=== PATIENT | male | born 1945 | race Caucasian/White ===

== ENCOUNTER → 2017-06-21 09:20 | Outpatient (CLI) | payer OTHER, SELFPAY ==
[2017-06-21 11:18] LABS: ALB/GLOB Ratio 1.1 RATIO (0.9-2.4); AST(SGOT) 16 U/L (15-37); Alanine Aminotransfer ALT/SGPT 29 U/L (16-61); Albumin, Serum 3.9 g/dL (3.2-5.0); Alkaline Phosphatase 86 U/L (45-117); Anion Gap 8 (5-15); BUN 14 mg/dL (7-18); BUN/Creat Ratio 16.3 RATIO (10-20); Calcium,Total 8.7 mg/dL (8.5-10.1); Chloride 108 mmol/L (98-107); Cholesterol 101 mg/dL (200); Creatinine, Serum 0.86 mg/dL (0.70-1.30); EST Glomerular Filtration Rate 93 mL/min (>60); Est Glom Filt Rate - Afr Amer 112 mL/min (>60); Globulin 3.7 g/dL (2.2-4.2); Glucose 101 mg/dL (74-106); High Density Lipoprotein 43 mg/dL; Protein, Total 7.6 g/dL (6.4-8.2); Sodium Level 145 mmol/L (136-145); Triglycerides 63 mg/dL; Very Low Density Lipoprotein 13 mg/dL (5-40)
[2017-06-21 11:22] LABS: Hemoglobin A1c 7.5 % (4.2-6.3)
[2017-06-21 13:41] LABS: Hemoglobin 15.2 g/dl (13.0-16.5)
[2017-06-22 11:28] LABS: Vitamin D,25 Hydroxy 14.7 ng/mL (19.95-100.01)
== END ==
PROVIDERS: Family Provider Family Medicine; PCP Family Medicine; Visit Provider Family Medicine
DX: E11.9 Type 2 diabetes mellitus without complications (principal); I10 Essential (primary) hypertension; E78.4 Other hyperlipidemia; E55.9 Vitamin D deficiency, unspecified; Z79.899 Other long term (current) drug therapy
CPT/HCPCS: 36415; 80053; 80061; 82306; 83036; 85018

== ENCOUNTER → 2018-01-10 14:09 | Outpatient (CLI) | payer OTHER, SELFPAY ==
--- NOTE | 2018-01-10 08:00 | LES_PTH ---
PATIENT: ALEJANDRO LEONARD LOC: [facility] U#:[id number] AGE/SX: 79/M ROOM: RE01/10/[address]: Dr. Jonathan Dillon MD : 1945 BED: DIS: SPEC #: [id number] RECD: 01/10/18 12:03 STATUS: WILLIAM KYLE #: [id number] KAREN: 01/10/18 08:[address]: Jonathan Dillon DEPT: SURGICAL PATHOLOGY RECD BY: Aleksandra Meyers ENTERED: 01/10/18 15:06 SP TYPE: Lesion OTHR DR: Dr. Petar Finnegan MD Tissues: A - Skin of external ear, NOS B - Skin of forehead Procedures: Surgery Specimen Level IV HEADER OPERATION: Shave biopsy right ear; punch biopsy right brow PRE-OP DIAGNOSIS: Multiple skin lesions, uncertain neoplasm face TISSUE SUBMITTED: A ? Right ear, B ? Right brow MICROSCOPIC DIAGNOSIS A. 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 See comment. B. Skin lesion of right brow, biopsy: Solar elastosis. Demodex follicularis. AM:william 01/11/18 COMMENT A. The specimen is superficial. Complete excision of lesion is recommended for definitive classification. MICROSCOPIC DESCRIPTION Slides are reviewed. GROSS DESCRIPTION A - Received in fixative is one container labeled with the patient's name and designated right ear. The specimen consists of an irregular fragment of light hatch-white soft tissue measuring 0.6 x 0.2 x <0.1 cm. The specimen is totally submitted in one cassette. B - Received in fixative is one container labeled with the patient's name and designated right brow. The specimen consists of an irregular fragment of light hatch-white soft tissue measuring 0.2 x 0.1 x 0.1 cm. The specimen is totally submitted in one cassette. / AM:william 01/10/18 TC:0 CPT: 58660 x2
== END ==
PROVIDERS: Family Provider Family Medicine; PCP Family Medicine; Visit Provider Surgery
DX: C44.222 Squamous cell carcinoma of skin of right ear and external auricular canal (principal)
CPT/HCPCS: 88305

== ENCOUNTER 2018-12-26 08:43 | Day surgery (SDC) | payer OTHER, SELFPAY ==
[2018-11-28 09:41] VITALS: BMI 39.1
--- NOTE | 2018-11-28 10:09 | HP_ITS ---
Intake Vital Signs 11/28/18 Body Mass Index (BMI) 39.1 11/28/18 Height 5 ft 7 in 11/28/18 Weight: 238 lb 11/28/18 Body Mass Index (BMI) 37.3 11/28/18 Blood Pressure 130/78 H 11/28/18 Blood Pressure Location Rt brachial 11/28/18 Blood Pressure Position Sitting 11/28/18 Respiratory Rate 20 H 11/28/18 Pulse Rate 81 11/28/18 Pulse Source Monitor 11/28/18 Temperature 97.5 F L 11/28/18 Pulse Ox 89 11/28/18 Oxygen Delivery Method room air Intake Visit Reasons: C-Scope/Lesions on Face Order Packer Required: No Is patient in pain?: No Allergies No Known Allergies Allergy (Verified 11/28/18 09:39) Medications Lisinopril/Hydrochlorothiazide [Zestoretic 02/05.5 Tablet] 1 tab PO DAILY 09/29/13 [History Confirmed 11/28/18] aspirin 81 mg tablet,delayed release 81 mg PO QDAY 12/31/17 [History Confirmed 11/28/18] atorvastatin 20 mg tablet 20 mg PO QDAY 12/31/17 [History Confirmed 11/28/18] metformin 500 mg tablet 500 mg PO DAILY tab 11/28/18 [History Confirmed 11/28/18] FOR[facility]LY [facility] Medical History Skin lesion of face (Acute) History of arthritis (Acute) History of back problems (Acute) Sleep apnea (Acute) COPD (chronic obstructive pulmonary disease) (Chronic) diabetes (Acute) hypercholesterolemia (Acute) HTN (hypertension) (Chronic) Surgical History H/O colonoscopy (Acute) H/O esophagogastroduodenoscopy (Acute) H/O hemorrhoidectomy (Acute) S/P appendectomy (Acute) Family History Mother Breast cancer Father Heart disease Social History (Updated 11/28/18 @ 10:09 by Jonathan Dillon MD) Smoking Status: Former smoker alcohol intake: never substance use type: does not use HPI HPI HPI: ALEJANDRO LEONARD, is a 73 M who presents to the office today for HPI HPI Surgical H&P: Yes HPI: ALEJANDRO HORACIO, is a 73 M who presents to the office today for 2 separate issues. One is for consideration of a surveillance colonoscopy. One is for follow-up of her right ear helix skin lesion. The patient's previous colonoscopy was September 29, 2013. At that time a rectal polyp was removed. Fortunately final pathology is noted to be hyperplastic. He has not had a history of previous polyps prior to that. There is no family history of colon cancer. At the time of the colonoscopy it was recommended follow-up in 5 years. In the interim the patient has had progressive pulmonary dysfunction. He now has been placed on oxygen therapy. He also has episodes of what sounds like sleep apnea. He is being strongly encouraged to undergo sleep study with potential utilization of CPAP. His is desperately trying to get him to pursue that. He notes that he is abdominally overweight. BMI is 39. He has previously had a right ear punch biopsy further treated with electrocautery. The specimen was consistent with squamous cell carcinoma in situ. Upon repeat office visit the lesion seemingly had been completely ablated with no residual territory to know how to further resect. The patient was given instructions to return to the office if and when there was evidence of recurrent lesions so that repeat excision could be considered. He now notes that he has recurrence of the lesion and it is slightly tender. ROS General General: No weight change, appetite, fatigue, colon cancer, breast cancer or weakness HEENT HEENT: No difficulty swallowing, eye injury, eye surgery, swollen glands or hoarseness Endo Endocrine: Yes diabetes mellitus; no thyroid disease, thyroid cancer, Hair loss, heat intolerance or cold intolerance Skin Skin: No rash or changing moles Breast Breast: No left breast lump, right breast lump, nipple discharge, breast pain, abnormal mammogram, abnormal US or breast enlargement Musc Musculoskeletal: Yes back problems and arthritis; no rheumatoid arthritis, gout or joint pain Cardio Cardiovascular: No murmur, pacemaker, heart disease, atrial fibrillation, high blood pressure, heart attack, heart stent, palpitations, shortness of breat with exertion or chest pain Psych Psychiatric: No depression, anxiety or hearing voices Resp Respiratory: Yes shortness of breath, Yes sleep apnea, Yes cough, Yes COPD, No asthma, No emphysema, No wheezing Gastro Gastrointestinal: No abdominal pain, No nausea or vomiting, Yes diarrhea, No constipation, No blood in stool, No acid reflux, No hemorrhoids, No ulcers, No gallbladder problem, No black,tarry stools Steffen Hematologic: Yes blood thinners, No blood disorders, No bleeding, No anemia, No blood clots Neuro Neurologic: No system reviewed and no additional complaints, except as docu, No as per HPI, No abnormal walking, No abnormal hearing, No abnormal movements, No abnormal speech, No behavioral changes, No burning sensations, No confusion, No seizure-like activity, No unsteadiness, No dizziness, No localized weakness, No frequent falls, No headache(s), No lack of coordination, No loss of vision, No memory loss, Yes numbness, No other visual disturbances, No radiating pain, No restless legs, No sensory deficit, No fainting, Yes tingling, No tremor(s), No weakness, No other Exam HENMT Other: Right ear helix: Keratotic irregular 2 x 1 cm nondescript growth Chest Breast Palpation: No nipple discharge Resp Other: Notably increased anterior posterior diameter, coarse with scattered wheeze bilaterally, poor air excursion Cardio Rate: regular rate Rhythm: regular rhythm Heart Sounds: no murmurs GI Palpation: soft, no hepatosplenomegaly Assessment & Plan Problems 1. 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 Personal history of colonic polyps Z86.010 Plan The patient has a personal history of hyperplastic polyp of the rectum. This places him at lower risk. His pulmonary disease is significant. Rather than recommending a colonoscopy I would recommend a Cologuard test. The patient and are aware of these recommendations. We will also contact the patient's primary care physician Dr. Petar Finnegan. The patient has recurrence of his right ear helix skin lesion. This is now readily visible. I recommended the patient that an attempt at complete excision of this area be pursued. I have offered him under local anesthesia a wide resection of this area with split thickness skin grafting donor site right upper arm. I have discussed the technique, benefit, risks, alternatives. I have compared and contrasted our ability to pursue that locally versus referring him for Mohs surgery. He has had an opportunity to ask and have questions answered. He would like to stay locally if possible. Because of his pulmonary disease again I would anticipate performing this under pure local anesthesia. I have vigorously encouraged the patient to utilize his inhalers as they have been prescribed in preparation for his surgery. I appreciate the opportunity of assisting with his surgical care CC: Dr. Petar Dillon M.D., F.A.C.S. 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 There are no clinical changes since date of exam. We plan to proceed with excision and split-thickness skin grafting of his right external ear helix lesion today. His history and examination remained steady. He has no additional concerns or complaints.
[2018-12-26 09:02] VITALS: BP 137/72; PULSE 84; RESP 22; TEMP 36.7; O2SAT 95; BMI 39.1
--- NOTE | 2018-12-26 11:00 | LES_PTH ---
PATIENT: ALEJANDRO LEONARD LOC: [facility] [place] U#:[id number] AGE/SX: 73/M ROOM: RE12/26/[address]: Dr. Jonathan Dillon MD : 1945 BED: DIS: 12/26/2018 SPEC #: [id number] RECD: 12/26/18 13:02 STATUS: WILLIAM KYLE #: [id number] KAREN: 12/26/18 11:[address]: Jonathan Dillon DEPT: SURGICAL PATHOLOGY RECD BY: Alex Gonzales ENTERED: 12/26/18 13:55 SP TYPE: Lesion OTHR DR: Dr. Petar Finnegan MD Tissues: Skin of external ear, NOS Procedures: Surgery Specimen Level IV HEADER OPERATION: Wide excision right ear helix, skin cancer with split thickness PRE-OP DIAGNOSIS: Squamous cell carcinoma in situ TISSUE SUBMITTED: Right external ear helix, short suture - superior, long suture - lateral MICROSCOPIC DIAGNOSIS Right external ear helix lesion, excisional biopsy: Squamous cell carcinoma in situ, completely excised in the planes of sections examined. Solar elastosis. JERI:william 12/27/18 COMMENT Please make reference to previous specimen ([id number]) right ear lesion, biopsy with diagnosis of fragments of squamous cell carcinoma in situ. This case has been reviewed in consultation with Dr. Mcconnell who concurs with the above diagnosis. MICROSCOPIC DESCRIPTION Slides are reviewed. GROSS DESCRIPTION Received in fixative is one container labeled with the patient's name and designated right external ear helix, short suture - superior, long suture - lateral. The specimen consists of an ovoid to slightly irregular piece of hatch-white skin measuring 2 x 1.5 cm and up to 0.2 cm in thickness. The specimen is oriented by short suture - superior, long suture - lateral. The specimen is inked as follows: superior margin - blue, inferior margin - green, medial margin - black and lateral margin - yellow. The specimen is serially sectioned and submitted entirely in two cassettes as follows: 1 - superior and inferior margins, 2 - rest of the specimen. / SJ:william 12/26/18 TC:0 CPT: 98251
--- NOTE | 2018-12-26 11:01 | DCINST_ITS ---
Discharge Diet: Light diet - advance as tolerated - if you have questions about your diet instructions, please talk to you doctor. Discharge Activity: May Not Drive - for 1 week or while taking narcotic pain medicine., May Not Shower Call your doctor if your incision/area has: Continuous Slow Oozing, Sudden Inc reased Bleeding, Increased Pain/ Swelling, Increased Redness, Foul Smelling Discharge Call your doctor if you observe: Fever of 101 or Higher Suture Line Care: Avoid Pulling/Pushing Allergies/Adverse Reactions: Allergies No Known Allergies Allergy (Verified 11/28/18 09:39) Medications to take at Discharge Lisinopril/Hydrochlorothiazide [Zestoretic 20/12.5 Tablet] 1 tab PO DAILY 09/29/13 aspirin 81 mg tablet,delayed release 81 mg PO QDAY 12/31/17 atorvastatin 20 mg tablet 20 mg PO QDAY 12/31/17 metformin 500 mg tablet 500 mg PO DAILY tab 11/28/18 Budesonide/Formoterol 160/4.5 [Symbicort 160/4.5 Mcg Inhaler (SP)] 2 puff IN BID 12/26/18 Ipratropium/Albuterol Respimat [Combivent Respimat Inhal [place]] 2 puff IN PRN 12/26/18 Primary Care Physician: Petar Finnegan MD [Primary Care Provider] - Test Results: Test results from this visit will be discussed in further detail at your follow- up appointment, if applicable. Please Follow Up With: Jonathan Dillon MD - [phone] When: Call to make an appointment to be seen in about 6 days on Sunday
--- NOTE | 2018-12-26 12:04 | PCM.OPRPT ---
Problem List (1) Squamous cell carcinoma in situ Status: Acute Report of Operation Date of Procedure: 12/26/18 Pre-Operative Diagnosis: Squamous cell carcinoma in situ right external ear helix Post-Operative Diagnosis: Same Surgery/Procedure Performed:: Wide excision right external ear helix skin lesion with right upper arm donor site split thickness skin grafting. Nondescript skin lesion 2 x 1 cm with circular excision 2.5 x 1.5 cm Description of Surgical Findings:: Timeout and informed consent was obtained. 83-year-old gentleman was taken out from placement the table. Cottonball was placed in the right external ear canal the right ear and upper arm sterilely prepped draped with Betadine. 1% lidocaine mixed 50-50 with 0.5% Marcaine was used as local anesthetic. 25 cc was used. Local was instilled was brought into the right external ear helix. A approximately 2.5 x 1.5 cm excision was performed to completely excise a very nondescript remaining skin lesion. This was performed down to the ear cartilage. Pressure and electrocautery was used for hemostasis. A long suture was placed laterally and a short suture superiorly and the specimen was submitted. The right upper arm was anesthetized with the same solution. A split thickness skin was harvested with a harvester. Epinephrine soaked gauze was placed. The graft was then transported to the ear. Using multiple interrupted 6-0 nylon it was secured in place. Adaptic cottonball the posterior sutures of 2-0 silk placed. The arm was treated with an OpSite dressing Sponge and instrument and needle counts were reported to surgically correct. Blood loss minimal. He tolerated the procedure well and was taken back to his room in satisfactory condition without apparent complication. Specimen includes the skin lesion. Drains none. Blood loss minimal. Jonathan Dillon M.D., F.A.C.S. Type of Anesthesia:: Local
[2018-12-26 12:30] VITALS: BP 132/73; BP 137/72; PULSE 77; RESP 18; TEMP 36.7; O2SAT 90
== END 2018-12-26 12:44 | disposition home or self-care (01) ==
LOC: SDC 08:44 → AC 08:45
PROVIDERS: Family Provider Family Medicine; PCP Family Medicine; Referring Provider Surgery; Visit Provider Surgery
PROC: (CPT 11644; principal; 2018-12-26 10:50)
DX: D04.21 Carcinoma in situ of skin of right ear and external auricular canal (principal); L57.8 Other skin changes due to chronic exposure to nonionizing radiation; W89.9XXA Exposure to unspecified man-made visible and ultraviolet light, initial encounter; Y93.9 Activity, unspecified; Y92.9 Unspecified place or not applicable; Y99.9 Unspecified external cause status; J44.9 Chronic obstructive pulmonary disease, unspecified; E11.9 Type 2 diabetes mellitus without complications; I10 Essential (primary) hypertension; E78.00 Pure hypercholesterolemia, unspecified; G47.30 Sleep apnea, unspecified; M19.90 Unspecified osteoarthritis, unspecified site; E66.3 Overweight; Z68.39 Body mass index [BMI] 39.0-39.9, adult; Z79.82 Long term (current) use of aspirin; Z79.84 Long term (current) use of oral hypoglycemic drugs; Z79.899 Other long term (current) drug therapy; Z86.010 Personal history of colon polyps; Z87.891 Personal history of nicotine dependence
CPT/HCPCS: 11644; 15120; 88305

== ENCOUNTER 2020-01-14 21:16 | Inpatient (IN) | payer OTHER, MEDICARE, SELFPAY ==
[2020-01-14] VITALS (9 sets, daily range): BP systolic 113–146; BP diastolic 56–72; PULSE 107–122; RESP 12–36; TEMP 35.7–35.9; O2SAT 84–98; BMI 35.4
--- NOTE | 2020-01-14 21:37 | ED.DCSUM_ITS ---
History of Present Illness Chief Complaint: Shortness of Breath Informant: Patient, Family Narrative: 74-year-old male presenting with shortness of breath. Most of the history is given by his family member who states that he is typically supposed to wear oxygen at about 3 L for the last few years but does not wear it at home. He has been having worsening shortness of breath over the last couple of weeks. He has not had a fever or cough but has had increased confusion. Patient is slightly confused on examination but is alert to voice. Patient says he does not have any chest pain, abdominal pain, nausea, vomiting. Past Medical History - Allergies and Home Meds Allergies/Adverse Reactions: Allergies No Known Allergies Allergy (Verified 01/14/20 21:51) Past Medical History: - - COPD, hyperlipidemia, hypertension, diabetes Surgical History: noncontributory Lives: With Family Smoking Status: Former smoker Alcohol: None Drugs: None Review of Systems General: Denies: Chills, Fever Eyes: Denies: Visual changes - bilaterally, Diplopia ENT: Denies: Rhinorrhea, Sore throat Cardiovascular: Denies: Chest pain, Palpitations Respiratory: Reports: Dyspnea, Dyspnea on exertion. Denies: Cough Gastrointestinal: Denies: Abdominal pain, Nausea, Vomiting Genitourinary: Denies: Dysuria, Hematuria Musculoskeletal: Denies: Myalgias, Arthralgias Skin: Denies: Rash, Abscess Neurological: Denies: Headache, Weakness Physical Exam Vital Signs/Narrative: Vital Signs Temp Pulse Resp BP Pulse Ox 01/14/20 21:28 117 H 24 H 89 01/14/20 21:17 96.5 F L 122 H 36 H 146/67 H 84 General: Acute Distress - Hypoxic and tachypneic Head: Normocephalic, Atraumatic Eyes: Perrl, EOMI ENT: Dry mucous membranes Cardiovascular: Regular rhythm, Tachycardia Respiratory: Decreased Air Movement, - - Diminished breath sounds left upper and lower air mccoy Abdomen: Soft, Nontender Back: Nontender, Normal Inspection Extremities: Edema. Negative for: Tenderness Skin: Normal color, No rash Neurological: Alert - Oriented to self and month but not the year. No focal neurologic deficits. Diagnostic/Tx/Re-eval - EKG Initial EKG Interpretation: Sinus Tachycardia, RBBB - Medical Decision Making 74-year-old male with history of COPD presenting with shortness of breath which is been worsening over the last couple of weeks as well as severe worsening over the past couple of days. He supposed to be on home oxygen but does not wear this. Patient was brought in by EMS on 15 L of oxygen and is still hypoxic. He started on BiPAP. He initially is slightly confused but appears to be improving. Lab work shows a leukocytosis, lactic acid of 3. Tachycardic and hypoxic so I did do blood cultures and urine cultures. EKG is sinus rhythm without signs of ischemia. Troponin negative. BNP within normal limits. Chest x-ray shows large left-sided pleural effusion as well as possible infiltrates in the right lung. Patient was given Rocephin and azithromycin for community- acquired coverage. Patient was reevaluated again and states he feels much better and is much more clear headed. At this point I will keep him on BiPAP. I did discuss this with the hospitalist and he recommended admission to the ICU but did not think the patient needed 30 cc/kg of fluids. Impression: 1. Large left pleural effusion 2. Communicare pneumonia 3. Hypoxia 4. Medical noncompliance with home O2 5. Severe sepsis ED Disposition - Plan for ED Patient: Disposition: Acute Care Hospital [facility]
--- NOTE | 2020-01-14 21:38 | EKG12_ITS ---
Test Reason : CHEST PAIN Blood Pressure : / mmHG Vent. Rate : 122 BPM Atrial Rate : 122 BPM P-R Int : 136 ms QRS Dur : 126 ms QT Int : 340 ms P-R-T Axes : 015 102 011 degrees QTc Int : 484 ms Sinus tachycardia with Fusion complexes Right bundle branch block Abnormal ECG Confirmed by BOBBY BOTELLO, KESHAWN ([id number]), assignment desk editor CLIF VANCE ([id number]) on 01/20/2020 7:59:26 AM Referred By: SUSAN Confirmed By:QUYEN ROSALES MD
[2020-01-14] MEDS: MethylPREDNISolone 125 MG/2 ML Vial IV (21:53)
--- NOTE | 2020-01-14 22:10 | RAD_ITS ---
STUDY: X-RAY CHEST REASON FOR EXAM: Male, 74 years old. HX OF COPD WITH INCREASED SOB TODAY TECHNIQUE: Single frontal view of the chest. COMPARISON: None. FINDINGS: Right basilar and left upper lobe alveolar disease. Extensive left pleural fluid. Normal size heart. Normal mediastinum and arash. Normal visualized pulmonary arteries. Normal visualized aortic arch and descending thoracic aorta. Normal visualized thoracic spine. There is degenerative osteoarthritis of the bilateral shoulders. There is no demonstrated abnormality of the visualized soft tissue structures of the upper abdomen. RAD/Chest 1 View (Portable) IMPRESSION: Right basilar and left upper lobe alveolar disease. Extensive left pleural fluid. Electronically Signed: Oswald Mata MD at 22:23 EDT Tel , Service support ,
[2020-01-14 22:11] LABS: Absolute Lymphocyte Count 2.56 X10^3/uL (0.83-4.51); Absolute Neutrophil Count 12.2 X10^3/uL (2.0-7.7); Basophil# 0.04 X10^3/uL; Basophil% 0.3 % (0-1); Eosinophil# 0.11 X10^3/uL; Eosinophils% 0.7 % (0-5); Hematocrit 44.6 % (40-54); Hemoglobin 12.7 g/dL (13.0-16.5); Lymphocyte # 2.56 X10^3/ul (4.0); Lymphocyte % 16.5 % (19-41); Mean Corp Hgb Conc 28.5 g/dL (32-36); Mean Corpuscular Hgb 25.2 pg (27.0-32.0); Mean Corpuscular Volume 88.5 fL (80-94); Mean Platelet Vol. 10.9 fl (6.2-12.0); Monocyte# 0.52 X10^3/uL; Monocyte% 3.4 % (0-10); NRBC Flagged by Analyzer 0 % (0-5); Neutrophil # 12.16 X10^3/uL (2.7-7.7); Neutrophil % 78.5 % (47-70); POSITIVE MORPHOLOGY YES; Platelet Count 350 K/mm3 (150-450); RBC Distribution Width SD 67.5 fl (35.1-43.9); Red Blood Count 5.04 M/mm3 (4.6-6.2); White Blood Count 15.5 K/mm3 (4.4-11.0)
[2020-01-14 22:14] LABS: ALB/GLOB Ratio 0.6 RATIO (0.9-2.4); AST(SGOT) 32 U/L (15-37); Alanine Aminotransfer ALT/SGPT 34 U/L (16-61); Albumin, Serum 2.6 g/dL (3.2-5.0); Alkaline Phosphatase 139 U/L (45-117); Anion Gap 2 (5-15); BUN 20 mg/dL (7-18); Calcium,Total 8.8 mg/dL (8.5-10.1); Chloride 98 mmol/L (98-107); Creatinine, Serum 1.05 mg/dL (0.70-1.30); EST Glomerular Filtration Rate 73 mL/min (>60); Est Glom Filt Rate - Afr Amer 89 mL/min (>60); Estimated Creatinine Clearance 59.71 ml/min; Globulin 4.5 g/dL (2.2-4.2); Glucose 388 mg/dL (74-106); Potassium 4.3 mmol/L (3.5-5.1); Protein, Total 7.1 g/dL (6.4-8.2); Sodium Level 139 mmol/L (136-145)
[2020-01-14 22:15] LABS: International Normalized Ratio 1.1
[2020-01-14 22:16] LABS: Partial Thromboplast Time 24.7 Seconds (24.1-36.2)
--- NOTE | 2020-01-14 22:24 | ED.RN ---
LACTIC OF 3.0 REPORTED TO . VERBALIZES UNDERSTANDING
[2020-01-14 22:25] LABS: Differential Indicated SCAN CRITERIA MET
[2020-01-14 22:37] LABS: Anisocytosis 1+; Differential Comment SCANNED
[2020-01-14] MEDS: Ceftriaxone 1 GM/50 ML BAG IV (22:43)
--- NOTE | 2020-01-14 22:51 | HP.PCM_ITS ---
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 Associated with symptoms is confusion. History was taken for emergency department doctor as patient was on BiPAP and he was confused. However patient did deny fever or chills. He repo rts a productive cough. Reportedly patient is supposed to be wearing a 3 L oxygen per nasal cannula however he is noncompliant with it. Past Medical History Past Medical History (Chronic Problems): Chronic Problems (Last Reviewed 01/15/20 @ 03:[address] Deniz Fajardo MD) COPD exacerbation (Chronic) Squamous cell carcinoma in situ (Chronic) Skin lesion of face (Chronic) Medical History: Medical History (Last Reviewed 01/15/20 @ 03:[address] Deniz Fajardo MD) Personal history of colonic polyps (Acute) Z86.010 Squamous cell carcinoma in situ (Acute) D09.9 Skin lesion of face (Acute) L98.9 History of arthritis Z87.39 History of back problems Sleep apnea G47.30 diabetes hypercholesterolemia COPD (chronic obstructive pulmonary disease) J44.9 HTN (hypertension) I10 Allergies No Known Allergies Allergy (Verified 01/14/20 21:51) Home Medications: Ambulatory Orders Medication Instructions Recorded aspirin 81 mg tablet,delayed 81 mg PO QDAY 12/31/17 release atorvastatin 20 mg tablet 20 mg PO QDAY 12/31/17 metformin 500 mg tablet 1,000 mg PO DAILY tab 11/28/18 Budesonide/Formoterol 160/4.5 2 puff IN BID 12/26/18 [Symbicort 160/4.5 Mcg Inhaler (SP)] Ipratropium/Albuterol Respimat 2 puff IN Q4H PRN PRN 12/26/18 [Combivent Respimat Inhal [place]] Duloxetine HCl 30 mg PO DAILY 01/15/20 Furosemide [Lasix] 20 mg PO DAILY 01/15/20 Gabapentin [Neurontin] 600 mg PO TID 01/15/20 Glimepiride [Amaryl] 8 mg PO DAILY 01/15/20 Insulin Glargine [Lantus SoloStar 100 units SQ DAILY 01/15/20 Pen] Lisinopril [Zestril] 20 mg PO DAILY 01/15/20 Tramadol HCl [Ultram] 50 mg PO TID 01/15/20 Surgical History: Surgical History (Last Reviewed 01/15/20 @ 03:[address] Deniz Fajardo MD) H/O colonoscopy Z98.890 2013 H/O esophagogastroduodenoscopy Z98.890 2013 H/O hemorrhoidectomy Z98.890 S/P appendectomy Z90.49 s/p skin lesion removal right ear 12/30 with donor site rue Lives: With Family Smoking Status: Former smoker Alcohol: None Drugs: None - *Family History Maternal Family History: Family History (Last Reviewed 01/15/20 @ 03:[address] Deniz Fajardo MD) Mother Breast cancer Father Heart disease Review of Systems Unable to obtain accurate/complete ROS d/t: confusion VTE Information - Inpt Only VTE Present on Admission: No VTE Mechan Device Prophylaxis: None VTE Pharm Prophylaxis ordered?: Yes Patient Problems: Active and Suspected Problems (Last Reviewed 01/15/20 @ 03:[address] Deniz Fajardo MD) Severe sepsis (Acute) Pneumonia (Acute) - Physical Exam Vitals/I&O's: Vital Signs Temp Pulse Resp BP Pulse Ox 96.2 F L 117 H 22 H 113/56 L 93 01/14/20 22:05 01/14/20 22:05 01/14/20 22:05 01/14/20 22:05 01/14/20 22:05 Oxygen Flow Rate (L/min) 15 Oxygen Delivery Method Bi-pap Weight: 105.6 kg Body Mass Index (BMI) 35.4 General: Alert, Confused, Lethargic HEENT: Atraumatic, PERRLA, EOMI, Normocephalic Neck: Supple, No JVD, Negative Carotid Bruits Lungs: Rales, Tachypneic, Wheezes Cardiovascular: Normal S1, Normal S2, No murmurs, Tachycardic Abdomen: Bowel Sounds Present, Soft, Non Tender Extremities: No edema, Capillary Refill Less than 3 Seconds Skin: No rashes, No breakdown Musculoskeletal: No Tenderness to Palpation of Joints or Extremities Neurological: - - Confused Psych/Mental Status: Normal Affect, Appropriate Laboratory Results 01/14/20 21:25: WBC 15.5 H, RBC 5.04, Hgb 12.7 L, Hct 44.6, MCV 88.5, MCH 25.2 L , MCHC 28.5 L, RDW Std Deviation 67.5 H, RDW Coeff of [place] 21.0 H, Plt Count 350, MPV 10.9, Immature Gran % (Auto) 0.600, Neut % (Auto) 78.5 H, Lymph % (Auto) 16.5 L, Ashley % (Auto) 3.4, Eos % (Auto) 0.7, Baso % (Auto) 0.3, Absolute Neuts (auto) 12.2 H, Absolute Lymphs (auto) 2.56, Nucleated RBC % 0, Differential Comment SCANNED, Anisocytosis 1+ 01/14/20 21:25: PT 14.0, INR 1.1, APTT 24.7 01/14/20 21:25: Sodium 139, Potassium 4.3, Chloride 98, Carbon Dioxide 39.0 H, Anion Gap 2 L, BUN 20 H, Creatinine 1.05, Estim Creat Clear Calc 59.71, Est GFR (MDRD) Af Amer 89, Est GFR (MDRD) Non-Af 73, BUN/Creatinine Ratio 19.0, Glucose 388 H, Calcium 8.8, Total Bilirubin 0.30, AST 32, ALT 34, Alkaline Phosphatase 139 H, Total Protein 7.1, Albumin 2.6 L, Globulin 4.5 H, Albumin/Globulin Ratio 0.6 L 01/14/20 21:25: Lactic Acid 3.0 H* 01/14/20 21:25: B-Natriuretic Peptide 31.0 Current Medications Ceftriaxone Sodium (Rocephin) 1 gm in 50 mls @ 100 mls/hr IV X1 ONE Stop: 01/14/20 22:58 Last Admin: 01/14/20 22:43 Dose: 100 mls/hr Documented by: Azithromycin 500 mg/ Dextrose 255 mls @ 250 mls/hr IV X1 ONE Stop: 01/14/20 23:30 Assessment/Plan All Active Problems (Last Reviewed 01/15/20 @ 03:[address] Deinz Fajardo MD) Severe sepsis (Acute) Pneumonia (Acute) Personal history of colonic polyps (Acute) The patient is a 74 year old M with a significant history of COPD who presents emergency department with shortness of breath; with white out of his left long and with extremely elevated CO2. Acute on chronic hypercapnic respiratory failure Actual CXR image independently reviewed showed opacity of left lung. Received Solu-Medrol and breathing treatments at emergency department; and continued. Because of a probable mucous plug will add Mucinex.. Received azithromycin and ceftriaxone the emergency department. We will escalate antibiotics to vancomycin and Zosyn Admitted drinking intensive care unit. Placed on BiPAP at emergency department and continued. With worsening ABG; repeat. Monitor BMP and CBC Severe sepsis secondary to pneumonia Possible gram-negative or gram-positive. Patient with tachycardia; tachypnea; leukocytosis of 15,500 lactic acid of 3.0 Blood culture x2 was obtained emergency department; follow Urine culture was obtained; follow Respiratory Gram stain and culture pending Legionella antigen screen and Strep antigen ordered Diabetes mellitus with hyperglycemia Patient n.p.o. secondary to being on BiPAP. Hold home Amaryl and metformin. Basal insulin adjusted Accu-Chek every 4 hours with correction scale insulin ordered. Hypertension Blood pressure is now within goal Hold home p.o. blood pressure medications: Lisinopril PRN labetalol ordered. DVT prophylaxis Subcutaneous Lovenox Inpatient E&M: 48831 Init Hosp L3
[2020-01-14] MEDS: Albuterol 2.5 MG/3 ML VIAL.NEB. INHALATION (22:56)
[2020-01-14] MEDS: Ipratropium/Albuterol Sulfate 3 ML AMPUL.NEB INHALATION (22:56)
[2020-01-15] VITALS (55 sets, daily range): BP systolic 72–201; BP diastolic 49–110; PULSE 70–141; RESP 12–41; TEMP 35.8–37.3; O2SAT 87–99; BMI 35.9
[2020-01-15 00:38] LABS: Allen Test POS; Blood Gas Specimen Type ART; SITE R RADIAL
[2020-01-15 00:39] LABS: EPAP 16; FI02 100; IPAP 24; O2 Delivery Device Bi Pap; RR 12; Time Given 2205
[2020-01-15 00:40] LABS: Base Excess 11 mmol/L (-2 to +2); Bicarbonate 38.4 mmol/L (22-26); PO2 82 mmHG (75-100); SO2 92 % (95-99); Total Carbon Dioxide 41 mmol/L; pH 7.23 (7.35-7.45)
[2020-01-15 00:45] LABS: Allen Test POS; Blood Gas Specimen Type ART; EPAP 14; FI02 100; IPAP 26; O2 Delivery Device Bi Pap; RR 12; SITE R RADIAL
[2020-01-15 00:46] LABS: Base Excess 13 mmol/L (-2 to +2); Bicarbonate 40.4 mmol/L (22-26); PO2 96 mmHG (75-100); SO2 95 % (95-99); Time Given 9; Total Carbon Dioxide 43 mmol/L; pCO2 97.5 mmHg (35-45); pH 7.23 (7.35-7.45)
[2020-01-15 01:32] LABS: Bacteria 0 SEEN /hpf (None Seen); Color, Urine Yellow (Yellow); Glucose, Dipstick 1000 mg/dl (Normal); Ketone-Dipstick 5 mg/dl (Negative); Leukocyte Esterase-Dipstick Negative /ul (Negative); Mucous, Urine 0 SEEN /hpf (<or=2+); Nitrite-Dipstick Negative (Negative); Occult Blood-Urine 10 /ul (Negative); Protein-Dipstick 100 mg/dl (Negative); Specific Gravity, Urine 1.025 (1.002-1.030); Squamous Epithelial Cells - UA 0 SEEN /hpf (0-5); Urine Bilirubin Dipstick Negative (Negative); Urine Clarity Clear (Clear); Urine Urobilinogen Normal (Normal); White Blood Cells 0 SEEN /hpf (0-5)
[2020-01-15 01:38] LABS: Red Blood Cells-Urine 0-5 SEEN /hpf (0-5)
[2020-01-15 01:52] LABS: Reflex Lactate? Y
--- NOTE | 2020-01-15 01:55 | CPS ---
Critical value read to Dr. Figueroa (PaCO2: 92.0mmHg)
[2020-01-15] MEDS: Insulin Lispro 100 UNIT/ML INSULN.PEN SC ×6 (01:56→22:39)
--- NOTE | 2020-01-15 01:56 | CPS ---
Critical value read to Dr. Figueroa (PaCO2: 97.5mmHg)
[2020-01-15 02:01] LABS: Bedside Glucose 363 mg/dL (70-110)
[2020-01-15] MEDS: 0.9% Saline Lock 10 ML Syringe IV ×2 (02:46→04:14)
[2020-01-15 02:59] LABS: Lactic Acid 1.9 mmol/L (0.4-1.9)
--- NOTE | 2020-01-15 03:00 | NURSING ---
Dr. Fajardo at bedside for intubation. 0302 Etomidate 20mg given. [address] Fajardo attempted intubation several times with intermittent bagging. 0315 100mg Succs given. 0319 Anesthesia called by nursing supv. 0323 Dr. Abiola ORTEGA MD came into room to attempt intubation. 0324 10mg Etomidate given. [address] Culver successful on intubation. #7.5 24@lip. Positive color change and bilateral breath sounds.
[2020-01-15] MEDS: Etomidate 20 MG/10 ML Vial IV (03:02)
--- NOTE | 2020-01-15 03:07 | PCM.RX.CS ---
Consult Pharmacy has been consulted to manage selected antiobiotic: Vancomycin Type of Consult: New start Suspected Infection: Sepsis, Pneumonia Prior Doses of Antibiotics Received/Current Regimen: Medications Vancomycin HCl 1,250 mg/ (Sodium Chloride) 275 mls @ 167 mls/hr IV Q12H JUANITO Vancomycin HCl 2,000 mg/ (Sodium Chloride) 540 mls @ 250 mls/hr IV X1 ONE Stop: 01/15/20 04:39 Last Admin: 01/15/20 02:44 Dose: 250 mls/hr Labs: Sodium 139 mmol/L (136-145) 01/14/20 21:25 Potassium 4.3 mmol/L (3.5-5.1) 01/14/20 21:25 Chloride 98 mmol/L (98-107) 01/14/20 21:25 Carbon Dioxide 39.0 mmol/L (21.0-32.0) H 01/14/20 21:25 Anion Gap 2 (5-15) L 01/14/20 21:25 BUN 20 mg/dL (7-18) H 01/14/20 21:25 Creatinine 1.05 mg/dL (0.70-1.30) 01/14/20 21:25 Est GFR (MDRD) Af Amer 89 mL/min (>60) 01/14/20 21:25 Est GFR (MDRD) Non-Af 73 mL/min (>60) 01/14/20 21:25 BUN/Creatinine Ratio 19.0 RATIO (10-20) 01/14/20 21:25 Glucose 388 mg/dL (74-106) H 01/14/20 21:25 Microbiology: Microbiology 01/15/20 01:20 Urine Catheter - Catheter Streptococcus pneumoniae Antigen (M - Final 01/15/20 01:20 Urine Catheter - Catheter Legionella Antigen - Final Weight used for dosin.1 kg Estimated Creatinine Clearance: 59.7 Goal Trough: 15-20 mcg/mL Pharmacy Plan for Drug Dosing: Pharmacy Service will continue to monitor and adjust dosing as required. Follow-Up Labs: Trough Vancomycin Labs to be done on [date and time ordered]: 01/16/20 @1400
[2020-01-15] MEDS: Etomidate 20 MG/10 ML Vial 10 MG IV (03:24)
[2020-01-15] MEDS: Propofol 10MG/Ml 1,000 MG/100 ML Bottle 6.2 MG CONT INF (03:28)
--- NOTE | 2020-01-15 03:30 | RAD_ITS ---
STUDY: X-RAY CHEST REASON FOR EXAM: Male, 74 years old. Endotracheal and orogastric tube placement. TECHNIQUE: AP portable chest. COMPARISON: January 14, 2020. FINDINGS: Endotracheal tube tip at the level of the superior margin of the aortic arch, 3 cm above the racheal. Orogastric tube tip below left hemidiaphragm at least in the gastric fundus. Extensive left mid and lower lung airspace opacity not simply changed. Slightly improved aeration left lung apex. Right basilar airspace opacity unchanged. No pneumothorax. Normal size heart. Normal mediastinum and arash. Normal visualized pulmonary arteries. Normal visualized aortic arch and descending thoracic aorta. Osseous structures unchanged. There is no demonstrated abnormality of the visualized soft tissue structures of the upper abdomen. RAD/Chest 1 View (Portable) IMPRESSION: Support tubes in expected locations. No pneumothorax. Persistent extensive left mid and lower lung opacity representing a combination of pleural effusion, atelectasis and possible pneumonia. Mild improved aeration left upper lobe. Right basilar opacity unchanged. Electronically Signed: Eduardo Obando MD at 5:21 EDT , Service support ,
--- NOTE | 2020-01-15 03:36 | PCM.PN.BLA ---
Progress Note Unsuccessful intubation attempt. Back up was called. ED doc with aide of GlideScope intubated patient. Color change on monitor Stat Chest Xray ordered. Place on vent AC with propofol and fentanyl drip STROKE Vital Signs/Narrative: Vital Signs Temp Pulse Resp BP BP Pulse Ox 01/15/20 02:00 98.7 F 87 25 H 122/68 H 90 01/15/20 01:30 98.3 F 109 H 23 H 135/68 H 92 01/15/20 01:25 94 01/15/20 01:15 97.1 F L 112 H 20 H 162/87 H 95 01/15/20 01:00 109 H 15 134/75 H 98 01/15/20 00:57 107 H 01/15/20 00:50 108 H 17 99 01/15/20 00:37 111 H 41 H 139/64 H 97 01/15/20 00:05 96.4 F L 108 H 18 125/110 H 96 01/14/20 23:38 112 H 20 H 98
--- NOTE | 2020-01-15 03:36 | NURSING ---
0300: Preparing for intubation. Dr. Fajardo, Respiratory, RNs at [facility]. 0302: 20mg Etomidate given 0303: 100mg Succinylcholine given 0315: 100mg Succinycholine given 0319: Anesthesia/ED called to bedside 0323: Dr. Culver (ED) at bedside 0324: 10mg Etomidate given 0326: Anesthesia DrLisa arrival 0327: 7.5ET placed by Dr. Culver. 24@lip. B/L breath sounds present. Positive color change.
[2020-01-15] MEDS: Famotidine 200 MG/20 ML MDV 20 MG in 0.9% Normal Saline (Pres. free 8 ML 300 MG IV ×2 (04:14→10:11)
--- NOTE | 2020-01-15 04:31 | NURSING ---
Notified Maris of intubation. All questions answered.
[2020-01-15 05:21] LABS: Absolute Neutrophil Count 11.5 X10^3/uL (2.0-7.7); Basophil# 0.02 X10^3/uL; Basophil% 0.2 % (0-1); Hematocrit 39.1 % (40-54); Hemoglobin 11.2 g/dL (13.0-16.5); Lymphocyte % 7.1 % (19-41); Mean Corp Hgb Conc 28.6 g/dL (32-36); Mean Corpuscular Hgb 24.9 pg (27.0-32.0); Mean Corpuscular Volume 86.9 fL (80-94); Mean Platelet Vol. 10.1 fl (6.2-12.0); Monocyte# 0.23 X10^3/uL; Monocyte% 1.8 % (0-10); NRBC Flagged by Analyzer 0 % (0-5); Neutrophil # 11.53 X10^3/uL (2.7-7.7); Neutrophil % 90.4 % (47-70); POSITIVE MORPHOLOGY YES; Platelet Count 282 K/mm3 (150-450); RBC Distribution Width CV 20.9 % (11.6-14.6); RBC Distribution Width SD 66.3 fl (35.1-43.9); White Blood Count 12.7 K/mm3 (4.4-11.0)
[2020-01-15 05:42] LABS: Anion Gap -2 (5-15); BUN 23 mg/dL (7-18); BUN/Creat Ratio 22.5 RATIO (10-20); CPK Total, Creatine Kinase 35 U/L (39-308); Calcium,Total 8.2 mg/dL (8.5-10.1); Chloride 99 mmol/L (98-107); Creatinine, Serum 1.02 mg/dL (0.70-1.30); EST Glomerular Filtration Rate 76 mL/min (>60); Est Glom Filt Rate - Afr Amer 92 mL/min (>60); Glucose 310 mg/dL (74-106); Potassium 4.4 mmol/L (3.5-5.1); Sodium Level 141 mmol/L (136-145); Triglycerides 66 mg/dL
[2020-01-15 05:57] LABS: Differential Indicated SCAN CRITERIA MET
[2020-01-15 06:07] LABS: Differential Comment SCANNED
[2020-01-15 06:21] LABS: Bedside Glucose 308 mg/dL (70-110)
[2020-01-15] MEDS: Ipratropium/Albuterol Sulfate 3 ML AMPUL.NEB INHALATION ×4 (07:17→19:15)
[2020-01-15 07:43] LABS: Allen Test POS; Blood Gas Specimen Type ART; SITE R RADIAL
[2020-01-15 07:44] LABS: FI02 75; O2 Delivery Device Bi Pap; PEEP 10; PS 14; RR 12; Time Given 235
[2020-01-15 07:45] LABS: Base Excess 15 mmol/L (-2 to +2); Bicarbonate 41.6 mmol/L (22-26); PO2 60 mmHG (75-100); SO2 85 % (95-99); Total Carbon Dioxide 44 mmol/L; pCO2 87.9 mmHg (35-45); pH 7.28 (7.35-7.45)
[2020-01-15 07:50] LABS: Allen Test POS; Blood Gas Specimen Type ART; FI02 90; Mode A-C; O2 Delivery Device Vent; PEEP 5; RR 14; SITE R RADIAL; Time Given 710; Vt 500; pCO2 59.5 mmHg (35-45)
[2020-01-15 07:51] LABS: Base Excess 12 mmol/L (-2 to +2); Bicarbonate 36.9 mmol/L (22-26); PO2 62 mmHG (75-100); SO2 90 % (95-99); Total Carbon Dioxide 39 mmol/L
--- NOTE | 2020-01-15 08:38 | PCM.CON.CC ---
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 Patient reportedly is supposed to wear supplemental oxygen at home at 3 L, but has been noncompliant per family report. Patient had had worsening shortness of breath over the last couple of weeks, but did not report any fever or cough the family. Patient reportedly had some increased confusion and was brought in for evaluation. Patient reportedly had not complained of chest pain, abdominal pain, nausea or vomiting. No trauma had been reported to ER staff. In the ER, patient was noted to be significantly hypoxic despite 15 L of oxygen. Patient was started on BiPAP at very high settings with slightly improved confusion. Lab work showed a significant leukocytosis and elevated lactate at 3. Patient was also tachycardic. Chest x-ray was suggestive of a left-sided pleural effusion with possible right-sided infiltrate. Patient was started on Rocephin, azithromycin and admitted to the intensive care unit. Patient was not given a fluid bolus secondary to appropriate blood pressures. While in the intensive care unit, patient had an ABG showing continued acute on chronic combined respiratory failure. Decision was made to proceed with intubation. Patient was reportedly a very difficult intubation requiring a protracted course. Following intubation, ABG showed normalization of respiratory status. Patient has had some issues with hypotension associated with sedation. Patient unable to provide any review of systems secondary to intubated and sedated. Past Medical History Past Medical History (Chronic Problems): Chronic Problems (Last Reviewed 01/15/20 @ 03:[address] Deniz Fajardo MD) COPD exacerbation (Chronic) Squamous cell carcinoma in situ (Chronic) Skin lesion of face (Chronic) Medical History: Medical History (Last Reviewed 01/15/20 @ 03:[address] Deniz Fajardo MD) Personal history of colonic polyps (Acute) Z86.010 Squamous cell carcinoma in situ (Chronic) D09.9 Skin lesion of face (Chronic) L98.9 History of arthritis Z87.39 History of back problems Sleep apnea G47.30 diabetes hypercholesterolemia COPD (chronic obstructive pulmonary disease) J44.9 HTN (hypertension) I10 Allergies No Known Allergies Allergy (Verified 01/14/20 21:51) Home Medications: Ambulatory Orders Medication Instructions Recorded aspirin 81 mg tablet,delayed 81 mg PO QDAY 12/31/17 release atorvastatin 20 mg tablet 20 mg PO QDAY 12/31/17 metformin 500 mg tablet 1,000 mg PO DAILY tab 11/28/18 Budesonide/Formoterol 160/4.5 2 puff IN BID 12/26/18 [Symbicort 160/4.5 Mcg Inhaler (SP)] Ipratropium/Albuterol Respimat 2 puff IN Q4H PRN PRN 12/26/18 [Combivent Respimat Inhal Keldron] Duloxetine HCl 30 mg PO DAILY 01/15/20 Furosemide [Lasix] 20 mg PO DAILY 01/15/20 Gabapentin [Neurontin] 600 mg PO TID 01/15/20 Glimepiride [Amaryl] 8 mg PO DAILY 01/15/20 Insulin Glargine [Lantus SoloStar 100 units SQ DAILY 01/15/20 Pen] Lisinopril [Zestril] 20 mg PO DAILY 01/15/20 Tramadol HCl [Ultram] 50 mg PO TID 01/15/20 Surgical History: Surgical History (Last Reviewed 01/15/20 @ 03:[address] Deniz Fajardo MD) H/O colonoscopy Z98.890 2013 H/O esophagogastroduodenoscopy Z98.890 2013 H/O hemorrhoidectomy Z98.890 S/P appendectomy Z90.49 s/p skin lesion removal right ear 12/30 with donor site rue Surgical History: noncontributory Lives: With Family Smoking Status: Former smoker Alcohol: None Drugs: None - *Family History Maternal Family History: Family History (Last Reviewed 01/15/20 @ 03:[address] Deniz Fajardo MD) Mother Breast cancer Father Heart disease Review of Systems Unable to obtain accurate/complete ROS d/t: Intubated and sedated Patient Problems: Active and Suspected Problems (Last Reviewed 01/15/20 @ 03:[address] Deniz Fajardo MD) Severe sepsis (Acute) Pneumonia (Suspected) Objective: Chest x-ray was personally reviewed and shows a large opacity on the left suggestive of an effusion. Patient has never had an echocardiogram or pulmonary function test at this facility. - Physical Exam Vitals/I&O's: Vital Signs Temp Pulse Resp BP Pulse Ox 37.1 C 76 14 90/64 94 01/15/20 08:00 01/15/20 08:00 01/15/20 08:00 01/15/20 08:00 01/15/20 08:00 Oxygen Flow Rate (L/min) 15 Oxygen Delivery Method Mechanical Ventilator Weight: 104.1 kg Body Mass Index (BMI) 35.9 Intake and Output for Last 24 Hours 01/13/20 01/14/20 01/15/20 23:59 23:59 23:59 Intake Total 50 / 50 922.92 / 922.92 Output Total 460 / 460 Balance 50 / 50 462.92 / 462.92 General: - - Intubated and sedated. Obese. Fair vent synchrony. HEENT: Atraumatic, PERRLA, EOMI, Normocephalic, - - Scleral injection without icterus Oral: Moist Mucosa, No Gingival or Mucosal Lesions/ Ulcerations, - - Carotid posterior pharynx Neck: Supple, No JVD, No Nodes, Trachea Midline Lungs: No rhonchi, No rales, Diminished - Left greater than right, Wheezes, - - Dullness to percussion at the left chest Cardiovascular: Regular rate, Regular Rhythm, Normal S1, Normal S2, No murmurs, No rub noted, No Gallop Abdomen: Bowel Sounds Present, Soft, Non Tender, Non-Distended, Obese Extremities: No clubbing, No cyanosis, No edema, Capillary Refill Less than 3 Seconds Skin: No rashes, No breakdown Musculoskeletal: No Tenderness to Palpation of Joints or Extremities Lymphatic: No Cervical, Supraclavicular, or Inguinal Adenopathy Neurological: - - Intubated and sedated. RASS -2. Not following commands at this time. Spontaneous movement of extremities noted. Positive gag and cough reflex noted. Psych/Mental Status: Flat Affect Microbiology Past 72 Hours 01/15/20 01:20 Urine Catheter - Catheter Streptococcus pneumoniae Antigen (M - Final 01/15/20 01:20 Urine Catheter - Catheter Legionella Antigen - Final Laboratory Results 01/14/20 21:25: WBC 15.5 H, RBC 5.04, Hgb 12.7 L, Hct 44.6, MCV 88.5, MCH 25.2 L, MCHC 28.5 L, RDW Std Deviation 67.5 H, RDW Coeff of [place] 21.0 H, Plt Count 350, MPV 10.9, Immature Gran % (Auto) 0.600, Neut % (Auto) 78.5 H, Lymph % (Auto) 16.5 L, Trinity % (Auto) 3.4, Eos % (Auto) 0.7, Baso % (Auto) 0.3, Absolute Neuts (auto) 12.2 H, Absolute Lymphs (auto) 2.56, Nucleated RBC % 0, Differential Comment SCANNED, Anisocytosis 1+ 01/14/20 21:25: PT 14.0, INR 1.1, APTT 24.7 01/14/20 21:25: Sodium 139, Potassium 4.3, Chloride 98, Carbon Dioxide 39.0 H, Anion Gap 2 L, BUN 20 H, Creatinine 1.05, Estim Creat Clear Calc 59.71, Est GFR (MDRD) Af Amer 89, Est GFR (MDRD) Non-Af 73, BUN/Creatinine Ratio 19.0, Glucose 388 H, Calcium 8.8, Total Bilirubin 0.30, AST 32, ALT 34, Alkaline Phosphatase 139 H, Total Protein 7.1, Albumin 2.6 L, Globulin 4.5 H, Albumin/Globulin Ratio 0.6 L 01/14/20 21:25: Lactic Acid 3.0 H* 01/14/20 21:25: B-Natriuretic Peptide 31.0 01/14/20 22:05: Specimen Type ART, Sample Site R RADIAL, pH 7.23 L, Bicarbonate Actual 38.4 H, Total CO2 41, Base Excess 11 H, O2 Saturation 92 L, O2 % 100, ABG pCO2 92.0 H*, ABG pO2 82, Anthony Test POS, Respiration Rate 12, O2 Delivery Device Bi Pap, EPAP 16, IPAP 24, Blood Gas Notified Whom ED , Blood Gas Notified Time 9366 01/15/20 00:06: Specimen Type ART, Sample Site R RADIAL, pH 7.23 L, Bicarbonate Actual 40.4 H, Total CO2 43, Base Excess 13 H, O2 Saturation 95, O2 % 100, ABG pCO2 97.5 H*, ABG pO2 96, Anthony Test POS, Respiration Rate 12, O2 Delivery Device Bi Pap, EPAP 14, IPAP 26, Blood Gas Notified Whom ED , Blood Gas Notified Time 9 01/15/20 01:20: Urine Color Yellow, Urine Clarity Clear, Urine pH 5.0, Ur Specific [place] 1.025, Urine Protein 100 H, Urine Glucose (UA) 1000 H, Urine Ketones 5 H, Urine Occult Blood 10 H, Urine Nitrite Negative, Urine Bilirubin Negative, Urine Urobilinogen Normal, Ur Leukocyte Esterase Negative, Urine RBC 0-5 SEEN, Urine WBC 0 SEEN, Ur Squamous Epith Cells 0 SEEN, Urine Bacteria 0 SEEN, Urine Mucus 0 SEEN 01/15/20 01:53: POC Glucose 363 H 01/15/20 02:20: Lactic Acid 1.9 01/15/20 02:32: Specimen Type ART, Sample Site R RADIAL, pH 7.28 L, Bicarbonate Actual 41.6 H, Total CO2 44, Base Excess 15 H, O2 Saturation 85 L, O2 % 75, ABG pCO2 87.9 H*, ABG pO2 60 L, Anthony Test POS, Respiration Rate 12, O2 Delivery Device Bi Pap, Vent Mode Pending, POC PEEP 10, POC Pressure Suppt 14, Blood Gas Notified Whom HOSP , Blood Gas Notified Time 235 01/15/20 05:15: WBC 12.7 H, RBC 4.50 L, Hgb 11.2 L, Hct 39.1 L, MCV 86.9, MCH 24.9 L, MCHC 28.6 L, RDW Std Deviation 66.3 H, RDW Coeff of [place] 20.9 H, Plt Count 282, MPV 10.1, Immature Gran % (Auto) 0.500, Neut % (Auto) 90.4 H, Lymph % (Auto) 7.1 L, Trinity % (Auto) 1.8, Eos % (Auto) 0.0, Baso % (Auto) 0.2, Absolute Neuts (auto) 11.5 H, Absolute Lymphs (auto) 0.90, Nucleated RBC % 0, Differential Comment SCANNED 01/15/20 05:15: Sodium 141, Potassium 4.4, Chloride 99, Carbon Dioxide 44.0 H, Anion Gap -2 L, BUN 23 H, Creatinine 1.02, Estim Creat Clear Calc 59.40, Est GFR (MDRD) Af Amer 92, Est GFR (MDRD) Non-Af 76, BUN/Creatinine Ratio 22.5 H, Glucose 310 H, Calcium 8.2 L, Total Creatine Kinase 35 L, Triglycerides 66 01/15/20 06:08: POC Glucose 308 H 01/15/20 06:42: COVID-19 ([facility]) Pending 01/15/20 07:10: Specimen Type ART, Sample Site R RADIAL, pH 7.40, Bicarbonate Actual 36.9 H, Total CO2 39, Base Excess 12 H, O2 Saturation 90 L, O2 % 90, ABG pCO2 59.5 H, ABG pO2 62 L, Anthony Test POS, Respiration Rate 14, O2 Delivery Device Vent, Vent Mode A-C, Tidal Volume 500, POC PEEP 5, Blood Gas Notified Whom ICU MD, Blood Gas Notified Time 710 Clinical Impression(s) from Imaging Studies Chest X-Ray 01/14/20 22:10 IMPRESSION: Right basilar and left upper lobe alveolar disease. Extensive left pleural fluid. Electronically Signed: Oswald Mata MD at 22:23 EDT Tel , Service support , Chest X-Ray 01/15/20 03:30 IMPRESSION: Support tubes in expected locations. No pneumothorax. Persistent extensive left mid and lower lung opacity representing a combination of pleural effusion, atelectasis and possible pneumonia. Mild improved aeration left upper lobe. Right basilar opacity unchanged. Electronically Signed: Eduardo Obando MD at 5:21 EDT , Service support , Current Medications Acetaminophen (Tylenol) 650 mg PO Q6H PRN PRN PRN Reason: Pain Score 1-10/Temp > 100.7 F Albuterol Sulfate (Ventolin Aerosols) 2.5 mg INHALATION Q2H PRN PRN PRN Reason: SOB/Wheezing Albuterol/Ipratropium (Duoneb) 3 ml INHALATION Q4HWA.RT JUANITO Last Admin: 01/15/20 07:17 Dose: 3 ml Documented by: Chlorhexidine Gluconate () 15 ml PO BID JUANITO Dextrose (D50w Syringe) 0 gm IV X1 PRN; Protocol PRN Reason: Hypoglycemia Enoxaparin Sodium (Lovenox) 40 mg SC DAILY JUANITO Glucagon () 1 mg IM .X1 PRN PRN Reason: Hypoglycemia Sodium Chloride () 250 mls @ 15 mls/hr IV .[id number] PRN PRN Reason: Saline Flush Sodium Chloride () 250 mls @ 15 mls/hr IV .[id number] PRN PRN Reason: Additional IVPB Infusion Vancomycin IV Pharmacy to Dose (1 ea/ Sodium Chloride) 500 mls @ 250 mls/hr IV PRN PRN; Protocol PRN Reason: Rx to Dose Piperacillin Sod/Tazobactam (Sod 3.375 gm/ Sodium Chloride) 50 mls @ 12.5 mls/hr IV Q8 [facility] Last Infusion: 01/15/20 07:00 Dose: Infused Documented by: Fentanyl Citrate 1,000 mcg/ (Sodium Chloride) 100 mls @ 2.5 mls/hr CONT INF .Q40H [facility]; Protocol Last Titration: 01/15/20 07:00 Dose: 100 mcg/hr, 10 mls/hr Documented by: Propofol (Diprivan) 1,000 mg in 100 mls @ 6.246 mls/hr CONT INF .Q12H [facility]; Protocol Last Titration: 01/15/20 07:00 Dose: 15 mcg/kg/min, 9.4 mls/hr Documented by: Vancomycin HCl 1,250 mg/ (Sodium Chloride) 275 mls @ 167 mls/hr IV Q12H [facility] Famotidine 20 mg/ Sodium (Chloride) 10 mls @ 300 mls/hr IV Q12 [facility] Last Infusion: 01/15/20 04:41 Dose: Infused Documented by: Insulin Glargine (Lantus (Bkc)) 50 units SC BID [facility] Insulin Human Lispro (Humalog Kwikpen (Bkc)) 0 unit SC Q4H [facility]; Protocol Last Admin: 01/15/20 06:12 Dose: 6 units Documented by: Labetalol HCl (Trandate) 10 mg IV Q6H PRN PRN PRN Reason: SBP > 160 Methylprednisolone (Solu-Medrol) 40 mg IV Q8 JUANITO Last Admin: 01/15/20 06:11 Dose: 40 mg Documented by: Ondansetron HCl (Zofran) 4 mg IV Q8H PRN PRN PRN Reason: NAUSEA/VOMITING Sodium Chloride () 10 - 40 ml IV UD PRN PRN Reason: SALINE FLUSH Last Admin: 01/15/20 04:14 Dose: 40 ml Documented by: Assessment/Plan Active and Suspected Problems (Last Reviewed 01/15/20 @ 03:[address] Deniz Fajardo MD) Severe sepsis (Acute) Pneumonia (Suspected) RECOMMENDATIONS: 1. Obtain COVID endotracheal sample 2. Obtain echocardiogram 3. Possible CT of the chest with contrast 4. Await culture data 5. Spontaneous breathing and awakening trials per protocol 6. Increase PEEP to facilitate weaning FiO2 IMPRESSIONS: 1. Acute on chronic combined respiratory failure Patient currently on empiric antibiotics, steroids and bronchodilators. Patient is also been placed on mucolytic. Cultures are currently pending. Patient failed BiPAP therapy and was subsequently intubated. Patient does have a large opacity on the left lung. Unclear etiology. BNP is not suggestive of congestive heart failure. Patient does have a leukocytosis, so parapneumonic effusion would be a consideration. Patient likely also has an element of COPD underlying but this cannot be confirmed. Other possible etiology would include airway collapse secondary to malignancy versus mucous plug. Continue with aggressive pulmonary toileting. Possibly obtain a CT scan of the chest with contrast later today once patient's condition stabilizes for better characterization of lung findings. 2. Severe sepsis secondary to pneumonia Unclear etiology at this time. Copious secretions have been reported by respiratory. Cultures are currently pending. Patient is on broad-spectrum antibiotics at this time. Elevated lactic acid may be secondary to hypoxic presentation. Patient now with hypotension, but this may be related to sedation. We will continue to monitor. 3. Poorly controlled diabetes mellitus Patient with high doses of basal insulin at home. Likely start patient on tube feeds in addition to steroid therapy. Anticipate high requirements. Patient will be covered every 4 hours with sliding scale. Basal insulin has been ordered, but may need to titrate up. 4. Hypertension/metabolic encephalopathy/poor historian/obesity/history of squamous cell skin cancer Complicates care, management, recovery and prognosis. Hold antihypertensive medications given acute condition. Encephalopathy on presentation likely secondary to hypercarbia. TIME: 45 minutes critical care time spent addressing patient's acute on chronic respiratory failure, probable COPD, sepsis, diabetes mellitus, review of all data and collaboration with care team (6 AM to 8:50 AM) [id number]: [id number] Critical care first hour
--- NOTE | 2020-01-15 08:49 | PN_ITS ---
Patient Problems: Active and Suspected Problems (Last Updated 01/15/20 @ 09:[address] Abbie Cardenas MD) Severe sepsis (Acute) Subjective: Chief complaint: Follow-up after admission for acute on chronic combined respiratory failure, severe sepsis secondary to pneumonia and large left pleural effusion versus lung mass. Patient seen and examined. He is on mechanical ventilation, requiring high FiO2, PEEP of 8. He is on IV fentanyl and propofol for sedation. He is sedated, no spontaneous eye opening. He is afebrile, heart rates stable, blood pressure is maintained. - Physical Exam Vitals/I&O's: Vital Signs Temp Pulse Resp BP Pulse Ox 98.8 F 76 14 90/64 94 01/15/20 08:00 01/15/20 08:00 01/15/20 08:00 01/15/20 08:00 01/15/20 08:00 Oxygen Flow Rate (L/min) 15 Oxygen Delivery Method Mechanical Ventilator Weight: 229 lb 8.019 oz Body Mass Index (BMI) 35.9 Intake and Output for Last 24 Hours 01/13/20 01/14/20 01/15/20 23:59 23:59 23:59 Intake Total 50 / 50 942.32 / 942.32 Output Total 460 / 460 Balance 50 / 50 482.32 / 482.32 General: - - Patient is intubated, sedated, no spontaneous eye opening. HEENT: Atraumatic, PERRLA, Normocephalic Oral: Moist Mucosa, No Gingival or Mucosal Lesions/ Ulcerations Neck: Supple, No JVD, Negative Carotid Bruits, Trachea Midline, Thyroid Normal Size and Texture Lungs: No wheeze, No rales, Diminished, Rhonchi, - - Markedly decreased breath sounds on the left side, rhonchi on the right side. Cardiovascular: Regular rate, Regular Rhythm, Normal S1, Normal S2, PMI Normal Abdomen: Bowel Sounds Present, Soft, Non Tender, Non-Distended, No Hepato- splenomegaly, Obese Extremities: No clubbing, No cyanosis, No edema Skin: No rashes, No breakdown Lymphatic: No Cervical, Supraclavicular, or Inguinal Adenopathy Neurological: - - Unable to assess, patient is sedated, intubated. Psych/Mental Status: - - Unable to assess, patient is sedated. Microbiology Past 72 Hours 01/15/20 01:20 Urine Catheter - Catheter Streptococcus pneumoniae Antigen (M - Final 01/15/20 01:20 Urine Catheter - Catheter Legionella Antigen - Final Laboratory Results 01/14/20 21:25: WBC 15.5 H, RBC 5.04, Hgb 12.7 L, Hct 44.6, MCV 88.5, MCH 25.2 L , MCHC 28.5 L, RDW Std Deviation 67.5 H, RDW Coeff of Truman 21.0 H, Plt Count 350, MPV 10.9, Immature Gran % (Auto) 0.600, Neut % (Auto) 78.5 H, Lymph % (Auto) 16.5 L, [place] % (Auto) 3.4, Eos % (Auto) 0.7, Baso % (Auto) 0.3, Absolute Neuts (auto) 12.2 H, Absolute Lymphs (auto) 2.56, Nucleated RBC % 0, Differential Comment SCANNED, Anisocytosis 1+ 01/14/20 21:25: PT 14.0, INR 1.1, APTT 24.7 01/14/20 21:25: Sodium 139, Potassium 4.3, Chloride 98, Carbon Dioxide 39.0 H, Anion Gap 2 L, BUN 20 H, Creatinine 1.05, Estim Creat Clear Calc 59.71, Est GFR (MDRD) Af Amer 89, Est GFR (MDRD) Non-Af 73, BUN/Creatinine Ratio 19.0, Glucose 388 H, Calcium 8.8, Total Bilirubin 0.30, AST 32, ALT 34, Alkaline Phosphatase 139 H, Total Protein 7.1, Albumin 2.6 L, Globulin 4.5 H, Albumin/Globulin Ratio 0.6 L 01/14/20 21:25: Lactic Acid 3.0 H* 01/14/20 21:25: B-Natriuretic Peptide 31.0 01/14/20 22:05: Specimen Type ART, Sample Site R RADIAL, pH 7.23 L, Bicarbonate Actual 38.4 H, Total CO2 41, Base Excess 11 H, O2 Saturation 92 L, O2 % 100, ABG pCO2 92.0 H*, ABG pO2 82, Anthony Test POS, Respiration Rate 12, O2 Delivery Device Bi Pap, EPAP 16, IPAP 24, Blood Gas Notified Whom ED , Blood Gas Notified Time 220401/15/20 00:06: Specimen Type ART, Sample Site R RADIAL, pH 7.23 L, Bicarbonate Actual 40.4 H, Total CO2 43, Base Excess 13 H, O2 Saturation 95, O2 % 100, ABG pCO2 97.5 H*, ABG pO2 96, Anthony Test POS, Respiration Rate 12, O2 Delivery Device Bi Pap, EPAP 14, IPAP 26, Blood Gas Notified Whom ED , Blood Gas Notified Time 9 01/15/20 01:20: Urine Color Yellow, Urine Clarity Clear, Urine pH 5.0, Ur Specific [place] 1.025, Urine Protein 100 H, Urine Glucose (UA) 1000 H, Urine Ketones 5 H, Urine Occult Blood 10 H, Urine Nitrite Negative, Urine Bilirubin Negative, Urine Urobilinogen Normal, Ur Leukocyte Esterase Negative, Urine RBC 0-5 SEEN, Urine WBC 0 SEEN, Ur Squamous Epith Cells 0 SEEN, Urine Bacteria 0 SEEN, Urine Mucus 0 SEEN 01/15/20 01:53: POC Glucose 363 H 01/15/20 02:20: Lactic Acid 1.9 01/15/20 02:32: Specimen Type ART, Sample Site R RADIAL, pH 7.28 L, Bicarbonate Actual 41.6 H, Total CO2 44, Base Excess 15 H, O2 Saturation 85 L, O2 % 75, ABG pCO2 87.9 H*, ABG pO2 60 L, Anthony Test POS, Respiration Rate 12, O2 Delivery Device Bi Pap, Vent Mode Pending, POC PEEP 10, POC Pressure Suppt 14, Blood Gas Notified Whom HOSP , Blood Gas Notified Time 235 01/15/20 05:15: WBC 12.7 H, RBC 4.50 L, Hgb 11.2 L, Hct 39.1 L, MCV 86.9, MCH 24.9 L, MCHC 28.6 L, RDW Std Deviation 66.3 H, RDW Coeff of Truman 20.9 H, Plt Count 282, MPV 10.1, Immature Gran % (Auto) 0.500, Neut % (Auto) 90.4 H, Lymph % (Auto) 7.1 L, [place] % (Auto) 1.8, Eos % (Auto) 0.0, Baso % (Auto) 0.2, Absolute Neuts (auto) 11.5 H, Absolute Lymphs (auto) 0.90, Nucleated RBC % 0, Differential Comment SCANNED 01/15/20 05:15: Sodium 141, Potassium 4.4, Chloride 99, Carbon Dioxide 44.0 H, Anion Gap -2 L, BUN 23 H, Creatinine 1.02, Estim Creat Clear Calc 59.40, Est GFR (MDRD) Af Amer 92, Est GFR (MDRD) Non-Af 76, BUN/Creatinine Ratio 22.5 H, Glucose 310 H, Calcium 8.2 L, Total Creatine Kinase 35 L, Triglycerides 66 01/15/20 06:08: POC Glucose 308 H 01/15/20 06:42: COVID-19 (S[place]ITA) Pending 01/15/20 07:10: Specimen Type ART, Sample Site R RADIAL, pH 7.40, Bicarbonate Actual 36.9 H, Total CO2 39, Base Excess 12 H, O2 Saturation 90 L, O2 % 90, ABG pCO2 59.5 H, ABG pO2 62 L, Anthony Test POS, Respiration Rate 14, O2 Delivery Device Vent, Vent Mode A-C, Tidal Volume 500, POC PEEP 5, Blood Gas Notified Whom ICU MD, Blood Gas Notified Time 710 Clinical Impression(s) from Imaging Studies Chest X-Ray 01/14/20 22:10 IMPRESSION: Right basilar and left upper lobe alveolar disease. Extensive left pleural fluid. Electronically Signed: Oswald Mata MD at 22:23 EDT Tel , Service support , Chest X-Ray 01/15/20 03:30 IMPRESSION: Support tubes in expected locations. No pneumothorax. Persistent extensive left mid and lower lung opacity representing a combination of pleural effusion, atelectasis and possible pneumonia. Mild improved aeration left upper lobe. Right basilar opacity unchanged. Electronically Signed: Eduardo Obando MD at 5:21 EDT , Service support , Current Medications Acetaminophen (Tylenol) 650 mg PO Q6H PRN PRN PRN Reason: Pain Score 1-10/Temp > 100.7 F Albuterol Sulfate (Ventolin Aerosols) 2.5 mg INHALATION Q2H PRN PRN PRN Reason: SOB/Wheezing Albuterol/Ipratropium (Duoneb) 3 ml INHALATION Q4HWA.RT JUANITO Last Admin: 01/15/20 07:17 Dose: 3 ml Documented by: Chlorhexidine Gluconate () 15 ml PO BID JUANITO Dextrose (D50w Syringe) 0 gm IV X1 PRN; Protocol PRN Reason: Hypoglycemia Enoxaparin Sodium (Lovenox) 40 mg SC DAILY JUANITO Glucagon () 1 mg IM .X1 PRN PRN Reason: Hypoglycemia Sodium Chloride () 250 mls @ 15 mls/hr IV .[id number] PRN PRN Reason: Saline Flush Sodium Chloride () 250 mls @ 15 mls/hr IV .[id number] PRN PRN Reason: Additional IVPB Infusion Vancomycin IV Pharmacy to Dose (1 ea/ Sodium Chloride) 500 mls @ 250 mls/hr IV PRN PRN; Protocol PRN Reason: Rx to Dose Piperacillin Sod/Tazobactam (Sod 3.375 gm/ Sodium Chloride) 50 mls @ 12.5 mls/hr IV Q8 JUANITO Last Infusion: 01/15/20 07:00 Dose: Infused Documented by: Fentanyl Citrate 1,000 mcg/ (Sodium Chloride) 100 mls @ 2.5 mls/hr CONT INF .Q40H JUANITO; Protocol Last Titration: 01/15/20 08:00 Dose: 100 mcg/hr, 10 mls/hr Documented by: Propofol (Diprivan) 1,000 mg in 100 mls @ 6.246 mls/hr CONT INF .Q12H JUANITO; Protocol Last Titration: 01/15/20 08:00 Dose: 15 mcg/kg/min, 9.4 mls/hr Documented by: Vancomycin HCl 1,250 mg/ (Sodium Chloride) 275 mls @ 167 mls/hr IV Q12H JUANITO Famotidine 20 mg/ Sodium (Chloride) 10 mls @ 300 mls/hr IV Q12 [facility] Last Infusion: 01/15/20 04:41 Dose: Infused Documented by: Insulin Glargine (Lantus (Bkc)) 50 units SC BID JUANITO Insulin Human Lispro (Humalog Kwikpen (Bkc)) 0 unit SC Q4H JUANITO; Protocol Last Admin: 01/15/20 06:12 Dose: 6 units Documented by: Labetalol HCl (Trandate) 10 mg IV Q6H PRN PRN PRN Reason: SBP > 160 Methylprednisolone (Solu-Medrol) 40 mg IV Q8 JUANITO Last Admin: 01/15/20 06:11 Dose: 40 mg Documented by: Ondansetron HCl (Zofran) 4 mg IV Q8H PRN PRN PRN Reason: NAUSEA/VOMITING Sodium Chloride () 10 - 40 ml IV UD PRN PRN Reason: SALINE FLUSH Last Admin: 01/15/20 04:14 Dose: 40 ml Documented by: Medical Necessity - Tobacco Use Smoking Status: Former smoker Assessment/Plan All Active Problems (Last Updated 01/15/20 @ 09:[address] Abbie Cardenas MD) Severe sepsis (Acute) This is a 74 years old male patient presented to the emergency room because of shortness of breath and confusion, found to have acute on chronic combined hypoxic and hypercapnic respiratory failure attributed to acute COPD exacerbation and left community-acquired pneumonia and also found to have severe sepsis. #1 acute on chronic combined hypoxic and hypercapnic respiratory failure: Multifactorial secondary to pneumonia and COPD exacerbation in the setting of chronic respiratory failure being on home oxygen. Patient is on IV antibiotics, bronchodilators and IV steroids. He is on mechanical ventilation, requiring high FiO2, PEEP of 8. At this time, blood pressure is maintained, no IV pressors needed. ABG from this morning reviewed, revealed pH of 7.40, PCO2 of 59 which is improving, PO2 of 62. Critical care on the case. Plan to continue same treatment. #2 severe sepsis: Secondary to pneumonia. Lactic acid was elevated, came down with IV fluids. Patient is on IV Zosyn and vancomycin. Patient is afebrile, blood pressure noted are stable, on mechanical ventilation. Cultures are pending. #3 left lower community-acquired pneumonia: He is on IV vancomycin and Zosyn. Chest x-ray reviewed. Pneumococcal and Legionella antigen were negative. COVID-19 PCR came back negative. Blood, urine and sputum cultures are pending. Chest x-ray reviewed, revealed large left lower lobe opacity, could be due to consolidation with effusion versus large lung mass. Plan for CT scan chest with contrast, continue IV antibiotics for now. #4 COPD exacerbation: He is on IV steroids, IV antibiotics and bronchodilators, on mechanical ventilation. ABG reviewed as above. Plan as above. #5 uncontrolled type 2 diabetes mellitus: Blood sugar has been in the range of 300s. He is on Lantus 50 units twice daily along with sliding scale. IV steroids is likely contributing. Will check hemoglobin A1c. #6 COPD/chronic respiratory failure: Patient is on home oxygen and at present, he is noncompliant, has not been wearing his oxygen at home. Plan as above. #7 hyperlipidemia: Hold statins. #8 DVT prophylaxis: Subcu Lovenox. This note was generated with [employer] dictation software. It may contain incorrect words, spelling, and punctuation that were not noted in checking the note before signing. Inpatient E&M: 91198 Subs Hosp L3
--- NOTE | 2020-01-15 09:46 | CT_ITS ---
STUDY: CT CHEST WITH CONTRAST REASON FOR EXAM: Male, 74 years old. LARGE LEFT PLEURAL EFFUSION F/U, R/O MASS RADIATION DOSAGE (If Supplied By Facility): CTDIvol = ( 23.24 ) mGy, DLP = ( 688.56 ) mGycm TECHNIQUE: Transaxial imaging was performed following intravenous administration of IV 100mL Isovue-300. Multiplanar coronal and sagittal images were reformatted. Individualized dose optimization techniques were used for this CT. COMPARISON: Comparison is made with prior chest radiograph done earlier in the day. FINDINGS: An endotracheal tube is in situ. An orogastric tube is seen within the esophagus. There is a small left pleural effusion with extensive consolidation in the left upper, lingular segment of the left upper lobe and left lower lobes with volume loss. Minimal right pleural effusion with a mild left basilar infiltration and/or atelectasis. Normal heart and pericardium. There are multiple small lymph nodes within the mediastinum, which are normal in size and morphology most compatible with reactive lymph hyperplasia. Normal hilar regions. Normal enhanced pulmonary arteries. Normal aorta arch and descending thoracic aorta. There are multi-level degenerative changes of the thoracic spine. There is no demonstrated abnormality of the visualized upper abdomen. CT/Chest WITH Contrast IMPRESSION: Small left pleural effusion with dense consolidation in the left upper, lingular segment of the left upper lobe as well as left lower lobes. Electronically Signed: Abdullahi Gauthier, at 11:20 EDT , Service support ,
[2020-01-15] MEDS: Chlorhexidine 15 ML PO ×2 (10:10→21:19)
[2020-01-15] MEDS: Enoxaparin 40 MG/0.4 ML Syringe SC (10:10)
[2020-01-15] MEDS: Propofol 10MG/Ml 1,000 MG/100 ML Bottle 9.4 MG CONT INF ×3 (10:48→22:56)
--- NOTE | 2020-01-15 10:51 | PCM.NTREPORT ---
Nutrition Therapy Report - History Nutrition Services has been consulted to:: Manage enteral nutrition Current diet / nutrition support order:: NPO - Anthropometric Measurements Height:: 5 ft 7 in Weight:: 104.1 kg Body Mass Index (BMI):: 35.9 - Relevant Labs Relevant Labs:: WBC 12.7 K/mm3 (4.4-11.0) H 01/15/20 05:15 RBC 4.50 M/mm3 (4.6-6.2) L 01/15/20 05:15 Hgb 11.2 g/dL (13.0-16.5) L 01/15/20 05:15 Hct 39.1 % (40-54) L 01/15/20 05:15 MCH 24.9 pg (27.0-32.0) L 01/15/20 05:15 MCHC 28.6 g/dL (32-36) L 01/15/20 05:15 RDW Std Deviation 66.3 fl (35.1-43.9) H 01/15/20 05:15 RDW Coeff of Truman 20.9 % (11.6-14.6) H 01/15/20 05:15 Neut % (Auto) 90.4 % (47-70) H 01/15/20 05:15 Lymph % (Auto) 7.1 % (19-41) L 01/15/20 05:15 Absolute Neuts (auto) 11.5 X10^3/uL (2.0-7.7) H 01/15/20 05:15 Carbon Dioxide 44.0 mmol/L (21.0-32.0) H 01/15/20 05:15 Anion Gap -2 (5-15) L 01/15/20 05:15 BUN 23 mg/dL (7-18) H 01/15/20 05:15 BUN/Creatinine Ratio 22.5 RATIO (10-20) H 01/15/20 05:15 Glucose 310 mg/dL (74-106) H 01/15/20 05:15 Lactic Acid 3.0 mmol/L (0.4-1.9) H* 01/14/20 21:25 Calcium 8.2 mg/dL (8.5-10.1) L 01/15/20 05:15 Alkaline Phosphatase 139 U/L (45-117) H 01/14/20 21:25 Total Creatine Kinase 35 U/L (39-308) L 01/15/20 05:15 Albumin 2.6 g/dL (3.2-5.0) L 01/14/20 21:25 Globulin 4.5 g/dL (2.2-4.2) H 01/14/20 21:25 Albumin/Globulin Ratio 0.6 RATIO (0.9-2.4) L 01/14/20 21:25 - Assessment Food / Nutrition-Related History:: Discussed in ICU rounds. Pt currently intubated w/ OG in place. Pt was unable to provide answers to admission nutrition screen questions upon admission d/t resp. failure. No wt hx available in EMR. Noted hx of DM, currently w/ elevated blood glucose. Also on steroids. - Nutrition Diagnosis Problem / Etiology / Signs & Symptoms (PES):: Pt w/ inadequate oral intake related to resp. failure requiring intubation as evidenced by no PO intake since admission. Evidence of Malnutrition Exists:: No - Nutrition Intervention Nutrition Prescription:: Estimated needs: 3530-6273 calories/day; 100-130 g protein/day using ASPEN guidelines for critically ill obese patients to estimate nutritional needs: 1.2g/kg CBW (104.1kg) protein/day and 22-25 calories/kg IBW (67kg). - Food / Nutrient Delivery Interventions Summary of nutrition intervention:: Will order enteral nutrition support while intubated. Nutrition support ordered as / adjusted to:: Vital AF 1.2 via OG at goal rate of 55mL/hour w/ 125mL H2O flush every 4 hours to provide 1584 calories, 99 g protein, and 1820mL total fluid/day. Would start at 25mL/hour and increase by 15mL every 8-12 hours as tolerated until goal rate achieved. Nutrition education provided?: No - MNT Monitoring Further MNT monitoring and evaluation required?: Yes MNT Follow-up in:: 1-2 days
[2020-01-15] MEDS: Vital AF 1.2 Cal Liquid 1,000 ML 55 ML GT (11:23)
[2020-01-15 11:30] LABS: Bedside Glucose 256 mg/dL (70-110)
[2020-01-15 11:48] LABS: Hemoglobin A1c 9.8 % (3.8-5.6)
--- NOTE | 2020-01-15 12:20 | CASEMGMT ---
MARSHAL LAUGHLIN assessment: Phone interview with patient's for initial transition planning/care coordination assessment as pt is currently on the ventilator. RN QIAN introduced self and role at [facility], pt 's voices understanding and consents to assessment at this time. answers all questions appropriately at this time. Care providers, pharmacy, and demographics verified at this time. Presentation: Pt w/ hx COPD, w/ increased SOB that started today Admitting dx: Severe Sepsis PCP: [facility] Specialists: states no current specialists. Preferred Pharmacy: [facility] Insurance: [employer], [employer] Prescription Benefit: [employer] Living Will/HPOA: states that pt does have LW but not HPOA and she is aware that they are not on file at [facility] at this time. LNOK: Maris Paul, ; Maria Guadalupe/Jake Eng, daughter/son-in-law Living Arrangements: states pt lives with her in 2 story home and states no concerns at home at this time. states pt is normally independent with ADL's. Transportation: states pt drives self and states no transportation concerns at this time. DME/HHC: Per , pt is on 6 liters nc at home via [facility]. Pt has portability and concentrator. states no other DME or need for any at this time. MEDICAL OFFICE SCHEDULER updated on pt's home liter flow at this time, voices understanding. states she would like to be able to take pt home at discharge. 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 Pt quit smoking cigarettes 10 years ago and does not drink ETOH. voices no further concerns/needs at this time. CM to follow for PT/OT evals, increased home oxygen need, and any further discharge planning/needs. Advised to ask for CM if any further questions/concerns/needs arise, voices understanding. Family Goal: Home Plan: TBD, pending clinical course. [place] MARSHAL LAUGHLIN
[2020-01-15 14:47] LABS: Bedside Glucose 222 mg/dL (70-110)
[2020-01-15 18:26] LABS: Bedside Glucose 196 mg/dL (70-110)
[2020-01-15] MEDS: Famotidine 20 MG Tablet GT (22:18)
[2020-01-15 22:41] LABS: Bedside Glucose 179 mg/dL (70-110)
[2020-01-16] VITALS (41 sets, daily range): BP systolic 90–127; BP diastolic 52–73; PULSE 61–82; RESP 14–18; TEMP 36.6–37; O2SAT 91–98
[2020-01-16] MEDS: Insulin Lispro 100 UNIT/ML INSULN.PEN SC ×5 (01:56→23:27)
[2020-01-16 02:05] LABS: Bedside Glucose 178 mg/dL (70-110)
[2020-01-16 04:14] LABS: Absolute Lymphocyte Count 1.55 X10^3/uL (0.83-4.51); Absolute Neutrophil Count 12.1 X10^3/uL (2.0-7.7); Basophil# 0.01 X10^3/uL; Basophil% 0.1 % (0-1); Hematocrit 33.7 % (40-54); Hemoglobin 9.9 g/dL (13.0-16.5); Lymphocyte # 1.55 X10^3/ul (4.0); Lymphocyte % 10.9 % (19-41); Mean Corp Hgb Conc 29.4 g/dL (32-36); Mean Corpuscular Hgb 24.6 pg (27.0-32.0); Mean Corpuscular Volume 83.6 fL (80-94); Mean Platelet Vol. 9.5 fl (6.2-12.0); Monocyte# 0.54 X10^3/uL; Monocyte% 3.8 % (0-10); NRBC Flagged by Analyzer 0 % (0-5); Neutrophil # 12.06 X10^3/uL (2.7-7.7); Neutrophil % 84.7 % (47-70); POSITIVE MORPHOLOGY YES; Platelet Count 249 K/mm3 (150-450); RBC Distribution Width CV 21.7 % (11.6-14.6); RBC Distribution Width SD 65.4 fl (35.1-43.9); Red Blood Count 4.03 M/mm3 (4.6-6.2); White Blood Count 14.2 K/mm3 (4.4-11.0)
[2020-01-16 04:23] LABS: Differential Indicated SCAN CRITERIA MET
[2020-01-16 04:28] LABS: Anion Gap 1 (5-15); BUN 39 mg/dL (7-18); BUN/Creat Ratio 21.7 RATIO (10-20); Chloride 101 mmol/L (98-107); EST Glomerular Filtration Rate 39 mL/min (>60); Est Glom Filt Rate - Afr Amer 48 mL/min (>60); Estimated Creatinine Clearance 33.66 ml/min; Glucose 203 mg/dL (74-106); Sodium Level 140 mmol/L (136-145)
[2020-01-16 04:46] LABS: Differential Comment SCANNED; Hypochromasia 2+; Microcytosis 3+
[2020-01-16] MEDS: 0.9% Saline Lock 10 ML Syringe IV (05:27)
[2020-01-16 06:30] LABS: Bedside Glucose 262 mg/dL (70-110)
[2020-01-16] MEDS: Propofol 10MG/Ml 1,000 MG/100 ML Bottle 15.6 MG CONT INF (07:01)
--- NOTE | 2020-01-16 07:07 | PCM.PN.INT ---
Subjective: Patient did okay overnight. Patient's blood pressures have remained marginal, but Levophed did not have to be initiated. Patient has stabilized on 10 of PEEP and 50 to 60% FiO2. Patient continues to have intermittent issues with vent synchrony, but marginal blood pressures have limited ability to sedate. Patient has been tolerating tube feeds. General: - - RASS -1. Obese. Appears older than stated age. HEENT: Atraumatic, PERRLA, EOMI, Normocephalic, - - No scleral icterus or injection noted Oral: Moist Mucosa, No Gingival or Mucosal Lesions/ Ulcerations, - - Crowded posterior pharynx Neck: Supple, No Nodes, Trachea Midline, JVD, Right Lungs: No wheeze, No rales, Diminished, Rhonchi - Left, - - Dullness to percussion on the left Cardiovascular: Regular rate, Regular Rhythm, Normal S1, Normal S2, No murmurs, No rub noted, No Gallop Abdomen: Bowel Sounds Present, Soft, Non Tender, Non-Distended, Obese Extremities: No cyanosis, Clubbing, Edema Skin: - - No change compared to previous Musculoskeletal: No Tenderness to Palpation of Joints or Extremities Lymphatic: No Cervical, Supraclavicular, or Inguinal Adenopathy Neurological: Cranial nerves II-XII grossly intact, Neuro grossly intact, Motor Exam 5/5 strength throughout Psych/Mental Status: Flat Affect Vital Signs Temp Pulse Resp BP Pulse Ox 36.6 C 75 14 103/52 L 97 01/16/20 06:00 01/16/20 06:00 01/16/20 06:00 01/16/20 06:00 01/16/20 06:00 Oxygen Flow Rate (L/min) 15 Oxygen Delivery Method Mechanical Ventilator Weight: 107.1 kg Body Mass Index (BMI) 35.9 Intake and Output for Last 24 Hours 01/14/20 01/15/20 01/16/20 23:59 23:59 23:59 Intake Total 50 2676.69 / 2688.76 939.27 / 939.27 Output Total 830 / 830 110 / 110 Balance 50 / 50 1846.69 / 1858.76 829.27 / 829.27 Labs (Last 48 Hours) 01/14/20 01/14/20 01/14/20 21:25 21:25 21:25 WBC 15.5 H RBC 5.04 Hgb 12.7 L Hct 44.6 MCV 88.5 MCH 25.2 L MCHC 28.5 L RDW Std Deviation 67.5 H RDW Coeff of [place] 21.0 H Plt Count 350 MPV 10.9 Immature Gran % (Auto) 0.600 Neut % (Auto) 78.5 H Lymph % (Auto) 16.5 L [place] % (Auto) 3.4 Eos % (Auto) 0.7 Baso % (Auto) 0.3 Absolute Neuts (auto) 12.2 H Absolute Lymphs (auto) 2.56 Nucleated RBC % 0 Differential Comment SCANNED Hypochromasia Anisocytosis 1+ Microcytosis PT 14.0 INR 1.1 APTT 24.7 Specimen Type Sample Site pH Bicarbonate Actual Total CO2 Base Excess O2 Saturation O2 % ABG pCO2 ABG pO2 Anthony Test Respiration Rate O2 Delivery Device Vent Mode Tidal Volume POC PEEP POC Pressure Suppt EPAP IPAP Blood Gas Notified Whom Blood Gas Notified Time Sodium 139 Potassium 4.3 Chloride 98 Carbon Dioxide 39.0 H Anion Gap 2 L BUN 20 H Creatinine 1.05 Estim Creat Clear Calc 59.71 Est GFR (MDRD) Af Amer 89 Est GFR (MDRD) Non-Af 73 BUN/Creatinine Ratio 19.0 Glucose 388 H Hemoglobin A1c Lactic Acid Calcium 8.8 Total Bilirubin 0.30 AST 32 ALT 34 Alkaline Phosphatase 139 H Total Creatine Kinase B-Natriuretic Peptide Total Protein 7.1 Albumin 2.6 L Globulin 4.5 H Albumin/Globulin Ratio 0.6 L Triglycerides Urine Color Urine Clarity Urine pH Ur Specific [place] Urine Protein Urine Glucose (UA) Urine Ketones Urine Occult Blood Urine Nitrite Urine Bilirubin Urine Urobilinogen Ur Leukocyte Esterase Urine RBC Urine WBC Ur Squamous Epith Cells Urine Bacteria Urine Mucus COVID-19 ([place]ITA) POC Glucose 01/14/20 01/14/20 01/14/20 21:25 21:25 22:05 WBC RBC Hgb Hct MCV MCH MCHC RDW Std Deviation RDW Coeff of [place] Plt Count MPV Immature Gran % (Auto) Neut % (Auto) Lymph % (Auto) [place] % (Auto) Eos % (Auto) Baso % (Auto) Absolute Neuts (auto) Absolute Lymphs (auto) Nucleated RBC % Differential Comment Hypochromasia Anisocytosis Microcytosis PT INR APTT Specimen Type ART Sample Site R RADIAL pH 7.23 L Bicarbonate Actual 38.4 H Total CO2 41 Base Excess 11 H O2 Saturation 92 L O2 % 100 ABG pCO2 92.0 H* ABG pO2 82 Anthony Test POS Respiration Rate 12 O2 Delivery Device Bi Pap Vent Mode Tidal Volume POC PEEP POC Pressure Suppt EPAP 16 IPAP 24 Blood Gas Notified Whom ED Blood Gas Notified Time 2205 Sodium Potassium Chloride Carbon Dioxide Anion Gap BUN Creatinine Estim Creat Clear Calc Est GFR (MDRD) Af Amer Est GFR (MDRD) Non-Af BUN/Creatinine Ratio Glucose Hemoglobin A1c Lactic Acid 3.0 H* Calcium Total Bilirubin AST ALT Alkaline Phosphatase Total Creatine Kinase B-Natriuretic Peptide 31.0 Total Protein Albumin Globulin Albumin/Globulin Ratio Triglycerides Urine Color Urine Clarity Urine pH Ur Specific [place] Urine Protein Urine Glucose (UA) Urine Ketones Urine Occult Blood Urine Nitrite Urine Bilirubin Urine Urobilinogen Ur Leukocyte Esterase Urine RBC Urine WBC Ur Squamous Epith Cells Urine Bacteria Urine Mucus COVID-19 ([place]) POC Glucose 01/15/20 01/15/20 01/15/20 00:06 01:20 01:53 WBC RBC Hgb Hct MCV MCH MCHC RDW Std Deviation RDW Coeff of [place] Plt Count MPV Immature Gran % (Auto) Neut % (Auto) Lymph % (Auto) [place] % (Auto) Eos % (Auto) Baso % (Auto) Absolute Neuts (auto) Absolute Lymphs (auto) Nucleated RBC % Differential Comment Hypochromasia Anisocytosis Microcytosis PT INR APTT Specimen Type ART Sample Site R RADIAL pH 7.23 L Bicarbonate Actual 40.4 H Total CO2 43 Base Excess 13 H O2 Saturation 95 O2 % 100 ABG pCO2 97.5 H* ABG pO2 96 Anthony Test POS Respiration Rate 12 O2 Delivery Device Bi Pap Vent Mode Tidal Volume POC PEEP POC Pressure Suppt EPAP 14 IPAP 26 Blood Gas Notified Whom ED Blood Gas Notified Time 9 Sodium Potassium Chloride Carbon Dioxide Anion Gap BUN Creatinine Estim Creat Clear Calc Est GFR (MDRD) Af Amer Est GFR (MDRD) Non-Af BUN/Creatinine Ratio Glucose Hemoglobin A1c Lactic Acid Calcium Total Bilirubin AST ALT Alkaline Phosphatase Total Creatine Kinase B-Natriuretic Peptide Total Protein Albumin Globulin Albumin/Globulin Ratio Triglycerides Urine Color Yellow Urine Clarity Clear Urine pH 5.0 Ur Specific [place] 1.025 Urine Protein 100 H Urine Glucose (UA) 1000 H Urine Ketones 5 H Urine Occult Blood 10 H Urine Nitrite Negative Urine Bilirubin Negative Urine Urobilinogen Normal Ur Leukocyte Esterase Negative Urine RBC 0-5 SEEN Urine WBC 0 SEEN Ur Squamous Epith Cells 0 SEEN Urine Bacteria 0 SEEN Urine Mucus 0 SEEN COVID-19 ([place]) POC Glucose 363 H 01/15/20 01/15/20 01/15/20 02:20 02:32 05:15 WBC 12.7 H RBC 4.50 L Hgb 11.2 L Hct 39.1 L MCV 86.9 MCH 24.9 L MCHC 28.6 L RDW Std Deviation 66.3 H RDW Coeff of [place] 20.9 H Plt Count 282 MPV 10.1 Immature Gran % (Auto) 0.500 Neut % (Auto) 90.4 H Lymph % (Auto) 7.1 L [place] % (Auto) 1.8 Eos % (Auto) 0.0 Baso % (Auto) 0.2 Absolute Neuts (auto) 11.5 H Absolute Lymphs (auto) 0.90 Nucleated RBC % 0 Differential Comment SCANNED Hypochromasia Anisocytosis Microcytosis PT INR APTT Specimen Type ART Sample Site R RADIAL pH 7.28 L Bicarbonate Actual 41.6 H Total CO2 44 Base Excess 15 H O2 Saturation 85 L O2 % 75 ABG pCO2 87.9 H* ABG pO2 60 L Anthony Test POS Respiration Rate 12 O2 Delivery Device Bi Pap Vent Mode Pending Tidal Volume POC PEEP 10 POC Pressure Suppt 14 EPAP IPAP Blood Gas Notified Whom HOSP Blood Gas Notified Time 235 Sodium Potassium Chloride Carbon Dioxide Anion Gap BUN Creatinine Estim Creat Clear Calc Est GFR (MDRD) Af Amer Est GFR (MDRD) Non-Af BUN/Creatinine Ratio Glucose Hemoglobin A1c Lactic Acid 1.9 Calcium Total Bilirubin AST ALT Alkaline Phosphatase Total Creatine Kinase B-Natriuretic Peptide Total Protein Albumin Globulin Albumin/Globulin Ratio Triglycerides Urine Color Urine Clarity Urine pH Ur Specific [place] Urine Protein Urine Glucose (UA) Urine Ketones Urine Occult Blood Urine Nitrite Urine Bilirubin Urine Urobilinogen Ur Leukocyte Esterase Urine RBC Urine WBC Ur Squamous Epith Cells Urine Bacteria Urine Mucus COVID-19 ([place]) POC Glucose 01/15/20 01/15/20 01/15/20 05:15 05:15 06:08 WBC RBC Hgb Hct MCV MCH MCHC RDW Std Deviation RDW Coeff of [place] Plt Count MPV Immature Gran % (Auto) Neut % (Auto) Lymph % (Auto) [place] % (Auto) Eos % (Auto) Baso % (Auto) Absolute Neuts (auto) Absolute Lymphs (auto) Nucleated RBC % Differential Comment Hypochromasia Anisocytosis Microcytosis PT INR APTT Specimen Type Sample Site pH Bicarbonate Actual Total CO2 Base Excess O2 Saturation O2 % ABG pCO2 ABG pO2 Anthony Test Respiration Rate O2 Delivery Device Vent Mode Tidal Volume POC PEEP POC Pressure Suppt EPAP IPAP Blood Gas Notified Whom Blood Gas Notified Time Sodium 141 Potassium 4.4 Chloride 99 Carbon Dioxide 44.0 H Anion Gap -2 L BUN 23 H Creatinine 1.02 Estim Creat Clear Calc 59.40 Est GFR (MDRD) Af Amer 92 Est GFR (MDRD) Non-Af 76 BUN/Creatinine Ratio 22.5 H Glucose 310 H Hemoglobin A1c 9.8 H Lactic Acid Calcium 8.2 L Total Bilirubin AST ALT Alkaline Phosphatase Total Creatine Kinase 35 L B-Natriuretic Peptide Total Protein Albumin Globulin Albumin/Globulin Ratio Triglycerides 66 Urine Color Urine Clarity Urine pH Ur Specific [place] Urine Protein Urine Glucose (UA) Urine Ketones Urine Occult Blood Urine Nitrite Urine Bilirubin Urine Urobilinogen Ur Leukocyte Esterase Urine RBC Urine WBC Ur Squamous Epith Cells Urine Bacteria Urine Mucus COVID-19 ([place]) POC Glucose 308 H 01/15/20 01/15/20 01/15/20 06:42 07:10 11:20 WBC RBC Hgb Hct MCV MCH MCHC RDW Std Deviation RDW Coeff of [place] Plt Count MPV Immature Gran % (Auto) Neut % (Auto) Lymph % (Auto) [place] % (Auto) Eos % (Auto) Baso % (Auto) Absolute Neuts (auto) Absolute Lymphs (auto) Nucleated RBC % Differential Comment Hypochromasia Anisocytosis Microcytosis PT INR APTT Specimen Type ART Sample Site R RADIAL pH 7.40 Bicarbonate Actual 36.9 H Total CO2 39 Base Excess 12 H O2 Saturation 90 L O2 % 90 ABG pCO2 59.5 H ABG pO2 62 L Anthony Test POS Respiration Rate 14 O2 Delivery Device Vent Vent Mode A-C Tidal Volume 500 POC PEEP 5 POC Pressure Suppt EPAP IPAP Blood Gas Notified Whom ICU MD Blood Gas Notified Time 710 Sodium Potassium Chloride Carbon Dioxide Anion Gap BUN Creatinine Estim Creat Clear Calc Est GFR (MDRD) Af Amer Est GFR (MDRD) Non-Af BUN/Creatinine Ratio Glucose Hemoglobin A1c Lactic Acid Calcium Total Bilirubin AST ALT Alkaline Phosphatase Total Creatine Kinase B-Natriuretic Peptide Total Protein Albumin Globulin Albumin/Globulin Ratio Triglycerides Urine Color Urine Clarity Urine pH Ur Specific [place] Urine Protein Urine Glucose (UA) Urine Ketones Urine Occult Blood Urine Nitrite Urine Bilirubin Urine Urobilinogen Ur Leukocyte Esterase Urine RBC Urine WBC Ur Squamous Epith Cells Urine Bacteria Urine Mucus COVID-19 ([place]) Not Detected POC Glucose 256 H 01/15/20 01/15/20 01/15/20 14:38 18:04 22:22 WBC RBC Hgb Hct MCV MCH MCHC RDW Std Deviation RDW Coeff of [place] Plt Count MPV Immature Gran % (Auto) Neut % (Auto) Lymph % (Auto) [place] % (Auto) Eos % (Auto) Baso % (Auto) Absolute Neuts (auto) Absolute Lymphs (auto) Nucleated RBC % Differential Comment Hypochromasia Anisocytosis Microcytosis PT INR APTT Specimen Type Sample Site pH Bicarbonate Actual Total CO2 Base Excess O2 Saturation O2 % ABG pCO2 ABG pO2 Anthony Test Respiration Rate O2 Delivery Device Vent Mode Tidal Volume POC PEEP POC Pressure Suppt EPAP IPAP Blood Gas Notified Whom Blood Gas Notified Time Sodium Potassium Chloride Carbon Dioxide Anion Gap BUN Creatinine Estim Creat Clear Calc Est GFR (MDRD) Af Amer Est GFR (MDRD) Non-Af BUN/Creatinine Ratio Glucose Hemoglobin A1c Lactic Acid Calcium Total Bilirubin AST ALT Alkaline Phosphatase Total Creatine Kinase B-Natriuretic Peptide Total Protein Albumin Globulin Albumin/Globulin Ratio Triglycerides Urine Color Urine Clarity Urine pH Ur Specific [place] Urine Protein Urine Glucose (UA) Urine Ketones Urine Occult Blood Urine Nitrite Urine Bilirubin Urine Urobilinogen Ur Leukocyte Esterase Urine RBC Urine WBC Ur Squamous Epith Cells Urine Bacteria Urine Mucus COVID-19 ([place]) POC Glucose 222 H 196 H 179 H 01/16/20 01/16/20 01/16/20 01:54 04:10 04:10 WBC 14.2 H RBC 4.03 L Hgb 9.9 L Hct 33.7 L MCV 83.6 MCH 24.6 L MCHC 29.4 L RDW Std Deviation 65.4 H RDW Coeff of [place] 21.7 H Plt Count 249 MPV 9.5 Immature Gran % (Auto) 0.500 Neut % (Auto) 84.7 H Lymph % (Auto) 10.9 L [place] % (Auto) 3.8 Eos % (Auto) 0.0 Baso % (Auto) 0.1 Absolute Neuts (auto) 12.1 H Absolute Lymphs (auto) 1.55 Nucleated RBC % 0 Differential Comment SCANNED Hypochromasia 2+ Anisocytosis Microcytosis 3+ PT INR APTT Specimen Type Sample Site pH Bicarbonate Actual Total CO2 Base Excess O2 Saturation O2 % ABG pCO2 ABG pO2 Anthony Test Respiration Rate O2 Delivery Device Vent Mode Tidal Volume POC PEEP POC Pressure Suppt EPAP IPAP Blood Gas Notified Whom Blood Gas Notified Time Sodium 140 Potassium 4.0 Chloride 101 Carbon Dioxide 38.0 H Anion Gap 1 L BUN 39 H Creatinine 1.80 H Estim Creat Clear Calc 33.66 Est GFR (MDRD) Af Amer 48 L Est GFR (MDRD) Non-Af 39 L BUN/Creatinine Ratio 21.7 H Glucose 203 H Hemoglobin A1c Lactic Acid Calcium 8.0 L Total Bilirubin AST ALT Alkaline Phosphatase Total Creatine Kinase B-Natriuretic Peptide Total Protein Albumin Globulin Albumin/Globulin Ratio Triglycerides Urine Color Urine Clarity Urine pH Ur Specific [place] Urine Protein Urine Glucose (UA) Urine Ketones Urine Occult Blood Urine Nitrite Urine Bilirubin Urine Urobilinogen Ur Leukocyte Esterase Urine RBC Urine WBC Ur Squamous Epith Cells Urine Bacteria Urine Mucus COVID-19 ([place]) POC Glucose 178 H 01/16/20 06:22 WBC RBC Hgb Hct MCV MCH MCHC RDW Std Deviation RDW Coeff of [place] Plt Count MPV Immature Gran % (Auto) Neut % (Auto) Lymph % (Auto) [place] % (Auto) Eos % (Auto) Baso % (Auto) Absolute Neuts (auto) Absolute Lymphs (auto) Nucleated RBC % Differential Comment Hypochromasia Anisocytosis Microcytosis PT INR APTT Specimen Type Sample Site pH Bicarbonate Actual Total CO2 Base Excess O2 Saturation O2 % ABG pCO2 ABG pO2 Anthony Test Respiration Rate O2 Delivery Device Vent Mode Tidal Volume POC PEEP POC Pressure Suppt EPAP IPAP Blood Gas Notified Whom Blood Gas Notified Time Sodium Potassium Chloride Carbon Dioxide Anion Gap BUN Creatinine Estim Creat Clear Calc Est GFR (MDRD) Af Amer Est GFR (MDRD) Non-Af BUN/Creatinine Ratio Glucose Hemoglobin A1c Lactic Acid Calcium Total Bilirubin AST ALT Alkaline Phosphatase Total Creatine Kinase B-Natriuretic Peptide Total Protein Albumin Globulin Albumin/Globulin Ratio Triglycerides Urine Color Urine Clarity Urine pH Ur Specific [place] Urine Protein Urine Glucose (UA) Urine Ketones Urine Occult Blood Urine Nitrite Urine Bilirubin Urine Urobilinogen Ur Leukocyte Esterase Urine RBC Urine WBC Ur Squamous Epith Cells Urine Bacteria Urine Mucus COVID-19 ([place]) POC Glucose 262 H Microbiology 01/15/20 03:41 Sputum, Induced/Lukens Gram Stain - Final 01/15/20 01:20 Urine Catheter - Catheter Streptococcus pneumoniae Antigen (M - Final 01/15/20 01:20 Urine Catheter - Catheter Legionella Antigen - Final Clinical Impression(s) from Imaging Studies Chest CT 01/15/20 09:46 IMPRESSION: Small left pleural effusion with dense consolidation in the left upper, lingular segment of the left upper lobe as well as left lower lobes. Electronically Signed: Abdullahi Gauthier, at 11:20 EDT , Service support , Medical Necessity - Tobacco Use Smoking Status: Former smoker Assessment/Plan All Active Problems (Last Updated 01/15/20 @ 09:[address] Abbie Cardenas MD) Severe sepsis (Acute) RECOMMENDATIONS: 1. Await echocardiogram 2. Continue empiric antibiotics pending culture data 3. Wean oxygen as tolerated 4. Place central line for possible pressors 5. Spontaneous breathing and awakening trials per protocol 6. Increase PEEP to facilitate weaning FiO2 IMPRESSIONS: 1. Acute on chronic combined respiratory failure Patient currently on empiric antibiotics, steroids and bronchodilators. Previous ABG showed adequate oxygenation and ventilation on the current vent settings. Patient is also been placed on mucolytic. Cultures are currently pending. Patient failed BiPAP therapy and was subsequently intubated. CT scan of the chest shows a significant effusion with infiltrate on the left. We will continue with empiric therapy, but may require a thoracentesis to allow for liberation from the ventilator. Patient appears to have relatively advanced COPD, so may have a protracted course. Patient appears to be doing okay with current sedation, but may require pressors to facilitate sedation for vent synchrony. 2. Severe sepsis secondary to pneumonia Unclear etiology at this time. Copious secretions have been reported by respiratory. Cultures are currently pending. Patient is on broad-spectrum antibiotics at this time. Elevated lactic acid may be secondary to hypoxic presentation. Patient now with hypotension, but this may be related to sedation. A central line will be placed to facilitate lab draws and potential pressors. We will continue to monitor. 3. Poorly controlled diabetes mellitus Patient with high doses of basal insulin at home. Likely start patient on tube feeds in addition to steroid therapy. Anticipate high requirements. Likely space out blood sugar checks once tube feeds at goal and sugars controlled. Basal insulin has been ordered, but may need to titrate up. 4. Hypertension/metabolic encephalopathy/poor historian/obesity/history of squamous cell skin cancer Complicates care, management, recovery and prognosis. Hold antihypertensive medications given acute condition. Encephalopathy on presentation likely secondary to hypercarbia. TIME: 40 minutes critical care time spent addressing patient's acute on chronic respiratory failure, probable COPD, sepsis, diabetes mellitus, review of all data and collaboration with care team (5:30 AM to 6:30 AM) [id number]: [id number] Critical care first hour
[2020-01-16] MEDS: Ipratropium/Albuterol Sulfate 3 ML AMPUL.NEB INHALATION ×5 (07:09→22:39)
[2020-01-16] MEDS: TITRATION PARAMETER CHANGE 1 EACH IV (07:20)
--- NOTE | 2020-01-16 09:30 | RAD_ITS ---
STUDY: X-RAY CHEST REASON FOR EXAM: Male, 74 years old. For line placement. TECHNIQUE: Single AP portable view of the chest. COMPARISON: Comparison is made with prior examination dated 01/15/2020 at 3:34 AM. FINDINGS: An endotracheal tube is in situ. The tip is at 4.6 times approximately the racheal. An orogastric tube is seen with the tip in the body of the stomach. A right-sided central line has been placed with the tip at the junction of the superior vena cava and right atrium. EKG electrodes are seen. Stable consolidation in the left lower lobe with elevation of the left hemidiaphragm. Mild increased markings at the right lung base with blunting of both costophrenic angles. Normal size heart. Normal mediastinum and arash. Normal visualized pulmonary arteries. There is atherosclerotic calcification of the aortic arch with tortuosity. There are diffuse degenerative changes of the visualized thoracic spine. Normal visualized ribs, clavicles, and shoulders. There is no demonstrated abnormality of the visualized soft tissue structures of the upper abdomen. RAD/CXR for Line Placement IMPRESSION: Status post placement of a right central catheter with the tip at the junction of the superior vena cava and right atrium. The remainder the examination is unchanged. Electronically Signed: Abdullahi Gauthier, at 9:55 EDT , Service support ,
--- NOTE | 2020-01-16 09:33 | PCM.OPRPT ---
Report of Operation Date of Procedure: 01/16/20 Surgery/Procedure Performed:: Triple-lumen catheter insertion Description of Surgical Findings:: Central line placement procedure note Indication: IV access/hemodynamic instability/vasoactive medications Procedure: A time-out was completed to verify correct patient, indication, medication allergies, procedure, coagulation studies, informed consent signed, and equipment needed. The patient was placed in the supine position for a central line placement to the rt IJ femoral vein. The patients rt neck was prepped using chlorhexidine and a full body sterile drape was applied. 1% lidocaine was used to anesthetize the surrounding skin. A 7fr 16 cm blue guard triple lumen catheter introduced into the internal jugular vein using the modified Seldinger technique with the assistance of ultrasound. The catheter was threaded smoothly over the guidewire, the guidewire was removed easily, nonpulsatile blood returned. All ports were aspirated of air and flushed with sterile saline. The catheter was sutured in place and covered with an occlusive dressing impregnated with chlorhexidine. Post-procedure: The patient tolerated the procedure well. Vital signs remained stable. EBL3 cc. No complications. Chest X Ray ordered to confirm tip placement and the absence of pneumothorax. Procedures: 03115 Insert Non-tunnel CV Cath
--- NOTE | 2020-01-16 10:11 | PN_ITS ---
Patient Problems: Active and Suspected Problems (Last Updated 01/15/20 @ 09:[address] Abbie Cardenas MD) Severe sepsis (Acute) Subjective: Chief complaint: Follow-up after admission for acute on chronic combined respiratory failure, severe sepsis secondary to multilobar left community- acquired pneumonia. Patient seen and examined. No acute events overnight. Nursing staff reported that his blood pressure has been marginal overnight, no vasopressors started. Remained on mechanical ventilation, PEEP of 5 and FiO2 of 60%. He is afebrile, heart rate stable, blood pressure is borderline, on mechanical ventilation. - Physical Exam Vitals/I&O's: Vital Signs Temp Pulse Resp BP Pulse Ox 98.1 F 61 14 107/58 L 94 01/16/20 07:00 01/16/20 10:05 01/16/20 10:05 01/16/20 07:00 01/16/20 10:05 Oxygen Flow Rate (L/min) 15 Oxygen Delivery Method Mechanical Ventilator Weight: 236 lb 1.841 oz Body Mass Index (BMI) 35.9 Intake and Output for Last 24 Hours 01/14/20 01/15/20 01/16/20 23:59 23:59 23:59 Intake Total 50 / 50 2676.69 / 2688.76 969.73 / 969.73 Output Total 830 / 830 110 / 110 Balance 50 / 50 1846.69 / 1858.76 859.73 / 859.73 General: - - Patient is sedated, intubated. HEENT: Atraumatic, PERRLA, Normocephalic Oral: Moist Mucosa, No Gingival or Mucosal Lesions/ Ulcerations Neck: Supple, No JVD, Negative Carotid Bruits, Trachea Midline, Thyroid Normal Size and Texture Lungs: No wheeze, No rales, Diminished, Rhonchi, - - Markedly decreased breath sounds on the left base, dull percussion note, rhonchi. Cardiovascular: Regular rate, Regular Rhythm, Normal S1, Normal S2, PMI Normal Abdomen: Bowel Sounds Present, Soft, Non Tender, Non-Distended, No Hepato- splenomegaly, Obese Extremities: No clubbing, No cyanosis, Clubbing, Edema Skin: No rashes, No breakdown Lymphatic: No Cervical, Supraclavicular, or Inguinal Adenopathy Neurological: Cranial nerves II-XII grossly intact, Neuro grossly intact Psych/Mental Status: - - Unable to assess, patient is sedated. Microbiology Past 72 Hours 01/15/20 03:41 Sputum, Induced/Lukens Gram Stain - Final 01/15/20 01:20 Urine Catheter - Catheter Streptococcus pneumoniae Antigen (M - Final 01/15/20 01:20 Urine Catheter - Catheter Legionella Antigen - Final Laboratory Results 01/15/20 05:15: Hemoglobin A1c 9.8 H 01/15/20 11:20: POC Glucose 256 H 01/15/20 14:38: POC Glucose 222 H 01/15/20 18:04: POC Glucose 196 H 01/15/20 22:22: POC Glucose 179 H 01/16/20 01:54: POC Glucose 178 H 01/16/20 04:10: WBC 14.2 H, RBC 4.03 L, Hgb 9.9 L, Hct 33.7 L, MCV 83.6, MCH 24.6 L, MCHC 29.4 L, RDW Std Deviation 65.4 H, RDW Coeff of Truman 21.7 H, Plt Count 249, MPV 9.5, Immature Gran % (Auto) 0.500, Neut % (Auto) 84.7 H, Lymph % (Auto) 10.9 L, [place] % (Auto) 3.8, Eos % (Auto) 0.0, Baso % (Auto) 0.1, Absolute Neuts (auto) 12.1 H, Absolute Lymphs (auto) 1.55, Nucleated RBC % 0, Differential Comment SCANNED, Hypochromasia 2+, Microcytosis 3+ 01/16/20 04:10: Sodium 140, Potassium 4.0, Chloride 101, Carbon Dioxide 38.0 H, Anion Gap 1 L, BUN 39 H, Creatinine 1.80 H, Estim Creat Clear Calc 33.66, Est GFR (MDRD) Af Amer 48 L, Est GFR (MDRD) Non-Af 39 L, BUN/Creatinine Ratio 21.7 H , Glucose 203 H, Calcium 8.0 L 01/16/20 06:22: POC Glucose 262 H Clinical Impression(s) from Imaging Studies Chest CT 01/15/20 09:46 IMPRESSION: Small left pleural effusion with dense consolidation in the left upper, lingular segment of the left upper lobe as well as left lower lobes. Electronically Signed: Abdullahi Gauthier, at 11:20 EDT , Service support , Chest X-Ray 01/16/20 09:30 IMPRESSION: Status post placement of a right central catheter with the tip at the junction of the superior vena cava and right atrium. The remainder the examination is unchanged. Electronically Signed: Abdullahi Gauthier, at 9:55 EDT , Service support , Current Medications Acetaminophen (Tylenol) 650 mg PO Q6H PRN PRN PRN Reason: Pain Score 1-10/Temp > 100.7 F Albuterol Sulfate (Ventolin Aerosols) 2.5 mg INHALATION Q2H PRN PRN PRN Reason: SOB/Wheezing Albuterol/Ipratropium (Duoneb) 3 ml INHALATION Q4HWA.RT [facility] Last Admin: 01/16/20 07:09 Dose: 3 ml Documented by: Chlorhexidine Gluconate () 15 ml PO BID [facility] Last Admin: 01/15/20 21:19 Dose: 15 ml Documented by: Dextrose (D50w Syringe) 0 gm IV X1 PRN; Protocol PRN Reason: Hypoglycemia Enoxaparin Sodium (Lovenox) 40 mg SC DAILY [facility] Last Admin: 01/15/20 10:10 Dose: 40 mg Documented by: Famotidine (Pepcid) 20 mg GT DAILY [facility] Glucagon () 1 mg IM .X1 PRN PRN Reason: Hypoglycemia Sodium Chloride () 250 mls @ 15 mls/hr IV .[id number] PRN PRN Reason: Saline Flush Sodium Chloride () 250 mls @ 15 mls/hr IV .[id number] PRN PRN Reason: Additional IVPB Infusion Vancomycin IV Pharmacy to Dose (1 ea/ Sodium Chloride) 500 mls @ 250 mls/hr IV PRN PRN; Protocol PRN Reason: Rx to Dose Piperacillin Sod/Tazobactam (Sod 3.375 gm/ Sodium Chloride) 50 mls @ 12.5 mls/hr IV Q8 [facility] Last Admin: 01/16/20 05:26 Dose: 12.5 mls/hr Documented by: Fentanyl Citrate 1,000 mcg/ (Sodium Chloride) 100 mls @ 2.5 mls/hr CONT INF .Q40H [facility]; Protocol Last Titration: 01/16/20 08:00 Dose: 125 mcg/hr, 12.5 mls/hr Documented by: Propofol (Diprivan) 1,000 mg in 100 mls @ 6.426 mls/hr CONT INF .Q12H [facility]; Protocol Last Titration: 01/16/20 07:45 Dose: 25 mcg/kg/min, 16.1 mls/hr Documented by: Enteral Nutritional Formula (Vital Af 1.2 Jay Liquid) 1,000 mls @ 55 mls/hr GT .[id number] [facility] Last Admin: 01/16/20 04:19 Dose: Not Given Documented by: Norepinephrine Bitartrate 8 mg (/ Sodium Chloride) 250 mls @ 9.375 mls/hr CONT INF .[id number] [facility]; Protocol Last Admin: 01/16/20 00:38 Dose: Not Given Documented by: Insulin Glargine (Lantus (Bkc)) 50 units SC BID [facility] Last Admin: 01/15/20 22:38 Dose: 50 u Documented by: Insulin Human Lispro (Humalog Kwikpen (Bk)) 0 unit SC Q4H [facility]; Protocol Last Admin: 01/16/20 06:24 Dose: 6 units Documented by: Labetalol HCl (Trandate) 10 mg IV Q6H PRN PRN PRN Reason: SBP > 160 Methylprednisolone (Solu-Medrol) 40 mg IV Q8 [facility] Last Admin: 01/16/20 05:27 Dose: 40 mg Documented by: Ondansetron HCl (Zofran) 4 mg IV Q8H PRN PRN PRN Reason: NAUSEA/VOMITING Sodium Chloride () 10 - 40 ml IV UD PRN PRN Reason: SALINE FLUSH Last Admin: 01/16/20 05:27 Dose: 30 ml Documented by: Medical Necessity - Tobacco Use Smoking Status: Former smoker Assessment/Plan All Active Problems (Last Updated 01/15/20 @ 09:[address] Abbie Cardenas MD) Severe sepsis (Acute) This is a 74 years old male patient presented to the emergency room because of shortness of breath and confusion, found to have acute on chronic combined hypoxic and hypercapnic respiratory failure attributed to acute COPD exacerbation and left community-acquired pneumonia and also found to have severe sepsis. #1 acute on chronic combined hypoxic and hypercapnic respiratory failure: Patient remains on IV antibiotics, IV steroids and bronchodilators as well as mechanical ventilation. His blood pressure has been borderline, no IV pressors required. He has been afebrile, heart rate maintained. It is secondary to pneumonia and COPD exacerbation in the setting of chronic respiratory failure being on home oxygen. Critical care on the case. Plan to continue same treatment. #2 severe sepsis: Secondary to pneumonia. Lactic acid was elevated, came down with IV fluids. Patient is on IV Zosyn and vancomycin. Patient is afebrile, blood pressure has been borderline, on mechanical ventilation. Cultures are pending. #3 Left multilobar community-acquired pneumonia: Again, he is on IV vancomycin and Zosyn. CT scan chest reviewed, revealed no evidence left consolidation with left small pleural effusion. Pneumococcal and Legionella antigen were negative. COVID-19 PCR came back negative. Blood, urine and sputum cultures are pending. Plan to continue same treatment. #4 COPD exacerbation: Remained on IV steroids, IV antibiotics and bronchodilators, on mechanical ventilation. Plan as above. #5 uncontrolled type 2 diabetes mellitus: Blood sugar started to improve, it is down to 200s. He is on Lantus 50 units twice daily along with sliding scale. IV steroids is likely contributing. Hemoglobin A1c is 9.8%. #6 COPD/chronic respiratory failure: Patient is on home oxygen and at present, he is noncompliant, has not been wearing his oxygen at home. Plan as above. #7 hyperlipidemia: Hold statins. #8 DVT prophylaxis: Subcu Lovenox. This note was generated with [employer] dictation software. It may contain incorrect words, spelling, and punctuation that were not noted in checking the note before signing. Inpatient E&M: [id number] [facility] L3
[2020-01-16] MEDS: Chlorhexidine 15 ML PO ×2 (11:16→21:44)
[2020-01-16] MEDS: Enoxaparin 40 MG/0.4 ML Syringe SC (11:17)
[2020-01-16] MEDS: Famotidine 20 MG Tablet GT (11:17)
[2020-01-16] MEDS: Senna/Docusate Sodium 1 Tablet 2 TABLET PO ×2 (11:20→21:43)
[2020-01-16 11:46] LABS: Bedside Glucose 218 mg/dL (70-110)
[2020-01-16] MEDS: Propofol 10MG/Ml 1,000 MG/100 ML Bottle 16.1 MG CONT INF (12:00)
[2020-01-16 14:27] LABS: Vancomycin, Trough Level 26.7 ug/mL (5.0-15.0)
--- NOTE | 2020-01-16 15:34 | PCM.RX.CS ---
Consult Pharmacy has been consulted to manage selected antiobiotic: Vancomycin Type of Consult: Follow-up Suspected Infection: Pneumonia Labs: Sodium 140 mmol/L (136-145) 01/16/20 04:10 Potassium 4.0 mmol/L (3.5-5.1) 01/16/20 04:10 Chloride 101 mmol/L (98-107) 01/16/20 04:10 Carbon Dioxide 38.0 mmol/L (21.0-32.0) H 01/16/20 04:10 Anion Gap 1 (5-15) L 01/16/20 04:10 BUN 39 mg/dL (7-18) H 01/16/20 04:10 Creatinine 1.80 mg/dL (0.70-1.30) H 01/16/20 04:10 Est GFR (MDRD) Af Amer 48 mL/min (>60) L 01/16/20 04:10 Est GFR (MDRD) Non-Af 39 mL/min (>60) L 01/16/20 04:10 BUN/Creatinine Ratio 21.7 RATIO (10-20) H 01/16/20 04:10 Glucose 203 mg/dL (74-106) H 01/16/20 04:10 Vancomycin Trough 26.7 ug/mL (5.0-15.0) H 01/16/20 13:30 Microbiology: Microbiology 01/15/20 03:41 Sputum, Induced/Lukens Gram Stain - Final 01/15/20 03:41 Sputum, Induced/Lukens Respiratory Culture - Preliminary Appears to be normal respiratory christelle. Further studies to follow. 01/15/20 01:20 Urine Catheter - Catheter Urine Culture - Preliminary Culture exhibits no growth. 01/15/20 01:20 Urine Catheter - Catheter Streptococcus pneumoniae Antigen (M - Final 01/15/20 01:20 Urine Catheter - Catheter Legionella Antigen - Final Goal Trough: 15-20 mcg/mL Pharmacy Plan for Drug Dosing: VANCOMYCIN LEVEL RECEIVED Current Vancomycin Dose: 1250MG Q12H Number of Doses Received: 3 TOTAL (1 2000MG, 2 1250MG) Vancomycin Level: 26.7 MG/DL Hours Since Last Dose: 11.5 Renal Function: SCR 1.8 (CRCL 42 ML/MIN USING ADJUSTED BW) Renal Function Trend: WORSENING, INCREASED FROM 1.02 (01/14) TO 1.8 (01/15) Vancomycin Plan/Comments: HOLD FURTHER DOSES AND GET ANOTHER TROUGH IN 24 HOURS DUE TO INCREASED IN SCR Pharmacy Service will continue to monitor and adjust dosing as required. Labs to be done on [date and time ordered]: 01/17/20 @ 1400
[2020-01-16 17:46] LABS: Bedside Glucose 278 mg/dL (70-110)
[2020-01-16] MEDS: Propofol 10MG/Ml 1,000 MG/100 ML Bottle 9.6 MG CONT INF ×2 (18:09→23:39)
[2020-01-16] MEDS: Nystatin Powder 15gm Bottle 1 APPLIC TOPICAL (21:42)
[2020-01-16 23:36] LABS: Bedside Glucose 208 mg/dL (70-110)
[2020-01-17] VITALS (38 sets, daily range): BP systolic 94–152; BP diastolic 53–87; PULSE 54–83; RESP 14–17; TEMP 36.8–37.1; O2SAT 89–97
[2020-01-17] MEDS: Ipratropium/Albuterol Sulfate 3 ML AMPUL.NEB INHALATION ×5 (03:01→19:10)
[2020-01-17 04:01] LABS: Absolute Lymphocyte Count 1.46 X10^3/uL (0.83-4.51); Absolute Neutrophil Count 10.7 X10^3/uL (2.0-7.7); Hematocrit 35.1 % (40-54); Hemoglobin 10.6 g/dL (13.0-16.5); Lymphocyte # 1.46 X10^3/ul (4.0); Lymphocyte % 11.5 % (19-41); Mean Corp Hgb Conc 30.2 g/dL (32-36); Mean Corpuscular Hgb 25.2 pg (27.0-32.0); Mean Corpuscular Volume 83.4 fL (80-94); Mean Platelet Vol. 9.8 fl (6.2-12.0); Monocyte# 0.51 X10^3/uL; NRBC Flagged by Analyzer 0 % (0-5); Neutrophil # 10.68 X10^3/uL (2.7-7.7); Neutrophil % 84.3 % (47-70); POSITIVE MORPHOLOGY YES; Platelet Count 267 K/mm3 (150-450); RBC Distribution Width CV 22.2 % (11.6-14.6); RBC Distribution Width SD 66.6 fl (35.1-43.9); Red Blood Count 4.21 M/mm3 (4.6-6.2); White Blood Count 12.7 K/mm3 (4.4-11.0)
[2020-01-17 04:14] LABS: Differential Indicated SCAN CRITERIA MET
[2020-01-17 04:16] LABS: Anion Gap 5 (5-15); BUN 51 mg/dL (7-18); BUN/Creat Ratio 29.1 RATIO (10-20); Calcium,Total 8.1 mg/dL (8.5-10.1); Chloride 99 mmol/L (98-107); Creatinine, Serum 1.75 mg/dL (0.70-1.30); EST Glomerular Filtration Rate 41 mL/min (>60); Est Glom Filt Rate - Afr Amer 49 mL/min (>60); Estimated Creatinine Clearance 34.62 ml/min; Glucose 248 mg/dL (74-106); Sodium Level 140 mmol/L (136-145)
[2020-01-17 04:37] LABS: Differential Comment SCANNED
[2020-01-17 04:38] LABS: Anisocytosis 1+
[2020-01-17 04:40] LABS: Microcytosis 2+; Ovalocyte RARE
[2020-01-17 04:41] LABS: Hypochromasia RARE
[2020-01-17] MEDS: Insulin Lispro 100 UNIT/ML INSULN.PEN SC ×4 (05:31→23:24)
[2020-01-17] MEDS: Nystatin Powder 15gm Bottle 1 APPLIC TOPICAL ×3 (05:33→22:13)
[2020-01-17] MEDS: 0.9% Saline Lock 10 ML Syringe IV ×2 (05:33→13:41)
[2020-01-17 05:51] LABS: Bedside Glucose 245 mg/dL (70-110)
[2020-01-17] MEDS: TITRATION PARAMETER CHANGE 1 EACH IV (06:02)
--- NOTE | 2020-01-17 06:57 | PCM.PN.INT ---
Subjective: Patient did okay overnight. Attempts to wean oxygen have been unsuccessful, but no pressors have been required. Patient does follow some commands. No bowel movements have been noted. Patient continues to tolerate tube feeds. General: Alert, Cooperative - Intermittently, - - Good vent synchrony noted. HEENT: Atraumatic, PERRLA, EOMI, Normocephalic, - - Slight scleral injection Oral: Moist Mucosa, No Gingival or Mucosal Lesions/ Ulcerations, - - Poor dentition Neck: Supple, No Nodes, Trachea Midline, JVD, Right Lungs: No wheeze, No rales, Diminished, Rhonchi - Left greater than right, - - Symmetric expansion. Slight dullness to percussion at the left base Cardiovascular: Regular rate, Regular Rhythm, Normal S1, Normal S2, No murmurs, No rub noted, No Gallop Abdomen: Bowel Sounds Present, Soft, Non Tender, Non-Distended, Obese Extremities: No clubbing, No cyanosis, Edema Skin: No rashes, No breakdown Musculoskeletal: No Tenderness to Palpation of Joints or Extremities Lymphatic: No Cervical, Supraclavicular, or Inguinal Adenopathy Neurological: Cranial nerves II-XII grossly intact, Neuro grossly intact, Motor Exam 5/5 strength throughout Psych/Mental Status: Flat Affect Vital Signs Temp Pulse Resp BP Pulse Ox 36.8 C 61 14 103/55 L 93 01/17/20 06:00 01/17/20 06:00 01/17/20 06:00 01/17/20 06:00 01/17/20 06:00 Oxygen Flow Rate (L/min) 15 Oxygen Delivery Method Mechanical Ventilator Weight: 107.9 kg Body Mass Index (BMI) 35.9 Intake and Output for Last 24 Hours 01/15/20 01/16/20 01/17/20 23:59 23:59 23:59 Intake Total 2676.69 / 2688.76 2687.16 / 2703.02 646.13 / 646.13 Output Total 830 / 830 740 / 740 260 / 260 Balance 1846.69 / 1858.76 1947.16 / 1963.02 386.13 / 386.13 Labs (Last 48 Hours) 01/15/20 01/15/20 01/15/20 02:32 05:15 06:42 WBC RBC Hgb Hct MCV MCH MCHC RDW Std Deviation RDW Coeff of Truman Plt Count MPV Immature Gran % (Auto) Neut % (Auto) Lymph % (Auto) [place] % (Auto) Eos % (Auto) Baso % (Auto) Absolute Neuts (auto) Absolute Lymphs (auto) Nucleated RBC % Differential Comment Hypochromasia Anisocytosis Microcytosis Ovalocytes Specimen Type ART Sample Site R RADIAL pH 7.28 L Bicarbonate Actual 41.6 H Total CO2 44 Base Excess 15 H O2 Saturation 85 L O2 % 75 ABG pCO2 87.9 H* ABG pO2 60 L Anthony Test POS Respiration Rate 12 O2 Delivery Device Bi Pap Vent Mode TNP Tidal Volume POC PEEP 10 POC Pressure Suppt 14 Blood Gas Notified Whom HOSP Blood Gas Notified Time 235 Sodium Potassium Chloride Carbon Dioxide Anion Gap BUN Creatinine Estim Creat Clear Calc Est GFR (MDRD) Af Amer Est GFR (MDRD) Non-Af BUN/Creatinine Ratio Glucose Hemoglobin A1c 9.8 H Calcium Vancomycin Trough COVID-19 ([place]) Not Detected POC Glucose 01/15/20 01/15/20 01/15/20 07:10 11:20 14:38 WBC RBC Hgb Hct MCV MCH MCHC RDW Std Deviation RDW Coeff of Truman Plt Count MPV Immature Gran % (Auto) Neut % (Auto) Lymph % (Auto) [place] % (Auto) Eos % (Auto) Baso % (Auto) Absolute Neuts (auto) Absolute Lymphs (auto) Nucleated RBC % Differential Comment Hypochromasia Anisocytosis Microcytosis Ovalocytes Specimen Type ART Sample Site R RADIAL pH 7.40 Bicarbonate Actual 36.9 H Total CO2 39 Base Excess 12 H O2 Saturation 90 L O2 % 90 ABG pCO2 59.5 H ABG pO2 62 L Anthony Test POS Respiration Rate 14 O2 Delivery Device Vent Vent Mode A-C Tidal Volume 500 POC PEEP 5 POC Pressure Suppt Blood Gas Notified Whom ICU Blood Gas Notified Time 710 Sodium Potassium Chloride Carbon Dioxide Anion Gap BUN Creatinine Estim Creat Clear Calc Est GFR (MDRD) Af Amer Est GFR (MDRD) Non-Af BUN/Creatinine Ratio Glucose Hemoglobin A1c Calcium Vancomycin Trough COVID-19 ([place]) POC Glucose 256 H 222 H 01/15/20 01/15/20 01/16/20 18:04 22:22 01:54 WBC RBC Hgb Hct MCV MCH MCHC RDW Std Deviation RDW Coeff of Truman Plt Count MPV Immature Gran % (Auto) Neut % (Auto) Lymph % (Auto) [place] % (Auto) Eos % (Auto) Baso % (Auto) Absolute Neuts (auto) Absolute Lymphs (auto) Nucleated RBC % Differential Comment Hypochromasia Anisocytosis Microcytosis Ovalocytes Specimen Type Sample Site pH Bicarbonate Actual Total CO2 Base Excess O2 Saturation O2 % ABG pCO2 ABG pO2 Anthony Test Respiration Rate O2 Delivery Device Vent Mode Tidal Volume POC PEEP POC Pressure Suppt Blood Gas Notified Whom Blood Gas Notified Time Sodium Potassium Chloride Carbon Dioxide Anion Gap BUN Creatinine Estim Creat Clear Calc Est GFR (MDRD) Af Amer Est GFR (MDRD) Non-Af BUN/Creatinine Ratio Glucose Hemoglobin A1c Calcium Vancomycin Trough COVID-19 ([place]) POC Glucose 196 H 179 H 178 H 01/16/20 01/16/20 01/16/20 04:10 04:10 06:22 WBC 14.2 H RBC 4.03 L Hgb 9.9 L Hct 33.7 L MCV 83.6 MCH 24.6 L MCHC 29.4 L RDW Std Deviation 65.4 H RDW Coeff of Truman 21.7 H Plt Count 249 MPV 9.5 Immature Gran % (Auto) 0.500 Neut % (Auto) 84.7 H Lymph % (Auto) 10.9 L [place] % (Auto) 3.8 Eos % (Auto) 0.0 Baso % (Auto) 0.1 Absolute Neuts (auto) 12.1 H Absolute Lymphs (auto) 1.55 Nucleated RBC % 0 Differential Comment SCANNED Hypochromasia 2+ Anisocytosis Microcytosis 3+ Ovalocytes Specimen Type Sample Site pH Bicarbonate Actual Total CO2 Base Excess O2 Saturation O2 % ABG pCO2 ABG pO2 Anthony Test Respiration Rate O2 Delivery Device Vent Mode Tidal Volume POC PEEP POC Pressure Suppt Blood Gas Notified Whom Blood Gas Notified Time Sodium 140 Potassium 4.0 Chloride 101 Carbon Dioxide 38.0 H Anion Gap 1 L BUN 39 H Creatinine 1.80 H Estim Creat Clear Calc 33.66 Est GFR (MDRD) Af Amer 48 L Est GFR (MDRD) Non-Af 39 L BUN/Creatinine Ratio 21.7 H Glucose 203 H Hemoglobin A1c Calcium 8.0 L Vancomycin Trough COVID-19 ([place]) POC Glucose 262 H 01/16/20 01/16/20 01/16/20 11:22 13:30 17:38 WBC RBC Hgb Hct MCV MCH MCHC RDW Std Deviation RDW Coeff of Truman Plt Count MPV Immature Gran % (Auto) Neut % (Auto) Lymph % (Auto) [place] % (Auto) Eos % (Auto) Baso % (Auto) Absolute Neuts (auto) Absolute Lymphs (auto) Nucleated RBC % Differential Comment Hypochromasia Anisocytosis Microcytosis Ovalocytes Specimen Type Sample Site pH Bicarbonate Actual Total CO2 Base Excess O2 Saturation O2 % ABG pCO2 ABG pO2 Anthony Test Respiration Rate O2 Delivery Device Vent Mode Tidal Volume POC PEEP POC Pressure Suppt Blood Gas Notified Whom Blood Gas Notified Time Sodium Potassium Chloride Carbon Dioxide Anion Gap BUN Creatinine Estim Creat Clear Calc Est GFR (MDRD) Af Amer Est GFR (MDRD) Non-Af BUN/Creatinine Ratio Glucose Hemoglobin A1c Calcium Vancomycin Trough 26.7 H COVID-19 ([place]) POC Glucose 218 H 278 H 01/16/20 01/17/20 01/17/20 23:25 03:55 03:55 WBC 12.7 H RBC 4.21 L Hgb 10.6 L Hct 35.1 L MCV 83.4 MCH 25.2 L MCHC 30.2 L RDW Std Deviation 66.6 H RDW Coeff of Truman 22.2 H Plt Count 267 MPV 9.8 Immature Gran % (Auto) 0.200 Neut % (Auto) 84.3 H Lymph % (Auto) 11.5 L [place] % (Auto) 4.0 Eos % (Auto) 0.0 Baso % (Auto) 0.0 Absolute Neuts (auto) 10.7 H Absolute Lymphs (auto) 1.46 Nucleated RBC % 0 Differential Comment SCANNED Hypochromasia RARE Anisocytosis 1+ Microcytosis 2+ Ovalocytes RARE Specimen Type Sample Site pH Bicarbonate Actual Total CO2 Base Excess O2 Saturation O2 % ABG pCO2 ABG pO2 Anthony Test Respiration Rate O2 Delivery Device Vent Mode Tidal Volume POC PEEP POC Pressure Suppt Blood Gas Notified Whom Blood Gas Notified Time Sodium 140 Potassium 4.0 Chloride 99 Carbon Dioxide 36.0 H Anion Gap 5 BUN 51 H Creatinine 1.75 H Estim Creat Clear Calc 34.62 Est GFR (MDRD) Af Amer 49 L Est GFR (MDRD) Non-Af 41 L BUN/Creatinine Ratio 29.1 H Glucose 248 H Hemoglobin A1c Calcium 8.1 L Vancomycin Trough COVID-19 ([place]) POC Glucose 208 H 01/17/20 05:25 WBC RBC Hgb Hct MCV MCH MCHC RDW Std Deviation RDW Coeff of Truman Plt Count MPV Immature Gran % (Auto) Neut % (Auto) Lymph % (Auto) [place] % (Auto) Eos % (Auto) Baso % (Auto) Absolute Neuts (auto) Absolute Lymphs (auto) Nucleated RBC % Differential Comment Hypochromasia Anisocytosis Microcytosis Ovalocytes Specimen Type Sample Site pH Bicarbonate Actual Total CO2 Base Excess O2 Saturation O2 % ABG pCO2 ABG pO2 Anthony Test Respiration Rate O2 Delivery Device Vent Mode Tidal Volume POC PEEP POC Pressure Suppt Blood Gas Notified Whom Blood Gas Notified Time Sodium Potassium Chloride Carbon Dioxide Anion Gap BUN Creatinine Estim Creat Clear Calc Est GFR (MDRD) Af Amer Est GFR (MDRD) Non-Af BUN/Creatinine Ratio Glucose Hemoglobin A1c Calcium Vancomycin Trough COVID-19 ([facility]) POC Glucose 245 H Microbiology 01/14/20 21:25 Blood Culture (Wb) - Anticubital Right Blood Culture - Preliminary No growth in 48 hours. 01/14/20 21:25 Blood Culture (Wb) - Left Wrist Blood Culture - Preliminary No growth in 48 hours. 01/15/20 03:41 Sputum, Induced/Lukens Gram Stain - Final 01/15/20 03:41 Sputum, Induced/Lukens Respiratory Culture - Preliminary Appears to be normal respiratory christelle. Further studies to follow. 01/15/20 01:20 Urine Catheter - Catheter Urine Culture - Preliminary Culture exhibits no growth. Clinical Impression(s) from Imaging Studies Chest X-Ray 01/16/20 09:30 IMPRESSION: Status post placement of a right central catheter with the tip at the junction of the superior vena cava and right atrium. The remainder the examination is unchanged. Electronically Signed: Abdullahi Gauthier, at 9:55 EDT , Service support , Medical Necessity - Tobacco Use Smoking Status: Former smoker Assessment/Plan All Active Problems (Last Updated 01/15/20 @ 09:[address] Abbie Cardenas MD) Severe sepsis (Acute) RECOMMENDATIONS: 1. Continue empiric antibiotics for now 2. Anticipate slow recovery given baseline respiratory function 3. Aggressive pulmonary toileting 4. Place central line for possible pressors 5. Spontaneous breathing and awakening trials per protocol 6. Increase PEEP to facilitate weaning FiO2 IMPRESSIONS: 1. Acute on chronic combined respiratory failure Patient currently on empiric antibiotics, steroids and bronchodilators. Previous ABG showed adequate oxygenation and ventilation on the current vent settings. Patient is also been placed on mucolytic. Cultures are negative, but infiltrates are extensive. Patient failed BiPAP therapy and was subsequently intubated. CT scan of the chest shows a significant effusion with infiltrate on the left. We will continue with empiric therapy, but may require a thoracentesis to allow for liberation from the ventilator. Patient appears to have relatively advanced COPD, so may have a protracted course. Patient does appear to have responded well to antibiotics, but recruitment will be an issue given dense pneumonia. 2. Severe sepsis secondary to pneumonia Unclear etiology at this time. Copious secretions have been reported by respiratory. Cultures are currently pending. Patient is on broad-spectrum antibiotics at this time. Elevated lactic acid may be secondary to hypoxic presentation. Blood pressures are improving. 3. Poorly controlled diabetes mellitus Patient with high doses of basal insulin at home. Blood sugars are controlled at this time. No indication to titrate up basal insulin. Improvement in insulin requirements likely secondary to lack of dietary indiscretions. 4. Hypertension/metabolic encephalopathy/poor historian/obesity/history of squamous cell skin cancer Complicates care, management, recovery and prognosis. Hold antihypertensive medications given acute condition. Encephalopathy on presentation likely secondary to hypercarbia. TIME: 33 minutes critical care time spent addressing patient's acute on chronic respiratory failure, probable COPD, sepsis, diabetes mellitus, review of all data and collaboration with care team (6 AM to 7 AM) [id number]: [id number] Critical care first hour
[2020-01-17] MEDS: Propofol 10MG/Ml 1,000 MG/100 ML Bottle 9.7 MG CONT INF ×2 (07:37→14:44)
[2020-01-17] MEDS: Chlorhexidine 15 ML PO ×2 (09:00→22:11)
[2020-01-17] MEDS: Senna/Docusate Sodium 1 Tablet 2 TABLET PO ×2 (09:01→22:13)
[2020-01-17] MEDS: Enoxaparin 40 MG/0.4 ML Syringe SC (09:01)
[2020-01-17] MEDS: Polyethylene Glycol 3350 17 GM PACKET PO ×2 (09:01→22:12)
[2020-01-17] MEDS: Famotidine 20 MG Tablet GT (09:01)
--- NOTE | 2020-01-17 09:12 | PCM.PROGNOTE ---
Patient Problems: Active and Suspected Problems (Last Updated 01/15/20 @ 09:[address] Abbie Cardenas MD) Severe sepsis (Acute) Subjective: Chief complaint: Follow-up after admission for acute on chronic combined respiratory failure, severe sepsis secondary to multilobar left community-acquired pneumonia. Patient seen and examined. No acute events overnight. Nursing staff were unable to wean down oxygen requirement. Blood pressure maintained, there was no need for vasopressors. At this time, patient is sedated, not following commands. He is afebrile, heart rate and blood pressure maintained, on mechanical ventilation with FiO2 of 50% and PEEP of 10. - Physical Exam Vitals/I&O's: Vital Signs Temp Pulse Resp BP Pulse Ox 98.2 F 58 L 14 102/57 L 92 01/17/20 08:00 01/17/20 09:00 01/17/20 09:00 01/17/20 09:00 01/17/20 09:00 Oxygen Flow Rate (L/min) 15 Oxygen Delivery Method Mechanical Ventilator Weight: 237 lb 14.06 oz Body Mass Index (BMI) 35.9 Intake and Output for Last 24 Hours 01/15/20 01/16/20 01/17/20 23:59 23:59 23:59 Intake Total 2676.69 / 2688.76 2687.16 / 2703.02 819.90 / 819.90 Output Total 830 / 830 740 / 740 275 / 275 Balance 1846.69 / 1858.76 1947.16 / 1963.02 544.90 / 544.90 General: - - Sedated, intubated, not following commands. HEENT: Atraumatic, PERRLA, Normocephalic Oral: Moist Mucosa, No Gingival or Mucosal Lesions/ Ulcerations Neck: Supple, No JVD, Negative Carotid Bruits, Trachea Midline, Thyroid Normal Size and Texture Lungs: No wheeze, Diminished, Rales, Rhonchi, - - Markedly decreased breath sounds on the left base with dull percussion note, rhonchi. Cardiovascular: Regular rate, Regular Rhythm, Normal S1, Normal S2, PMI Normal Abdomen: Bowel Sounds Present, Soft, Non Tender, Non-Distended, No Hepato-splenomegaly, Obese Extremities: No clubbing, No cyanosis, Edema Skin: No rashes, No breakdown Lymphatic: No Cervical, Supraclavicular, or Inguinal Adenopathy Neurological: Cranial nerves II-XII grossly intact, Neuro grossly intact, - Psych/Mental Status: - - Unable to assess, patient is sedated. Microbiology Past 72 Hours 01/15/20 01:20 Urine Catheter - Catheter Urine Culture - Final Culture exhibits no growth. 01/14/20 21:25 Blood Culture (Wb) - Anticubital Right Blood Culture - Preliminary No growth in 48 hours. 01/14/20 21:25 Blood Culture (Wb) - Left Wrist Blood Culture - Preliminary No growth in 48 hours. 01/15/20 03:41 Sputum, Induced/Lukens Gram Stain - Final 01/15/20 03:41 Sputum, Induced/Lukens Respiratory Culture - Preliminary Appears to be normal respiratory christelle. Further studies to follow. 01/15/20 01:20 Urine Catheter - Catheter Streptococcus pneumoniae Antigen (M - Final 01/15/20 01:20 Urine Catheter - Catheter Legionella Antigen - Final Laboratory Results 01/15/20 02:32: Vent Mode TNP 01/16/20 11:22: POC Glucose 218 H 01/16/20 13:30: Vancomycin Trough 26.7 H 01/16/20 17:38: POC Glucose 278 H 01/16/20 23:25: POC Glucose 208 H 01/17/20 03:55: WBC 12.7 H, RBC 4.21 L, Hgb 10.6 L, Hct 35.1 L, MCV 83.4, MCH 25.2 L, MCHC 30.2 L, RDW Std Deviation 66.6 H, RDW Coeff of Truman 22.2 H, Plt Count 267, MPV 9.8, Immature Gran % (Auto) 0.200, Neut % (Auto) 84.3 H, Lymph % (Auto) 11.5 L, [place] % (Auto) 4.0, Eos % (Auto) 0.0, Baso % (Auto) 0.0, Absolute Neuts (auto) 10.7 H, Absolute Lymphs (auto) 1.46, Nucleated RBC % 0, Differential Comment SCANNED, Hypochromasia RARE, Anisocytosis 1+, Microcytosis 2+, Ovalocytes RARE 01/17/20 03:55: Sodium 140, Potassium 4.0, Chloride 99, Carbon Dioxide 36.0 H, Anion Gap 5, BUN 51 H, Creatinine 1.75 H, Estim Creat Clear Calc 34.62, Est GFR (MDRD) Af Amer 49 L, Est GFR (MDRD) Non-Af 41 L, BUN/Creatinine Ratio 29.1 H, Glucose 248 H, Calcium 8.1 L 01/17/20 05:25: POC Glucose 245 H Current Medications Acetaminophen (Tylenol) 650 mg PO Q6H PRN PRN PRN Reason: Pain Score 1-10/Temp > 100.7 F Albuterol Sulfate (Ventolin Aerosols) 2.5 mg INHALATION Q2H PRN PRN PRN Reason: SOB/Wheezing Albuterol/Ipratropium (Duoneb) 3 ml INHALATION Q4HWA.RT [facility] Last Admin: 01/17/20 07:11 Dose: 3 ml Documented by: Chlorhexidine Gluconate () 15 ml PO BID [facility] Last Admin: 01/17/20 09:00 Dose: 15 ml Documented by: Dextrose (D50w Syringe) 0 gm IV X1 PRN; Protocol PRN Reason: Hypoglycemia Enoxaparin Sodium (Lovenox) 40 mg SC DAILY [facility] Last Admin: 01/17/20 09:01 Dose: 40 mg Documented by: Famotidine (Pepcid) 20 mg GT DAILY [facility] Last Admin: 01/17/20 09:01 Dose: 20 mg Documented by: Glucagon () 1 mg IM .X1 PRN PRN Reason: Hypoglycemia Sodium Chloride () 250 mls @ 15 mls/hr IV .[id number] PRN PRN Reason: Saline Flush Last Infusion: 01/17/20 07:37 Dose: 0 mls/hr Documented by: Sodium Chloride () 250 mls @ 15 mls/hr IV .[id number] PRN PRN Reason: Additional IVPB Infusion Vancomycin IV Pharmacy to Dose (1 ea/ Sodium Chloride) 500 mls @ 250 mls/hr IV PRN PRN; Protocol PRN Reason: Rx to Dose Piperacillin Sod/Tazobactam (Sod 3.375 gm/ Sodium Chloride) 50 mls @ 12.5 mls/hr IV Q8 [facility] Last Admin: 01/17/20 05:30 Dose: 12.5 mls/hr Documented by: Fentanyl Citrate 1,000 mcg/ (Sodium Chloride) 100 mls @ 2.5 mls/hr CONT INF .Q40H [facility]; Protocol Last Titration: 01/17/20 08:00 Dose: 150 mcg/hr, 15 mls/hr Documented by: Propofol (Diprivan) 1,000 mg in 100 mls @ 6.474 mls/hr CONT INF .Q12H [facility]; Protocol Last Titration: 01/17/20 08:00 Dose: 15 mcg/kg/min, 9.7 mls/hr Documented by: Enteral Nutritional Formula (Vital Af 1.2 Jay Liquid) 1,000 mls @ 55 mls/hr GT .[id number] [facility] Last Admin: 01/16/20 23:30 Dose: Not Given Documented by: Norepinephrine Bitartrate 8 mg (/ Sodium Chloride) 250 mls @ 9.375 mls/hr CONT INF .[id number] [facility]; Protocol Last Admin: 01/16/20 23:30 Dose: Not Given Documented by: Insulin Glargine (Lantus (Bk)) 50 units SC BID [facility] Last Admin: 01/16/20 23:27 Dose: 50 u Documented by: Insulin Human Lispro (Humalog Kwikpen (Bk)) 0 unit SC Q6 [facility]; Protocol Last Admin: 01/17/20 05:31 Dose: 4 u Documented by: Labetalol HCl (Trandate) 10 mg IV Q6H PRN PRN PRN Reason: SBP > 160 Methylprednisolone (Solu-Medrol) 40 mg IV Q8 [facility] Last Admin: 01/17/20 05:30 Dose: 40 mg Documented by: Nystatin (Mycostatin Powder) 1 applic TOPICAL TID [facility]; Protocol Last Admin: 01/17/20 05:33 Dose: 1 applicatio Documented by: Ondansetron HCl (Zofran) 4 mg IV Q8H PRN PRN PRN Reason: NAUSEA/VOMITING Polyethylene Glycol (Miralax) 17 gm PO BID [facility] Last Admin: 01/17/20 09:01 Dose: 17 gm Documented by: Senna/Docusate Sodium (Senokot-S, Alexus-Colace) 2 tablet PO BID [facility] Last Admin: 01/17/20 09:01 Dose: 2 tablet Documented by: Sodium Chloride () 10 - 40 ml IV UD PRN PRN Reason: SALINE FLUSH Last Admin: 01/17/20 05:33 Dose: 40 ml Documented by: Medical Necessity - Tobacco Use Smoking Status: Former smoker Assessment/Plan All Active Problems (Last Updated 01/15/20 @ 09:[address] Abbie Cardenas MD) Severe sepsis (Acute) This is a 74 years old male patient presented to the emergency room because of shortness of breath and confusion, found to have acute on chronic combined hypoxic and hypercapnic respiratory failure attributed to acute COPD exacerbation and left community-acquired pneumonia and also found to have severe sepsis. #1 acute on chronic combined hypoxic and hypercapnic respiratory failure: He is on day 3 of on IV antibiotics, IV steroids and bronchodilators as well as mechanical ventilation. Attempts to wean off oxygen requirement was unsuccessful this morning and overnight. His blood pressure is maintained, there was no need for IV vasopressors. He has been afebrile, not tachycardic. It is secondary to pneumonia and COPD exacerbation in the setting of chronic respiratory failure being on home oxygen. Critical care on the case. Plan to continue same treatment. #2 severe sepsis: Secondary to pneumonia. Lactic acid was elevated, came down with IV fluids. Patient is on IV Zosyn and vancomycin. Patient is afebrile, blood pressure is maintained, on mechanical ventilation. Blood culture showed no growth in 48 hours. Sputum culture revealed normal aspiratory christelle. Urine culture showed no growth. Plan to continue same treatment. #3 Left multilobar community-acquired pneumonia: Again, he is on IV vancomycin and Zosyn. CT scan chest reviewed, revealed no evidence left consolidation with left small pleural effusion. Pneumococcal and Legionella antigen were negative. COVID-19 PCR came back negative. Cultures reviewed as above. Plan to continue same treatment. #4 COPD exacerbation: Remained on IV steroids, IV antibiotics and bronchodilators, on mechanical ventilation. Plan as above. #5 uncontrolled type 2 diabetes mellitus: Blood sugar is getting better, it is down to 200s. He is on Lantus 50 units twice daily along with sliding scale. IV steroids is likely contributing. Hemoglobin A1c is 9.8%. #6 COPD/chronic respiratory failure: Patient is on home oxygen and at present, he is noncompliant, has not been wearing his oxygen at home. Plan as above. #7 hyperlipidemia: Hold statins. #8 DVT prophylaxis: Subcu Lovenox. This note was generated with ASSET4ation software. It may contain incorrect words, spelling, and punctuation that were not noted in checking the note before signing. Inpatient E&M: 17968 Subs Hosp L3
[2020-01-17] MEDS: Vital AF 1.2 Cal Liquid 1,000 ML 55 ML GT (10:06)
--- NOTE | 2020-01-17 11:15 | CM.ED ---
Participated in interdisciplinary rounds. Weaning attempts have been unsuccessful. Remains at 50% o2. Patient's family was present via phone during rounds. Anticipating need for SNF placement at discharge. Ani Dugan RN, CCM.
[2020-01-17 11:36] LABS: Bedside Glucose 239 mg/dL (70-110)
[2020-01-17 14:19] LABS: Vancomycin, Random Level 13.8 ug/mL (0.0-15.0)
--- NOTE | 2020-01-17 16:44 | PCM.RX.CS ---
Consult Pharmacy has been consulted to manage selected antiobiotic: Vancomycin Type of Consult: Follow-up Labs: Sodium 140 mmol/L (136-145) 01/17/20 03:55 Potassium 4.0 mmol/L (3.5-5.1) 01/17/20 03:55 Chloride 99 mmol/L (98-107) 01/17/20 03:55 Carbon Dioxide 36.0 mmol/L (21.0-32.0) H 01/17/20 03:55 Anion Gap 5 (5-15) 01/17/20 03:55 BUN 51 mg/dL (7-18) H 01/17/20 03:55 Creatinine 1.75 mg/dL (0.70-1.30) H 01/17/20 03:55 Est GFR (MDRD) Af Amer 49 mL/min (>60) L 01/17/20 03:55 Est GFR (MDRD) Non-Af 41 mL/min (>60) L 01/17/20 03:55 BUN/Creatinine Ratio 29.1 RATIO (10-20) H 01/17/20 03:55 Glucose 248 mg/dL (74-106) H 01/17/20 03:55 Vancomycin Trough 26.7 ug/mL (5.0-15.0) H 01/16/20 13:30 Random Vancomycin 13.8 ug/mL (0.0-15.0) 01/17/20 13:40 Microbiology: Microbiology 01/15/20 03:41 Sputum, Induced/Lukens Gram Stain - Final 01/15/20 03:41 Sputum, Induced/Lukens Respiratory Culture - Final Moraxella(Saba.)Catarrhalis 01/15/20 01:20 Urine Catheter - Catheter Urine Culture - Final Culture exhibits no growth. 01/14/20 21:25 Blood Culture (Wb) - Anticubital Right Blood Culture - Preliminary No growth in 48 hours. 01/14/20 21:25 Blood Culture (Wb) - Left Wrist Blood Culture - Preliminary No growth in 48 hours. 01/15/20 01:20 Urine Catheter - Catheter Streptococcus pneumoniae Antigen (M - Final 01/15/20 01:20 Urine Catheter - Catheter Legionella Antigen - Final Goal Trough: 15-20 mcg/mL Pharmacy Plan for Drug Dosing: VANCOMYCIN LEVEL RECEIVED Current Vancomycin Dose: OH HOLD: Last dose 1250mg IV 01/14 @1324 Number of Doses Received: 3(1 initial, 2 scheduled) Vancomycin Level: 13.8 Hours Since Last Dose: 48 hrs Renal Function: SCr 1.75/ CrCl = 35 mL/min Renal Function Trend: Slight improvement, but still sig worse from baseline (~1.02) Lab/Micro: SCx growing rare Moraxella Cattarhalis Vancomycin Plan/Comments: Vancomycin 1500mg IV x1 ordered. Called Dr. Cardenas to discuss vancomycin dosing. Pt's Cx showing M.Cat growth (Rare). Will plan on giving x1 more dose of vancomycin and assessing if vancomycin can be dc'd tomorrow (01/17). Depsite Cx only growing M.Cat, pt condition is still not improving per discussion. Will still schedule random level should pt to be continued on vanco past tomorrow. Pending Level: RANDOM level 01/19/20 w/AM labs Pharmacy Service will continue to monitor and adjust dosing as required.
[2020-01-17 17:31] LABS: Bedside Glucose 202 mg/dL (70-110)
[2020-01-17] MEDS: Propofol 10MG/Ml 1,000 MG/100 ML Bottle 12.9 MG CONT INF (22:00)
[2020-01-17 23:31] LABS: Bedside Glucose 210 mg/dL (70-110)
[2020-01-18] VITALS (41 sets, daily range): BP systolic 88–168; BP diastolic 49–97; PULSE 55–87; RESP 14–20; TEMP 36.8–37.2; O2SAT 89–95
[2020-01-18] MEDS: Ipratropium/Albuterol Sulfate 3 ML AMPUL.NEB INHALATION ×6 (00:40→22:03)
[2020-01-18] MEDS: Propofol 10MG/Ml 1,000 MG/100 ML Bottle 12.9 MG CONT INF ×2 (04:40→11:13)
[2020-01-18 05:26] LABS: Absolute Lymphocyte Count 1.71 X10^3/uL (0.83-4.51); Absolute Neutrophil Count 9.4 X10^3/uL (2.0-7.7); Basophil# 0.01 X10^3/uL; Basophil% 0.1 % (0-1); Hematocrit 35.7 % (40-54); Hemoglobin 10.6 g/dL (13.0-16.5); Lymphocyte # 1.71 X10^3/ul (4.0); Lymphocyte % 14.6 % (19-41); Mean Corp Hgb Conc 29.7 g/dL (32-36); Mean Corpuscular Hgb 24.9 pg (27.0-32.0); Mean Corpuscular Volume 83.8 fL (80-94); Mean Platelet Vol. 9.9 fl (6.2-12.0); Monocyte# 0.54 X10^3/uL; Monocyte% 4.6 % (0-10); NRBC Flagged by Analyzer 0 % (0-5); Neutrophil # 9.38 X10^3/uL (2.7-7.7); POSITIVE MORPHOLOGY YES; Platelet Count 253 K/mm3 (150-450); RBC Distribution Width CV 22.2 % (11.6-14.6); RBC Distribution Width SD 66.8 fl (35.1-43.9); Red Blood Count 4.26 M/mm3 (4.6-6.2); White Blood Count 11.7 K/mm3 (4.4-11.0)
[2020-01-18 05:42] LABS: Anion Gap 4 (5-15); BUN 54 mg/dL (7-18); Calcium,Total 8.1 mg/dL (8.5-10.1); Chloride 100 mmol/L (98-107); Creatinine, Serum 1.59 mg/dL (0.70-1.30); EST Glomerular Filtration Rate 45 mL/min (>60); Est Glom Filt Rate - Afr Amer 55 mL/min (>60); Estimated Creatinine Clearance 38.11 ml/min; Glucose 229 mg/dL (74-106); Magnesium 2.6 mg/dL (1.6-2.6); Phosphorus 4.8 mg/dL (2.5-4.9); Potassium 4.5 mmol/L (3.5-5.1); Sodium Level 139 mmol/L (136-145)
[2020-01-18 05:52] LABS: Differential Indicated SCAN CRITERIA MET
[2020-01-18 05:56] LABS: Differential Comment SCANNED; Hypochromasia 1+
[2020-01-18] MEDS: Insulin Lispro 100 UNIT/ML INSULN.PEN SC ×4 (06:33→22:56)
[2020-01-18] MEDS: Nystatin Powder 15gm Bottle 1 APPLIC TOPICAL ×3 (06:34→21:22)
[2020-01-18] MEDS: 0.9% Saline Lock 10 ML Syringe IV (06:37)
[2020-01-18 06:45] LABS: Bedside Glucose 235 mg/dL (70-110)
--- NOTE | 2020-01-18 07:32 | PCM.PN.INT ---
Subjective: Patient did okay overnight. Blood pressures continue to improve and no pressors were required. Oxygenation has remained relatively stable. Patient did not qualify for spontaneous breathing trial this morning secondary to elevated PEEP requirements. Airway secretions have improved. General: - - RASS -2. Good vent synchrony noted. HEENT: Atraumatic, PERRLA, EOMI, Normocephalic, - - Scleral injection without icterus Oral: Moist Mucosa, No Gingival or Mucosal Lesions/ Ulcerations Neck: Supple, No JVD, No Nodes, Trachea Midline Lungs: No rhonchi, No rales, Diminished - Left greater than right, Wheezes - Left greater than right, - - Symmetric expansion Cardiovascular: Regular rate, Regular Rhythm, Normal S1, Normal S2, No murmurs, No rub noted, No Gallop Abdomen: Bowel Sounds Present, Soft, Non Tender, Distended - Slightly, Obese, - - Tolerating tube feeds Extremities: No cyanosis, Clubbing, Edema Skin: - Musculoskeletal: No Tenderness to Palpation of Joints or Extremities - No change compared to previous Lymphatic: No Cervical, Supraclavicular, or Inguinal Adenopathy Neurological: Cranial nerves II-XII grossly intact, Neuro grossly intact Psych/Mental Status: Flat Affect Vital Signs Temp Pulse Resp BP Pulse Ox 36.9 C 82 14 158/84 H 95 01/18/20 07:00 01/18/20 07:00 01/18/20 07:00 01/18/20 07:00 01/18/20 07:00 Oxygen Flow Rate (L/min) 15 Oxygen Delivery Method Mechanical Ventilator Weight: 109.7 kg Body Mass Index (BMI) 35.9 Intake and Output for Last 24 Hours 01/16/20 01/17/20 01/18/20 23:59 23:59 23:59 Intake Total 2687.16 / 2703.02 2883.88 / 2911.78 208.1 / 208.1 Output Total 740 / 740 905 / 905 555 / 555 Balance 1947.16 / 1963.02 1977.88 / 2005.78 -346.9 / -346.9 Labs (Last 48 Hours) 01/15/20 01/16/20 01/16/20 02:32 11:22 13:30 WBC RBC Hgb Hct MCV MCH MCHC RDW Std Deviation RDW Coeff of Truman Plt Count MPV Immature Gran % (Auto) Neut % (Auto) Lymph % (Auto) [place] % (Auto) Eos % (Auto) Baso % (Auto) Absolute Neuts (auto) Absolute Lymphs (auto) Nucleated RBC % Differential Comment Hypochromasia Anisocytosis Microcytosis Ovalocytes Vent Mode TNP Sodium Potassium Chloride Carbon Dioxide Anion Gap BUN Creatinine Estim Creat Clear Calc Est GFR (MDRD) Af Amer Est GFR (MDRD) Non-Af BUN/Creatinine Ratio Glucose Calcium Phosphorus Magnesium Vancomycin Trough 26.7 H Random Vancomycin POC Glucose 218 H 01/16/20 01/16/20 01/17/20 17:38 23:25 03:55 WBC 12.7 H RBC 4.21 L Hgb 10.6 L Hct 35.1 L MCV 83.4 MCH 25.2 L MCHC 30.2 L RDW Std Deviation 66.6 H RDW Coeff of [place] 22.2 H Plt Count 267 MPV 9.8 Immature Gran % (Auto) 0.200 Neut % (Auto) 84.3 H Lymph % (Auto) 11.5 L [place] % (Auto) 4.0 Eos % (Auto) 0.0 Baso % (Auto) 0.0 Absolute Neuts (auto) 10.7 H Absolute Lymphs (auto) 1.46 Nucleated RBC % 0 Differential Comment SCANNED Hypochromasia RARE Anisocytosis 1+ Microcytosis 2+ Ovalocytes RARE Vent Mode Sodium Potassium Chloride Carbon Dioxide Anion Gap BUN Creatinine Estim Creat Clear Calc Est GFR (MDRD) Af Amer Est GFR (MDRD) Non-Af BUN/Creatinine Ratio Glucose Calcium Phosphorus Magnesium Vancomycin Trough Random Vancomycin POC Glucose 278 H 208 H 01/17/20 01/17/20 01/17/20 03:55 05:25 11:23 WBC RBC Hgb Hct MCV MCH MCHC RDW Std Deviation RDW Coeff of Truman Plt Count MPV Immature Gran % (Auto) Neut % (Auto) Lymph % (Auto) [place] % (Auto) Eos % (Auto) Baso % (Auto) Absolute Neuts (auto) Absolute Lymphs (auto) Nucleated RBC % Differential Comment Hypochromasia Anisocytosis Microcytosis Ovalocytes Vent Mode Sodium 140 Potassium 4.0 Chloride 99 Carbon Dioxide 36.0 H Anion Gap 5 BUN 51 H Creatinine 1.75 H Estim Creat Clear Calc 34.62 Est GFR (MDRD) Af Amer 49 L Est GFR (MDRD) Non-Af 41 L BUN/Creatinine Ratio 29.1 H Glucose 248 H Calcium 8.1 L Phosphorus Magnesium Vancomycin Trough Random Vancomycin POC Glucose 245 H 239 H 01/17/20 01/17/20 01/17/20 13:40 17:21 23:22 WBC RBC Hgb Hct MCV MCH MCHC RDW Std Deviation RDW Coeff of [place] Plt Count MPV Immature Gran % (Auto) Neut % (Auto) Lymph % (Auto) [place] % (Auto) Eos % (Auto) Baso % (Auto) Absolute Neuts (auto) Absolute Lymphs (auto) Nucleated RBC % Differential Comment Hypochromasia Anisocytosis Microcytosis Ovalocytes Vent Mode Sodium Potassium Chloride Carbon Dioxide Anion Gap BUN Creatinine Estim Creat Clear Calc Est GFR (MDRD) Af Amer Est GFR (MDRD) Non-Af BUN/Creatinine Ratio Glucose Calcium Phosphorus Magnesium Vancomycin Trough Random Vancomycin 13.8 POC Glucose 202 H 210 H 01/18/20 01/18/20 01/18/20 05:00 05:00 06:32 WBC 11.7 H RBC 4.26 L Hgb 10.6 L Hct 35.7 L MCV 83.8 MCH 24.9 L MCHC 29.7 L RDW Std Deviation 66.8 H RDW Coeff of [place] 22.2 H Plt Count 253 MPV 9.9 Immature Gran % (Auto) 0.700 Neut % (Auto) 80.0 H Lymph % (Auto) 14.6 L [place] % (Auto) 4.6 Eos % (Auto) 0.0 Baso % (Auto) 0.1 Absolute Neuts (auto) 9.4 H Absolute Lymphs (auto) 1.71 Nucleated RBC % 0 Differential Comment SCANNED Hypochromasia 1+ Anisocytosis Microcytosis Ovalocytes Vent Mode Sodium 139 Potassium 4.5 Chloride 100 Carbon Dioxide 35.0 H Anion Gap 4 L BUN 54 H Creatinine 1.59 H Estim Creat Clear Calc 38.11 Est GFR (MDRD) Af Amer 55 L Est GFR (MDRD) Non-Af 45 L BUN/Creatinine Ratio 34.0 H Glucose 229 H Calcium 8.1 L Phosphorus 4.8 Magnesium 2.6 Vancomycin Trough Random Vancomycin POC Glucose 235 H Microbiology 01/15/20 03:41 Sputum, Induced/Lukens Gram Stain - Final 01/15/20 03:41 Sputum, Induced/Lukens Respiratory Culture - Final Moraxella(Saba.)Catarrhalis 01/15/20 01:20 Urine Catheter - Catheter Urine Culture - Final Culture exhibits no growth. 01/14/20 21:25 Blood Culture (Wb) - Anticubital Right Blood Culture - Preliminary No growth in 48 hours. 01/14/20 21:25 Blood Culture (Wb) - Left Wrist Blood Culture - Preliminary No growth in 48 hours. Medical Necessity - Tobacco Use Smoking Status: Former smoker Assessment/Plan All Active Problems (Last Updated 01/15/20 @ 09:[address] Abbie Cardenas MD) Severe sepsis (Acute) RECOMMENDATIONS: 1. Discontinue vancomycin. Likely narrow antibiotic spectrum once sensitivities available 2. Anticipate slow recovery given baseline respiratory function 3. Aggressive pulmonary toileting 4. Wean FiO2 and PEEP as tolerated 5. Spontaneous breathing and awakening trials per protocol 6. Continue tube feeds IMPRESSIONS: 1. Acute on chronic combined respiratory failure secondary to Moraxella pneumonia Patient currently on empiric antibiotics, steroids and bronchodilators. Previous ABG showed adequate oxygenation and ventilation on the current vent settings. Patient is also been placed on mucolytic. Sputum culture has grown Moraxella catarrhalis. Patient failed BiPAP therapy and was subsequently intubated. CT scan of the chest shows a significant effusion with infiltrate on the left. We will continue with empiric therapy, but may require a thoracentesis to allow for liberation from the ventilator. Patient appears to have relatively advanced COPD, so may have a protracted course. Patient does appear to have responded well to antibiotics, but recruitment will be an issue given dense pneumonia. Keep steroids at current dosing until PEEP improves. Spontaneous breathing and awakening trials per protocol 2. Severe sepsis secondary to Moraxella pneumonia Copious secretions have been reported by respiratory initially, but these are improving. Cultures are currently pending. Patient is on broad-spectrum antibiotics at this time. Elevated lactic acid may be secondary to hypoxic presentation. Blood pressures are normalized. 3. Poorly controlled diabetes mellitus Patient with high doses of basal insulin at home. Blood sugars are controlled at this time. No indication to titrate up basal insulin. Improvement in insulin requirements likely secondary to lack of dietary indiscretions. 4. Hypertension/metabolic encephalopathy/poor historian/obesity/history of squamous cell skin cancer Complicates care, management, recovery and prognosis. Hold antihypertensive medications given acute condition. Encephalopathy on presentation likely secondary to hypercarbia. TIME: 35 minutes critical care time spent addressing patient's acute on chronic respiratory failure, probable COPD, sepsis, diabetes mellitus, review of all data and collaboration with care team (6:40 AM to 7:40 AM) [id number]: [id number] Critical care first hour
[2020-01-18] MEDS: Vital AF 1.2 Cal Liquid 1,000 ML 55 ML GT (07:49)
--- NOTE | 2020-01-18 08:47 | PN_ITS ---
Subjective: Chief complaint: Follow-up after admission for acute on chronic combined respiratory failure, severe sepsis secondary to multilobar left community-a cquired pneumonia and also found to have acute kidney injury. Patient seen and examined. No acute events overnight. This morning, patient is alert, awake, following commands. Blood pressure remained stable, no pressors needed. He is requiring more oxygen, FiO2 is 55% with PEEP of 10. No spontaneous breathing trial performed this morning because of high PEEP. He is afebrile, blood pressure and heart rate are stable, on mechanical ventilation. - Physical Exam Vitals/I&O's: Vital Signs Temp Pulse Resp BP Pulse Ox 98.7 F 82 15 141/65 H 93 01/18/20 08:00 01/18/20 08:00 01/18/20 08:00 01/18/20 08:00 01/18/20 08:00 Oxygen Flow Rate (L/min) 15 Oxygen Delivery Method Mechanical Ventilator Weight: 241 lb 13.553 oz Body Mass Index (BMI) 35.9 Intake and Output for Last 24 Hours 01/16/20 01/17/20 01/18/20 23:59 23:59 23:59 Intake Total 2687.16 / 2703.02 2883.88 / 2911.78 967.85 / 967.85 Output Total 740 / 740 905 / 905 655 / 655 Balance 1947.16 / 1963.02 1978.88 / 2006.78 312.85 / 312.85 General: Alert, Cooperative, No apparent distress, - - On mechanical ventilation . HEENT: Atraumatic, PERRLA, EOMI, Normocephalic Oral: Moist Mucosa, No Gingival or Mucosal Lesions/ Ulcerations Neck: Supple, No JVD, Negative Carotid Bruits, Trachea Midline, Thyroid Normal Size and Texture Lungs: Diminished, Rales, Rhonchi, - - Markedly decreased breath sounds on the right base with crackles, occasional rhonchi. Cardiovascular: Regular rate, Regular Rhythm, Normal S1, Normal S2, PMI Normal Abdomen: Bowel Sounds Present, Soft, Non Tender, Non-Distended, No Hepato- splenomegaly Extremities: No clubbing, No edema, Edema Skin: No rashes, No breakdown Lymphatic: No Cervical, Supraclavicular, or Inguinal Adenopathy Neurological: Cranial nerves II-XII grossly intact, Neuro grossly intact, - - Moving all limbs. Microbiology Past 72 Hours 01/15/20 03:41 Sputum, Induced/Lukens Gram Stain - Final 01/15/20 03:41 Sputum, Induced/Lukens Respiratory Culture - Final Moraxella(Saba.)Catarrhalis 01/15/20 01:20 Urine Catheter - Catheter Urine Culture - Final Culture exhibits no growth. 01/14/20 21:25 Blood Culture (Wb) - Anticubital Right Blood Culture - Preliminary No growth in 48 hours. 01/14/20 21:25 Blood Culture (Wb) - Left Wrist Blood Culture - Preliminary No growth in 48 hours. Laboratory Results 01/17/20 11:23: POC Glucose 239 H 01/17/20 13:40: Random Vancomycin 13.8 01/17/20 17:21: POC Glucose 202 H 01/17/20 23:22: POC Glucose 210 H 01/18/20 05:00: WBC 11.7 H, RBC 4.26 L, Hgb 10.6 L, Hct 35.7 L, MCV 83.8, MCH 24.9 L, MCHC 29.7 L, RDW Std Deviation 66.8 H, RDW Coeff of Truman 22.2 H, Plt Count 253, MPV 9.9, Immature Gran % (Auto) 0.700, Neut % (Auto) 80.0 H, Lymph % (Auto) 14.6 L, [place] % (Auto) 4.6, Eos % (Auto) 0.0, Baso % (Auto) 0.1, Absolute Neuts (auto) 9.4 H, Absolute Lymphs (auto) 1.71, Nucleated RBC % 0, Differential Comment SCANNED, Hypochromasia 1+ 01/18/20 05:00: Sodium 139, Potassium 4.5, Chloride 100, Carbon Dioxide 35.0 H, Anion Gap 4 L, BUN 54 H, Creatinine 1.59 H, Estim Creat Clear Calc 38.11, Est GFR (MDRD) Af Amer 55 L, Est GFR (MDRD) Non-Af 45 L, BUN/Creatinine Ratio 34.0 H , Glucose 229 H, Calcium 8.1 L, Phosphorus 4.8, Magnesium 2.6 01/18/20 06:32: POC Glucose 235 H Current Medications Acetaminophen (Tylenol) 650 mg PO Q6H PRN PRN PRN Reason: Pain Score 1-10/Temp > 100.7 F Albuterol Sulfate (Ventolin Aerosols) 2.5 mg INHALATION Q2H PRN PRN PRN Reason: SOB/Wheezing Albuterol/Ipratropium (Duoneb) 3 ml INHALATION Q4HWA.RT [facility] Last Admin: 01/18/20 06:38 Dose: 3 ml Documented by: Chlorhexidine Gluconate () 15 ml PO BID [facility] Last Admin: 01/17/20 22:11 Dose: 15 ml Documented by: Dextrose (D50w Syringe) 0 gm IV X1 PRN; Protocol PRN Reason: Hypoglycemia Enoxaparin Sodium (Lovenox) 40 mg SC DAILY [facility] Last Admin: 01/17/20 09:01 Dose: 40 mg Documented by: Famotidine (Pepcid) 20 mg GT DAILY [facility] Last Admin: 01/17/20 09:01 Dose: 20 mg Documented by: Glucagon () 1 mg IM .X1 PRN PRN Reason: Hypoglycemia Sodium Chloride () 250 mls @ 15 mls/hr IV .[id number] PRN PRN Reason: Saline Flush Last Infusion: 01/17/20 07:37 Dose: 0 mls/hr Documented by: Sodium Chloride () 250 mls @ 15 mls/hr IV .[id number] PRN PRN Reason: Additional IVPB Infusion Piperacillin Sod/Tazobactam (Sod 3.375 gm/ Sodium Chloride) 50 mls @ 12.5 mls/hr IV Q8 [facility] Last Admin: 01/18/20 06:35 Dose: 12.5 mls/hr Documented by: Fentanyl Citrate 1,000 mcg/ (Sodium Chloride) 100 mls @ 2.5 mls/hr CONT INF .Q40H [facility]; Protocol Last Titration: 01/18/20 08:00 Dose: 150 mcg/hr, 15 mls/hr Documented by: Propofol (Diprivan) 1,000 mg in 100 mls @ 6.474 mls/hr CONT INF .Q12H [facility]; Protocol Last Titration: 01/18/20 08:00 Dose: 20 mcg/kg/min, 12.9 mls/hr Documented by: Enteral Nutritional Formula (Vital Af 1.2 Jay Liquid) 1,000 mls @ 55 mls/hr GT .[id number] [facility] Last Admin: 01/18/20 07:49 Dose: 55 mls/hr Documented by: Norepinephrine Bitartrate 8 mg (/ Sodium Chloride) 250 mls @ 9.375 mls/hr CONT INF .[id number] [facility]; Protocol Last Admin: 01/18/20 03:03 Dose: Not Given Documented by: Insulin Glargine (Lantus (Bk)) 50 units SC BID [facility] Last Admin: 01/17/20 23:23 Dose: 50 u Documented by: Insulin Human Lispro (Humalog Kwikpen ([facility])) 0 unit SC Q6 [facility]; Protocol Last Admin: 01/18/20 06:33 Dose: 4 u Documented by: Labetalol HCl (Trandate) 10 mg IV Q6H PRN PRN PRN Reason: SBP > 160 Methylprednisolone (Solu-Medrol) 40 mg IV Q8 [facility] Last Admin: 01/18/20 06:34 Dose: 40 mg Documented by: Nystatin (Mycostatin Powder) 1 applic TOPICAL TID [facility]; Protocol Last Admin: 01/18/20 06:34 Dose: 1 applicatio Documented by: Ondansetron HCl (Zofran) 4 mg IV Q8H PRN PRN PRN Reason: NAUSEA/VOMITING Polyethylene Glycol (Miralax) 17 gm PO BID [facility] Last Admin: 01/17/20 22:12 Dose: 17 gm Documented by: Senna/Docusate Sodium (Senokot-S, Alexus-Colace) 2 tablet PO BID [facility] Last Admin: 01/17/20 22:13 Dose: 2 tablet Documented by: Sodium Chloride () 10 - 40 ml IV UD PRN PRN Reason: SALINE FLUSH Last Admin: 01/18/20 06:37 Dose: 10 ml Documented by: Medical Necessity - Tobacco Use Smoking Status: Former smoker Assessment/Plan All Active Problems (Last Updated 01/15/20 @ 09:[address] Abbie Cardenas MD) Severe sepsis (Acute) This is a 74 years old male patient presented to the emergency room because of shortness of breath and confusion, found to have acute on chronic combined h ypoxic and hypercapnic respiratory failure attributed to acute COPD exacerbation and left community-acquired pneumonia and also found to have severe sepsis. #1 acute on chronic combined hypoxic and hypercapnic respiratory failure: He is on day 4 of on IV antibiotics, IV steroids and bronchodilators as well as mechanical ventilation. Still requiring high PEEP and FiO2 of 55%. No spontaneous breathing trial done this morning because of high PEEP. He has been afebrile, not tachycardic. It is secondary to pneumonia and COPD exacerbation in the setting of chronic respiratory failure being on home oxygen. Critical care on the case. Plan to continue same treatment, wean FiO2 and PEEP as tolerated, no plan for extubation today. #2 severe sepsis: Secondary to pneumonia. Lactic acid was elevated, came down with IV fluids. Patient is on IV Zosyn. Vancomycin discontinued today. Patient is afebrile, blood pressure is maintained, on mechanical ventilation. Blood culture showed no growth in 48 hours. Sputum culture revealed Moraxella catarrhalis. Urine culture showed no growth. Plan to continue IV Zosyn, vancomycin discontinued. #3 Left multilobar community-acquired pneumonia: Again, he is on IV Zosyn. He has been afebrile, WBC is trending down. CT scan chest reviewed, revealed no evidence left consolidation with left small pleural effusion. Pneumococcal and Legionella antigen were negative. COVID-19 PCR came back negative. Cultures reviewed as above. Plan to continue same treatment. #4 COPD exacerbation: Remained on IV steroids, IV antibiotics and bronchodilators, on mechanical ventilation. Plan as above. #5 uncontrolled type 2 diabetes mellitus: Blood sugar is getting better, it is down to 200s. He is on Lantus 50 units twice daily along with sliding scale. IV steroids is likely contributing. Hemoglobin A1c is 9.8%. #6 COPD/chronic respiratory failure: Patient is on home oxygen and at present, he is noncompliant, has not been wearing his oxygen at home. Plan as above. #7 hyperlipidemia: Hold statins. #8 DVT prophylaxis: Subcu Lovenox. This note was generated with [employer] dictation software. It may contain incorrect words, spelling, and punctuation that were not noted in checking the note before signing. Inpatient E&M: [id number] [facility] L3
[2020-01-18] MEDS: Senna/Docusate Sodium 1 Tablet 2 TABLET PO (09:15)
[2020-01-18] MEDS: Famotidine 20 MG Tablet GT (09:15)
[2020-01-18] MEDS: Chlorhexidine 15 ML PO ×2 (09:15→21:23)
[2020-01-18] MEDS: Enoxaparin 40 MG/0.4 ML Syringe SC (09:15)
[2020-01-18] MEDS: Polyethylene Glycol 3350 17 GM PACKET PO (09:15)
[2020-01-18] MEDS: Lisinopril 10 MG Tablet PO (10:49)
[2020-01-18] MEDS: Furosemide 20 MG Tablet PO (10:49)
[2020-01-18 11:40] LABS: Bedside Glucose 228 mg/dL (70-110)
[2020-01-18] MEDS: Propofol 10MG/Ml 1,000 MG/100 ML Bottle 9.7 MG CONT INF (17:22)
[2020-01-18 17:45] LABS: Bedside Glucose 183 mg/dL (70-110)
[2020-01-18 23:06] LABS: Bedside Glucose 193 mg/dL (70-110)
[2020-01-19] VITALS (47 sets, daily range): BP systolic 92–135; BP diastolic 51–73; PULSE 56–87; RESP 14–20; TEMP 36.7–37.1; O2SAT 89–98
[2020-01-19] MEDS: Propofol 10MG/Ml 1,000 MG/100 ML Bottle 12.9 MG CONT INF (01:00)
[2020-01-19] MEDS: Ipratropium/Albuterol Sulfate 3 ML AMPUL.NEB INHALATION ×5 (03:32→19:39)
[2020-01-19 05:14] LABS: Absolute Lymphocyte Count 1.59 X10^3/uL (0.83-4.51); Absolute Neutrophil Count 7.8 X10^3/uL (2.0-7.7); Basophil# 0.01 X10^3/uL; Basophil% 0.1 % (0-1); Hematocrit 33.3 % (40-54); Hemoglobin 9.8 g/dL (13.0-16.5); Lymphocyte # 1.59 X10^3/ul (4.0); Lymphocyte % 15.9 % (19-41); Mean Corp Hgb Conc 29.4 g/dL (32-36); Mean Corpuscular Hgb 24.8 pg (27.0-32.0); Mean Corpuscular Volume 84.3 fL (80-94); Mean Platelet Vol. 10.3 fl (6.2-12.0); Monocyte# 0.52 X10^3/uL; Monocyte% 5.2 % (0-10); NRBC Flagged by Analyzer 0 % (0-5); Neutrophil # 7.84 X10^3/uL (2.7-7.7); Neutrophil % 78.4 % (47-70); POSITIVE MORPHOLOGY YES; Platelet Count 236 K/mm3 (150-450); RBC Distribution Width SD 68.2 fl (35.1-43.9); Red Blood Count 3.95 M/mm3 (4.6-6.2)
[2020-01-19] MEDS: Vital AF 1.2 Cal Liquid 1,000 ML 55 ML GT ×2 (05:17→21:51)
[2020-01-19] MEDS: Nystatin Powder 15gm Bottle 1 APPLIC TOPICAL ×3 (05:17→21:39)
[2020-01-19] MEDS: Insulin Lispro 100 UNIT/ML INSULN.PEN SC ×4 (05:23→23:49)
[2020-01-19 05:29] LABS: Anion Gap 4 (5-15); BUN 53 mg/dL (7-18); BUN/Creat Ratio 36.8 RATIO (10-20); Chloride 103 mmol/L (98-107); Creatinine, Serum 1.44 mg/dL (0.70-1.30); EST Glomerular Filtration Rate 51 mL/min (>60); Est Glom Filt Rate - Afr Amer 62 mL/min (>60); Estimated Creatinine Clearance 42.08 ml/min; Glucose 214 mg/dL (74-106); Potassium 4.5 mmol/L (3.5-5.1); Sodium Level 141 mmol/L (136-145)
[2020-01-19 05:31] LABS: Bedside Glucose 222 mg/dL (70-110)
[2020-01-19 05:37] LABS: Differential Indicated SCAN CRITERIA MET
--- NOTE | 2020-01-19 06:19 | PCM.PN.INT ---
Subjective: The patient was seen and examined at the bedside this morning. Events from the last 24 hours have been reviewed. The patient is currently afebrile, hemodynamically stable and maintaining appropriate oxygen saturations on assist control mode of mechanical ventilation with an FiO2 requirement of 60% and PEEP of 12. The patient remains sedated on both propofol and fentanyl. He is currently tolerating tube feeds. The patient is currently documented to be overall net +6.7 L for the hospital admission. Objective: The patient's most recent lab work, culture data and imaging studies have all been personally reviewed. CT chest dated January 14 revealed a small left pleural effusion with dense consolidation throughout the left hemithorax. Sputum culture was positive for Moraxella catarrhalis. General: - - Intubated, sedated and mechanically ventilated. No ventilatory synchrony noted. HEENT: Atraumatic, PERRLA, Normocephalic Oral: No Gingival or Mucosal Lesions/ Ulcerations, - - Stable endotracheal and OG tubes Neck: Supple, No Nodes, Trachea Midline Lungs: Diminished, Wheezes Cardiovascular: Regular rate, Regular Rhythm, No murmurs Abdomen: Bowel Sounds Present, Soft, Non Tender, Obese Extremities: No clubbing, No cyanosis, Edema Skin: No breakdown Musculoskeletal: No Tenderness to Palpation of Joints or Extremities Lymphatic: No Cervical, Supraclavicular, or Inguinal Adenopathy Neurological: - - No focal neurological deficits. Currently sedated on the ventilator. Vital Signs Temp Pulse Resp BP Pulse Ox 98.4 F 56 L 14 99/56 L 93 01/19/20 06:00 01/19/20 06:00 01/19/20 06:00 01/19/20 06:00 01/19/20 06:00 Oxygen Flow Rate (L/min) 15 Oxygen Delivery Method Mechanical Ventilator Weight: 241 lb 13.553 oz Body Mass Index (BMI) 35.9 Intake and Output for Last 24 Hours 01/17/20 01/18/20 01/19/20 23:59 23:59 23:59 Intake Total 2883.88 / 2911.78 2438.04 / 2795.94 893.6 / 893.6 Output Total 905 / 905 1875 / 1925 590 / 590 Balance 1978.88 / 2005.78 563.04 / 870.94 303.6 / 303.6 Labs (Last 48 Hours) 01/15/20 01/17/20 01/17/20 02:32 11:23 13:40 WBC RBC Hgb Hct MCV MCH MCHC RDW Std Deviation RDW Coeff of [place] Plt Count MPV Immature Gran % (Auto) Neut % (Auto) Lymph % (Auto) [place] % (Auto) Eos % (Auto) Baso % (Auto) Absolute Neuts (auto) Absolute Lymphs (auto) Nucleated RBC % Differential Comment Hypochromasia Vent Mode TNP Sodium Potassium Chloride Carbon Dioxide Anion Gap BUN Creatinine Estim Creat Clear Calc Est GFR (MDRD) Af Amer Est GFR (MDRD) Non-Af BUN/Creatinine Ratio Glucose Calcium Phosphorus Magnesium Random Vancomycin 13.8 POC Glucose 239 H 01/17/20 01/17/20 01/18/20 17:21 23:22 05:00 WBC 11.7 H RBC 4.26 L Hgb 10.6 L Hct 35.7 L MCV 83.8 MCH 24.9 L MCHC 29.7 L RDW Std Deviation 66.8 H RDW Coeff of [place] 22.2 H Plt Count 253 MPV 9.9 Immature Gran % (Auto) 0.700 Neut % (Auto) 80.0 H Lymph % (Auto) 14.6 L [place] % (Auto) 4.6 Eos % (Auto) 0.0 Baso % (Auto) 0.1 Absolute Neuts (auto) 9.4 H Absolute Lymphs (auto) 1.71 Nucleated RBC % 0 Differential Comment SCANNED Hypochromasia 1+ Vent Mode Sodium Potassium Chloride Carbon Dioxide Anion Gap BUN Creatinine Estim Creat Clear Calc Est GFR (MDRD) Af Amer Est GFR (MDRD) Non-Af BUN/Creatinine Ratio Glucose Calcium Phosphorus Magnesium Random Vancomycin POC Glucose 202 H 210 H 01/18/20 01/18/20 01/18/20 05:00 06:32 10:55 WBC RBC Hgb Hct MCV MCH MCHC RDW Std Deviation RDW Coeff of [place] Plt Count MPV Immature Gran % (Auto) Neut % (Auto) Lymph % (Auto) [place] % (Auto) Eos % (Auto) Baso % (Auto) Absolute Neuts (auto) Absolute Lymphs (auto) Nucleated RBC % Differential Comment Hypochromasia Vent Mode Sodium 139 Potassium 4.5 Chloride 100 Carbon Dioxide 35.0 H Anion Gap 4 L BUN 54 H Creatinine 1.59 H Estim Creat Clear Calc 38.11 Est GFR (MDRD) Af Amer 55 L Est GFR (MDRD) Non-Af 45 L BUN/Creatinine Ratio 34.0 H Glucose 229 H Calcium 8.1 L Phosphorus 4.8 Magnesium 2.6 Random Vancomycin POC Glucose 235 H 228 H 01/18/20 01/18/20 01/19/20 17:28 22:55 05:00 WBC 10.0 RBC 3.95 L Hgb 9.8 L Hct 33.3 L MCV 84.3 MCH 24.8 L MCHC 29.4 L RDW Std Deviation 68.2 H RDW Coeff of [place] 22.0 H Plt Count 236 MPV 10.3 Immature Gran % (Auto) 0.400 Neut % (Auto) 78.4 H Lymph % (Auto) 15.9 L [place] % (Auto) 5.2 Eos % (Auto) 0.0 Baso % (Auto) 0.1 Absolute Neuts (auto) 7.8 H Absolute Lymphs (auto) 1.59 Nucleated RBC % 0 Differential Comment Hypochromasia Vent Mode Sodium Potassium Chloride Carbon Dioxide Anion Gap BUN Creatinine Estim Creat Clear Calc Est GFR (MDRD) Af Amer Est GFR (MDRD) Non-Af BUN/Creatinine Ratio Glucose Calcium Phosphorus Magnesium Random Vancomycin POC Glucose 183 H 193 H 01/19/20 01/19/20 05:00 05:22 WBC RBC Hgb Hct MCV MCH MCHC RDW Std Deviation RDW Coeff of [place] Plt Count MPV Immature Gran % (Auto) Neut % (Auto) Lymph % (Auto) [place] % (Auto) Eos % (Auto) Baso % (Auto) Absolute Neuts (auto) Absolute Lymphs (auto) Nucleated RBC % Differential Comment Hypochromasia Vent Mode Sodium 141 Potassium 4.5 Chloride 103 Carbon Dioxide 34.0 H Anion Gap 4 L BUN 53 H Creatinine 1.44 H Estim Creat Clear Calc 42.08 Est GFR (MDRD) Af Amer 62 Est GFR (MDRD) Non-Af 51 L BUN/Creatinine Ratio 36.8 H Glucose 214 H Calcium 8.0 L Phosphorus Magnesium Random Vancomycin POC Glucose 222 H Microbiology 01/14/20 21:25 Blood Culture (Wb) - Anticubital Right Blood Culture - Preliminary 01/15/20 03:41 Sputum, Induced/Lukens Gram Stain - Final 01/15/20 03:41 Sputum, Induced/Lukens Respiratory Culture - Final Moraxella(Saba.)Catarrhalis 01/15/20 01:20 Urine Catheter - Catheter Urine Culture - Final Culture exhibits no growth. 01/14/20 21:25 Blood Culture (Wb) - Left Wrist Blood Culture - Preliminary No growth in 48 hours. Clinical Impression(s) from Imaging Studies Chest X-Ray 01/14/20 22:10 IMPRESSION: Right basilar and left upper lobe alveolar disease. Extensive left pleural fluid. Electronically Signed: Oswald Mata MD at 22:23 EDT Tel , Service support , Chest X-Ray 01/15/20 03:30 IMPRESSION: Support tubes in expected locations. No pneumothorax. Persistent extensive left mid and lower lung opacity representing a combination of pleural effusion, atelectasis and possible pneumonia. Mild improved aeration left upper lobe. Right basilar opacity unchanged. Electronically Signed: Eduardo Obando MD at 5:21 EDT , Service support , Chest CT 01/15/20 09:46 IMPRESSION: Small left pleural effusion with dense consolidation in the left upper, lingular segment of the left upper lobe as well as left lower lobes. Electronically Signed: Abdullahi Gauthier, at 11:20 EDT , Service support , Chest X-Ray 01/16/20 09:30 IMPRESSION: Status post placement of a right central catheter with the tip at the junction of the superior vena cava and right atrium. The remainder the examination is unchanged. Electronically Signed: Abdullahi Gauthier, at 9:55 EDT , Service support , Medical Necessity - Tobacco Use Smoking Status: Former smoker Assessment/Plan All Active Problems (Last Updated 01/15/20 @ 09:[address] Abbie Cardenas MD) Severe sepsis (Acute) RECOMMENDATIONS: 1. Transition from p.o. Lasix to IV 40 mg daily. 2. Continue scheduled bronchodilators and IV steroids. 3. Continue to wean FiO2 and PEEP to maintain oxygen saturations at or above 90%. 4. Continue tube feeds as tolerated. 5. Continue antimicrobial therapy. IMPRESSIONS: 1. Acute on chronic combined respiratory failure secondary to Moraxella pneumonia Plan to continue current supportive measures with invasive mechanical ventilatory support, scheduled bronchodilators, IV steroids and empiric antimicrobials. Continue to wean FiO2 and PEEP to maintain oxygen saturations at or above 90%. If there is no improvement in the patient's overall respiratory status in the next 24 hours, will obtain repeat chest x-ray, and if large effusion is still present, can consider thoracentesis. The patient appears to have relatively advanced COPD, so a protracted clinical course is likely expected. 2. Severe sepsis secondary to Moraxella pneumonia The patient remains hemodynamically stable. Continue antimicrobials as noted above. 3. Poorly controlled diabetes mellitus Continue basal and sliding scale insulin coverage as ordered. 4. Hypertension/metabolic encephalopathy/obesity/history of squamous cell skin cancer Complicates care, management, recovery and prognosis. Physical therapy to work with the patient once medically stabilized. TIME: 36 minutes of critical care time, independent of procedures, was spent addressing the patient's acute on chronic combined respiratory failure, possible COPD, severe sepsis, diabetes mellitus, review of all data and collaboration with the care team. ([id number]) [id number] Critical care first hour
[2020-01-19] MEDS: TITRATION PARAMETER CHANGE 1 EACH IV (06:31)
[2020-01-19 06:32] LABS: Differential Comment SCANNED
[2020-01-19 06:33] LABS: Anisocytosis 3+; Hypochromasia 3+
[2020-01-19] MEDS: Propofol 10MG/Ml 1,000 MG/100 ML Bottle 13.1 MG CONT INF (07:59)
[2020-01-19 08:44] LABS: BNP,B-Type NATRIURETIC PEPTIDE 57.9 pg/mL (0-100)
--- NOTE | 2020-01-19 08:58 | PCM.PROGNOTE ---
Subjective: Chief complaint: Follow-up after admission for acute on chronic combined respiratory failure, severe sepsis secondary to multilobar left community-acquired pneumonia and also found to have acute kidney injury. Patient seen and examined. No acute events overnight. This morning, again he is alert, responding to commands, on mechanical ventilation. Still requiring high vent settings, FiO2 of 60% and PEEP of 12. He is afebrile, blood pressure is maintained, on mechanical ventilation. - Physical Exam Vitals/I&O's: Vital Signs Temp Pulse Resp BP Pulse Ox 98.2 F 72 14 135/73 H 91 01/19/20 07:00 01/19/20 08:30 01/19/20 08:30 01/19/20 08:30 01/19/20 07:00 Oxygen Flow Rate (L/min) 15 Oxygen Delivery Method Mechanical Ventilator Weight: 240 lb 15.444 oz Body Mass Index (BMI) 35.9 Intake and Output for Last 24 Hours 01/17/20 01/18/20 01/19/20 23:59 23:59 23:59 Intake Total 2883.88 / 2911.78 2438.04 / 2795.94 1352.12 / 1352.12 Output Total 905 / 905 1875 / 1925 915 / 915 Balance 1978.88 / 2005.78 563.04 / 870.94 437.12 / 437.12 General: Alert, Cooperative, No apparent distress, - - On mechanical ventilation. HEENT: Atraumatic, PERRLA, EOMI, Normocephalic Oral: Moist Mucosa, No Gingival or Mucosal Lesions/ Ulcerations Neck: Supple, No JVD, Negative Carotid Bruits, Trachea Midline, Thyroid Normal Size and Texture Lungs: No wheeze, Diminished, Rhonchi, - - Markedly decreased breath sounds on the left base, scattered rhonchi. Cardiovascular: Regular rate, Regular Rhythm, Normal S1, Normal S2, PMI Normal Abdomen: Bowel Sounds Present, Soft, Non Tender, Non-Distended, No Hepato-splenomegaly Extremities: No clubbing, No cyanosis, Edema Skin: No rashes, No breakdown Lymphatic: No Cervical, Supraclavicular, or Inguinal Adenopathy Neurological: Cranial nerves II-XII grossly intact, Neuro grossly intact Psych/Mental Status: Appropriate, Flat Affect Microbiology Past 72 Hours 01/14/20 21:25 Blood Culture (Wb) - Anticubital Right Blood Culture - Preliminary 01/15/20 03:41 Sputum, Induced/Lukens Gram Stain - Final 01/15/20 03:41 Sputum, Induced/Lukens Respiratory Culture - Final Moraxella(Saba.)Catarrhalis 01/15/20 01:20 Urine Catheter - Catheter Urine Culture - Final Culture exhibits no growth. 01/14/20 21:25 Blood Culture (Wb) - Left Wrist Blood Culture - Preliminary No growth in 48 hours. Laboratory Results 01/18/20 10:55: POC Glucose 228 H 01/18/20 17:28: POC Glucose 183 H 01/18/20 22:55: POC Glucose 193 H 01/19/20 05:00: WBC 10.0, RBC 3.95 L, Hgb 9.8 L, Hct 33.3 L, MCV 84.3, MCH 24.8 L, MCHC 29.4 L, RDW Std Deviation 68.2 H, RDW Coeff of Truman 22.0 H, Plt Count 236, MPV 10.3, Immature Gran % (Auto) 0.400, Neut % (Auto) 78.4 H, Lymph % (Auto) 15.9 L, [place] % (Auto) 5.2, Eos % (Auto) 0.0, Baso % (Auto) 0.1, Absolute Neuts (auto) 7.8 H, Absolute Lymphs (auto) 1.59, Nucleated RBC % 0, Differential Comment SCANNED, Hypochromasia 3+, Anisocytosis 3+ 01/19/20 05:00: Sodium 141, Potassium 4.5, Chloride 103, Carbon Dioxide 34.0 H, Anion Gap 4 L, BUN 53 H, Creatinine 1.44 H, Estim Creat Clear Calc 42.08, Est GFR (MDRD) Af Amer 62, Est GFR (MDRD) Non-Af 51 L, BUN/Creatinine Ratio 36.8 H, Glucose 214 H, Calcium 8.0 L 01/19/20 05:00: B-Natriuretic Peptide 57.9 01/19/20 05:22: POC Glucose 222 H Current Medications Acetaminophen (Tylenol) 650 mg PO Q6H PRN PRN PRN Reason: Pain Score 1-10/Temp > 100.7 F Albuterol Sulfate (Ventolin Aerosols) 2.5 mg INHALATION Q2H PRN PRN PRN Reason: SOB/Wheezing Albuterol/Ipratropium (Duoneb) 3 ml INHALATION Q4HWA.RT [facility] Last Admin: 01/19/20 06:34 Dose: 3 ml Documented by: Chlorhexidine Gluconate () 15 ml PO BID [facility] Last Admin: 01/18/20 21:23 Dose: 15 ml Documented by: Dextrose (D50w Syringe) 0 gm IV X1 PRN; Protocol PRN Reason: Hypoglycemia Enoxaparin Sodium (Lovenox) 40 mg SC DAILY [facility] Last Admin: 01/18/20 09:15 Dose: 40 mg Documented by: Famotidine (Pepcid) 20 mg GT DAILY [facility] Last Admin: 01/18/20 09:15 Dose: 20 mg Documented by: Furosemide (Lasix) 20 mg PO DAILY [facility] Last Admin: 01/18/20 10:49 Dose: 20 mg Documented by: Glucagon () 1 mg IM .X1 PRN PRN Reason: Hypoglycemia Sodium Chloride () 250 mls @ 15 mls/hr IV .[id number] PRN PRN Reason: Saline Flush Last Infusion: 01/17/20 07:37 Dose: 0 mls/hr Documented by: Sodium Chloride () 250 mls @ 15 mls/hr IV .[id number] PRN PRN Reason: Additional IVPB Infusion Piperacillin Sod/Tazobactam (Sod 3.375 gm/ Sodium Chloride) 50 mls @ 12.5 mls/hr IV Q8 [facility] Last Infusion: 01/19/20 07:00 Dose: 12.5 mls/hr Documented by: Fentanyl Citrate 1,000 mcg/ (Sodium Chloride) 100 mls @ 2.5 mls/hr CONT INF .Q40H [facility]; Protocol Last Admin: 01/19/20 08:04 Dose: 150 mcg/hr, 15 mls/hr Documented by: Propofol (Diprivan) 1,000 mg in 100 mls @ 6.558 mls/hr CONT INF .Q12H [facility]; Protocol Last Titration: 01/19/20 08:30 Dose: 25 mcg/kg/min, 16.4 mls/hr Documented by: Enteral Nutritional Formula (Vital Af 1.2 Jay Liquid) 1,000 mls @ 55 mls/hr GT .[id number] [facility] Last Admin: 01/19/20 05:17 Dose: 55 mls/hr Documented by: Norepinephrine Bitartrate 8 mg (/ Sodium Chloride) 250 mls @ 9.375 mls/hr CONT INF .[id number] [facility]; Protocol Last Admin: 01/19/20 05:17 Dose: Not Given Documented by: Insulin Glargine (Lantus (Bk)) 50 units SC BID [facility] Last Admin: 01/18/20 22:56 Dose: 50 u Documented by: Insulin Human Lispro (Humalog Kwikpen ([facility])) 0 unit SC Q6 [facility]; Protocol Last Admin: 01/19/20 05:23 Dose: 4 u Documented by: Labetalol HCl (Trandate) 10 mg IV Q6H PRN PRN PRN Reason: SBP > 160 Lisinopril (Zestril) 10 mg PO DAILY [facility] Last Admin: 01/18/20 10:49 Dose: 10 mg Documented by: Methylprednisolone (Solu-Medrol) 40 mg IV Q8 [facility] Last Admin: 01/19/20 05:17 Dose: 40 mg Documented by: Nystatin (Mycostatin Powder) 1 applic TOPICAL TID [facility]; Protocol Last Admin: 01/19/20 05:17 Dose: 1 applicatio Documented by: Ondansetron HCl (Zofran) 4 mg IV Q8H PRN PRN PRN Reason: NAUSEA/VOMITING Polyethylene Glycol (Miralax) 17 gm PO BID [facility] Last Admin: 01/18/20 20:46 Dose: Not Given Documented by: Senna/Docusate Sodium (Senokot-S, Alexus-Colace) 2 tablet PO BID [facility] Last Admin: 01/18/20 20:46 Dose: Not Given Documented by: Sodium Chloride () 10 - 40 ml IV UD PRN PRN Reason: SALINE FLUSH Last Admin: 01/18/20 06:37 Dose: 10 ml Documented by: Medical Necessity - Tobacco Use Smoking Status: Former smoker Assessment/Plan All Active Problems (Last Updated 01/15/20 @ 09:[address] Abbie Cardenas MD) Severe sepsis (Acute) This is a 74 years old male patient presented to the emergency room because of shortness of breath and confusion, found to have acute on chronic combined hypoxic and hypercapnic respiratory failure attributed to acute COPD exacerbation and left community-acquired pneumonia and also found to have severe sepsis. #1 acute on chronic combined hypoxic and hypercapnic respiratory failure: He is on day 5 of on IV Zosyn, IV steroids and bronchodilators as well as mechanical ventilation. Still requiring high respiratory support with FiO2 of 60% and PEEP of 12. He has been afebrile, not tachycardic, blood pressure is maintained, no pressors needed. He is tolerating tube feeds.. It is secondary to pneumonia and COPD exacerbation in the setting of chronic respiratory failure being on home oxygen. Critical care on the case. Plan to continue same treatment, wean FiO2 and PEEP as tolerated, patient will remain on mechanical ventilation today. #2 severe sepsis: Secondary to pneumonia. Lactic acid was elevated, came down with IV fluids. Remained on IV Zosyn. He is afebrile, blood pressure is maintained, on mechanical ventilation. Blood culture showed no growth in 48 hours. Sputum culture revealed Moraxella catarrhalis. Urine culture showed no growth. Plan to continue IV Zosyn. #3 Left multilobar community-acquired pneumonia: Again, he is on IV Zosyn. He has been afebrile, leukocytosis resolved. CT scan chest reviewed, revealed no evidence left consolidation with left small pleural effusion. Pneumococcal and Legionella antigen were negative. COVID-19 PCR came back negative. Cultures reviewed as above. Plan to continue same treatment. #4 COPD exacerbation: Remained on IV steroids, IV antibiotics and bronchodilators, on mechanical ventilation. Plan as above. #5 uncontrolled type 2 diabetes mellitus: Blood sugar is getting better, it is down to 200s. He is on Lantus 50 units twice daily along with sliding scale. IV steroids is likely contributing. Hemoglobin A1c is 9.8%. #6 COPD/chronic respiratory failure: Patient is on home oxygen and at present, he is noncompliant, has not been wearing his oxygen at home. Plan as above. #7 hyperlipidemia: Keep holding statins. #8 DVT prophylaxis: Subcu Lovenox. This note was generated with [employer] dictation software. It may contain incorrect words, spelling, and punctuation that were not noted in checking the note before signing. Inpatient E&M: [id number] [facility] L3
[2020-01-19] MEDS: Chlorhexidine 15 ML PO ×2 (10:05→22:02)
[2020-01-19] MEDS: Enoxaparin 40 MG/0.4 ML Syringe SC (10:06)
[2020-01-19] MEDS: Lisinopril 10 MG Tablet PO (10:07)
[2020-01-19] MEDS: Famotidine 20 MG Tablet GT (10:07)
[2020-01-19] MEDS: Polyethylene Glycol 3350 17 GM PACKET PO ×2 (10:07→21:45)
[2020-01-19] MEDS: Senna/Docusate Sodium 1 Tablet 2 TABLET PO ×2 (10:07→21:39)
[2020-01-19] MEDS: Furosemide 40 MG/4 ML Vial IV (10:24)
[2020-01-19] MEDS: 0.9% Saline Lock 10 ML Syringe IV ×4 (10:24→23:51)
[2020-01-19 12:15] LABS: Bedside Glucose 208 mg/dL (70-110)
[2020-01-19] MEDS: Propofol 10MG/Ml 1,000 MG/100 ML Bottle 16.4 MG CONT INF ×2 (14:21→20:08)
[2020-01-19 17:46] LABS: Bedside Glucose 245 mg/dL (70-110)
[2020-01-19 23:51] LABS: Bedside Glucose 195 mg/dL (70-110)
[2020-01-20] VITALS (47 sets, daily range): BP systolic 87–146; BP diastolic 53–81; PULSE 53–87; RESP 12–17; TEMP 36.7–37.1; O2SAT 88–100
--- NOTE | 2020-01-20 | FLU_PTH ---
PATIENT: ALEJANDRO LEONARD LOC: [facility] U#:[id number] AGE/SX: 74/M ROOM: [facility] RE01/14/[address]: Dr. Adelfo Velazquez MD : 1945 BED: 1 DIS: 01/25/2020 SPEC #: [id number] RECD: 01/20/20 14:00 STATUS: WILLIAM KYLE #: [id number] KAREN: 01/20/20 00:[address]: Brannon Sanford DEPT: CYTOLOGY RECD BY: Mandy March ENTERED: 01/21/20 13:11 SP TYPE: Fluid OTHR DR: MD Dr. Adelfo Quesada MD Dr. Joseph Agyepong, MD Dr. Mark Elderbrock, MD Tissues: THORACIC FLUID Procedures: Special Stain Group II Surgery Specimen Level IV Cytospin Fluid HEADER OPERATION: Ultrasound-guided thoracentesis PRE-OP DIAGNOSIS: Left pleural effusion TISSUE SUBMITTED: Thoracentesis fluid for cytology DIAGNOSIS CYTOLOGY Thoracentesis fluid for cytology (cytospin and cell block): Positive for malignant cells, non-small cell carcinoma. See Comment. AM:william 01/22/20 COMMENT Immunohistochemistry ([id number]) supports the above diagnosis and favors a lung primary. This case was discussed with Dr. Casiano 01/26/20 at 11:14am by Dr. Mcconnell. Case has been reviewed in consultation with Dr. Pinedo who concurs with the above diagnosis. IDC:[email or web address] CYTOLOGY STUDY Slides are reviewed. CYTOLOGY GROSS Received is 1000 ml of yellow turbid fluid labeled with the patient's name and and designated per the requisition as thoracentesis. Submitted for cytology preparation including cell block. / william 01/21/20 TC:0 CPT: 36979, 72618 ADDENDUM ADDENDUM ADDENDUM ADDENDUM ADDENDUM ADDENDUM 02/05/2020 10:01 ADDENDUM 02/16/2020 11:03 ADDENDUM 02/05/2020 10:01 ADDENDUM 02/05/2020 10:01 ADDENDUM 02/05/2020 10:01 ADDENDUM 02/05/2020 10:01 PD-L1 (KEYJORDANUDA) IMMUNOHISTOCHEMICAL ANALYSIS FROM [facility] RESULTS: Tumor proportion score: <1% / Negative Please see complete report in e-chart or EMR for complete details ONKOSIGHT NEXT GENERATION SEQUENCING GENE FUSION PANEL REPORT FROM [facility] INTERPRETATION: NEGATIVE: No pathogenic gene fusions detected involving AKT1, ALK, KAYLIN, BRAF, CCND1, EGFR, FGFR1, FGFR2, FGFR3, MET, NRG1, NTRK1, NTRK2, NTRK3, PPARG, RAF1, RET, ROS1 or THADA. RESULTS: Tumor cellularity 20-50%. Tumor type: Non-small cell carcinoma Please see complete report in e-chart or EMR
--- NOTE | 2020-01-20 | IMM_PTH ---
PATIENT: ALEJANDRO LEONARD LOC: [facility] U#:[id number] AGE/SX: 74/M ROOM: [facility] RE01/14/[address]: Dr. Adelfo Velazquez MD : 1945 BED: 1 DIS: 01/25/2020 SPEC #: [id number] RECD: 01/22/20 14:27 STATUS: WILLIAM REQ #: [id number] KAREN: 01/20/20 00:[address]: Brannon Sanford DEPT: IMMUNOHISTOCHEMISTRY RECD BY: Aleksandra Meyers ENTERED: 01/22/20 14:33 SP TYPE: IMMUNO OTHR DR: MD Dr. Adelfo Quesada MD Dr. Joseph Agyepong, MD Dr. Mark Elderbrock, MD Tissues: THORACIC FLUID Procedures: NAPSIN A (add) Jay Ret (add) CK20 (add) CK5-6 (add) CK8 (add) TTF1 (add) Vimentin (add) CK7 (initial) PHYSICIAN & INSTITUTION [address] [address] SPECIMEN INFORMATION: Tissue Source: Thoracentesis fluid Clinical Info: Left pleural effusion Specimen Number: [id number] CPT code: 38849, 42689 x7 METHODOLOGY: Deparaffinized sections of prefer/formalin-fixed tissue or PAP/DQ stained slides are incubated with monoclonal/polyclonal antibodies/oligonucleotide probes. Localization is made via biotin free immunoperoxidase method. Appropriate controls are performed and reacted as expected. Results on target cell population are indicated in the following table: RESULTS: ANTIBODY / CLONE RESULT CK7 (OV-TL12/30) positive CK8 ([id number]) positive CK20 (KS20.8) negative Vimentin (V9) negative TTF-1 (8G7G3/1) positive Napsin A (Rabbit Polyclonal) positive CALRET (polyclonal) negative CK5-6 (D5 & 1684) positive These tests were developed and their performance characteristics determined by [facility]. They may not have been cleared or approved by the U.S. Food and Drug Administration. The FDA has determined that such clearance or approval is not necessary. The above immunohistochemical/dualISH markers are ordered and reviewed by the Pathologist. INTERPRETATION: Thoracentesis fluid: Consistent with metastatic non-small cell carcinoma. See comment. AM:william 01/26/20 Comment. A lung primary is favored. Case has been reviewed in consultation with Dr. Pinedo who concurs with the above diagnosis. IDC:[id number]
[2020-01-20] MEDS: Propofol 10MG/Ml 1,000 MG/100 ML Bottle 13.1 MG CONT INF (01:55)
[2020-01-20] MEDS: TITRATION PARAMETER CHANGE 1 EACH IV (04:27)
[2020-01-20] MEDS: 0.9% Saline Lock 10 ML Syringe IV ×3 (05:43→10:13)
[2020-01-20] MEDS: Nystatin Powder 15gm Bottle 1 APPLIC TOPICAL ×3 (05:45→21:53)
[2020-01-20] MEDS: Insulin Lispro 100 UNIT/ML INSULN.PEN SC ×2 (05:47→11:15)
[2020-01-20 06:01] LABS: Bedside Glucose 219 mg/dL (70-110)
--- NOTE | 2020-01-20 06:12 | PN_ITS ---
Subjective: The patient was seen and examined at the bedside this morning. Events from the last 24 hours have been reviewed. The patient is currently afebrile, hemodynamically stable and maintaining appropriate oxygen saturations on assist control mode of mechanical ventilation with an FiO2 requirement of 60%. PEEP requirement remains stable at 10 cm of water. The patient is currently documented to be overall net +7.6 L for the hospital admission. Objective: The patient's most recent lab work, culture data and imaging studies have all been personally reviewed. CT chest dated January 14 revealed a small left pleural effusion with dense consolidation throughout the left hemithorax. Sputum culture was positive for Moraxella catarrhalis. General: - - Remains intubated and mechanically ventilated. No ventilator dyssynchrony noted. HEENT: Atraumatic, PERRLA, Normocephalic Oral: No Gingival or Mucosal Lesions/ Ulcerations, - - Endotracheal and OG tubes in place Neck: Supple, No Nodes, Trachea Midline Lungs: No rhonchi, No wheeze, No rales, Diminished Cardiovascular: Regular rate, Regular Rhythm Abdomen: Bowel Sounds Present, Soft, Non Tender, Obese Extremities: No clubbing, No cyanosis, Edema Skin: - - No significant change from previous Musculoskeletal: No Muscle Wasting Lymphatic: No Cervical, Supraclavicular, or Inguinal Adenopathy Neurological: - - No focal neurological deficits. Remains sedated on the v entilator with a RASS of -1 Vital Signs Temp Pulse Resp BP Pulse Ox 98.7 F 71 14 119/61 96 01/20/20 05:00 01/20/20 05:04 01/20/20 05:04 01/20/20 05:00 01/20/20 05:04 Oxygen Flow Rate (L/min) 15 Oxygen Delivery Method Mechanical Ventilator Weight: 245 lb 9.519 oz Body Mass Index (BMI) 35.9 Intake and Output for Last 24 Hours 01/18/20 01/19/20 01/20/20 23:59 23:59 23:59 Intake Total 2438.04 / 2795.94 3262.65 / 3294.05 652.92 / 652.92 Output Total 1875 / 1925 2375 / 2375 465 / 465 Balance 563.04 / 870.94 887.65 / 919.05 187.92 / 187.92 Labs (Last 48 Hours) 01/18/20 01/18/20 01/18/20 06:32 10:55 17:28 WBC RBC Hgb Hct MCV MCH MCHC RDW Std Deviation RDW Coeff of Truman Plt Count MPV Immature Gran % (Auto) Neut % (Auto) Lymph % (Auto) [place] % (Auto) Eos % (Auto) Baso % (Auto) Absolute Neuts (auto) Absolute Lymphs (auto) Nucleated RBC % Differential Comment Hypochromasia Anisocytosis Sodium Potassium Chloride Carbon Dioxide Anion Gap BUN Creatinine Estim Creat Clear Calc Est GFR (MDRD) Af Amer Est GFR (MDRD) Non-Af BUN/Creatinine Ratio Glucose Calcium B-Natriuretic Peptide POC Glucose 235 H 228 H 183 H 01/18/20 01/19/20 01/19/20 22:55 05:00 05:00 WBC 10.0 RBC 3.95 L Hgb 9.8 L Hct 33.3 L MCV 84.3 MCH 24.8 L MCHC 29.4 L RDW Std Deviation 68.2 H RDW Coeff of Truman 22.0 H Plt Count 236 MPV 10.3 Immature Gran % (Auto) 0.400 Neut % (Auto) 78.4 H Lymph % (Auto) 15.9 L [place] % (Auto) 5.2 Eos % (Auto) 0.0 Baso % (Auto) 0.1 Absolute Neuts (auto) 7.8 H Absolute Lymphs (auto) 1.59 Nucleated RBC % 0 Differential Comment SCANNED Hypochromasia 3+ Anisocytosis 3+ Sodium 141 Potassium 4.5 Chloride 103 Carbon Dioxide 34.0 H Anion Gap 4 L BUN 53 H Creatinine 1.44 H Estim Creat Clear Calc 42.08 Est GFR (MDRD) Af Amer 62 Est GFR (MDRD) Non-Af 51 L BUN/Creatinine Ratio 36.8 H Glucose 214 H Calcium 8.0 L B-Natriuretic Peptide POC Glucose 193 H 01/19/20 01/19/20 01/19/20 05:00 05:22 12:10 WBC RBC Hgb Hct MCV MCH MCHC RDW Std Deviation RDW Coeff of Truman Plt Count MPV Immature Gran % (Auto) Neut % (Auto) Lymph % (Auto) [place] % (Auto) Eos % (Auto) Baso % (Auto) Absolute Neuts (auto) Absolute Lymphs (auto) Nucleated RBC % Differential Comment Hypochromasia Anisocytosis Sodium Potassium Chloride Carbon Dioxide Anion Gap BUN Creatinine Estim Creat Clear Calc Est GFR (MDRD) Af Amer Est GFR (MDRD) Non-Af BUN/Creatinine Ratio Glucose Calcium B-Natriuretic Peptide 57.9 POC Glucose 222 H 208 H 01/19/20 01/19/20 01/20/20 17:35 23:33 05:42 WBC RBC Hgb Hct MCV MCH MCHC RDW Std Deviation RDW Coeff of Truman Plt Count MPV Immature Gran % (Auto) Neut % (Auto) Lymph % (Auto) [place] % (Auto) Eos % (Auto) Baso % (Auto) Absolute Neuts (auto) Absolute Lymphs (auto) Nucleated RBC % Differential Comment Hypochromasia Anisocytosis Sodium Potassium Chloride Carbon Dioxide Anion Gap BUN Creatinine Estim Creat Clear Calc Est GFR (MDRD) Af Amer Est GFR (MDRD) Non-Af BUN/Creatinine Ratio Glucose Calcium B-Natriuretic Peptide POC Glucose 245 H 195 H 219 H Microbiology 01/14/20 21:25 Blood Culture (Wb) - Anticubital Right Blood Culture - Preliminary Clinical Impression(s) from Imaging Studies Chest X-Ray 01/14/20 22:10 IMPRESSION: Right basilar and left upper lobe alveolar disease. Extensive left pleural fluid. Electronically Signed: Oswald Mata MD at 22:23 EDT Tel , Service support , Chest X-Ray 01/15/20 03:30 IMPRESSION: Support tubes in expected locations. No pneumothorax. Persistent extensive left mid and lower lung opacity representing a combination of pleural effusion, atelectasis and possible pneumonia. Mild improved aeration left upper lobe. Right basilar opacity unchanged. Electronically Signed: Eduardo Obando MD at 5:21 EDT , Service support , Chest CT 01/15/20 09:46 IMPRESSION: Small left pleural effusion with dense consolidation in the left upper, lingular segment of the left upper lobe as well as left lower lobes. Electronically Signed: Abdullahi Gauthier, at 11:20 EDT , Service support , Chest X-Ray 01/16/20 09:30 IMPRESSION: Status post placement of a right central catheter with the tip at the junction of the superior vena cava and right atrium. The remainder the examination is unchanged. Electronically Signed: Abdullahi Gauthier, at 9:55 EDT , Service support , Medical Necessity - Tobacco Use Smoking Status: Former smoker Assessment/Plan All Active Problems (Last Updated 01/15/20 @ 09:[address] Abbie Cardenas MD) Severe sepsis (Acute) RECOMMENDATIONS: 1. Continue IV Lasix daily as tolerated by hemodynamics and renal function. 2. Continue scheduled bronchodilators and IV steroids. 3. Continue to wean FiO2 and PEEP to maintain oxygen saturations at or above 90%. 4. Continue tube feeds as tolerated. 5. Continue antimicrobial therapy. 6. Obtain repeat plain film chest x-ray. 7. If large effusion is noted on x-ray, consider ultrasound-guided thoracentesis to facilitate weaning from mechanical ventilatory support. IMPRESSIONS: 1. Acute on chronic combined respiratory failure secondary to Moraxella pneumonia Plan to continue current supportive measures with invasive mechanical ventilatory support, scheduled bronchodilators, IV steroids and empiric antimicrobials. Continue to wean FiO2 and PEEP to maintain oxygen saturations at or above 90%. Will obtain repeat chest x-ray this morning. If a significant effusion is noted, will consider ultrasound-guided thoracentesis. The patient appears to have relatively advanced COPD, so a protracted clinical course is likely expected. 2. Severe sepsis secondary to Moraxella pneumonia The patient remains hemodynamically stable. Continue antimicrobials as noted above. 3. Poorly controlled diabetes mellitus Continue basal and sliding scale insulin coverage as ordered. 4. Hypertension/metabolic encephalopathy/obesity/history of squamous cell skin cancer Complicates care, management, recovery and prognosis. Physical therapy to work with the patient once medically stabilized. TIME: 33 minutes of critical care time, independent of procedures, was spent addressing the patient's acute on chronic combined respiratory failure, possible COPD, severe sepsis, diabetes mellitus, review of all data and collaboration with the care team. [id number]) [phone] [id number] Critical care first hour
[2020-01-20 06:25] LABS: Absolute Lymphocyte Count 1.61 X10^3/uL (0.83-4.51); Absolute Neutrophil Count 9.3 X10^3/uL (2.0-7.7); Hematocrit 34.7 % (40-54); Hemoglobin 10.4 g/dL (13.0-16.5); Lymphocyte # 1.61 X10^3/ul (4.0); Lymphocyte % 13.8 % (19-41); Mean Corpuscular Hgb 25.1 pg (27.0-32.0); Mean Corpuscular Volume 83.6 fL (80-94); Mean Platelet Vol. 10.4 fl (6.2-12.0); Monocyte# 0.65 X10^3/uL; Monocyte% 5.6 % (0-10); NRBC Flagged by Analyzer 0 % (0-5); Neutrophil # 9.34 X10^3/uL (2.7-7.7); POSITIVE MORPHOLOGY YES; Platelet Count 219 K/mm3 (150-450); RBC Distribution Width CV 22.5 % (11.6-14.6); RBC Distribution Width SD 67.9 fl (35.1-43.9); Red Blood Count 4.15 M/mm3 (4.6-6.2); White Blood Count 11.7 K/mm3 (4.4-11.0)
[2020-01-20 06:26] LABS: Differential Indicated SCAN CRITERIA MET
[2020-01-20 06:39] LABS: Anion Gap 3 (5-15); BUN 58 mg/dL (7-18); Calcium,Total 8.2 mg/dL (8.5-10.1); Chloride 101 mmol/L (98-107); Creatinine, Serum 1.38 mg/dL (0.70-1.30); EST Glomerular Filtration Rate 53 mL/min (>60); Est Glom Filt Rate - Afr Amer 65 mL/min (>60); Estimated Creatinine Clearance 43.91 ml/min; Glucose 209 mg/dL (74-106); Potassium 4.6 mmol/L (3.5-5.1); Sodium Level 138 mmol/L (136-145)
[2020-01-20 06:41] LABS: Differential Comment SCANNED; Microcytosis RARE; Ovalocyte 1+
[2020-01-20] MEDS: Ipratropium/Albuterol Sulfate 3 ML AMPUL.NEB INHALATION ×5 (06:50→23:32)
--- NOTE | 2020-01-20 08:29 | RAD_ITS ---
STUDY: X-RAY CHEST REASON FOR EXAM: Male, 74 years old. RESPIRATORY FAILURE. TECHNIQUE: Single AP portable view of the chest. COMPARISON: Comparison is made with prior study dated 01/16/2020 and 01/15/2020. FINDINGS: An endotracheal tube is in situ. The tip is at 3.5 cm proximal to the racheal. And oral gastric tube is seen with the tip in the fundal portion of the stomach. Increasing left pleural-parenchymal changes. Stable mild increased markings at the right lung base. Normal size heart. Normal mediastinum and arash. Normal visualized pulmonary arteries. There is atherosclerotic calcification of the aortic arch with tortuosity. There are diffuse degenerative changes of the visualized thoracic spine. Normal visualized ribs, clavicles, and shoulders. There is no demonstrated abnormality of the visualized soft tissue structures of the upper abdomen. RAD/Chest 1 View (Portable) IMPRESSION: Increasing left pleural-parenchymal changes. Electronically Signed: Abdullahi Gauthier, at 12:25 EDT , Service support ,
[2020-01-20] MEDS: Propofol 10MG/Ml 1,000 MG/100 ML Bottle 13.4 MG CONT INF (08:55)
--- NOTE | 2020-01-20 09:00 | PCM.PROGNOTE ---
Subjective: Chief complaint: Follow-up after admission for acute on chronic combined respiratory failure, severe sepsis secondary to multilobar left community-acquired pneumonia and also found to have acute kidney injury. Patient seen and examined. No acute events overnight. Remains on sedation, on mechanical ventilation with high vent settings, FiO2 of 60% and PEEP of 10. He is afebrile, blood pressure and heart rate are maintained, on mechanical ventilation. - Physical Exam Vitals/I&O's: Vital Signs Temp Pulse Resp BP Pulse Ox 98.7 F 57 L 14 117/61 92 01/20/20 06:00 01/20/20 07:28 01/20/20 07:06 01/20/20 06:00 01/20/20 07:06 Oxygen Flow Rate (L/min) 15 Oxygen Delivery Method Mechanical Ventilator Weight: 245 lb 9.519 oz Body Mass Index (BMI) 35.9 Intake and Output for Last 24 Hours 01/18/20 01/19/20 01/20/20 23:59 23:59 23:59 Intake Total 2438.04 / 2795.94 3262.65 / 3294.05 797.40 / 797.40 Output Total 1875 / 1925 2375 / 2375 480 / 480 Balance 563.04 / 870.94 887.65 / 919.05 317.40 / 317.40 General: - - Intubated, sedated, on mechanical ventilation. HEENT: Atraumatic, PERRLA, EOMI Oral: Moist Mucosa, No Gingival or Mucosal Lesions/ Ulcerations Neck: Supple, No JVD, Negative Carotid Bruits, Trachea Midline, Thyroid Normal Size and Texture Lungs: No wheeze, No rales, Diminished, Rhonchi, - - Decreased breath sounds on the left base, occasional rhonchi. Cardiovascular: Regular rate, Regular Rhythm, Normal S1, Normal S2, PMI Normal Abdomen: Bowel Sounds Present, Soft, Non Tender, Non-Distended, No Hepato-splenomegaly, Obese Extremities: No clubbing, No cyanosis, Edema Skin: No rashes, No breakdown Lymphatic: No Cervical, Supraclavicular, or Inguinal Adenopathy Neurological: Cranial nerves II-XII grossly intact, - - Unable to assess power, on mechanical ventilation. Psych/Mental Status: - - Unable to assess, on mechanical ventilation. Microbiology Past 72 Hours 01/14/20 21:25 Blood Culture (Wb) - Anticubital Right Blood Culture - Preliminary 01/14/20 21:25 Blood Culture (Wb) - Left Wrist Blood Culture - Final No growth in 5 days. 01/15/20 03:41 Sputum, Induced/Lukens Gram Stain - Final 01/15/20 03:41 Sputum, Induced/Lukens Respiratory Culture - Final Moraxella(Saba.)Catarrhalis 01/15/20 01:20 Urine Catheter - Catheter Urine Culture - Final Culture exhibits no growth. Laboratory Results 01/19/20 12:10: POC Glucose 208 H 01/19/20 17:35: POC Glucose 245 H 01/19/20 23:33: POC Glucose 195 H 01/20/20 05:42: POC Glucose 219 H 01/20/20 06:20: WBC 11.7 H, RBC 4.15 L, Hgb 10.4 L, Hct 34.7 L, MCV 83.6, MCH 25.1 L, MCHC 30.0 L, RDW Std Deviation 67.9 H, RDW Coeff of [place] 22.5 H, Plt Count 219, MPV 10.4, Immature Gran % (Auto) 0.600, Neut % (Auto) 80.0 H, Lymph % (Auto) 13.8 L, [place] % (Auto) 5.6, Eos % (Auto) 0.0, Baso % (Auto) 0.0, Absolute Neuts (auto) 9.3 H, Absolute Lymphs (auto) 1.61, Nucleated RBC % 0, Differential Comment SCANNED, Microcytosis RARE, Ovalocytes 1+ 01/20/20 06:20: Sodium 138, Potassium 4.6, Chloride 101, Carbon Dioxide 34.0 H, Anion Gap 3 L, BUN 58 H, Creatinine 1.38 H, Estim Creat Clear Calc 43.91, Est GFR (MDRD) Af Amer 65, Est GFR (MDRD) Non-Af 53 L, BUN/Creatinine Ratio 42.0 H, Glucose 209 H, Calcium 8.2 L Current Medications Acetaminophen (Tylenol) 650 mg PO Q6H PRN PRN PRN Reason: Pain Score 1-10/Temp > 100.7 F Albuterol Sulfate (Ventolin Aerosols) 2.5 mg INHALATION Q2H PRN PRN PRN Reason: SOB/Wheezing Albuterol/Ipratropium (Duoneb) 3 ml INHALATION Q4HWA.RT [facility] Last Admin: 01/20/20 06:50 Dose: 3 ml Documented by: Chlorhexidine Gluconate () 15 ml PO BID [facility] Last Admin: 01/19/20 22:02 Dose: 15 ml Documented by: Dextrose (D50w Syringe) 0 gm IV X1 PRN; Protocol PRN Reason: Hypoglycemia Enoxaparin Sodium (Lovenox) 40 mg SC DAILY [facility] Last Admin: 01/19/20 10:06 Dose: 40 mg Documented by: Famotidine (Pepcid) 20 mg GT BID [facility] Furosemide (Lasix) 40 mg IV DAILY [facility] Last Admin: 01/19/20 10:24 Dose: 40 mg Documented by: Glucagon () 1 mg IM .X1 PRN PRN Reason: Hypoglycemia Sodium Chloride () 250 mls @ 15 mls/hr IV .[id number] PRN PRN Reason: Saline Flush Last Infusion: 01/20/20 05:43 Dose: 0 mls/hr Documented by: Sodium Chloride () 250 mls @ 15 mls/hr IV .[id number] PRN PRN Reason: Additional IVPB Infusion Piperacillin Sod/Tazobactam (Sod 3.375 gm/ Sodium Chloride) 50 mls @ 12.5 mls/hr IV Q8 [facility] Last Admin: 01/20/20 05:43 Dose: 12.5 mls/hr Documented by: Fentanyl Citrate 1,000 mcg/ (Sodium Chloride) 100 mls @ 2.5 mls/hr CONT INF .Q40H [facility]; Protocol Last Titration: 01/20/20 07:00 Dose: 150 mcg/hr, 15 mls/hr Documented by: Propofol (Diprivan) 1,000 mg in 100 mls @ 6.684 mls/hr CONT INF .Q12H [facility]; Protocol Last Admin: 01/20/20 08:55 Dose: 20 mcg/kg/min, 13.4 mls/hr Documented by: Enteral Nutritional Formula (Vital Af 1.2 Jay Liquid) 1,000 mls @ 55 mls/hr GT .[id number] [facility] Last Admin: 01/19/20 21:51 Dose: 55 mls/hr Documented by: Insulin Glargine (Lantus (Bkc)) 50 units SC BID [facility] Last Admin: 01/19/20 23:49 Dose: 50 u Documented by: Insulin Human Lispro (Humalog Kwikpen ([facility])) 0 unit SC Q6 [facility]; Protocol Last Admin: 01/20/20 05:47 Dose: 4 u Documented by: Labetalol HCl (Trandate) 10 mg IV Q6H PRN PRN PRN Reason: SBP > 160 Lisinopril (Zestril) 10 mg PO DAILY [facility] Last Admin: 01/19/20 10:07 Dose: 10 mg Documented by: Methylprednisolone (Solu-Medrol) 40 mg IV Q8 [facility] Last Admin: 01/20/20 05:45 Dose: 40 mg Documented by: Nystatin (Mycostatin Powder) 1 applic TOPICAL TID [facility]; Protocol Last Admin: 01/20/20 05:45 Dose: 1 applicatio Documented by: Ondansetron HCl (Zofran) 4 mg IV Q8H PRN PRN PRN Reason: NAUSEA/VOMITING Polyethylene Glycol (Miralax) 17 gm PO BID [facility] Last Admin: 01/19/20 21:45 Dose: 17 gm Documented by: Senna/Docusate Sodium (Senokot-S, Alexus-Colace) 2 tablet PO BID [facility] Last Admin: 01/19/20 21:39 Dose: 2 tablet Documented by: Sodium Chloride () 10 - 40 ml IV UD PRN PRN Reason: SALINE FLUSH Last Admin: 01/20/20 05:43 Dose: 30 ml Documented by: Medical Necessity - Tobacco Use Smoking Status: Former smoker Assessment/Plan All Active Problems (Last Updated 01/15/20 @ 09:[address] Abbie Cardenas MD) Severe sepsis (Acute) This is a 74 years old male patient presented to the emergency room because of shortness of breath and confusion, found to have acute on chronic combined hypoxic and hypercapnic respiratory failure attributed to acute COPD exacerbation and left community-acquired pneumonia and also found to have severe sepsis. #1 acute on chronic combined hypoxic and hypercapnic respiratory failure: Remains on mechanical ventilation with high vent settings, FiO2 of 60% and PEEP of 10. He is on day 6 of on IV Zosyn, IV steroids and bronchodilators as well as mechanical ventilatin. He is afebrile, blood pressure and heart rate are stable. He is tolerating tube feeds.. It is secondary to pneumonia and COPD exacerbation in the setting of chronic respiratory failure being on home oxygen. Critical care on the case. Plan to continue same treatment, wean FiO2 and PEEP as tolerated, no plan for extubation today. #2 severe sepsis: Secondary to pneumonia. Lactic acid was elevated, came down with IV fluids. Remained on IV Zosyn. He is afebrile, blood pressure is maintained, on mechanical ventilation. Blood culture showed no growth in 48 hours. Sputum culture revealed Moraxella catarrhalis. Urine culture showed no growth. Plan as above. #3 Left multilobar community-acquired pneumonia: Again, he is on IV Zosyn. He has been afebrile, leukocytosis resolved. CT scan chest reviewed, revealed no evidence left consolidation with left small pleural effusion. Pneumococcal and Legionella antigen were negative. COVID-19 PCR came back negative. Cultures reviewed as above. Plan to continue same treatment. #4 COPD exacerbation: Remained on IV steroids, IV antibiotics and bronchodilators, on mechanical ventilation. Plan as above. #5 uncontrolled type 2 diabetes mellitus: Blood sugar stabilized, it is down to 200s. He is on Lantus 50 units twice daily along with sliding scale. IV steroids is likely contributing. Hemoglobin A1c is 9.8%. #6 COPD/chronic respiratory failure: Patient is on home oxygen and at present, he is noncompliant, has not been wearing his oxygen at home. Plan as above. #7 hyperlipidemia: Keep holding statins. #8 DVT prophylaxis: Subcu Lovenox. This note was generated with [employer]ingu[employer] dictation software. It may contain incorrect words, spelling, and punctuation that were not noted in checking the note before signing. Inpatient E&M: [id number] [facility] L[facility]
--- NOTE | 2020-01-20 10:00 | US_ITS ---
PROCEDURE: ULTRASOUND GUIDED THORACENTESIS. DATE: 01/20/2020. INDICATION: Male, 74 years old. Left pleural effusion. PHYSICIAN: Abdullahi Gauthier M.D. PROCEDURE: The risks, benefits, and alternatives to the procedure were explained to the patient. The specific risks of bleeding, infection, and pneumothorax requiring chest tube insertion were discussed and accepted. Written informed consent was obtained. Ultrasonographic evaluation of the left lower pleural space was carried out. An adequate pocket was identified. The patient was placed in the sitting, upright position. The overlying skin was prepped and draped in sterile fashion. 1% lidocaine was administered subcutaneously for local anesthesia. Under ultrasound guidance, a 5 Monegasque thoracentesis needle/catheter system was advanced into the left posterior lower pleural fluid collection. Approximately 1450 mL of katerina-colored fluid was drained. The catheter was removed, and a sterile dressing was applied. A specimen was collected and sent to the laboratory for analysis, as requested by the referring clinician. The patient tolerated the procedure well. A chest x-ray was ordered. US/Thoracentesis W US IMPRESSION: Ultrasound-guided left thoracentesis. Electronically Signed: Abdullahi Gauthier, at 14:28 EDT , Service support ,
--- NOTE | 2020-01-20 10:05 | CASEMGMT ---
This RN CM spoke with daughter, Maria Guadalupe, via phone and she states she is going to call the pt advocate thru the [facility] to try and get pt started to get [facility]. Daughter states that she knows that it won't all be set up prior to discharge but she would like to work on getting the pt set up with some equipment thru the [facility]. This RN CM provided contact info so if advocate needs to speak with this RN CM they can. Daughter voices no further questions/concerns/needs at this time. SStshane RN CM
[2020-01-20] MEDS: Chlorhexidine 15 ML PO ×2 (10:09→21:51)
[2020-01-20] MEDS: Furosemide 40 MG/4 ML Vial IV (10:09)
[2020-01-20] MEDS: Senna/Docusate Sodium 1 Tablet 2 TABLET GT ×2 (10:10→21:52)
[2020-01-20] MEDS: Famotidine 20 MG Tablet GT ×2 (10:10→21:57)
[2020-01-20] MEDS: Polyethylene Glycol 3350 17 GM PACKET GT ×2 (10:19→21:52)
[2020-01-20 10:53] LABS: International Normalized Ratio 1.1; Prothrombin Time (Protime)PT. 14.2 SECONDS (11.7-14.9)
[2020-01-20 11:15] LABS: Bedside Glucose 217 mg/dL (70-110)
[2020-01-20 13:27] LABS: ALB/GLOB Ratio 0.7 RATIO (0.9-2.4); Globulin 3.5 g/dL (2.2-4.2); LDH 185 U/L (87-241); Protein, Total 5.9 g/dL (6.4-8.2)
--- NOTE | 2020-01-20 13:45 | RAD_ITS ---
STUDY: X-RAY CHEST REASON FOR EXAM: Male, 74 years old. POST LEFT SIDE THORACENTESIS TECHNIQUE: AP inspiration and expiration views. COMPARISON: Comparison is made with prior examination of 01/20/2020 at 9:31 AM. FINDINGS: All the support tubes are unchanged. The patient status post left thoracentesis. There is no evidence of pneumothorax. Persistent infiltration in the left lower lobe with stable increased markings at the right lung base. RAD/Chest Insp/Exp 2 View IMPRESSION: Status post left thoracentesis. There is no evidence of pneumothorax. Persistent left lower lobe infiltrate. Electronically Signed: Abdullahi Gauthier, at 14:26 EDT , Service support ,
[2020-01-20 13:58] LABS: Cytology, Body Fluid / CSF SEE PATHOLOGY REPORT
[2020-01-20 14:42] LABS: Glucose, Body Fluid 215 mg/dL (40-70); LDH,Body Fluid 136 Units/l (Not Establ.); Protein, Body Fluid 3.3 g/dL (Not Establ.)
[2020-01-20 14:48] LABS: Auto B Fluid Analyzer BKGD Ct COUNTS W/IN LIMITS (W/IN LIMITS)
[2020-01-20 14:49] LABS: Source- Body Fluid THORACENTESIS
[2020-01-20 14:50] LABS: Appearance/Body Fluid CLEAR; Color/Body Fluid LT YEL
[2020-01-20 14:51] LABS: Body Fluid Mononuclear WBC # 0.019 10^3/uL; Body Fluid Mononuclear WBC % 79.2 %; Body Fluid Polynuclear WBC % 20.8 %; Body Fluid Total Cells Counted 0.024 10^3/ul; White Blood Count/Body Fluid 0.024 10^3/uL
[2020-01-20 14:52] LABS: Body Fluid Polynuclear WBC # 0.005 10^3/uL; Body Fluid QC Type(s) BF1Q
[2020-01-20 14:56] LABS: Red Cell Count/Body Fluid 30 /mm3
[2020-01-20] MEDS: Propofol 10MG/Ml 1,000 MG/100 ML Bottle 16.7 MG CONT INF (15:12)
[2020-01-20 17:10] LABS: Bedside Glucose 146 mg/dL (70-110)
[2020-01-20] MEDS: Vital AF 1.2 Cal Liquid 1,000 ML 55 ML GT (18:20)
[2020-01-20] MEDS: Menthol/Lanolin/Calamine/Znox 113 GM Tube 1 APPLIC TOPICAL ×2 (18:29→21:53)
[2020-01-20] MEDS: Propofol 10MG/Ml 1,000 MG/100 ML Bottle 20.1 MG CONT INF (20:21)
[2020-01-20 22:36] LABS: Bedside Glucose 118 mg/dL (70-110)
[2020-01-21] VITALS (33 sets, daily range): BP systolic 103–161; BP diastolic 54–89; PULSE 61–113; RESP 14–26; TEMP 36.6–37.6; O2SAT 90–95
[2020-01-21] MEDS: Propofol 10MG/Ml 1,000 MG/100 ML Bottle 13.4 MG CONT INF (02:43)
[2020-01-21] MEDS: Ipratropium/Albuterol Sulfate 3 ML AMPUL.NEB INHALATION ×5 (03:14→19:05)
[2020-01-21] MEDS: 0.9% Saline Lock 10 ML Syringe IV ×5 (04:22→21:26)
[2020-01-21] MEDS: Nystatin Powder 15gm Bottle 1 APPLIC TOPICAL ×3 (04:24→21:28)
[2020-01-21] MEDS: TITRATION PARAMETER CHANGE 1 EACH IV (05:20)
[2020-01-21 05:36] LABS: Bedside Glucose 133 mg/dL (70-110)
--- NOTE | 2020-01-21 06:24 | PCM.PN.INT ---
Subjective: The patient was seen and examined at the bedside this morning. Events from the last 24 hours have been reviewed. The patient is currently afebrile, hemodynamically stable and maintaining appropriate oxygen saturations on assist control mode of mechanical ventilation with an FiO2 requirement of 40% and PEEP of 8. The patient did undergo successful ultrasound-guided thoracentesis at the bedside yesterday with 1.4 L of straw-colored fluid removed. The patient is currently documented to be overall net +6.4 L for the hospital admission. The patient did quite well this morning on his spontaneous breathing trial. He is currently alert and following commands appropriately. No secretions were noted by nursing or RT. Objective: The patient's most recent lab work, culture data and imaging studies have all been personally reviewed. CT chest dated January 14 revealed a small left pleural effusion with dense consolidation throughout the left hemithorax. Sputum culture was positive for Moraxella catarrhalis. General: Alert, Cooperative, - - Remains intubated and mechanically ventilated. HEENT: Atraumatic, Normocephalic Oral: No Gingival or Mucosal Lesions/ Ulcerations, - - Stable endotracheal and OG tubes. Neck: Supple, No Nodes, Trachea Midline Lungs: No rhonchi, No wheeze, No rales, Diminished Cardiovascular: Regular rate, Regular Rhythm, Normal S1, Normal S2, No murmurs Abdomen: Bowel Sounds Present, Soft, Non Tender, Obese Extremities: No clubbing, No cyanosis, Edema Skin: - - No significant change from previous. Musculoskeletal: No Muscle Wasting Lymphatic: No Cervical, Supraclavicular, or Inguinal Adenopathy Neurological: - - No focal neurological deficits. Currently alert and able to follow commands appropriately. Vital Signs Temp Pulse Resp BP Pulse Ox 99.6 F H 83 21 H 151/77 H 93 01/21/20 06:00 01/21/20 06:00 01/21/20 06:00 01/21/20 06:00 01/21/20 06:00 Oxygen Flow Rate (L/min) 15 Oxygen Delivery Method [2] Room Air Oxygen Delivery Method [1 ( Mechanical Ventilator Initial Baseline)] Oxygen Delivery Method Mechanical Ventilator Weight: 239 lb 3.225 oz Body Mass Index (BMI) 35.9 Intake and Output for Last 24 Hours 01/19/20 01/20/20 01/21/20 23:59 23:59 23:59 Intake Total 3262.65 / 3294.05 2983.00 / 3238.35 772.80 / 772.80 Output Total 2375 / 2375 3870 / 3995 700 / 700 Balance 887.65 / 919.05 -887.00 / -756.65 72.80 / 72.80 Labs (Last 48 Hours) 01/19/20 01/19/20 01/19/20 05:00 05:00 12:10 WBC RBC Hgb Hct MCV MCH MCHC RDW Std Deviation RDW Coeff of Truman Plt Count MPV Immature Gran % (Auto) Neut % (Auto) Lymph % (Auto) Divide % (Auto) Eos % (Auto) Baso % (Auto) Absolute Neuts (auto) Absolute Lymphs (auto) Nucleated RBC % Differential Comment SCANNED Hypochromasia 3+ Anisocytosis 3+ Microcytosis Ovalocytes PT INR Sodium Potassium Chloride Carbon Dioxide Anion Gap BUN Creatinine Estim Creat Clear Calc Est GFR (MDRD) Af Amer Est GFR (MDRD) Non-Af BUN/Creatinine Ratio Glucose Calcium Lactate Dehydrogenase B-Natriuretic Peptide 57.9 Total Protein Globulin Albumin/Globulin Ratio Fluid Source Fluid Color Fluid Appearance Fluid WBC Fluid RBC Fluid Tot Cell Count Fld Polynuclear WBCs # Fld Polynuclear WBCs % Fluid Mononuclear WBCs Fld Mononuclear WBCs % Fl Pathologist Comment Fluid Glucose Fluid Total Protein Fluid LDH Fluid Comment 2 Miscellaneous Cytology POC Glucose 208 H 01/19/20 01/19/20 01/20/20 17:35 23:33 05:42 WBC RBC Hgb Hct MCV MCH MCHC RDW Std Deviation RDW Coeff of Truman Plt Count MPV Immature Gran % (Auto) Neut % (Auto) Lymph % (Auto) Divide % (Auto) Eos % (Auto) Baso % (Auto) Absolute Neuts (auto) Absolute Lymphs (auto) Nucleated RBC % Differential Comment Hypochromasia Anisocytosis Microcytosis Ovalocytes PT INR Sodium Potassium Chloride Carbon Dioxide Anion Gap BUN Creatinine Estim Creat Clear Calc Est GFR (MDRD) Af Amer Est GFR (MDRD) Non-Af BUN/Creatinine Ratio Glucose Calcium Lactate Dehydrogenase B-Natriuretic Peptide Total Protein Globulin Albumin/Globulin Ratio Fluid Source Fluid Color Fluid Appearance Fluid WBC Fluid RBC Fluid Tot Cell Count Fld Polynuclear WBCs # Fld Polynuclear WBCs % Fluid Mononuclear WBCs Fld Mononuclear WBCs % Fl Pathologist Comment Fluid Glucose Fluid Total Protein Fluid LDH Fluid Comment 2 Miscellaneous Cytology POC Glucose 245 H 195 H 219 H 01/20/20 01/20/20 01/20/20 06:20 06:20 06:20 WBC 11.7 H RBC 4.15 L Hgb 10.4 L Hct 34.7 L MCV 83.6 MCH 25.1 L MCHC 30.0 L RDW Std Deviation 67.9 H RDW Coeff of Truman 22.5 H Plt Count 219 MPV 10.4 Immature Gran % (Auto) 0.600 Neut % (Auto) 80.0 H Lymph % (Auto) 13.8 L Divide % (Auto) 5.6 Eos % (Auto) 0.0 Baso % (Auto) 0.0 Absolute Neuts (auto) 9.3 H Absolute Lymphs (auto) 1.61 Nucleated RBC % 0 Differential Comment SCANNED Hypochromasia Anisocytosis Microcytosis RARE Ovalocytes 1+ PT INR Sodium 138 Potassium 4.6 Chloride 101 Carbon Dioxide 34.0 H Anion Gap 3 L BUN 58 H Creatinine 1.38 H Estim Creat Clear Calc 43.91 Est GFR (MDRD) Af Amer 65 Est GFR (MDRD) Non-Af 53 L BUN/Creatinine Ratio 42.0 H Glucose 209 H Calcium 8.2 L Lactate Dehydrogenase 185 B-Natriuretic Peptide Total Protein 5.9 L Globulin 3.5 Albumin/Globulin Ratio 0.7 L Fluid Source Fluid Color Fluid Appearance Fluid WBC Fluid RBC Fluid Tot Cell Count Fld Polynuclear WBCs # Fld Polynuclear WBCs % Fluid Mononuclear WBCs Fld Mononuclear WBCs % Fl Pathologist Comment Fluid Glucose Fluid Total Protein Fluid LDH Fluid Comment 2 Miscellaneous Cytology POC Glucose 01/20/20 01/20/20 01/20/20 10:05 11:10 17:06 WBC RBC Hgb Hct MCV MCH MCHC RDW Std Deviation RDW Coeff of Truman Plt Count MPV Immature Gran % (Auto) Neut % (Auto) Lymph % (Auto) Divide % (Auto) Eos % (Auto) Baso % (Auto) Absolute Neuts (auto) Absolute Lymphs (auto) Nucleated RBC % Differential Comment Hypochromasia Anisocytosis Microcytosis Ovalocytes PT 14.2 INR 1.1 Sodium Potassium Chloride Carbon Dioxide Anion Gap BUN Creatinine Estim Creat Clear Calc Est GFR (MDRD) Af Amer Est GFR (MDRD) Non-Af BUN/Creatinine Ratio Glucose Calcium Lactate Dehydrogenase B-Natriuretic Peptide Total Protein Globulin Albumin/Globulin Ratio Fluid Source Fluid Color Fluid Appearance Fluid WBC Fluid RBC Fluid Tot Cell Count Fld Polynuclear WBCs # Fld Polynuclear WBCs % Fluid Mononuclear WBCs Fld Mononuclear WBCs % Fl Pathologist Comment Fluid Glucose Fluid Total Protein Fluid LDH Fluid Comment 2 Miscellaneous Cytology POC Glucose 217 H 146 H 01/20/20 01/20/20 01/20/20 22:16 Unknown Unknown WBC RBC Hgb Hct MCV MCH MCHC RDW Std Deviation RDW Coeff of Truman Plt Count MPV Immature Gran % (Auto) Neut % (Auto) Lymph % (Auto) Divide % (Auto) Eos % (Auto) Baso % (Auto) Absolute Neuts (auto) Absolute Lymphs (auto) Nucleated RBC % Differential Comment Hypochromasia Anisocytosis Microcytosis Ovalocytes PT INR Sodium Potassium Chloride Carbon Dioxide Anion Gap BUN Creatinine Estim Creat Clear Calc Est GFR (MDRD) Af Amer Est GFR (MDRD) Non-Af BUN/Creatinine Ratio Glucose Calcium Lactate Dehydrogenase B-Natriuretic Peptide Total Protein Globulin Albumin/Globulin Ratio Fluid Source Fluid Color Fluid Appearance Fluid WBC Fluid RBC Fluid Tot Cell Count Fld Polynuclear WBCs # Fld Polynuclear WBCs % Fluid Mononuclear WBCs Fld Mononuclear WBCs % Fl Pathologist Comment Fluid Glucose 215 H Fluid Total Protein 3.3 Fluid LDH 136 Fluid Comment 2 Miscellaneous Cytology Pending POC Glucose 118 H 01/20/20 01/21/20 Unknown 05:18 WBC RBC Hgb Hct MCV MCH MCHC RDW Std Deviation RDW Coeff of Truman Plt Count MPV Immature Gran % (Auto) Neut % (Auto) Lymph % (Auto) Divide % (Auto) Eos % (Auto) Baso % (Auto) Absolute Neuts (auto) Absolute Lymphs (auto) Nucleated RBC % Differential Comment Hypochromasia Anisocytosis Microcytosis Ovalocytes PT INR Sodium Potassium Chloride Carbon Dioxide Anion Gap BUN Creatinine Estim Creat Clear Calc Est GFR (MDRD) Af Amer Est GFR (MDRD) Non-Af BUN/Creatinine Ratio Glucose Calcium Lactate Dehydrogenase B-Natriuretic Peptide Total Protein Globulin Albumin/Globulin Ratio Fluid Source THORACENTESIS Fluid Color LT YEL Fluid Appearance CLEAR Fluid WBC 0.024 Fluid RBC 30 Fluid Tot Cell Count 0.024 Fld Polynuclear WBCs # 0.005 Fld Polynuclear WBCs % 20.8 Fluid Mononuclear WBCs 0.019 Fld Mononuclear WBCs % 79.2 Fl Pathologist Comment May follow Fluid Glucose Fluid Total Protein Fluid LDH Fluid Comment 2 SEE COMMENT Miscellaneous Cytology POC Glucose 133 H Microbiology 01/20/20 Unknown Fluid - Thoracentesis Fluid Gram Stain - Final 01/14/20 21:25 Blood Culture (Wb) - Anticubital Right Blood Culture - Preliminary 01/14/20 21:25 Blood Culture (Wb) - Left Wrist Blood Culture - Final No growth in 5 days. Clinical Impression(s) from Imaging Studies Chest X-Ray 01/14/20 22:10 IMPRESSION: Right basilar and left upper lobe alveolar disease. Extensive left pleural fluid. Electronically Signed: Oswald Mata MD at 22:23 EDT Tel , Service support , Chest X-Ray 01/15/20 03:30 IMPRESSION: Support tubes in expected locations. No pneumothorax. Persistent extensive left mid and lower lung opacity representing a combination of pleural effusion, atelectasis and possible pneumonia. Mild improved aeration left upper lobe. Right basilar opacity unchanged. Electronically Signed: Eduardo Obando MD at 5:21 EDT , Service support , Chest CT 01/15/20 09:46 IMPRESSION: Small left pleural effusion with dense consolidation in the left upper, lingular segment of the left upper lobe as well as left lower lobes. Electronically Signed: Abdullahi Gauthier, at 11:20 EDT , Service support , Chest X-Ray 01/16/20 09:30 IMPRESSION: Status post placement of a right central catheter with the tip at the junction of the superior vena cava and right atrium. The remainder the examination is unchanged. Electronically Signed: Abdullahi Gauthier, at 9:55 EDT , Service support , Chest X-Ray 01/20/20 08:29 IMPRESSION: Increasing left pleural-parenchymal changes. Electronically Signed: Abdullahi Gauthier, at 12:25 EDT , Service support , Thoracentesis Ultrasound 01/20/20 10:00 IMPRESSION: Ultrasound-guided left thoracentesis. Electronically Signed: Abdullahi Benzflorencia, at 14:28 EDT , Service support , Chest X-Ray 01/20/20 13:45 IMPRESSION: Status post left thoracentesis. There is no evidence of pneumothorax. Persistent left lower lobe infiltrate. Electronically Signed: Abdullahi Cejajazzmine, at 14:26 EDT , Service support , Medical Necessity - Tobacco Use Smoking Status: Former smoker Assessment/Plan All Active Problems (Last Updated 01/15/20 @ 09:[address] Abbie Cardenas MD) Severe sepsis (Acute) RECOMMENDATIONS: 1. Proceed with a trial of extubation this morning. 2. Once extubated, wean supplemental oxygen to maintain saturations at or above 90%. 3. Obtain speech therapy evaluation, prior to advancing diet. 4. Continue scheduled bronchodilators and IV steroids. 5. Continue gentle diuresis as tolerated by hemodynamics and renal function. 6. Continue antimicrobials to complete 7-day treatment course. 7. Encourage incentive spirometer use and mobilize patient as tolerated. IMPRESSIONS: 1. Acute on chronic combined respiratory failure secondary to Moraxella pneumonia Improving. Following thoracentesis, the patient's respiratory status has improved. He is currently a candidate for a trial of extubation. Once extubated, recommend weaning supplemental oxygen to maintain saturations at or above 90%. Antimicrobials will be continued to complete a 7-day treatment course. Scheduled bronchodilators and IV steroids will also be continued. Obtain speech therapy evaluation, prior to advancing diet. Encourage incentive spirometer use and mobilize patient as tolerated. Pleural fluid collected from the patient's thoracentesis is exudative in nature. Cultures and cytology are pending. The patient appears to have relatively advanced COPD, so a protracted clinical course is likely. 2. Severe sepsis secondary to Moraxella pneumonia The patient remains hemodynamically stable. Continue antimicrobials as noted above. 3. Poorly controlled diabetes mellitus Continue basal and sliding scale insulin coverage as ordered. 4. Hypertension/metabolic encephalopathy/obesity/history of squamous cell skin cancer Complicates care, management, recovery and prognosis. Physical therapy to work with the patient. TIME: 37 minutes of critical care time, independent of procedures, was spent addressing the patient's acute on chronic combined respiratory failure, possible COPD, severe sepsis, diabetes mellitus, review of all data and collaboration with the care team. ([id number]) [id number] Critical care first hour
[2020-01-21] MEDS: Menthol/Lanolin/Calamine/Znox 113 GM Tube 1 APPLIC TOPICAL ×2 (10:24→21:29)
[2020-01-21] MEDS: Enoxaparin 40 MG/0.4 ML Syringe SC (10:26)
[2020-01-21] MEDS: Furosemide 40 MG/4 ML Vial IV (10:27)
--- NOTE | 2020-01-21 10:47 | PN_ITS ---
Reason for Visit: Acute hypoxic and hypercapnic respiratory failure Subjective: Patient is a 74-year-old gentleman admitted with confusion and shortness of breath. Imaging studies demonstrated left multilobar pneumonia. An assessment of severe sepsis and acute hypoxic and hypercapnic respiratory failure made intubated and admitted to the intensive care unit Patient undergoing weaning trial Objective: GENERAL: cooperative HEENT: Atraumatic; EYES; Anicteric, Normal Conjunctiva NECK; supple, normal thyroid, RESPIRATORY: Diminished to auscultation CARDIOVASCULAR: Regular S1 S2, GI: soft, normoactive bowel sounds, : No Renal angle tenderness; EXTREMITIES: edema, no clubbing, MUSCULOSKELETAL: no muscle waisting NEURO: Awake; no lateralizing signs. SKIN: No Rash PSYCH; Flat affect Vitals/I&O's: Vital Signs Temp Pulse Resp BP Pulse Ox 99.0 F 77 19 H 129/68 H 94 01/21/20 09:00 01/21/20 09:00 01/21/20 09:00 01/21/20 09:00 01/21/20 09:00 Oxygen Flow Rate (L/min) 6 Oxygen Delivery Method [2] Room Air Oxygen Delivery Method [1 ( Mechanical Ventilator Initial Baseline)] Oxygen Delivery Method Nasal Cannula Weight: 108.5 kg Body Mass Index (BMI) 35.9 Intake and Output for Last 24 Hours 01/19/20 01/20/20 01/21/20 23:59 23:59 23:59 Intake Total 3262.65 / 3294.05 2983.00 / 3238.35 772.80 / 772.80 Output Total 2375 / 2375 3870 / 3995 1225 / 1225 Balance 887.65 / 919.05 -887.00 / -756.65 -452.20 / -452.20 Microbiology Past 72 Hours 01/20/20 Unknown Fluid - Thoracentesis Fluid Gram Stain - Final 01/20/20 Unknown Fluid - Thoracentesis Fluid Body Fluid Culture - Preliminary No growth-Final to follow 01/14/20 21:25 Blood Culture (Wb) - Anticubital Right Blood Culture - Final Prevotella melaninogenica 01/14/20 21:25 Blood Culture (Wb) - Left Wrist Blood Culture - Final No growth in 5 days. Laboratory Results 01/20/20 06:20: Lactate Dehydrogenase 185, Total Protein 5.9 L, Globulin 3.5, Albumin/Globulin Ratio 0.7 L 01/20/20 10:05: PT 14.2, INR 1.1 01/20/20 11:10: POC Glucose 217 H 01/20/20 17:06: POC Glucose 146 H 01/20/20 22:16: POC Glucose 118 H 01/20/20 : Fluid Glucose 215 H, Fluid Total Protein 3.3, Fluid LDH 136 01/20/20 : Miscellaneous Cytology Pending 01/20/20 : Fluid Source THORACENTESIS, Fluid Color LT YEL, Fluid Appearance CLEAR, Fluid WBC 0.024, Fluid RBC 30, Fluid Tot Cell Count 0.024, Fld Polynuclear WBCs # 0.005, Fld Polynuclear WBCs % 20.8, Fluid Mononuclear WBCs 0.019, Fld Mononuclear WBCs % 79.2, Fl Pathologist Comment May follow, Fluid Comment 2 SEE COMMENT 01/21/20 05:18: POC Glucose 133 H Current Medications Acetaminophen (Tylenol Liquid) 650 mg GT Q6H PRN PRN PRN Reason: Pain Score 1-10/Temp > 100.7 F Albuterol Sulfate (Ventolin Aerosols) 2.5 mg INHALATION Q2H PRN PRN PRN Reason: SOB/Wheezing Albuterol/Ipratropium (Duoneb) 3 ml INHALATION Q4HWA.RT [facility] Last Admin: 01/21/20 06:38 Dose: 3 ml Documented by: Calamine/Phenol (Calmoseptine Ointment) 1 applic TOPICAL BID JUANITO; Protocol Last Admin: 01/21/20 10:24 Dose: 1 applicatio Documented by: Dextrose (D50w Syringe) 0 gm IV X1 PRN; Protocol PRN Reason: Hypoglycemia Enoxaparin Sodium (Lovenox) 40 mg SC DAILY [facility] Last Admin: 01/21/20 10:26 Dose: 40 mg Documented by: Famotidine (Pepcid) 20 mg GT BID [facility] Last Admin: 01/20/20 21:57 Dose: 20 mg Documented by: Furosemide (Lasix) 40 mg IV DAILY [facility] Last Admin: 01/21/20 10:27 Dose: 40 mg Documented by: Glucagon () 1 mg IM .X1 PRN PRN Reason: Hypoglycemia Sodium Chloride () 250 mls @ 15 mls/hr IV .[id number] PRN PRN Reason: Saline Flush Last Infusion: 01/21/20 05:21 Dose: 0 mls/hr Documented by: Sodium Chloride () 250 mls @ 15 mls/hr IV .[id number] PRN PRN Reason: Additional IVPB Infusion Piperacillin Sod/Tazobactam (Sod 3.375 gm/ Sodium Chloride) 50 mls @ 12.5 mls/hr IV Q8 [facility] Stop: 01/21/20 22:01 Last Admin: 01/21/20 05:19 Dose: 12.5 mls/hr Documented by: Insulin Glargine (Lantus ([facility])) 50 units SC BID [facility] Last Admin: 01/20/20 22:18 Dose: 50 u Documented by: Insulin Human Lispro (Humalog Kwikpen ([facility])) 0 unit SC Q6 [facility]; Protocol Last Admin: 01/21/20 05:20 Dose: Not Given Documented by: Labetalol HCl (Trandate) 10 mg IV Q6H PRN PRN PRN Reason: SBP > 160 Lisinopril (Zestril) 10 mg GT DAILY [facility] Last Admin: 01/20/20 12:37 Dose: Not Given Documented by: Methylprednisolone (Solu-Medrol) 40 mg IV Q12 [facility] Last Admin: 01/21/20 10:25 Dose: 40 mg Documented by: Nystatin (Mycostatin Powder) 1 applic TOPICAL TID [facility]; Protocol Last Admin: 01/21/20 04:24 Dose: 1 applicatio Documented by: Ondansetron HCl (Zofran) 4 mg IV Q8H PRN PRN PRN Reason: NAUSEA/VOMITING Polyethylene Glycol (Miralax) 17 gm GT BID PRN PRN PRN Reason: Constipation Senna/Docusate Sodium (Senokot-S, Alexus-Colace) 2 tablet GT BID PRN PRN PRN Reason: CONSTIPATION Sodium Chloride () 10 - 40 ml IV UD PRN PRN Reason: SALINE FLUSH Last Admin: 01/21/20 10:24 Dose: 10 ml Documented by: STROKE Vital Signs/Narrative: Vital Signs Temp Pulse Resp BP Pulse Ox 01/21/20 09:00 99.0 F 77 19 H 129/68 H 94 01/21/20 08:00 99.3 F H 83 17 135/66 H 92 01/21/20 07:00 88 19 H 155/77 H 95 Medical Necessity - Tobacco Use Smoking Status: Former smoker Assessment/Plan All Active Problems (Last Updated 01/15/20 @ 09:[address] Abbie Cardenas MD) Severe sepsis (Acute) Patient is a 74-year-old gentleman admitted with confusion and shortness of breath. Imaging studies demonstrated left multilobar pneumonia. An assessment of severe sepsis and acute hypoxic and hypercapnic respiratory failure made intubated and admitted to the intensive care unit 1. Acute hypoxic and hypercapnic respiratory failure ?Secondary to multilobar pneumonia requiring mechanical ventilation broad- spectrum antibiotic therapy. Patient was weaned off the vent on the morning of 01/21/2020 2. Severe sepsis ?Secondary to multilobar pneumonia with mozzarella catarrhalis. Patient has responded to treatment (mechanical ventilation as well as broad-spectrum antibiotic therapy with Zosyn) 3. Left-sided pleural effusion ?Patient underwent thoracocentesis with 1.4 L of straw-colored fluid removed. 4. COPD with acute exacerbation ?Complicating patient management as above. In addition to patient being managed with antibiotics patient was placed on systemic steroids and he was on the vent and weaned off on 01/21/2020 5. Diabetes mellitus type 2 ?With complications including hyperglycemia continue with patient long-acting insulin in addition to sliding scale. Hemoglobin A1c this admission 9.8 6. Chronic hypoxic respiratory failure ?Secondary to COPD, patient is on home oxygen 7. Dyslipidemia -Patient is on statin therapy, continued at home dose 8. DVT prophylaxis - On enoxaparin Clinical Impression(s) from Imaging Studies Chest X-Ray 01/14/20 22:10 IMPRESSION: Right basilar and left upper lobe alveolar disease. Extensive left pleural fluid. Electronically Signed: Oswald Mata MD at 22:23 EDT Tel , Service support , Chest X-Ray 01/15/20 03:30 IMPRESSION: Support tubes in expected locations. No pneumothorax. Persistent extensive left mid and lower lung opacity representing a combination of pleural effusion, atelectasis and possible pneumonia. Mild improved aeration left upper lobe. Right basilar opacity unchanged. Electronically Signed: Eduardo Obando MD at 5:21 EDT , Service support , Chest CT 01/15/20 09:46 IMPRESSION: Small left pleural effusion with dense consolidation in the left upper, lingular segment of the left upper lobe as well as left lower lobes. Electronically Signed: Abdullahi Gauthier, at 11:20 EDT , Service support , Chest X-Ray 01/16/20 09:30 IMPRESSION: Status post placement of a right central catheter with the tip at the junction of the superior vena cava and right atrium. The remainder the examination is unchanged. Electronically Signed: Abdullahi Gauthier, at 9:55 EDT , Service support , Chest X-Ray 01/20/20 08:29 IMPRESSION: Increasing left pleural-parenchymal changes. Electronically Signed: Abdullahi Gauthier, at 12:25 EDT , Service support , Thoracentesis Ultrasound 01/20/20 10:00 IMPRESSION: Ultrasound-guided left thoracentesis. Electronically Signed: Abdullahi Gauthier at 14:28 EDT , Service support , Chest X-Ray 01/20/20 13:45 IMPRESSION: Status post left thoracentesis. There is no evidence of pneumothorax. Persistent left lower lobe infiltrate. Electronically Signed: Abdullahi Gauthier at 14:26 EDT , Service support , Active Medications Acetaminophen (Tylenol Liquid) 650 mg GT Q6H PRN PRN PRN Reason: Pain Score 1-10/Temp > 100.7 F Albuterol Sulfate (Ventolin Aerosols) 2.5 mg INHALATION Q2H PRN PRN PRN Reason: SOB/Wheezing Albuterol/Ipratropium (Duoneb) 3 ml INHALATION Q4HWA.RT [facility] Last Admin: 01/21/20 06:38 Dose: 3 ml Documented by: Calamine/Phenol (Calmoseptine Ointment) 1 applic TOPICAL BID [facility]; Protocol Last Admin: 01/21/20 10:24 Dose: 1 applicatio Documented by: Dextrose (D50w Syringe) 0 gm IV X1 PRN; Protocol PRN Reason: Hypoglycemia Enoxaparin Sodium (Lovenox) 40 mg SC DAILY [facility] Last Admin: 01/21/20 10:26 Dose: 40 mg Documented by: Famotidine (Pepcid) 20 mg GT BID [facility] Last Admin: 01/20/20 21:57 Dose: 20 mg Documented by: Furosemide (Lasix) 40 mg IV DAILY [facility] Last Admin: 01/21/20 10:27 Dose: 40 mg Documented by: Glucagon () 1 mg IM .X1 PRN PRN Reason: Hypoglycemia Sodium Chloride () 250 mls @ 15 mls/hr IV .[id number] PRN PRN Reason: Saline Flush Last Infusion: 01/21/20 05:21 Dose: 0 mls/hr Documented by: Sodium Chloride () 250 mls @ 15 mls/hr IV .[id number] PRN PRN Reason: Additional IVPB Infusion Piperacillin Sod/Tazobactam (Sod 3.375 gm/ Sodium Chloride) 50 mls @ 12.5 mls/hr IV Q8 [facility] Stop: 01/21/20 22:01 Last Admin: 01/21/20 05:19 Dose: 12.5 mls/hr Documented by: Insulin Glargine (Lantus ([facility])) 50 units SC BID [facility] Last Admin: 01/20/20 22:18 Dose: 50 u Documented by: Insulin Human Lispro (Humalog Kwikpen ([facility])) 0 unit SC Q6 [facility]; Protocol Last Admin: 01/21/20 05:20 Dose: Not Given Documented by: Labetalol HCl (Trandate) 10 mg IV Q6H PRN PRN PRN Reason: SBP > 160 Lisinopril (Zestril) 10 mg GT DAILY [facility] Last Admin: 01/20/20 12:37 Dose: Not Given Documented by: Methylprednisolone (Solu-Medrol) 40 mg IV Q12 J[facility] Last Admin: 01/21/20 10:25 Dose: 40 mg Documented by: Nystatin (Mycostatin Powder) 1 applic TOPICAL TID [facility]; Protocol Last Admin: 01/21/20 04:24 Dose: 1 applicatio Documented by: Ondansetron HCl (Zofran) 4 mg IV Q8H PRN PRN PRN Reason: NAUSEA/VOMITING Polyethylene Glycol (Miralax) 17 gm GT BID PRN PRN PRN Reason: Constipation Senna/Docusate Sodium (Senokot-S, Alexus-Colace) 2 tablet GT BID PRN PRN PRN Reason: CONSTIPATION Sodium Chloride () 10 - 40 ml IV UD PRN PRN Reason: SALINE FLUSH Last Admin: 01/21/20 10:24 Dose: 10 ml Documented by: Inpatient E&M: [id number] Subs Hosp L3
[2020-01-21 11:35] LABS: Bedside Glucose 40 mg/dL (70-110)
[2020-01-21] MEDS: Dextrose 50%-Water 25 GM/50 ML DISP.SYRIN IV (12:07)
[2020-01-21 12:11] LABS: Bedside Glucose 44 mg/dL (70-110)
[2020-01-21 12:45] LABS: Bedside Glucose 149 mg/dL (70-110)
[2020-01-21] MEDS: Lisinopril 10 MG Tablet GT (13:52)
[2020-01-21] MEDS: Famotidine 20 MG Tablet GT ×2 (13:52→21:26)
[2020-01-21] MEDS: DULoxetine Hcl 30 MG Capsule PO (16:13)
[2020-01-21 17:41] LABS: Bedside Glucose 124 mg/dL (70-110)
[2020-01-21 21:36] LABS: Bedside Glucose 98 mg/dL (70-110)
[2020-01-22] VITALS (21 sets, daily range): BP systolic 122–151; BP diastolic 59–89; PULSE 65–88; RESP 16–26; TEMP 36.6–36.8; O2SAT 92–97
[2020-01-22] MEDS: Nystatin Powder 15gm Bottle 1 APPLIC TOPICAL ×3 (05:20→22:08)
--- NOTE | 2020-01-22 06:12 | PCM.PN.INT ---
Subjective: The patient was seen and examined at the bedside this morning. Events from the last 24 hours have been reviewed. The patient is currently afebrile, hemodynamically stable and maintaining appropriate oxygen saturations on 6 L/min via nasal cannula. The patient was able to be successfully extubated yesterday. No overnight issues were identified by the nursing staff. Objective: The patient's most recent lab work, culture data and imaging studies have all been personally reviewed. CT chest dated January 14 revealed a small left pleural effusion with dense consolidation throughout the left hemithorax. Sputum culture was positive for Moraxella catarrhalis. Pleural fluid has not demonstrated any growth to date. General: Alert, No apparent distress HEENT: Atraumatic, Normocephalic Oral: No Gingival or Mucosal Lesions/ Ulcerations Neck: Supple, No Nodes, Trachea Midline Lungs: Diminished Cardiovascular: Regular rate, Regular Rhythm Abdomen: Bowel Sounds Present, Soft, Non Tender, Obese Extremities: No clubbing, No cyanosis, Edema Skin: - - No significant change from previous Musculoskeletal: No Tenderness to Palpation of Joints or Extremities, No Muscle Wasting Lymphatic: No Cervical, Supraclavicular, or Inguinal Adenopathy Neurological: Neuro grossly intact Psych/Mental Status: Normal Affect, Appropriate Vital Signs Temp Pulse Resp BP Pulse Ox 98.0 F 65 22 H 129/61 H 95 01/22/20 04:00 01/22/20 05:00 01/22/20 05:00 01/22/20 05:00 01/22/20 05:00 Oxygen Flow Rate (L/min) 6 Oxygen Delivery Method [2] Room Air Oxygen Delivery Method [1 ( Mechanical Ventilator Initial Baseline)] Oxygen Delivery Method Nasal Cannula Weight: 229 lb 11.547 oz Body Mass Index (BMI) 35.9 Intake and Output for Last 24 Hours 01/20/20 01/21/20 01/22/20 23:59 23:59 23:59 Intake Total 2983.00 / 3238.35 1172.80 / 1232.80 110 / 110 Output Total 3870 / 3995 3225 / 3225 Balance -887.00 / -756.65 -2052.20 / -1992.20 110 / 110 Labs (Last 48 Hours) 01/20/20 01/20/20 01/20/20 06:20 06:20 06:20 WBC 11.7 H RBC 4.15 L Hgb 10.4 L Hct 34.7 L MCV 83.6 MCH 25.1 L MCHC 30.0 L RDW Std Deviation 67.9 H RDW Coeff of [place] 22.5 H Plt Count 219 MPV 10.4 Immature Gran % (Auto) 0.600 Neut % (Auto) 80.0 H Lymph % (Auto) 13.8 L [place] % (Auto) 5.6 Eos % (Auto) 0.0 Baso % (Auto) 0.0 Absolute Neuts (auto) 9.3 H Absolute Lymphs (auto) 1.61 Nucleated RBC % 0 Differential Comment SCANNED Microcytosis RARE Ovalocytes 1+ PT INR Sodium 138 Potassium 4.6 Chloride 101 Carbon Dioxide 34.0 H Anion Gap 3 L BUN 58 H Creatinine 1.38 H Estim Creat Clear Calc 43.91 Est GFR (MDRD) Af Amer 65 Est GFR (MDRD) Non-Af 53 L BUN/Creatinine Ratio 42.0 H Glucose 209 H Calcium 8.2 L Lactate Dehydrogenase 185 Total Protein 5.9 L Globulin 3.5 Albumin/Globulin Ratio 0.7 L Fluid Source Fluid Color Fluid Appearance Fluid WBC Fluid RBC Fluid Tot Cell Count Fld Polynuclear WBCs # Fld Polynuclear WBCs % Fluid Mononuclear WBCs Fld Mononuclear WBCs % Fl Pathologist Comment Fluid Glucose Fluid Total Protein Fluid LDH Fluid Comment 2 Miscellaneous Cytology POC Glucose 01/20/20 01/20/20 01/20/20 10:05 11:10 17:06 WBC RBC Hgb Hct MCV MCH MCHC RDW Std Deviation RDW Coeff of [place] Plt Count MPV Immature Gran % (Auto) Neut % (Auto) Lymph % (Auto) [place] % (Auto) Eos % (Auto) Baso % (Auto) Absolute Neuts (auto) Absolute Lymphs (auto) Nucleated RBC % Differential Comment Microcytosis Ovalocytes PT 14.2 INR 1.1 Sodium Potassium Chloride Carbon Dioxide Anion Gap BUN Creatinine Estim Creat Clear Calc Est GFR (MDRD) Af Amer Est GFR (MDRD) Non-Af BUN/Creatinine Ratio Glucose Calcium Lactate Dehydrogenase Total Protein Globulin Albumin/Globulin Ratio Fluid Source Fluid Color Fluid Appearance Fluid WBC Fluid RBC Fluid Tot Cell Count Fld Polynuclear WBCs # Fld Polynuclear WBCs % Fluid Mononuclear WBCs Fld Mononuclear WBCs % Fl Pathologist Comment Fluid Glucose Fluid Total Protein Fluid LDH Fluid Comment 2 Miscellaneous Cytology POC Glucose 217 H 146 H 01/20/20 01/20/20 01/20/20 22:16 Unknown Unknown WBC RBC Hgb Hct MCV MCH MCHC RDW Std Deviation RDW Coeff of [place] Plt Count MPV Immature Gran % (Auto) Neut % (Auto) Lymph % (Auto) [place] % (Auto) Eos % (Auto) Baso % (Auto) Absolute Neuts (auto) Absolute Lymphs (auto) Nucleated RBC % Differential Comment Microcytosis Ovalocytes PT INR Sodium Potassium Chloride Carbon Dioxide Anion Gap BUN Creatinine Estim Creat Clear Calc Est GFR (MDRD) Af Amer Est GFR (MDRD) Non-Af BUN/Creatinine Ratio Glucose Calcium Lactate Dehydrogenase Total Protein Globulin Albumin/Globulin Ratio Fluid Source Fluid Color Fluid Appearance Fluid WBC Fluid RBC Fluid Tot Cell Count Fld Polynuclear WBCs # Fld Polynuclear WBCs % Fluid Mononuclear WBCs Fld Mononuclear WBCs % Fl Pathologist Comment Fluid Glucose 215 H Fluid Total Protein 3.3 Fluid LDH 136 Fluid Comment 2 Miscellaneous Cytology Pending POC Glucose 118 H 01/20/20 01/21/20 01/21/20 Unknown 05:18 11:27 WBC RBC Hgb Hct MCV MCH MCHC RDW Std Deviation RDW Coeff of [place] Plt Count MPV Immature Gran % (Auto) Neut % (Auto) Lymph % (Auto) [place] % (Auto) Eos % (Auto) Baso % (Auto) Absolute Neuts (auto) Absolute Lymphs (auto) Nucleated RBC % Differential Comment Microcytosis Ovalocytes PT INR Sodium Potassium Chloride Carbon Dioxide Anion Gap BUN Creatinine Estim Creat Clear Calc Est GFR (MDRD) Af Amer Est GFR (MDRD) Non-Af BUN/Creatinine Ratio Glucose Calcium Lactate Dehydrogenase Total Protein Globulin Albumin/Globulin Ratio Fluid Source THORACENTESIS Fluid Color LT YEL Fluid Appearance CLEAR Fluid WBC 0.024 Fluid RBC 30 Fluid Tot Cell Count 0.024 Fld Polynuclear WBCs # 0.005 Fld Polynuclear WBCs % 20.8 Fluid Mononuclear WBCs 0.019 Fld Mononuclear WBCs % 79.2 Fl Pathologist Comment May follow Fluid Glucose Fluid Total Protein Fluid LDH Fluid Comment 2 SEE COMMENT Miscellaneous Cytology POC Glucose 133 H 40 L* 01/21/20 01/21/20 01/21/20 12:02 12:41 16:10 WBC RBC Hgb Hct MCV MCH MCHC RDW Std Deviation RDW Coeff of [place] Plt Count MPV Immature Gran % (Auto) Neut % (Auto) Lymph % (Auto) [place] % (Auto) Eos % (Auto) Baso % (Auto) Absolute Neuts (auto) Absolute Lymphs (auto) Nucleated RBC % Differential Comment Microcytosis Ovalocytes PT INR Sodium Potassium Chloride Carbon Dioxide Anion Gap BUN Creatinine Estim Creat Clear Calc Est GFR (MDRD) Af Amer Est GFR (MDRD) Non-Af BUN/Creatinine Ratio Glucose Calcium Lactate Dehydrogenase Total Protein Globulin Albumin/Globulin Ratio Fluid Source Fluid Color Fluid Appearance Fluid WBC Fluid RBC Fluid Tot Cell Count Fld Polynuclear WBCs # Fld Polynuclear WBCs % Fluid Mononuclear WBCs Fld Mononuclear WBCs % Fl Pathologist Comment Fluid Glucose Fluid Total Protein Fluid LDH Fluid Comment 2 Miscellaneous Cytology POC Glucose 44 L* 149 H 124 H 01/21/20 21:18 WBC RBC Hgb Hct MCV MCH MCHC RDW Std Deviation RDW Coeff of [place] Plt Count MPV Immature Gran % (Auto) Neut % (Auto) Lymph % (Auto) [place] % (Auto) Eos % (Auto) Baso % (Auto) Absolute Neuts (auto) Absolute Lymphs (auto) Nucleated RBC % Differential Comment Microcytosis Ovalocytes PT INR Sodium Potassium Chloride Carbon Dioxide Anion Gap BUN Creatinine Estim Creat Clear Calc Est GFR (MDRD) Af Amer Est GFR (MDRD) Non-Af BUN/Creatinine Ratio Glucose Calcium Lactate Dehydrogenase Total Protein Globulin Albumin/Globulin Ratio Fluid Source Fluid Color Fluid Appearance Fluid WBC Fluid RBC Fluid Tot Cell Count Fld Polynuclear WBCs # Fld Polynuclear WBCs % Fluid Mononuclear WBCs Fld Mononuclear WBCs % Fl Pathologist Comment Fluid Glucose Fluid Total Protein Fluid LDH Fluid Comment 2 Miscellaneous Cytology POC Glucose 98 Microbiology 01/20/20 Unknown Fluid - Thoracentesis Fluid Gram Stain - Final 01/20/20 Unknown Fluid - Thoracentesis Fluid Body Fluid Culture - Preliminary No growth-Final to follow 01/14/20 21:25 Blood Culture (Wb) - Anticubital Right Blood Culture - Final Prevotella melaninogenica 01/14/20 21:25 Blood Culture (Wb) - Left Wrist Blood Culture - Final No growth in 5 days. Clinical Impression(s) from Imaging Studies Chest X-Ray 01/14/20 22:10 IMPRESSION: Right basilar and left upper lobe alveolar disease. Extensive left pleural fluid. Electronically Signed: Oswald Mata MD at 22:23 EDT Tel , Service support , Chest X-Ray 01/15/20 03:30 IMPRESSION: Support tubes in expected locations. No pneumothorax. Persistent extensive left mid and lower lung opacity representing a combination of pleural effusion, atelectasis and possible pneumonia. Mild improved aeration left upper lobe. Right basilar opacity unchanged. Electronically Signed: Eduardo Obando MD at 5:21 EDT , Service support , Chest CT 01/15/20 09:46 IMPRESSION: Small left pleural effusion with dense consolidation in the left upper, lingular segment of the left upper lobe as well as left lower lobes. Electronically Signed: Abdullahi Gauthier, at 11:20 EDT , Service support , Chest X-Ray 01/16/20 09:30 IMPRESSION: Status post placement of a right central catheter with the tip at the junction of the superior vena cava and right atrium. The remainder the examination is unchanged. Electronically Signed: Abdullahi Gauthier, at 9:55 EDT , Service support , Chest X-Ray 01/20/20 08:29 IMPRESSION: Increasing left pleural-parenchymal changes. Electronically Signed: Abdullahi Gauthier, at 12:25 EDT , Service support , Thoracentesis Ultrasound 01/20/20 10:00 IMPRESSION: Ultrasound-guided left thoracentesis. Electronically Signed: Abdullahi Gauthier, at 14:28 EDT , Service support , Chest X-Ray 01/20/20 13:45 IMPRESSION: Status post left thoracentesis. There is no evidence of pneumothorax. Persistent left lower lobe infiltrate. Electronically Signed: Abdullahi Gauthier, at 14:26 EDT , Service support , Medical Necessity - Tobacco Use Smoking Status: Former smoker Assessment/Plan All Active Problems (Last Updated 01/15/20 @ 09:[address] Abbie Cardenas MD) Severe sepsis (Acute) RECOMMENDATIONS: 1. Wean supplemental oxygen to maintain saturations at or above 90%. 2. Continue scheduled bronchodilators and steroids. Will transition the patient to prednisone 40 mg daily. 3. At discharge, recommend prednisone taper. 4. Continue gentle diuresis as tolerated by hemodynamics and renal function. 5. Encourage incentive spirometer use and mobilize patient as tolerated. 6. Physical therapy to continue to work with the patient. 7. The patient is medically stable for transfer out of the intensive care unit. IMPRESSIONS: 1. Acute on chronic combined respiratory failure secondary to Moraxella pneumonia Improving. Following thoracentesis, the patient's respiratory status has improved. The patient was able to be successfully extubated on January 20. He has now completed a treatment course of antimicrobials. He will remain on scheduled bronchodilators. His IV steroids will be transitioned to prednisone beginning today, with plans for a taper at discharge. Recommend weaning supplemental oxygen to maintain saturations at or above 90%. Encourage incentive spirometer use and mobilize patient as tolerated. 2. Severe sepsis secondary to Moraxella pneumonia The patient remains hemodynamically stable. The patient has completed his antimicrobial treatment course. 3. Poorly controlled diabetes mellitus Continue basal and sliding scale insulin coverage as ordered. 4. Hypertension/obesity/history of squamous cell skin cancer Complicates care, management, recovery and prognosis. Physical therapy to continue to work with the patient. This note was generated with [employer] software. It may contain incorrect words, spelling, and punctuation that were not noted in checking the note before signing. Inpatient E&M: [id number] [facility] L3
--- NOTE | 2020-01-22 07:14 | PCM.PN.HOSP ---
Reason for Visit: Follow-up acute hypoxic respiratory failure Moraxella catarrhalis pneumonia Subjective: Patient seen describes his condition has been fair. Apparently had several loose bowel movement during the night but had a formed one this a.m. Objective: GENERAL: cooperative HEENT: Atraumatic; EYES; Anicteric, Normal Conjunctiva NECK; supple, normal thyroid, RESPIRATORY: Diminished to auscultation CARDIOVASCULAR: Regular S1 S2, GI: soft, normoactive bowel sounds, : No Renal angle tenderness; EXTREMITIES: edema, no clubbing, MUSCULOSKELETAL: no muscle waisting NEURO: Awake; no lateralizing signs. SKIN: No Rash PSYCH; Flat affect Vitals/I&O's: Vital Signs Temp Pulse Resp BP Pulse Ox 98.0 F 66 25 H 136/66 H 97 01/22/20 04:00 01/22/20 06:00 01/22/20 06:00 01/22/20 06:00 01/22/20 06:00 Oxygen Flow Rate (L/min) 6 Oxygen Delivery Method [2] Room Air Oxygen Delivery Method [1 ( Mechanical Ventilator Initial Baseline)] Oxygen Delivery Method Nasal Cannula Weight: 104.2 kg Body Mass Index (BMI) 35.9 Intake and Output for Last 24 Hours 01/20/20 01/21/20 01/22/20 23:59 23:59 23:59 Intake Total 2983.00 / 3238.35 1172.80 / 1232.80 110 / 110 Output Total 3870 / 3995 3225 / 3225 Balance -887.00 / -756.65 -2052.20 / -1992.20 110 / 110 Microbiology Past 72 Hours 01/20/20 Unknown Fluid - Thoracentesis Fluid Gram Stain - Final 01/20/20 Unknown Fluid - Thoracentesis Fluid Body Fluid Culture - Preliminary No growth-Final to follow 01/14/20 21:25 Blood Culture (Wb) - Anticubital Right Blood Culture - Final Prevotella melaninogenica 01/14/20 21:25 Blood Culture (Wb) - Left Wrist Blood Culture - Final No growth in 5 days. Laboratory Results 01/21/20 11:27: POC Glucose 40 L* 01/21/20 12:02: POC Glucose 44 L* 01/21/20 12:41: POC Glucose 149 H 01/21/20 16:10: POC Glucose 124 H 01/21/20 21:18: POC Glucose 98 Current Medications Acetaminophen (Tylenol Liquid) 650 mg GT Q6H PRN PRN PRN Reason: Pain Score 1-10/Temp > 100.7 F Albuterol Sulfate (Ventolin Aerosols) 2.5 mg INHALATION Q2H PRN PRN PRN Reason: SOB/Wheezing Albuterol/Ipratropium (Duoneb) 3 ml INHALATION Q4HWA.RT [facility] Last Admin: 01/21/20 19:05 Dose: 3 ml Documented by: Calamine/Phenol (Calmoseptine Ointment) 1 applic TOPICAL BID [facility]; Protocol Last Admin: 01/21/20 21:29 Dose: 1 applicatio Documented by: Dextrose (D50w Syringe) 0 gm IV X1 PRN; Protocol PRN Reason: Hypoglycemia Last Admin: 01/21/20 12:07 Dose: 25 gm Documented by: Duloxetine HCl (Cymbalta) 30 mg PO DAILY [facility] Last Admin: 01/21/20 16:13 Dose: 30 mg Documented by: Enoxaparin Sodium (Lovenox) 40 mg SC DAILY [facility] Last Admin: 01/21/20 10:26 Dose: 40 mg Documented by: Furosemide (Lasix) 40 mg IV DAILY [facility] Last Admin: 01/21/20 10:27 Dose: 40 mg Documented by: Glucagon () 1 mg IM .X1 PRN PRN Reason: Hypoglycemia Sodium Chloride () 250 mls @ 15 mls/hr IV .[id number] PRN PRN Reason: Saline Flush Last Admin: 01/21/20 21:24 Dose: 15 mls/hr Documented by: Sodium Chloride () 250 mls @ 15 mls/hr IV .[id number] PRN PRN Reason: Additional IVPB Infusion Insulin Glargine (Lantus (Bkc)) 20 units SC DAILY [facility] Insulin Human Lispro (Humalog Kwikpen ([facility])) 0 unit SC ACHS [facility]; Protocol Last Admin: 01/21/20 21:22 Dose: Not Given Documented by: Labetalol HCl (Trandate) 10 mg IV Q6H PRN PRN PRN Reason: SBP > 160 Lisinopril (Zestril) 10 mg GT DAILY [facility] Last Admin: 01/21/20 13:52 Dose: 10 mg Documented by: Nystatin (Mycostatin Powder) 1 applic TOPICAL TID [facility]; Protocol Last Admin: 01/22/20 05:20 Dose: 1 applicatio Documented by: Ondansetron HCl (Zofran) 4 mg IV Q8H PRN PRN PRN Reason: NAUSEA/VOMITING Polyethylene Glycol (Miralax) 17 gm GT BID PRN PRN PRN Reason: Constipation Prednisone () 40 mg PO DAILY@0800 [facility] Senna/Docusate Sodium (Senokot-S, Alexus-Colace) 2 tablet GT BID PRN PRN PRN Reason: CONSTIPATION Sodium Chloride () 10 - 40 ml IV UD PRN PRN Reason: SALINE FLUSH Last Admin: 01/21/20 21:26 Dose: 40 ml Documented by: STROKE Vital Signs/Narrative: Vital Signs Temp Pulse Resp BP Pulse Ox 01/22/20 06:00 66 25 H 136/66 H 97 01/22/20 05:00 65 22 H 129/61 H 95 01/22/20 04:00 98.0 F 66 25 H 128/61 H 94 Medical Necessity - Tobacco Use Smoking Status: Former smoker Assessment/Plan All Active Problems (Last Updated 01/15/20 @ 09:[address] Abbie Cardenas MD) Severe sepsis (Acute) Patient is a 74-year-old gentleman admitted with confusion and shortness of breath. Imaging studies demonstrated left multilobar pneumonia. An assessment of severe sepsis and acute hypoxic and hypercapnic respiratory failure made intubated and admitted to the intensive care unit 1. Acute hypoxic and hypercapnic respiratory failure ?Secondary to multilobar pneumonia requiring mechanical ventilation broad-spectrum antibiotic therapy. Patient was weaned off the vent on the morning of 01/21/2020 -01/22/2020: Seen maintaining adequate oxygen saturation on nasal cannula. Plan is for patient to be transferred from the ICU to PCU. 2. Severe sepsis ?Secondary to multilobar pneumonia with mozzarella catarrhalis. Patient has responded to treatment (mechanical ventilation as well as broad-spectrum antibiotic therapy with Zosyn) -01/22/2020 patient continues to improve clinically 3. Left-sided pleural effusion ?Patient underwent thoracocentesis with 1.4 L of straw-colored fluid removed. 4. COPD with acute exacerbation ?Complicating patient management as above. In addition to patient being managed with antibiotics patient was placed on systemic steroids and he was on the vent and weaned off on 01/21/2020 5. Diabetes mellitus type 2 ?With complications including hyperglycemia continue with patient long-acting insulin in addition to sliding scale. Hemoglobin A1c this admission 9.8 6. Chronic hypoxic respiratory failure ?Secondary to COPD, patient is on home oxygen 7. Dyslipidemia -Patient is on statin therapy, continued at home dose 8. DVT prophylaxis - On enoxaparin 9. Diarrhea ?Suspected to be secondary to anti-biotic associated diarrhea. If patient diarrhea recurs plan will be to obtain stool for C. difficile Inpatient E&M: 37782 [facility] Hosp L3
[2020-01-22] MEDS: Ipratropium/Albuterol Sulfate 3 ML AMPUL.NEB INHALATION ×4 (07:23→19:11)
[2020-01-22 08:01] LABS: Bedside Glucose 110 mg/dL (70-110)
[2020-01-22 09:07] LABS: Pathologist Comment/Body Fluid Reviewed
--- NOTE | 2020-01-22 09:20 | CASEMGMT ---
Addendum entered by Marisol Javier 01/22/20 15:46: Call from Serafin CARD at [facility] [phone] ext [phone] and she states that they can work on getting DME set up for pt but they recommend that pt have it set up thru their primary insurance at discharge from the hospital as it may take 1-2weeks for [facility] to be able to set up. She states that they can return the equipment and use the [facility] from there. Serafin aware that daughter feels pt will need a hospital bed and WW for sure at this time. All the bedrooms in the home are upstairs and daughter states unable to get them down to 1st floor at this time. WW cannot be returned once provided but the bed can. Serafin also states that any skilled HHC to be set up thru primary at discharge initially but that she can work getting HH aides for pt if family would like but a [employer] form would need completed. Per therapy, pt is a min assist of 2 at this time and did ambulate 10ft with 2 assist to bathroom today. Call to daughter to updated on all at this time. Daughter is still insistent that pt come home at discharge. She states they would like HHC and VA aides as well as bed and WW for sure at this time. Daughter is agreeable to [employer] for equipment at this time and they are in-network with [facility] at this time as pt does not have MCR B at this time, voices understanding. Daughter also aware at this time that pt is allowed one visitor at this time and she states they were not aware of this. Advised her he was tranferred out of ICU, so pt is allowed one visitor only during set hours, voices understanding and states her mother may be in today. HHC list left at bedside for pt's family to look over. Message left with Serafin CARD at [facility] to advise that family would like the HH aides set up and to fax a [employer] form to this RN CM at this time. This RN CM to room to update pt on all at this time, voices understanding and agreement. Pt is looking forward to visit from . Pt/daughter voice no further questions/concerns/needs at this time. Daughter does state that pt has 2-3 steps into home but there is family that can assist. Emotional support provided to daughter during conversation both times. SStaten RN CM Addendum entered by Marisol Javier 01/22/20 10:21: This RN CM received call back from pt's daughter at this time. Daughter states she has been unsuccessful at reaching [facility] in regards to getting equipment set up for discharge. This RN CM reviewed therapy notes from 01/21/2020, in which pt was a max assist of 2 for everything and did not ambulate and recommendation for SNF at discharge. Daughter is not agreeable to this at this time and states they do not have 2 people that can be with pt 04/12 at this time. She states that pt's will be with him 04/12 but advised that she will be able to help lift him and daughter did not respond. Advised daughter that pt may improve with therapy and that CM will follow, voices understanding. Advised daughter again that [facility] may not be able to get equipment set up prior to discharge but she seems insistent at this time. This RN CM offered to call up to [facility] to try and facilitate DME at this time, daughter voices understanding. Call to [facility] and pt sees Ute Falcon, PACT team 5. Message left with Juliet Pact Team 5 nurse, as well as STEPHIE Gamble for PACT 1-5, in regards to pt at this time. Lizette ARAYA CM Original Note: Pt's daughter, Maria Guadalupe Eng, left a message for this RN CM to call her back. Attempted to call Maria Guadalupe back without success at this time, message left for her to call this RN CM back. Lizette ARAYA CM
[2020-01-22] MEDS: Enoxaparin 40 MG/0.4 ML Syringe SC (09:39)
[2020-01-22] MEDS: Furosemide 40 MG/4 ML Vial IV (09:40)
[2020-01-22] MEDS: DULoxetine Hcl 30 MG Capsule PO (09:41)
[2020-01-22] MEDS: predniSONE 20 MG Tablet 40 MG PO (09:45)
[2020-01-22] MEDS: Lisinopril 10 MG Tablet GT (09:45)
[2020-01-22] MEDS: Famotidine 20 MG Tablet GT (09:46)
--- NOTE | 2020-01-22 09:57 | NURSING ---
report called to pcu transferred per bed to pcu 127
[2020-01-22] MEDS: Insulin Lispro 100 UNIT/ML INSULN.PEN SC (11:17)
[2020-01-22] MEDS: Menthol/Lanolin/Calamine/Znox 113 GM Tube 1 APPLIC TOPICAL ×2 (11:18→22:08)
[2020-01-22 11:40] LABS: Bedside Glucose 170 mg/dL (70-110)
[2020-01-22 16:51] LABS: Bedside Glucose 135 mg/dL (70-110)
[2020-01-22 22:51] LABS: Bedside Glucose 104 mg/dL (70-110)
[2020-01-23] VITALS (14 sets, daily range): BP systolic 109–144; BP diastolic 57–81; PULSE 73–85; RESP 18–32; TEMP 36.6–36.9; O2SAT 92–97
[2020-01-23] MEDS: Nystatin Powder 15gm Bottle 1 APPLIC TOPICAL ×3 (05:23→21:01)
[2020-01-23 06:56] LABS: Bedside Glucose 96 mg/dL (70-110)
--- NOTE | 2020-01-23 06:58 | PCM.PN.PUL ---
Subjective: The patient was seen and examined at the bedside this morning. Events from the last 24 hours have been reviewed. The patient is currently afebrile, hemodynamically stable and maintaining appropriate oxygen saturations on 6 L/min via nasal cannula. The patient is still quite sleepy this morning and not currently answering any of my questions. Objective: The patient's most recent lab work, culture data and imaging studies have all been personally reviewed. CT chest dated January 14 revealed a small left pleural effusion with dense consolidation throughout the left hemithorax. Sputum culture was positive for Moraxella catarrhalis. Pleural fluid has not demonstrated any growth to date. - Physical Exam Vitals/I&O's: Vital Signs Temp Pulse Resp BP Pulse Ox 98.3 F 77 20 H 144/78 H 92 01/23/20 05:31 01/23/20 05:31 01/23/20 05:31 01/23/20 05:31 01/23/20 05:31 Oxygen Flow Rate (L/min) 6 Oxygen Delivery Method [2] Room Air Oxygen Delivery Method [1 ( Mechanical Ventilator Initial Baseline)] Oxygen Delivery Method Nasal Cannula Weight: 221 lb 9.033 oz Body Mass Index (BMI) 35.9 Intake and Output for Last 24 Hours 01/21/20 01/22/20 01/23/20 23:59 23:59 23:59 Intake Total 1172.80 / 1232.80 495.75 / 495.75 0 / 0 Output Total 3225 / 3225 Balance - / - 495.75 / 495.75 0 / 0 General: No apparent distress, Lethargic HEENT: Atraumatic, Normocephalic Oral: Moist Mucosa Neck: Supple, No Nodes, Trachea Midline Lungs: Diminished, - - Poor patient dependent inspiratory effort Cardiovascular: Regular rate, Regular Rhythm Abdomen: Bowel Sounds Present, Soft, Obese Extremities: No clubbing, No cyanosis Skin: - - No significant change from previous. Musculoskeletal: No Muscle Wasting Lymphatic: No Cervical, Supraclavicular, or Inguinal Adenopathy Neurological: Neuro grossly intact Psych/Mental Status: Flat Affect Labs (Last 48 Hours) 01/20/20 01/21/20 01/21/20 Unknown 11:27 12:02 Fl Pathologist Comment Reviewed POC Glucose 40 L* 44 L* 01/21/20 01/21/20 01/21/20 12:41 16:10 21:18 Fl Pathologist Comment POC Glucose 149 H 124 H 98 01/22/20 01/22/20 01/22/20 07:57 11:16 16:00 Fl Pathologist Comment POC Glucose 110 170 H 135 H 01/22/20 01/23/20 22:07 06:46 Fl Pathologist Comment POC Glucose 104 96 Microbiology 01/20/20 Unknown Fluid - Thoracentesis Fluid Gram Stain - Final 01/20/20 Unknown Fluid - Thoracentesis Fluid Body Fluid Culture - Preliminary No growth-Final to follow 01/20/20 Unknown Fluid - Thoracentesis Fluid Anaerobic Culture - Preliminary No growth in 48 hours. 01/14/20 21:25 Blood Culture (Wb) - Anticubital Right Blood Culture - Final Prevotella melaninogenica Clinical Impression(s) from Imaging Studies Chest X-Ray 01/14/20 22:10 IMPRESSION: Right basilar and left upper lobe alveolar disease. Extensive left pleural fluid. Electronically Signed: Oswald Mata MD at 22:23 EDT Tel , Service support , Chest X-Ray 01/15/20 03:30 IMPRESSION: Support tubes in expected locations. No pneumothorax. Persistent extensive left mid and lower lung opacity representing a combination of pleural effusion, atelectasis and possible pneumonia. Mild improved aeration left upper lobe. Right basilar opacity unchanged. Electronically Signed: Eduardo Obando MD at 5:21 EDT , Service support , Chest CT 01/15/20 09:46 IMPRESSION: Small left pleural effusion with dense consolidation in the left upper, lingular segment of the left upper lobe as well as left lower lobes. Electronically Signed: Abdullahi Gauthier, at 11:20 EDT , Service support , Chest X-Ray 01/16/20 09:30 IMPRESSION: Status post placement of a right central catheter with the tip at the junction of the superior vena cava and right atrium. The remainder the examination is unchanged. Electronically Signed: Abdullahi Disha, at 9:55 EDT , Service support , Chest X-Ray 01/20/20 08:29 IMPRESSION: Increasing left pleural-parenchymal changes. Electronically Signed: Abdullahi Disha, at 12:25 EDT , Service support , Thoracentesis Ultrasound 01/20/20 10:00 IMPRESSION: Ultrasound-guided left thoracentesis. Electronically Signed: Abdullahi Disha, at 14:28 EDT , Service support , Chest X-Ray 01/20/20 13:45 IMPRESSION: Status post left thoracentesis. There is no evidence of pneumothorax. Persistent left lower lobe infiltrate. Electronically Signed: Abdullahi Disha, at 14:26 EDT , Service support , Current Medications Acetaminophen (Tylenol Liquid) 650 mg GT Q6H PRN PRN PRN Reason: Pain Score 1-10/Temp > 100.7 F Albuterol Sulfate (Ventolin Aerosols) 2.5 mg INHALATION Q2H PRN PRN PRN Reason: SOB/Wheezing Albuterol/Ipratropium (Duoneb) 3 ml INHALATION Q4HWA.RT [facility] Last Admin: 01/22/20 19:11 Dose: 3 ml Documented by: Calamine/Phenol (Calmoseptine Ointment) 1 applic TOPICAL BID [facility]; Protocol Last Admin: 01/22/20 22:08 Dose: 1 applicatio Documented by: Dextrose (D50w Syringe) 0 gm IV X1 PRN; Protocol PRN Reason: Hypoglycemia Last Admin: 01/21/20 12:07 Dose: 25 gm Documented by: Duloxetine HCl (Cymbalta) 30 mg PO DAILY [facility] Last Admin: 01/22/20 09:41 Dose: 30 mg Documented by: Enoxaparin Sodium (Lovenox) 40 mg SC DAILY [facility] Last Admin: 01/22/20 09:39 Dose: 40 mg Documented by: Furosemide (Lasix) 40 mg IV DAILY [facility] Last Admin: 01/22/20 09:40 Dose: 40 mg Documented by: Glucagon () 1 mg IM .X1 PRN PRN Reason: Hypoglycemia Sodium Chloride () 250 mls @ 15 mls/hr IV .[id number] PRN PRN Reason: Saline Flush Last Infusion: 01/22/20 11:07 Dose: 0 mls/hr Documented by: Sodium Chloride () 250 mls @ 15 mls/hr IV .[id number] PRN PRN Reason: Additional IVPB Infusion Insulin Glargine (Lantus ([facility])) 20 units SC DAILY [facility] Last Admin: 01/22/20 09:42 Dose: 20 u Documented by: Insulin Human Lispro (Humalog Kwikpen ([facility])) 0 unit SC ACHS [facility]; Protocol Last Admin: 01/23/20 06:50 Dose: Not Given Documented by: Labetalol HCl (Trandate) 10 mg IV Q6H PRN PRN PRN Reason: SBP > 160 Lisinopril (Zestril) 10 mg GT DAILY [facility] Last Admin: 01/22/20 09:45 Dose: 10 mg Documented by: Nystatin (Mycostatin Powder) 1 applic TOPICAL TID [facility]; Protocol Last Admin: 01/23/20 05:23 Dose: 1 applicatio Documented by: Ondansetron HCl (Zofran) 4 mg IV Q8H PRN PRN PRN Reason: NAUSEA/VOMITING Polyethylene Glycol (Miralax) 17 gm GT BID PRN PRN PRN Reason: Constipation Prednisone () 40 mg PO DAILY@0800 [facility] Last Admin: 01/22/20 09:45 Dose: 40 mg Documented by: Senna/Docusate Sodium (Senokot-S, Alexus-Colace) 2 tablet GT BID PRN PRN PRN Reason: CONSTIPATION Sodium Chloride () 10 - 40 ml IV UD PRN PRN Reason: SALINE FLUSH Last Admin: 01/21/20 21:26 Dose: 40 ml Documented by: Medical Necessity - Tobacco Use Smoking Status: Former smoker Assessment/Plan All Active Problems (Last Updated 01/15/20 @ 09:[address] Abbie Cardenas MD) Severe sepsis (Acute) RECOMMENDATIONS: 1. Wean supplemental oxygen to maintain saturations at or above 90%. 2. Continue scheduled bronchodilators and steroids. Plan for prednisone taper at discharge. 3. Continue lasix as tolerated by hemodynamics and renal function. Will give additional dose of lasix today as well. 4. Encourage incentive spirometer use and mobilize patient as tolerated. IMPRESSIONS: 1. Acute on chronic combined respiratory failure secondary to Moraxella pneumonia Improving. Following thoracentesis, the patient's respiratory status has improved. The patient was able to be successfully extubated on January 20. He has now completed a treatment course of antimicrobials. He will remain on scheduled bronchodilators and prednisone, with plans for a taper at discharge. Recommend weaning supplemental oxygen to maintain saturations at or above 90%. Encourage incentive spirometer use and mobilize patient as tolerated. Continue lasix as tolerated by hemodynamics and renal function. 2. Severe sepsis secondary to Moraxella pneumonia The patient remains hemodynamically stable. The patient has completed his antimicrobial treatment course. 3. Poorly controlled diabetes mellitus Continue basal and sliding scale insulin coverage as ordered. 4. Hypertension/obesity/history of squamous cell skin cancer Complicates care, management, recovery and prognosis. Physical therapy to continue to work with the patient. This note was generated with Garment[employer] software. It may contain incorrect words, spelling, and punctuation that were not noted in checking the note before signing. Inpatient E&M: 68734 Subs Hosp L2
[2020-01-23] MEDS: Ipratropium/Albuterol Sulfate 3 ML AMPUL.NEB INHALATION ×4 (07:19→19:38)
[2020-01-23] MEDS: predniSONE 20 MG Tablet 40 MG PO (07:56)
[2020-01-23 08:00] LABS: Anion Gap 4 (5-15); BUN 36 mg/dL (7-18); BUN/Creat Ratio 33.3 RATIO (10-20); Calcium,Total 9.1 mg/dL (8.5-10.1); Chloride 105 mmol/L (98-107); Creatinine, Serum 1.08 mg/dL (0.70-1.30); EST Glomerular Filtration Rate 71 mL/min (>60); Est Glom Filt Rate - Afr Amer 86 mL/min (>60); Glucose 101 mg/dL (74-106); Sodium Level 147 mmol/L (136-145)
[2020-01-23] MEDS: DULoxetine Hcl 30 MG Capsule PO (09:12)
[2020-01-23] MEDS: Menthol/Lanolin/Calamine/Znox 113 GM Tube 1 APPLIC TOPICAL ×2 (09:12→21:02)
[2020-01-23] MEDS: Enoxaparin 40 MG/0.4 ML Syringe SC (09:13)
[2020-01-23] MEDS: Lisinopril 10 MG Tablet GT (09:13)
[2020-01-23] MEDS: 0.9% Saline Lock 10 ML Syringe IV ×2 (09:13→15:55)
[2020-01-23] MEDS: Furosemide 40 MG/4 ML Vial IV ×2 (09:13→15:55)
--- NOTE | 2020-01-23 09:33 | CASEMGMT ---
RN CM Note: Maria Guadalupe, daughter called back to RN QIAN- was concerned re: patient coming home and requested bed availability check for TCU. RN QIAN let her know we would check and STEPHIE Christine updated and will check bed availability. Home discharge planning on hold for now. Carolina GUNNN RN ACM
--- NOTE | 2020-01-23 09:58 | CASEMGMT ---
MARSHAL LAUGHLIN spoke with patient's daughter as daughter was asking about patient going to [facility] TCU. STEPHIE called Ayesha in TCU and she would have a bed for patient on Sunday. Ayesha will start the pre-cert. STEPHIE called patient's daughter Maria Guadalupe and let her know that TCU will have a bed for patient. STEPHIE let her know that he will be in quarantine for 14 days then after that they are arranging outside visitation. Explained he will get therapy during quarantine, but no visitors. Patient's was also present and she is aware of this information. STEPHIE will also let TCU SW know what MARSHAL LAUGHLIN [facility] and [facility] form. Plan: TCU pending pre-cert. Tori GREGORY MSW
[2020-01-23] MEDS: Insulin Lispro 100 UNIT/ML INSULN.PEN SC ×2 (11:47→21:03)
[2020-01-23 11:55] LABS: Bedside Glucose 161 mg/dL (70-110)
--- NOTE | 2020-01-23 11:57 | CASEMGMT ---
MARSHAL CM Note: [place] form completed and Faxed to Serafin [place], [employer] @[facility]. Carolina JOSÉ RN ACM
--- NOTE | 2020-01-23 11:59 | PN_ITS ---
<Dyan Martinez EMR SPECIALIST - Last Filed: 01/23/20 12:16> Subjective: Patient seen and examined. States he feels very weak and is concerned about going home. Agreeable to SNF/rehab. Denies increase in shortness of breath. Denies fever, chills. - Physical Exam Vitals/I&O's: Vital Signs Temp Pulse Resp BP Pulse Ox 97.9 F 74 32 H 109/81 H 95 01/23/20 09:00 01/23/20 11:03 01/23/20 11:03 01/23/20 09:00 01/23/20 09:00 Oxygen Flow Rate (L/min) 5 Oxygen Delivery Method [2] Room Air Oxygen Delivery Method [1 ( Mechanical Ventilator Initial Baseline)] Oxygen Delivery Method Nasal Cannula Weight: 221 lb 9.033 oz Body Mass Index (BMI) 35.9 Intake and Output for Last 24 Hours 01/21/20 01/22/20 01/23/20 23:59 23:59 23:59 Intake Total 1172.80 / 1232.80 495.75 / 495.75 120 / 120 Output Total 3225 / 3225 Balance - 495.75 / 495.75 120 / 120 General: Alert, Oriented x3, Cooperative HEENT: Atraumatic, PERRLA, EOMI, Normocephalic Oral: Dry Mucosa Neck: Supple, No JVD, Negative Carotid Bruits Lungs: Clear to auscultation, Diminished Cardiovascular: Regular rate, No murmurs Abdomen: Bowel Sounds Present, Soft, Non Tender, Non-Distended, Obese Extremities: No clubbing, No cyanosis, No edema, Capillary Refill Less than 3 Seconds Skin: No rashes, No breakdown Musculoskeletal: No Tenderness to Palpation of Joints or Extremities Neurological: Cranial nerves II-XII grossly intact, Neuro grossly intact Psych/Mental Status: Normal Affect, Appropriate Microbiology Past 72 Hours 01/20/20 Unknown Fluid - Thoracentesis Fluid Gram Stain - Final 01/20/20 Unknown Fluid - Thoracentesis Fluid Body Fluid Culture - Preliminar y No growth-Final to follow 01/20/20 Unknown Fluid - Thoracentesis Fluid Anaerobic Culture - Preliminary No growth in 48 hours. 01/14/20 21:25 Blood Culture (Wb) - Anticubital Right Blood Culture - Final Prevotella melaninogenica 01/14/20 21:25 Blood Culture (Wb) - Left Wrist Blood Culture - Final No growth in 5 days. Laboratory Results 01/22/20 16:00: POC Glucose 135 H 01/22/20 22:07: POC Glucose 104 01/23/20 06:46: POC Glucose 96 01/23/20 07:27: Sodium 147 H, Potassium 4.0, Chloride 105, Carbon Dioxide 38.0 H , Anion Gap 4 L, BUN 36 H, Creatinine 1.08, Estim Creat Clear Calc 56.10, Est GFR (MDRD) Af Amer 86, Est GFR (MDRD) Non-Af 71, BUN/Creatinine Ratio 33.3 H, Glucose 101, Calcium 9.1 01/23/20 11:44: POC Glucose 161 H Current Medications Acetaminophen (Tylenol Liquid) 650 mg GT Q6H PRN PRN PRN Reason: Pain Score 1-10/Temp > 100.7 F Albuterol Sulfate (Ventolin Aerosols) 2.5 mg INHALATION Q2H PRN PRN PRN Reason: SOB/Wheezing Albuterol/Ipratropium (Duoneb) 3 ml INHALATION Q4HWA.RT [facility] Last Admin: 01/23/20 11:03 Dose: 3 ml Documented by: Calamine/Phenol (Calmoseptine Ointment) 1 applic TOPICAL BID [facility]; Protocol Last Admin: 01/23/20 09:12 Dose: 1 applicatio Documented by: Dextrose (D50w Syringe) 0 gm IV X1 PRN; Protocol PRN Reason: Hypoglycemia Last Admin: 01/21/20 12:07 Dose: 25 gm Documented by: Duloxetine HCl (Cymbalta) 30 mg PO DAILY [facility] Last Admin: 01/23/20 09:12 Dose: 30 mg Documented by: Enoxaparin Sodium (Lovenox) 40 mg SC DAILY [facility] Last Admin: 01/23/20 09:13 Dose: 40 mg Documented by: Furosemide (Lasix) 40 mg IV DAILY [facility] Last Admin: 01/23/20 09:13 Dose: 40 mg Documented by: Furosemide (Lasix) 40 mg IV X1 ONE Stop: 01/23/20 15:01 Glucagon () 1 mg IM .X1 PRN PRN Reason: Hypoglycemia Sodium Chloride () 250 mls @ 15 mls/hr IV .[id number] PRN PRN Reason: Saline Flush Last Infusion: 01/22/20 11:07 Dose: 0 mls/hr Documented by: Sodium Chloride () 250 mls @ 15 mls/hr IV .[id number] PRN PRN Reason: Additional IVPB Infusion Insulin Glargine (Lantus (Bk)) 20 units SC DAILY [facility] Last Admin: 01/23/20 10:13 Dose: 20 u Documented by: Insulin Human Lispro (Humalog Kwikpen ([facility])) 0 unit SC ACHS [facility]; Protocol Last Admin: 01/23/20 11:47 Dose: 2 u Documented by: Labetalol HCl (Trandate) 10 mg IV Q6H PRN PRN PRN Reason: SBP > 160 Lisinopril (Zestril) 10 mg GT DAILY [facility] Last Admin: 01/23/20 09:13 Dose: 10 mg Documented by: Nystatin (Mycostatin Powder) 1 applic TOPICAL TID [facility]; Protocol Last Admin: 01/23/20 05:23 Dose: 1 applicatio Documented by: Ondansetron HCl (Zofran) 4 mg IV Q8H PRN PRN PRN Reason: NAUSEA/VOMITING Polyethylene Glycol (Miralax) 17 gm GT BID PRN PRN PRN Reason: Constipation Prednisone () 40 mg PO DAILY@0800 [facility] Last Admin: 01/23/20 07:56 Dose: 40 mg Documented by: Senna/Docusate Sodium (Senokot-S, Alexus-Colace) 2 tablet GT BID PRN PRN PRN Reason: CONSTIPATION Sodium Chloride () 10 - 40 ml IV UD PRN PRN Reason: SALINE FLUSH Last Admin: 01/23/20 09:13 Dose: 10 ml Documented by: Medical Necessity - Tobacco Use Smoking Status: Former smoker Assessment/Plan All Active Problems (Last Updated 01/15/20 @ 09:[address] Abbie Cardenas MD) Severe sepsis (Acute) 1. Severe sepsis secondary to left multilobar Moraxella pneumonia and Prevotella melaninogenica bacteremia-completed treatment with Vanc and Zosyn. Will repeat blood cultures to ensure resolve of bacteremia. 2. 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 Now stable on 5 L nasal cannula. Continue supplement oxygen to maintain O2 at or above 90%. Thoracentesis 01/20/2020 with 1450 mL fluid drained. Thoracentesis fluid shows no growth. Completed course of antibiotics as noted above. Transition from IV steroids to prednisone taper. Pulmonary following. 3. Type 2 diabetes [id number] with sliding scale insulin. Continue Lantus regimen. 4. Hypertension-stable, continue lisinopril, Lasix. 5. Hyperlipidemia-continue statin. 6. Depression-continue duloxetine regimen. DVT prophylaxis- Lovenox sc Discharge planning: SNF pending medically stable/acceptance. This patient was seen by ANUPAM Espinal under the supervision of Dr. Velazquez. <Adelfo Velazquez - Last Filed: 01/23/20 12:25> - Physical Exam Vitals/I&O's: Vital Signs Temp Pulse Resp BP Pulse Ox 97.9 F 74 32 H 109/81 H 95 01/23/20 09:00 01/23/20 11:03 01/23/20 11:03 01/23/20 09:00 01/23/20 09:00 Oxygen Flow Rate (L/min) 5 Oxygen Delivery Method [2] Room Air Oxygen Delivery Method [1 ( Mechanical Ventilator Initial Baseline)] Oxygen Delivery Method Nasal Cannula Weight: 100.5 kg Body Mass Index (BMI) 35.9 Intake and Output for Last 24 Hours 01/21/20 01/22/20 01/23/20 23:59 23:59 23:59 Intake Total 1172.80 / 1232.80 495.75 / 495.75 120 / 120 Output Total 3225 / 3225 Balance - 495.75 / 495.75 120 / 120 Microbiology Past 72 Hours 01/20/20 Unknown Fluid - Thoracentesis Fluid Gram Stain - Final 01/20/20 Unknown Fluid - Thoracentesis Fluid Body Fluid Culture - Preliminary No growth-Final to follow 01/20/20 Unknown Fluid - Thoracentesis Fluid Anaerobic Culture - Preliminary No growth in 48 hours. 01/14/20 21:25 Blood Culture (Wb) - Anticubital Right Blood Culture - Final Prevotella melaninogenica Laboratory Results 01/22/20 16:00: POC Glucose 135 H 01/22/20 22:07: POC Glucose 104 01/23/20 06:46: POC Glucose 96 01/23/20 07:27: Sodium 147 H, Potassium 4.0, Chloride 105, Carbon Dioxide 38.0 H , Anion Gap 4 L, BUN 36 H, Creatinine 1.08, Estim Creat Clear Calc 56.10, Est GFR (MDRD) Af Amer 86, Est GFR (MDRD) Non-Af 71, BUN/Creatinine Ratio 33.3 H, Glucose 101, Calcium 9.1 01/23/20 11:44: POC Glucose 161 H Current Medications Acetaminophen (Tylenol Liquid) 650 mg GT Q6H PRN PRN PRN Reason: Pain Score 1-10/Temp > 100.7 F Albuterol Sulfate (Ventolin Aerosols) 2.5 mg INHALATION Q2H PRN PRN PRN Reason: SOB/Wheezing Albuterol/Ipratropium (Duoneb) 3 ml INHALATION Q4HWA.RT [facility] Last Admin: 01/23/20 11:03 Dose: 3 ml Documented by: Calamine/Phenol (Calmoseptine Ointment) 1 applic TOPICAL BID [facility]; Protocol Last Admin: 01/23/20 09:12 Dose: 1 applicatio Documented by: Dextrose (D50w Syringe) 0 gm IV X1 PRN; Protocol PRN Reason: Hypoglycemia Last Admin: 01/21/20 12:07 Dose: 25 gm Documented by: Duloxetine HCl (Cymbalta) 30 mg PO DAILY [facility] Last Admin: 01/23/20 09:12 Dose: 30 mg Documented by: Enoxaparin Sodium (Lovenox) 40 mg SC DAILY [facility] Last Admin: 01/23/20 09:13 Dose: 40 mg Documented by: Furosemide (Lasix) 40 mg IV DAILY [facility] Last Admin: 01/23/20 09:13 Dose: 40 mg Documented by: Furosemide (Lasix) 40 mg IV X1 ONE Stop: 01/23/20 15:01 Glucagon () 1 mg IM .X1 PRN PRN Reason: Hypoglycemia Sodium Chloride () 250 mls @ 15 mls/hr IV .[id number] PRN PRN Reason: Saline Flush Last Infusion: 01/22/20 11:07 Dose: 0 mls/hr Documented by: Sodium Chloride () 250 mls @ 15 mls/hr IV .[id number] PRN PRN Reason: Additional IVPB Infusion Insulin Glargine (Lantus (Bkc)) 20 units SC DAILY [facility] Last Admin: 01/23/20 10:13 Dose: 20 u Documented by: Insulin Human Lispro (Humalog Kwikpen (Bkc)) 0 unit SC ACHS [facility]; Protocol Last Admin: 01/23/20 11:47 Dose: 2 u Documented by: Labetalol HCl (Trandate) 10 mg IV Q6H PRN PRN PRN Reason: SBP > 160 Lisinopril (Zestril) 10 mg GT DAILY [facility] Last Admin: 01/23/20 09:13 Dose: 10 mg Documented by: Nystatin (Mycostatin Powder) 1 applic TOPICAL TID [facility]; Protocol Last Admin: 01/23/20 05:23 Dose: 1 applicatio Documented by: Ondansetron HCl (Zofran) 4 mg IV Q8H PRN PRN PRN Reason: NAUSEA/VOMITING Polyethylene Glycol (Miralax) 17 gm GT BID PRN PRN PRN Reason: Constipation Prednisone () 40 mg PO DAILY@0800 [facility] Last Admin: 01/23/20 07:56 Dose: 40 mg Documented by: Senna/Docusate Sodium (Senokot-S, Alexus-Colace) 2 tablet GT BID PRN PRN PRN Reason: CONSTIPATION Sodium Chloride () 10 - 40 ml IV UD PRN PRN Reason: SALINE FLUSH Last Admin: 01/23/20 09:13 Dose: 10 ml Documented by: Assessment/Plan This patient was seen in conjunction with ANUPAM Espinal . I have independently interviewed and examined the patient and reviewed pertinent historical, laboratory, and other data. Please refer to ANUPAM Espinal note for details of this patient's presentation, findings, and recommendations. I have reviewed ANUPAM Espinal note and concur with documented findings. In brief, Patient is a 74-year-old gentleman admitted with confusion and shortness of breath. Imaging studies demonstrated left multilobar pneumonia. An assessment of severe sepsis and acute hypoxic and hypercapnic respiratory failure made intubated and admitted to the intensive care unit. Patient was successfully weaned off the vent on 01/22/2020 subsequently transferred to PCU Physical examination; GENERAL: cooperative HEENT: Atraumatic; EYES; Anicteric, Normal Conjunctiva NECK; supple, normal thyroid, RESPIRATORY: Diminished to auscultation CARDIOVASCULAR: Regular S1 S2, GI: soft, normoactive bowel sounds, : No Renal angle tenderness; EXTREMITIES: edema, no clubbing, MUSCULOSKELETAL: no muscle waisting NEURO: Awake; no lateralizing signs. SKIN: No Rash PSYCH; Flat affect Assessment; 1. Acute hypoxic and hypercapnic respiratory failure 2. Severe sepsis 3. Multilobar pneumonia with mozzarella catarrhalis. 4. Left-sided pleural effusion post thoracocentesis 5. COPD with acute exacerbation 6. Diabetes mellitus type 2 7. Chronic hypoxic respiratory failure 8. Dyslipidemia 9. Diarrhea anti-biotic associated diarrhea 10. DVT prophylaxis~ On enoxaparin Recommendations: 1. I have discussed the results of my overview and impressions with the patient 2. Options for management were reviewed Inpatient E&M: 19914 Subs Hosp L2
--- NOTE | 2020-01-23 15:37 | CASEMGMT ---
STEPHIE received a call from Ayesha in TCU and patient was approved. STEPHIE called patient's daughter and let her know. STEPHIE also told her that he would possibly go over the weekend and someone would call her to notify her when he is leaving. She thanked STEPHIE. Green sheet on chart with instructions. Plan: d/c to [facility] TCU under skilled level of care. Tori CABALLERO
[2020-01-23 16:35] LABS: Bedside Glucose 137 mg/dL (70-110)
[2020-01-23 21:16] LABS: Bedside Glucose 163 mg/dL (70-110)
[2020-01-24] VITALS (14 sets, daily range): BP systolic 119–151; BP diastolic 53–76; PULSE 67–98; RESP 18–26; TEMP 36.6–36.7; O2SAT 90–95
[2020-01-24] MEDS: Nystatin Powder 15gm Bottle 1 APPLIC TOPICAL ×3 (06:16→21:54)
[2020-01-24 06:55] LABS: Bedside Glucose 108 mg/dL (70-110)
[2020-01-24] MEDS: Ipratropium/Albuterol Sulfate 3 ML AMPUL.NEB INHALATION ×4 (07:48→19:15)
[2020-01-24] MEDS: predniSONE 20 MG Tablet 40 MG PO (07:48)
--- NOTE | 2020-01-24 07:52 | PCM.PN.PUL ---
Subjective: The patient was seen and examined at the bedside this morning. Events from the last 24 hours have been reviewed. The patient is currently afebrile, hemodynamically stable and maintaining appropriate oxygen saturations on 6 L/min via nasal cannula. Although the patient is a relatively poor historian, he does report to me that he typically wears oxygen at home on 4-5L/min. He denies any resting shortness of breath. He is more alert and conversant this morning than yesterday. Objective: The patient's most recent lab work, culture data and imaging studies have all been personally reviewed. CT chest dated January 14 revealed a small left pleural effusion with dense consolidation throughout the left hemithorax. Sputum culture was positive for Moraxella catarrhalis. Pleural fluid has not demonstrated any growth to date. - Physical Exam Vitals/I&O's: Vital Signs Temp Pulse Resp BP Pulse Ox 97.8 F 67 20 H 138/76 H 92 01/24/20 06:10 01/24/20 06:49 01/24/20 06:10 01/24/20 06:10 01/24/20 06:10 Oxygen Flow Rate (L/min) 6 Oxygen Delivery Method [2] Room Air Oxygen Delivery Method [1 ( Mechanical Ventilator Initial Baseline)] Oxygen Delivery Method Nasal Cannula Weight: 216 lb 0.848 oz Body Mass Index (BMI) 35.9 Intake and Output for Last 24 Hours 01/22/20 01/23/20 01/24/20 23:59 23:59 23:59 Intake Total 495.75 / 495.75 360 / 360 0 / 0 Balance 495.75 / 495.75 360 / 360 0 / 0 General: Alert, No apparent distress HEENT: Atraumatic, Normocephalic Oral: Moist Mucosa Neck: Supple, No Nodes, Trachea Midline Lungs: No rhonchi, No wheeze, No rales, Diminished Cardiovascular: Regular rate, Regular Rhythm Abdomen: Bowel Sounds Present, Soft, Non Tender, Obese Extremities: No clubbing, No cyanosis, - - Lower extremity pretibial edema Skin: No breakdown Musculoskeletal: No Muscle Wasting Lymphatic: No Cervical, Supraclavicular, or Inguinal Adenopathy Neurological: Cranial nerves II-XII grossly intact, Neuro grossly intact Psych/Mental Status: Flat Affect Labs (Last 48 Hours) 01/20/20 01/22/2020 Unknown 07:57 11:16 WBC RBC Hgb Hct MCV MCH MCHC RDW Std Deviation RDW Coeff of [place] Plt Count Sodium Potassium Chloride Carbon Dioxide Anion Gap BUN Creatinine Estim Creat Clear Calc Est GFR (MDRD) Af Amer Est GFR (MDRD) Non-Af BUN/Creatinine Ratio Glucose Calcium Magnesium Fl Pathologist Comment Reviewed POC Glucose 110 170 H 01/22/20 01/22/20 01/23/20 16:00 22:07 06:46 WBC RBC Hgb Hct MCV MCH MCHC RDW Std Deviation RDW Coeff of [place] Plt Count Sodium Potassium Chloride Carbon Dioxide Anion Gap BUN Creatinine Estim Creat Clear Calc Est GFR (MDRD) Af Amer Est GFR (MDRD) Non-Af BUN/Creatinine Ratio Glucose Calcium Magnesium Fl Pathologist Comment POC Glucose 135 H 104 96 01/23/20 01/23/20 01/23/20 07:27 11:44 16:02 WBC RBC Hgb Hct MCV MCH MCHC RDW Std Deviation RDW Coeff of [place] Plt Count Sodium 147 H Potassium 4.0 Chloride 105 Carbon Dioxide 38.0 H Anion Gap 4 L BUN 36 H Creatinine 1.08 Estim Creat Clear Calc 56.10 Est GFR (MDRD) Af Amer 86 Est GFR (MDRD) Non-Af 71 BUN/Creatinine Ratio 33.3 H Glucose 101 Calcium 9.1 Magnesium Fl Pathologist Comment POC Glucose 161 H 137 H 01/23/20 01/24/20 01/24/20 20:54 06:40 07:37 WBC Pending RBC Pending Hgb Pending Hct Pending MCV Pending MCH Pending MCHC Pending RDW Std Deviation Pending RDW Coeff of [place] Pending Plt Count Pending Sodium Potassium Chloride Carbon Dioxide Anion Gap BUN Creatinine Estim Creat Clear Calc Est GFR (MDRD) Af Amer Est GFR (MDRD) Non-Af BUN/Creatinine Ratio Glucose Calcium Magnesium Fl Pathologist Comment POC Glucose 163 H 108 01/24/20 07:37 WBC RBC Hgb Hct MCV MCH MCHC RDW Std Deviation RDW Coeff of [place] Plt Count Sodium Pending Potassium Pending Chloride Pending Carbon Dioxide Pending Anion Gap Pending BUN Pending Creatinine Pending Estim Creat Clear Calc Est GFR (MDRD) Af Amer Pending Est GFR (MDRD) Non-Af Pending BUN/Creatinine Ratio Pending Glucose Pending Calcium Pending Magnesium Pending Fl Pathologist Comment POC Glucose Microbiology 01/20/20 Unknown Fluid - Thoracentesis Fluid Gram Stain - Final 01/20/20 Unknown Fluid - Thoracentesis Fluid Body Fluid Culture - Final No growth aerobically. 01/20/20 Unknown Fluid - Thoracentesis Fluid Anaerobic Culture - Preliminary No growth in 48 hours. Clinical Impression(s) from Imaging Studies Chest X-Ray 01/14/20 22:10 IMPRESSION: Right basilar and left upper lobe alveolar disease. Extensive left pleural fluid. Electronically Signed: Oswald Mata MD at 22:23 EDT Tel , Service support , Chest X-Ray 01/15/20 03:30 IMPRESSION: Support tubes in expected locations. No pneumothorax. Persistent extensive left mid and lower lung opacity representing a combination of pleural effusion, atelectasis and possible pneumonia. Mild improved aeration left upper lobe. Right basilar opacity unchanged. Electronically Signed: Eduardo Obando MD at 5:21 EDT , Service support , Chest CT 01/15/20 09:46 IMPRESSION: Small left pleural effusion with dense consolidation in the left upper, lingular segment of the left upper lobe as well as left lower lobes. Electronically Signed: Abdullahi Gauthier, at 11:20 EDT , Service support , Chest X-Ray 01/16/20 09:30 IMPRESSION: Status post placement of a right central catheter with the tip at the junction of the superior vena cava and right atrium. The remainder the examination is unchanged. Electronically Signed: Abdullahi Gauthier, at 9:55 EDT , Service support , Chest X-Ray 01/20/20 08:29 IMPRESSION: Increasing left pleural-parenchymal changes. Electronically Signed: Abdullahi Gauthier, at 12:25 EDT , Service support , Thoracentesis Ultrasound 01/20/20 10:00 IMPRESSION: Ultrasound-guided left thoracentesis. Electronically Signed: Abdullahi Benzdharaphilip, at 14:28 EDT , Service support , Chest X-Ray 01/20/20 13:45 IMPRESSION: Status post left thoracentesis. There is no evidence of pneumothorax. Persistent left lower lobe infiltrate. Electronically Signed: Abdullahi Benzflorencia, at 14:26 EDT , Service support , Current Medications Acetaminophen (Tylenol Liquid) 650 mg GT Q6H PRN PRN PRN Reason: Pain Score 1-10/Temp > 100.7 F Albuterol Sulfate (Ventolin Aerosols) 2.5 mg INHALATION Q2H PRN PRN PRN Reason: SOB/Wheezing Albuterol/Ipratropium (Duoneb) 3 ml INHALATION Q4HWA.RT [facility] Last Admin: 01/24/20 07:48 Dose: 3 ml Documented by: Calamine/Phenol (Calmoseptine Ointment) 1 applic TOPICAL BID [facility]; Protocol Last Admin: 01/23/20 21:02 Dose: 1 applicatio Documented by: Dextrose (D50w Syringe) 0 gm IV X1 PRN; Protocol PRN Reason: Hypoglycemia Last Admin: 01/21/20 12:07 Dose: 25 gm Documented by: Duloxetine HCl (Cymbalta) 30 mg PO DAILY [facility] Last Admin: 01/23/20 09:12 Dose: 30 mg Documented by: Enoxaparin Sodium (Lovenox) 40 mg SC DAILY [facility] Last Admin: 01/23/20 09:13 Dose: 40 mg Documented by: Furosemide (Lasix) 40 mg IV DAILY [facility] Last Admin: 01/23/20 09:13 Dose: 40 mg Documented by: Glucagon () 1 mg IM .X1 PRN PRN Reason: Hypoglycemia Sodium Chloride () 250 mls @ 15 mls/hr IV .[id number] PRN PRN Reason: Saline Flush Last Infusion: 01/22/20 11:07 Dose: 0 mls/hr Documented by: Sodium Chloride () 250 mls @ 15 mls/hr IV .[id number] PRN PRN Reason: Additional IVPB Infusion Insulin Glargine (Lantus (Bk)) 20 units SC DAILY [facility] Last Admin: 01/23/20 10:13 Dose: 20 u Documented by: Insulin Human Lispro (Humalog Kwikpen ([facility])) 0 unit SC ACHS [facility]; Protocol Last Admin: 01/24/20 06:41 Dose: Not Given Documented by: Labetalol HCl (Trandate) 10 mg IV Q6H PRN PRN PRN Reason: SBP > 160 Lisinopril (Zestril) 10 mg GT DAILY [facility] Last Admin: 01/23/20 09:13 Dose: 10 mg Documented by: Nystatin (Mycostatin Powder) 1 applic TOPICAL TID [facility]; Protocol Last Admin: 01/24/20 06:16 Dose: 1 applicatio Documented by: Ondansetron HCl (Zofran) 4 mg IV Q8H PRN PRN PRN Reason: NAUSEA/VOMITING Polyethylene Glycol (Miralax) 17 gm GT BID PRN PRN PRN Reason: Constipation Prednisone () 40 mg PO DAILY@0800 [facility] Last Admin: 01/24/20 07:48 Dose: 40 mg Documented by: Senna/Docusate Sodium (Senokot-S, Alexus-Colace) 2 tablet GT BID PRN PRN PRN Reason: CONSTIPATION Sodium Chloride () 10 - 40 ml IV UD PRN PRN Reason: SALINE FLUSH Last Admin: 01/23/20 15:55 Dose: 10 ml Documented by: Medical Necessity - Tobacco Use Smoking Status: Former smoker Assessment/Plan All Active Problems (Last Updated 01/15/20 @ 09:[address] Abbie Cardenas MD) Severe sepsis (Acute) RECOMMENDATIONS: 1. Wean supplemental oxygen to maintain saturations at or above 90%. 2. Continue scheduled bronchodilators and steroids. Plan for prednisone taper at discharge. 3. Continue lasix as tolerated by hemodynamics and renal function. 4. Encourage incentive spirometer use and mobilize patient as tolerated. IMPRESSIONS: 1. Acute on chronic combined respiratory failure secondary to Moraxella pneumonia Improving. Following thoracentesis, the patient's respiratory status improved. The patient was able to be successfully extubated on January 20. He has now completed a treatment course of antimicrobials. He will remain on scheduled bronchodilators and prednisone, with plans for a taper at discharge. Recommend weaning supplemental oxygen to maintain saturations at or above 90%. Encourage incentive spirometer use and mobilize patient as tolerated. Continue lasix as tolerated by hemodynamics and renal function. 2. Severe sepsis secondary to Moraxella pneumonia The patient remains hemodynamically stable. The patient has completed his antimicrobial treatment course. 3. Poorly controlled diabetes mellitus Continue basal and sliding scale insulin coverage as ordered. 4. Hypertension/obesity/history of squamous cell skin cancer Complicates care, management, recovery and prognosis. Physical therapy to continue to work with the patient. This note was generated with [employer] dictation software. It may contain incorrect words, spelling, and punctuation that were not noted in checking the note before signing. Inpatient E&M: 94643 Subs Hosp L2
[2020-01-24 07:55] LABS: Hematocrit 41.9 % (40-54); Hemoglobin 12.5 g/dL (13.0-16.5); Mean Corp Hgb Conc 29.8 g/dL (32-36); Mean Corpuscular Hgb 25.2 pg (27.0-32.0); Mean Corpuscular Volume 84.3 fL (80-94); Mean Platelet Vol. 10.1 fl (6.2-12.0); POSITIVE MORPHOLOGY YES; Platelet Count 250 K/mm3 (150-450); RBC Distribution Width CV 21.8 % (11.6-14.6); RBC Distribution Width SD 65.9 fl (35.1-43.9); Red Blood Count 4.97 M/mm3 (4.6-6.2); White Blood Count 13.1 K/mm3 (4.4-11.0)
[2020-01-24 07:58] LABS: Scan Indicated on CBC? Y/N YES- FLAGS NOTED
[2020-01-24 08:15] LABS: Anion Gap 5 (5-15); BUN 36 mg/dL (7-18); BUN/Creat Ratio 31.3 RATIO (10-20); Calcium,Total 8.9 mg/dL (8.5-10.1); Chloride 103 mmol/L (98-107); Creatinine, Serum 1.15 mg/dL (0.70-1.30); EST Glomerular Filtration Rate 66 mL/min (>60); Est Glom Filt Rate - Afr Amer 80 mL/min (>60); Estimated Creatinine Clearance 52.69 ml/min; Glucose 115 mg/dL (74-106); Magnesium 2.4 mg/dL (1.6-2.6); Potassium 3.6 mmol/L (3.5-5.1); Sodium Level 145 mmol/L (136-145)
[2020-01-24 09:14] LABS: Anion Gap 6 (5-15); BUN 36 mg/dL (7-18); BUN/Creat Ratio 32.4 RATIO (10-20); Chloride 104 mmol/L (98-107); Creatinine, Serum 1.11 mg/dL (0.70-1.30); EST Glomerular Filtration Rate 69 mL/min (>60); Est Glom Filt Rate - Afr Amer 83 mL/min (>60); Estimated Creatinine Clearance 54.59 ml/min; Glucose 145 mg/dL (74-106); Magnesium 2.6 mg/dL (1.6-2.6); Potassium 3.8 mmol/L (3.5-5.1); Sodium Level 143 mmol/L (136-145)
[2020-01-24] MEDS: Menthol/Lanolin/Calamine/Znox 113 GM Tube 1 APPLIC TOPICAL ×2 (09:25→21:50)
[2020-01-24] MEDS: DULoxetine Hcl 30 MG Capsule PO (09:28)
[2020-01-24] MEDS: Lisinopril 10 MG Tablet GT (09:29)
[2020-01-24] MEDS: Furosemide 40 MG/4 ML Vial IV (09:30)
[2020-01-24] MEDS: Enoxaparin 40 MG/0.4 ML Syringe SC (09:31)
[2020-01-24 09:52] LABS: Hematocrit 39.5 % (40-54); Hemoglobin 11.9 g/dL (13.0-16.5); Mean Corp Hgb Conc 30.1 g/dL (32-36); Mean Corpuscular Hgb 25.3 pg (27.0-32.0); Mean Corpuscular Volume 83.9 fL (80-94); Mean Platelet Vol. 10.3 fl (6.2-12.0); POSITIVE MORPHOLOGY YES; Platelet Count 243 K/mm3 (150-450); RBC Distribution Width CV 21.6 % (11.6-14.6); RBC Distribution Width SD 66.3 fl (35.1-43.9); Red Blood Count 4.71 M/mm3 (4.6-6.2); White Blood Count 13.3 K/mm3 (4.4-11.0)
[2020-01-24 09:59] LABS: Scan Indicated on CBC? Y/N YES- FLAGS NOTED
[2020-01-24] MEDS: Insulin Lispro 100 UNIT/ML INSULN.PEN SC ×3 (11:03→21:53)
--- NOTE | 2020-01-24 11:07 | PCM.PROGNOTE ---
<Dyan Martinez HAMMER FITTER - Last Filed: 01/24/20 11:10> Subjective: Patient seen and examined. Reports improvement in breathing. Denies significant cough. Continues to complain of weakness. Plan for TCU pending acceptance. - Physical Exam Vitals/I&O's: Vital Signs Temp Pulse Resp BP Pulse Ox 97.8 F 78 20 H 138/64 H 93 01/24/20 09:23 01/24/20 09:23 01/24/20 09:23 01/24/20 09:23 01/24/20 09:23 Oxygen Flow Rate (L/min) 6 Oxygen Delivery Method [2] Room Air Oxygen Delivery Method [1 ( Mechanical Ventilator Initial Baseline)] Oxygen Delivery Method Nasal Cannula Weight: 216 lb 0.848 oz Body Mass Index (BMI) 35.9 Intake and Output for Last 24 Hours 01/22/20 01/23/20 01/24/20 23:59 23:59 23:59 Intake Total 495.75 / 495.75 360 / 360 0 / 0 Balance 495.75 / 495.75 360 / 360 0 / 0 General: Alert, Oriented x3, Cooperative HEENT: Atraumatic, PERRLA, EOMI, Normocephalic Oral: Dry Mucosa Neck: Supple, No JVD, Negative Carotid Bruits Lungs: Clear to auscultation, Diminished Cardiovascular: Regular rate, No murmurs Abdomen: Bowel Sounds Present, Soft, Non Tender, Non-Distended Extremities: No clubbing, No cyanosis, No edema, Capillary Refill Less than 3 Seconds Skin: No rashes, No breakdown Musculoskeletal: No Tenderness to Palpation of Joints or Extremities Neurological: Cranial nerves II-XII grossly intact, Neuro grossly intact Psych/Mental Status: Normal Affect, Appropriate Microbiology Past 72 Hours 01/20/20 Unknown Fluid - Thoracentesis Fluid Gram Stain - Final 01/20/20 Unknown Fluid - Thoracentesis Fluid Body Fluid Culture - Final No growth aerobically. 01/20/20 Unknown Fluid - Thoracentesis Fluid Anaerobic Culture - Preliminary No growth in 48 hours. 01/14/20 21:25 Blood Culture (Wb) - Anticubital Right Blood Culture - Final Prevotella melaninogenica Laboratory Results 01/23/20 11:44: POC Glucose 161 H 01/23/20 16:02: POC Glucose 137 H 01/23/20 20:54: POC Glucose 163 H 01/24/20 06:40: POC Glucose 108 01/24/20 07:37: WBC 13.1 H, RBC 4.97, Hgb 12.5 L, Hct 41.9, MCV 84.3, MCH 25.2 L, MCHC 29.8 L, RDW Std Deviation 65.9 H, RDW Coeff of Truman 21.8 H, Plt Count 250, MPV 10.1, Differential Comment 01/24/20 07:37: Sodium 145, Potassium 3.6, Chloride 103, Carbon Dioxide 37.0 H, Anion Gap 5, BUN 36 H, Creatinine 1.15, Estim Creat Clear Calc 52.69, Est GFR (MDRD) Af Amer 80, Est GFR (MDRD) Non-Af 66, BUN/Creatinine Ratio 31.3 H, Glucose 115 H, Calcium 8.9, Magnesium 2.4 01/24/20 08:50: Sodium 143, Potassium 3.8, Chloride 104, Carbon Dioxide 33.0 H, Anion Gap 6, BUN 36 H, Creatinine 1.11, Estim Creat Clear Calc 54.59, Est GFR (MDRD) Af Amer 83, Est GFR (MDRD) Non-Af 69, BUN/Creatinine Ratio 32.4 H, Glucose 145 H, Calcium 9.0, Magnesium 2.6 01/24/20 09:37: WBC 13.3 H, RBC 4.71, Hgb 11.9 L, Hct 39.5 L, MCV 83.9, MCH 25.3 L, MCHC 30.1 L, RDW Std Deviation 66.3 H, RDW Coeff of Truman 21.6 H, Plt Count 243, MPV 10.3, Differential Comment Current Medications Acetaminophen (Tylenol Liquid) 650 mg GT Q6H PRN PRN PRN Reason: Pain Score 1-10/Temp > 100.7 F Albuterol Sulfate (Ventolin Aerosols) 2.5 mg INHALATION Q2H PRN PRN PRN Reason: SOB/Wheezing Albuterol/Ipratropium (Duoneb) 3 ml INHALATION Q4HWA.RT [facility] Last Admin: 01/24/20 07:48 Dose: 3 ml Documented by: Calamine/Phenol (Calmoseptine Ointment) 1 applic TOPICAL BID [facility]; Protocol Last Admin: 01/24/20 09:25 Dose: 1 applicatio Documented by: Dextrose (D50w Syringe) 0 gm IV X1 PRN; Protocol PRN Reason: Hypoglycemia Last Admin: 01/21/20 12:07 Dose: 25 gm Documented by: Duloxetine HCl (Cymbalta) 30 mg PO DAILY [facility] Last Admin: 01/24/20 09:28 Dose: 30 mg Documented by: Enoxaparin Sodium (Lovenox) 40 mg SC DAILY [facility] Last Admin: 01/24/20 09:31 Dose: 40 mg Documented by: Furosemide (Lasix) 40 mg IV DAILY [facility] Last Admin: 01/24/20 09:30 Dose: 40 mg Documented by: Glucagon () 1 mg IM .X1 PRN PRN Reason: Hypoglycemia Sodium Chloride () 250 mls @ 15 mls/hr IV .[id number] PRN PRN Reason: Saline Flush Last Infusion: 01/22/20 11:07 Dose: 0 mls/hr Documented by: Sodium Chloride () 250 mls @ 15 mls/hr IV .[id number] PRN PRN Reason: Additional IVPB Infusion Insulin Glargine (Lantus (Bk)) 20 units SC DAILY [facility] Last Admin: 01/24/20 09:30 Dose: 20 u Documented by: Insulin Human Lispro (Humalog Kwikpen ([facility])) 0 unit SC ACHS [facility]; Protocol Last Admin: 01/24/20 11:03 Dose: 4 u Documented by: Labetalol HCl (Trandate) 10 mg IV Q6H PRN PRN PRN Reason: SBP > 160 Lisinopril (Zestril) 10 mg GT DAILY [facility] Last Admin: 01/24/20 09:29 Dose: 10 mg Documented by: Nystatin (Mycostatin Powder) 1 applic TOPICAL TID [facility]; Protocol Last Admin: 01/24/20 06:16 Dose: 1 applicatio Documented by: Ondansetron HCl (Zofran) 4 mg IV Q8H PRN PRN PRN Reason: NAUSEA/VOMITING Polyethylene Glycol (Miralax) 17 gm GT BID PRN PRN PRN Reason: Constipation Prednisone () 40 mg PO DAILY@0800 [facility] Last Admin: 01/24/20 07:48 Dose: 40 mg Documented by: Senna/Docusate Sodium (Senokot-S, Alexus-Colace) 2 tablet GT BID PRN PRN PRN Reason: CONSTIPATION Sodium Chloride () 10 - 40 ml IV UD PRN PRN Reason: SALINE FLUSH Last Admin: 01/23/20 15:55 Dose: 10 ml Documented by: Medical Necessity - Tobacco Use Smoking Status: Former smoker Assessment/Plan All Active Problems (Last Updated 01/15/20 @ 09:[address] Abbie Cardenas MD) Severe sepsis (Acute) 1. Severe sepsis secondary to left multilobar Moraxella pneumonia and Prevotella melaninogenica bacteremia-completed treatment with Vanc and Zosyn. Will repeat blood cultures to ensure resolve of bacteremia. 2. 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 Now stable on 6 L nasal cannula. Continue supplement oxygen to maintain O2 at or above 90%. Thoracentesis 01/20/2020 with 1450 mL fluid drained. Thoracentesis fluid shows no growth. Completed course of antibiotics as noted above. Transition from IV steroids to prednisone taper. Pulmonary following. 3. Type 2 diabetes [id number] with sliding scale insulin. Continue Lantus regimen. 4. Hypertension-stable, continue lisinopril, Lasix. 5. Hyperlipidemia-continue statin. 6. Depression-continue duloxetine regimen. DVT prophylaxis- Lovenox sc Discharge planning: Plan for TCU 01/25/2020. This patient was seen by ANUPAM Espinal under the supervision of Dr. Velazquez. <Adelfo Velazquez - Last Filed: 01/24/20 11:26> - Physical Exam Vitals/I&O's: Vital Signs Temp Pulse Resp BP Pulse Ox 97.8 F 78 20 H 138/64 H 93 01/24/20 09:23 01/24/20 09:23 01/24/20 09:23 01/24/20 09:23 01/24/20 09:23 Oxygen Flow Rate (L/min) 6 Oxygen Delivery Method [2] Room Air Oxygen Delivery Method [1 ( Mechanical Ventilator Initial Baseline)] Oxygen Delivery Method Nasal Cannula Weight: 98 kg Body Mass Index (BMI) 35.9 Intake and Output for Last 24 Hours 01/22/20 01/23/20 01/24/20 23:59 23:59 23:59 Intake Total 495.75 / 495.75 360 / 360 0 / 0 Balance 495.75 / 495.75 360 / 360 0 / 0 Microbiology Past 72 Hours 01/20/20 Unknown Fluid - Thoracentesis Fluid Gram Stain - Final 01/20/20 Unknown Fluid - Thoracentesis Fluid Body Fluid Culture - Final No growth aerobically. 01/20/20 Unknown Fluid - Thoracentesis Fluid Anaerobic Culture - Preliminary No growth in 48 hours. 01/14/20 21:25 Blood Culture (Wb) - Anticubital Right Blood Culture - Final Prevotella melaninogenica Laboratory Results 01/23/20 11:44: POC Glucose 161 H 01/23/20 16:02: POC Glucose 137 H 01/23/20 20:54: POC Glucose 163 H 01/24/20 06:40: POC Glucose 108 01/24/20 07:37: WBC 13.1 H, RBC 4.97, Hgb 12.5 L, Hct 41.9, MCV 84.3, MCH 25.2 L, MCHC 29.8 L, RDW Std Deviation 65.9 H, RDW Coeff of Truman 21.8 H, Plt Count 250, MPV 10.1, Differential Comment 01/24/20 07:37: Sodium 145, Potassium 3.6, Chloride 103, Carbon Dioxide 37.0 H, Anion Gap 5, BUN 36 H, Creatinine 1.15, Estim Creat Clear Calc 52.69, Est GFR (MDRD) Af Amer 80, Est GFR (MDRD) Non-Af 66, BUN/Creatinine Ratio 31.3 H, Glucose 115 H, Calcium 8.9, Magnesium 2.4 01/24/20 08:50: Sodium 143, Potassium 3.8, Chloride 104, Carbon Dioxide 33.0 H, Anion Gap 6, BUN 36 H, Creatinine 1.11, Estim Creat Clear Calc 54.59, Est GFR (MDRD) Af Amer 83, Est GFR (MDRD) Non-Af 69, BUN/Creatinine Ratio 32.4 H, Glucose 145 H, Calcium 9.0, Magnesium 2.6 01/24/20 09:37: WBC 13.3 H, RBC 4.71, Hgb 11.9 L, Hct 39.5 L, MCV 83.9, MCH 25.3 L, MCHC 30.1 L, RDW Std Deviation 66.3 H, RDW Coeff of Truman 21.6 H, Plt Count 243, MPV 10.3, Differential Comment 01/24/20 11:02: POC Glucose 200 H Current Medications Acetaminophen (Tylenol Liquid) 650 mg GT Q6H PRN PRN PRN Reason: Pain Score 1-10/Temp > 100.7 F Albuterol Sulfate (Ventolin Aerosols) 2.5 mg INHALATION Q2H PRN PRN PRN Reason: SOB/Wheezing Albuterol/Ipratropium (Duoneb) 3 ml INHALATION Q4HWA.RT [facility] Last Admin: 01/24/20 07:48 Dose: 3 ml Documented by: Calamine/Phenol (Calmoseptine Ointment) 1 applic TOPICAL BID [facility]; Protocol Last Admin: 01/24/20 09:25 Dose: 1 applicatio Documented by: Dextrose (D50w Syringe) 0 gm IV X1 PRN; Protocol PRN Reason: Hypoglycemia Last Admin: 01/21/20 12:07 Dose: 25 gm Documented by: Duloxetine HCl (Cymbalta) 30 mg PO DAILY [facility] Last Admin: 01/24/20 09:28 Dose: 30 mg Documented by: Enoxaparin Sodium (Lovenox) 40 mg SC DAILY [facility] Last Admin: 01/24/20 09:31 Dose: 40 mg Documented by: Furosemide (Lasix) 40 mg IV DAILY [facility] Last Admin: 01/24/20 09:30 Dose: 40 mg Documented by: Glucagon () 1 mg IM .X1 PRN PRN Reason: Hypoglycemia Sodium Chloride () 250 mls @ 15 mls/hr IV .[id number] PRN PRN Reason: Saline Flush Last Infusion: 01/22/20 11:07 Dose: 0 mls/hr Documented by: Sodium Chloride () 250 mls @ 15 mls/hr IV .[id number] PRN PRN Reason: Additional IVPB Infusion Insulin Glargine (Lantus (Bk)) 20 units SC DAILY [facility] Last Admin: 01/24/20 09:30 Dose: 20 u Documented by: Insulin Human Lispro (Humalog Kwikpen ([facility])) 0 unit SC ACHS [facility]; Protocol Last Admin: 01/24/20 11:03 Dose: 4 u Documented by: Labetalol HCl (Trandate) 10 mg IV Q6H PRN PRN PRN Reason: SBP > 160 Lisinopril (Zestril) 10 mg GT DAILY [facility] Last Admin: 01/24/20 09:29 Dose: 10 mg Documented by: Nystatin (Mycostatin Powder) 1 applic TOPICAL TID [facility]; Protocol Last Admin: 01/24/20 06:16 Dose: 1 applicatio Documented by: Ondansetron HCl (Zofran) 4 mg IV Q8H PRN PRN PRN Reason: NAUSEA/VOMITING Polyethylene Glycol (Miralax) 17 gm GT BID PRN PRN PRN Reason: Constipation Prednisone () 40 mg PO DAILY@0800 [facility] Last Admin: 01/24/20 07:48 Dose: 40 mg Documented by: Senna/Docusate Sodium (Senokot-S, Alexus-Colace) 2 tablet GT BID PRN PRN PRN Reason: CONSTIPATION Sodium Chloride () 10 - 40 ml IV UD PRN PRN Reason: SALINE FLUSH Last Admin: 01/23/20 15:55 Dose: 10 ml Documented by: Assessment/Plan This patient was seen in conjunction with ANUPAM Espinal . I have independently interviewed and examined the patient and reviewed pertinent historical, laboratory, and other data. Please refer to ANUPAM Espinal note for details of this patient's presentation, findings, and recommendations. I have reviewed ANUPAM Espinal note and concur with documented findings. In brief, Patient is a 74-year-old gentleman admitted with confusion and shortness of breath. Imaging studies demonstrated left multilobar pneumonia. An assessment of severe sepsis and acute hypoxic and hypercapnic respiratory failure made intubated and admitted to the intensive care unit. Patient was successfully weaned off the vent on 01/22/2020 subsequently transferred to PCU 01/24/2020: No significant change in patient's clinical condition. Plan is for patient to be transferred to the transitional care unit pending bed availability on 01/25/2020. Physical examination; GENERAL: cooperative HEENT: Atraumatic; EYES; Anicteric, Normal Conjunctiva NECK; supple, normal thyroid, RESPIRATORY: Diminished to auscultation CARDIOVASCULAR: Regular S1 S2, GI: soft, normoactive bowel sounds, : No Renal angle tenderness; EXTREMITIES: edema, no clubbing, MUSCULOSKELETAL: no muscle waisting NEURO: Awake; no lateralizing signs. SKIN: No Rash PSYCH; Flat affect Assessment; 1. Acute hypoxic and hypercapnic respiratory failure 2. Severe sepsis 3. Multilobar pneumonia with mozzarella catarrhalis. 4. Left-sided pleural effusion post thoracocentesis 5. COPD with acute exacerbation 6. Diabetes mellitus type 2 7. Chronic hypoxic respiratory failure 8. Dyslipidemia 9. Diarrhea anti-biotic associated diarrhea 10. DVT prophylaxis~ On enoxaparin 11. Physical deconditioning Recommendations: 1. I have discussed the results of my overview and impressions with the patient 2. Options for management were reviewed Inpatient E&M: [id number] Subs Hosp L2
--- NOTE | 2020-01-24 11:10 | PCM.EXTCARCO ---
- Diet 01/21/20 11:49 Diet: Carbohydrate Controlled Is pt able to select menu?: No - Routine Orders/Code Status Enema Type: Fleetz Enema Frequency: Daily PRN Suppository Type: Dulcolax 10mg Suppository Frequency: Daily PRN O2 Liters per Minute: 6 O2 Frequency: Continuous Keep PO Greater than or Equal to (%): 90 Routine Lab Work: - - CBC, BMP q Week Code Status: Full Code - Wound(s) Left inner bicep Wound Type: Skin Tear Left lower back Wound Type: Puncture Right neck Wound Type: Puncture - Suggestions for Active Care Change Position every (hours): 2 Times a day to sit in chair: 3 - Therapies Physical Therapy: Eval and Treat Occupational Therapy: Eval and Treat - Problem/Diagnosis (1) COPD (chronic obstructive pulmonary disease) Status: Acute Current Visit: Yes (2) Type 2 diabetes mellitus Status: Chronic Current Visit: No (3) Hyperlipidemia Status: Chronic Current Visit: No (4) Chronic respiratory failure Status: Acute Current Visit: Yes (5) Severe sepsis Status: Acute Current Visit: Yes (6) 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 Current Visit: No (7) Skin lesion of face Status: Chronic Current Visit: No - Allergies/Procedures Done in Hospital Allergies/Adverse Reactions: Allergies No Known Allergies Allergy (Verified 01/14/20 21:51) Procedures: Thoracentesis - Type of Care/Length of Stay Estimated LOS: Convalescent Care Less Than 30 days Type of Care Needed: Skilled Rehab Potential: Fair Prognosis: Fair - Additional Orders/Day of Discharge H&P will serve as current which was dated: 01/14/20 Day of Discharge: 01/25/20 - Dietary and Speech Recommendations Dietitian Recommendations/Changes: Continue carbohydrate controlled diet as tolerated. If PO at meals fails, will consider changing to regular diet/providing ONS. - Follow Up Care Primary Care Physician: Petar Finnegan MD [Primary Care Provider] - Please follow up with your Primary Care Physician in: 1 Week Please Follow Up With: Brannon Sanford DO When: 2 Weeks, may see DEWATERER OPERATOR/PA
[2020-01-24 11:11] LABS: Bedside Glucose 200 mg/dL (70-110)
[2020-01-24 16:35] LABS: Bedside Glucose 195 mg/dL (70-110)
--- NOTE | 2020-01-24 20:25 | NURSING ---
Spoke with Dr. Coles regarding previous nursing staff reporting that patient was restless and agitated/confused overnight. Dr. Coles states that she will order some seroquel for the patient.
[2020-01-24] MEDS: QUEtiapine 25 MG Tablet 12.5 MG PO (21:55)
[2020-01-24 22:16] LABS: Bedside Glucose 239 mg/dL (70-110)
[2020-01-25 02:41] VITALS: BP 110/61; PULSE 70; RESP 18; TEMP 36.8; O2SAT 94
[2020-01-25 03:00] VITALS: PULSE 69
[2020-01-25 06:32] LABS: Hematocrit 40.5 % (40-54); Hemoglobin 12.1 g/dL (13.0-16.5); Mean Corp Hgb Conc 29.9 g/dL (32-36); Mean Corpuscular Hgb 24.4 pg (27.0-32.0); Mean Corpuscular Volume 81.8 fL (80-94); Mean Platelet Vol. 10.1 fl (6.2-12.0); POSITIVE MORPHOLOGY YES; Platelet Count 252 K/mm3 (150-450); RBC Distribution Width CV 21.3 % (11.6-14.6); RBC Distribution Width SD 64.1 fl (35.1-43.9); Red Blood Count 4.95 M/mm3 (4.6-6.2); White Blood Count 15.4 K/mm3 (4.4-11.0)
[2020-01-25 06:33] LABS: Scan Indicated on CBC? Y/N YES- FLAGS NOTED
[2020-01-25 06:35] VITALS: PULSE 72
[2020-01-25] MEDS: Nystatin Powder 15gm Bottle 1 APPLIC TOPICAL (06:37)
[2020-01-25] MEDS: Insulin Lispro 100 UNIT/ML INSULN.PEN SC (06:38)
[2020-01-25] MEDS: Ipratropium/Albuterol Sulfate 3 ML AMPUL.NEB INHALATION ×2 (06:47→11:02)
[2020-01-25 06:54] LABS: Anion Gap 5 (5-15); BUN 39 mg/dL (7-18); BUN/Creat Ratio 35.8 RATIO (10-20); Calcium,Total 8.7 mg/dL (8.5-10.1); Chloride 101 mmol/L (98-107); Creatinine, Serum 1.09 mg/dL (0.70-1.30); EST Glomerular Filtration Rate 70 mL/min (>60); Est Glom Filt Rate - Afr Amer 85 mL/min (>60); Estimated Creatinine Clearance 55.59 ml/min; Glucose 139 mg/dL (74-106); Potassium 3.3 mmol/L (3.5-5.1); Sodium Level 141 mmol/L (136-145)
[2020-01-25 06:56] LABS: Bedside Glucose 150 mg/dL (70-110)
[2020-01-25 07:07] LABS: Differential Comment SCANNED
[2020-01-25 07:08] VITALS: PULSE 82; RESP 19; O2SAT 94
[2020-01-25] MEDS: predniSONE 20 MG Tablet 40 MG PO (07:24)
--- NOTE | 2020-01-25 08:08 | PN_ITS ---
Patient Problems: Active and Suspected Problems (Last Updated 01/15/20 @ 09:[address] Abbie Cardenas MD) COPD (chronic obstructive pulmonary disease) (Acute) Chronic respiratory failure (Acute) Severe sepsis (Acute) Subjective: Patient did okay overnight. No acute issues were reported. Patient continues to require 6 L nasal cannula to maintain saturations. Patient states he is typically on 3 to 6 L at home and subjectively feels like his dyspnea is improving. Patient does have a cough that is intermittently productive. Patient states he has been compliant with Acapella and incentive spirometer. - Physical Exam Vitals/I&O's: Vital Signs Temp Pulse Resp BP Pulse Ox 36.8 C 82 19 H 110/61 94 01/25/20 02:41 01/25/20 07:08 01/25/20 07:08 01/25/20 02:41 01/25/20 07:08 Oxygen Flow Rate (L/min) 6 Oxygen Delivery Method [2] Room Air Oxygen Delivery Method [1 ( Mechanical Ventilator Initial Baseline)] Oxygen Delivery Method Nasal Cannula Weight: 96.3 kg Body Mass Index (BMI) 35.9 Intake and Output for Last 24 Hours 01/23/20 01/24/20 01/25/20 23:59 23:59 23:59 Intake Total 360 / 360 800 / 1000 300 / 300 Output Total 200 / 450 250 / 250 Balance 360 / 360 600 / 550 50 / 50 General: Alert, Oriented x3, Cooperative, No apparent distress, - - No conversational dyspnea. HEENT: Atraumatic, PERRLA, EOMI, Normocephalic, - - Slight scleral injection Oral: Moist Mucosa, No Gingival or Mucosal Lesions/ Ulcerations, - - Crowded posterior pharynx Neck: Supple, No JVD, No Nodes, Trachea Midline Lungs: No rhonchi, No rales, Diminished, Wheezes - Sporadic Cardiovascular: Regular rate, Regular Rhythm, Normal S1, Normal S2, No murmurs, No rub noted, No Gallop Abdomen: Bowel Sounds Present, Soft, Non Tender, Non-Distended, Obese Extremities: No clubbing, No cyanosis, Edema Skin: No rashes, No breakdown Musculoskeletal: No Tenderness to Palpation of Joints or Extremities Lymphatic: No Cervical, Supraclavicular, or Inguinal Adenopathy Neurological: Cranial nerves II-XII grossly intact, Neuro grossly intact, Motor Exam 5/5 strength throughout Psych/Mental Status: Alert and oriented to time, place, person, mood and affect Microbiology Past 72 Hours 01/20/20 Unknown Fluid - Thoracentesis Fluid Gram Stain - Final 01/20/20 Unknown Fluid - Thoracentesis Fluid Body Fluid Culture - Final No growth aerobically. 01/20/20 Unknown Fluid - Thoracentesis Fluid Anaerobic Culture - Preliminary No growth in 48 hours. Laboratory Results 01/24/20 07:37: Differential Comment 01/24/20 07:37: Sodium 145, Potassium 3.6, Chloride 103, Carbon Dioxide 37.0 H, Anion Gap 5, BUN 36 H, Creatinine 1.15, Estim Creat Clear Calc 52.69, Est GFR (MDRD) Af Amer 80, Est GFR (MDRD) Non-Af 66, BUN/Creatinine Ratio 31.3 H, Glucose 115 H, Calcium 8.9, Magnesium 2.4 01/24/20 08:50: Sodium 143, Potassium 3.8, Chloride 104, Carbon Dioxide 33.0 H, Anion Gap 6, BUN 36 H, Creatinine 1.11, Estim Creat Clear Calc 54.59, Est GFR (MDRD) Af Amer 83, Est GFR (MDRD) Non-Af 69, BUN/Creatinine Ratio 32.4 H, Glucose 145 H, Calcium 9.0, Magnesium 2.6 01/24/20 09:37: WBC 13.3 H, RBC 4.71, Hgb 11.9 L, Hct 39.5 L, MCV 83.9, MCH 25.3 L, MCHC 30.1 L, RDW Std Deviation 66.3 H, RDW Coeff of Truman 21.6 H, Plt Count 243, MPV 10.3, Differential Comment 01/24/20 11:02: POC Glucose 200 H 01/24/20 16:29: POC Glucose 195 H 01/24/20 21:52: POC Glucose 239 H 01/25/20 06:04: WBC 15.4 H, RBC 4.95, Hgb 12.1 L, Hct 40.5, MCV 81.8, MCH 24.4 L , MCHC 29.9 L, RDW Std Deviation 64.1 H, RDW Coeff of Truman 21.3 H, Plt Count 252, MPV 10.1, Differential Comment SCANNED 01/25/20 06:04: Sodium 141, Potassium 3.3 L, Chloride 101, Carbon Dioxide 35.0 H , Anion Gap 5, BUN 39 H, Creatinine 1.09, Estim Creat Clear Calc 55.59, Est GFR (MDRD) Af Amer 85, Est GFR (MDRD) Non-Af 70, BUN/Creatinine Ratio 35.8 H, Glucose 139 H, Calcium 8.7 01/25/20 06:37: POC Glucose 150 H Current Medications Acetaminophen (Tylenol Liquid) 650 mg GT Q6H PRN PRN PRN Reason: Pain Score 1-10/Temp > 100.7 F Albuterol Sulfate (Ventolin Aerosols) 2.5 mg INHALATION Q2H PRN PRN PRN Reason: SOB/Wheezing Albuterol/Ipratropium (Duoneb) 3 ml INHALATION Q4HWA.RT [facility] Last Admin: 01/25/20 06:47 Dose: 3 ml Documented by: Calamine/Phenol (Calmoseptine Ointment) 1 applic TOPICAL BID [facility]; Protocol Last Admin: 01/24/20 21:50 Dose: 1 applicatio Documented by: Dextrose (D50w Syringe) 0 gm IV X1 PRN; Protocol PRN Reason: Hypoglycemia Last Admin: 01/21/20 12:07 Dose: 25 gm Documented by: Duloxetine HCl (Cymbalta) 30 mg PO DAILY [facility] Last Admin: 01/24/20 09:28 Dose: 30 mg Documented by: Enoxaparin Sodium (Lovenox) 40 mg SC DAILY [facility] Last Admin: 01/24/20 09:31 Dose: 40 mg Documented by: Furosemide (Lasix) 40 mg IV DAILY [facility] Last Admin: 01/24/20 09:30 Dose: 40 mg Documented by: Glucagon () 1 mg IM .X1 PRN PRN Reason: Hypoglycemia Sodium Chloride () 250 mls @ 15 mls/hr IV .[id number] PRN PRN Reason: Saline Flush Last Infusion: 01/22/20 11:07 Dose: 0 mls/hr Documented by: Sodium Chloride () 250 mls @ 15 mls/hr IV .[id number] PRN PRN Reason: Additional IVPB Infusion Insulin Glargine (Lantus ([facility])) 20 units SC DAILY [facility] Last Admin: 01/24/20 09:30 Dose: 20 u Documented by: Insulin Human Lispro (Humalog Kwikpen ([facility])) 0 unit SC ACHS [facility]; Protocol Last Admin: 01/25/20 06:38 Dose: 2 u Documented by: Labetalol HCl (Trandate) 10 mg IV Q6H PRN PRN PRN Reason: SBP > 160 Lisinopril (Zestril) 10 mg GT DAILY [facility] Last Admin: 01/24/20 09:29 Dose: 10 mg Documented by: Nystatin (Mycostatin Powder) 1 applic TOPICAL TID [facility]; Protocol Last Admin: 01/25/20 06:37 Dose: 1 applicatio Documented by: Ondansetron HCl (Zofran) 4 mg IV Q8H PRN PRN PRN Reason: NAUSEA/VOMITING Polyethylene Glycol (Miralax) 17 gm GT BID PRN PRN PRN Reason: Constipation Potassium [facility]Dur[facility] Stop: 01/25/20 17:01 Last Admin: 01/25/20 07:50 Dose: 40 meq Documented by: Prednisone () 40 mg PO DAILY@0800 [facility] Last Admin: 01/25/20 07:24 Dose: 40 mg Documented by: Quetiapine Fumarate (Seroquel) 12.5 mg PO QHS [facility] Last Admin: 01/24/20 21:55 Dose: 12.5 mg Documented by: Senna/Docusate Sodium (Senokot-S, Alexus-Colace) 2 tablet GT BID PRN PRN PRN Reason: CONSTIPATION Sodium Chloride () 10 - 40 ml IV UD PRN PRN Reason: SALINE FLUSH Last Admin: 01/23/20 15:55 Dose: 10 ml Documented by: Medical Necessity - Tobacco Use Smoking Status: Former smoker Assessment/Plan All Active Problems (Last Updated 01/15/20 @ 09:[address] Abbie Cardenas MD) COPD (chronic obstructive pulmonary disease) (Acute) Chronic respiratory failure (Acute) Severe sepsis (Acute) RECOMMENDATIONS: 1. Wean supplemental oxygen to maintain saturations at or above 90%. 2. Continue scheduled bronchodilators and steroids. Plan for prednisone taper at discharge over 12 days. 3. Continue lasix as tolerated by hemodynamics and renal function. Potassium supplementation as indicated 4. Encourage incentive spirometer use and mobilize patient as tolerated. IMPRESSIONS: 1. Acute on chronic combined respiratory failure secondary to Moraxella pneumonia Improving. Following thoracentesis, the patient's respiratory status improved. The patient was able to be successfully extubated on January 20. He has now completed a treatment course of antimicrobials. He will remain on scheduled bronchodilators and prednisone, with plans for a taper at discharge. Recommend weaning supplemental oxygen to maintain saturations at or above 90%. Encourage incentive spirometer use and mobilize patient as tolerated. Continue lasix as tolerated by hemodynamics and renal function. Unclear baseline supplemental oxygen requirements, but will have to watch saturations with therapy to avoid hypoxemia. Clinical suspicion for relatively advanced COPD, but this will need to be confirmed with outpatient pulmonary function testing. 2. Severe sepsis secondary to Moraxella pneumonia The patient remains hemodynamically stable. The patient has completed his antimicrobial treatment course. 3. Poorly controlled diabetes mellitus Continue basal and sliding scale insulin coverage as ordered. 4. Hypertension/obesity/history of squamous cell skin cancer Complicates care, management, recovery and prognosis. Physical therapy to continue to work with the patient. Inpatient E&M: [id number] [facility] Hosp L2
--- NOTE | 2020-01-25 08:32 | DS.PCM_ITS ---
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 Abbie Cardenas MD) 1. Severe sepsis secondary to left multilobar Moraxella pneumonia and Prevotella melaninogenica bacteremia 2. 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 Type 2 diabetes mellitus 4. Hypertension 5. Hyperlipidemia 6. Depression - Secondary Discharge Diagnosis Chronic Problems: Chronic Problems (Last Updated 01/15/20 @ 09:[address] Abbie Cardenas MD) Type 2 diabetes mellitus (Chronic) Hyperlipidemia (Chronic) Squamous cell carcinoma in situ (Chronic) Skin lesion of face (Chronic) Hospital Course and Treatment Imaging Results: Diagnostic Data Chest CT 01/15/20 09:46 IMPRESSION: Small left pleural effusion with dense consolidation in the left upper, lingular segment of the left upper lobe as well as left lower lobes. Electronically Signed: Abdullahi Gauthier, at 11:20 EDT , Service support , Thoracentesis Ultrasound 01/20/20 10:00 IMPRESSION: Ultrasound-guided left thoracentesis. Electronically Signed: Abdullahi Gauthier at 14:28 EDT , Service support , Chest X-Ray 01/20/20 13:45 IMPRESSION: Status post left thoracentesis. There is no evidence of pneumothorax. Persistent left lower lobe infiltrate. Electronically Signed: Abdullahi Gauthier at 14:26 EDT , Service support , Dr. Casiano- Pulmonary medicine Operations: None Procedures: Thoracentesis Summary of Care Provided: The patient is a 74 year old M admitted 01/14/2020 due to shortness of breath. 1. Severe sepsis secondary to left multilobar Moraxella pneumonia and Prevotella melaninogenica bacteremia-completed treatment with Vanc and Zosyn. Repeat blood cultures with no growth thus far. 2. 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 Now stable on 6 L nasal cannula. Continue supplement oxygen to maintain O2 at or above 90%. Thoracentesis 01/20/2020 with 1450 mL fluid drained. Thoracentesis fluid shows no growth. Completed course of antibiotics as noted above. Transition from IV steroids to prednisone taper. Outpatient follow-up with pulmonary medicine in 2 weeks. 3. Type 2 diabetes mellitus-continue home oral regimen at discharge with Accu- Cheks/sliding scale insulin. Continue Lantus regimen. 4. Hypertension-stable, continue lisinopril, Lasix. 5. Hyperlipidemia-continue statin. 6. Depression-continue duloxetine regimen. General: Alert, Oriented x3, Cooperative HEENT: Atraumatic, PERRLA, EOMI, Normocephalic Oral: Dry Mucosa Neck: Supple, No JVD, Negative Carotid Bruits Lungs: Clear to auscultation, Diminished Cardiovascular: Regular rate, No murmurs Abdomen: Bowel Sounds Present, Soft, Non Tender, Non-Distended Extremities: No clubbing, No cyanosis, No edema, Capillary Refill Less than 3 Seconds Skin: No rashes, No breakdown Musculoskeletal: No Tenderness to Palpation of Joints or Extremities Neurological: Cranial nerves II-XII grossly intact, Neuro grossly intact Psych/Mental Status: Normal Affect, Appropriate Patient seen and examined prior to discharge. Physical assessment as noted above. Patient is stable for discharge with follow up recommendations as noted above. This patient was seen by ANUPAM Espinal under the supervision of Dr. Velazquez. - Physical Exam Vitals/I&O's: Vital Signs Temp Pulse Resp BP Pulse Ox 98.3 F 82 19 H 110/61 94 01/25/20 02:41 01/25/20 07:08 01/25/20 07:08 01/25/20 02:41 01/25/20 07:08 Oxygen Flow Rate (L/min) 6 Oxygen Delivery Method [2] Room Air Oxygen Delivery Method [1 ( Mechanical Ventilator Initial Baseline)] Oxygen Delivery Method Nasal Cannula Weight: 212 lb 4.882 oz Body Mass Index (BMI) 35.9 Intake and Output for Last 24 Hours 01/23/20 01/24/20 01/25/20 23:59 23:59 23:59 Intake Total 360 / 360 800 / 1000 300 / 300 Output Total 200 / 450 250 / 250 Balance 360 / 360 600 / 550 50 / 50 Microbiology Past 72 Hours 01/20/20 Unknown Fluid - Thoracentesis Fluid Gram Stain - Final 01/20/20 Unknown Fluid - Thoracentesis Fluid Body Fluid Culture - Final No growth aerobically. 01/20/20 Unknown Fluid - Thoracentesis Fluid Anaerobic Culture - Preliminary No growth in 48 hours. Laboratory Results 01/24/20 08:50: Sodium 143, Potassium 3.8, Chloride 104, Carbon Dioxide 33.0 H, Anion Gap 6, BUN 36 H, Creatinine 1.11, Estim Creat Clear Calc 54.59, Est GFR (MDRD) Af Amer 83, Est GFR (MDRD) Non-Af 69, BUN/Creatinine Ratio 32.4 H, Glucose 145 H, Calcium 9.0, Magnesium 2.6 01/24/20 09:37: WBC 13.3 H, RBC 4.71, Hgb 11.9 L, Hct 39.5 L, MCV 83.9, MCH 25.3 L, MCHC 30.1 L, RDW Std Deviation 66.3 H, RDW Coeff of Truman 21.6 H, Plt Count 243, MPV 10.3, Differential Comment 01/24/20 11:02: POC Glucose 200 H 01/24/20 16:29: POC Glucose 195 H 01/24/20 21:52: POC Glucose 239 H 01/25/20 06:04: WBC 15.4 H, RBC 4.95, Hgb 12.1 L, Hct 40.5, MCV 81.8, MCH 24.4 L , MCHC 29.9 L, RDW Std Deviation 64.1 H, RDW Coeff of Truman 21.3 H, Plt Count 252, MPV 10.1, Differential Comment SCANNED 01/25/20 06:04: Sodium 141, Potassium 3.3 L, Chloride 101, Carbon Dioxide 35.0 H , Anion Gap 5, BUN 39 H, Creatinine 1.09, Estim Creat Clear Calc 55.59, Est GFR (MDRD) Af Amer 85, Est GFR (MDRD) Non-Af 70, BUN/Creatinine Ratio 35.8 H, Glucose 139 H, Calcium 8.7 01/25/20 06:37: POC Glucose 150 H Current Medications Acetaminophen (Tylenol Liquid) 650 mg GT Q6H PRN PRN PRN Reason: Pain Score 1-10/Temp > 100.7 F Albuterol Sulfate (Ventolin Aerosols) 2.5 mg INHALATION Q2H PRN PRN PRN Reason: SOB/Wheezing Albuterol/Ipratropium (Duoneb) 3 ml INHALATION Q4HWA.RT [facility] Last Admin: 01/25/20 06:47 Dose: 3 ml Documented by: Calamine/Phenol (Calmoseptine Ointment) 1 applic TOPICAL BID [facility]; Protocol Last Admin: 01/24/20 21:50 Dose: 1 applicatio Documented by: Dextrose (D50w Syringe) 0 gm IV X1 PRN; Protocol PRN Reason: Hypoglycemia Last Admin: 01/21/20 12:07 Dose: 25 gm Documented by: Duloxetine HCl (Cymbalta) 30 mg PO DAILY [facility] Last Admin: 01/24/20 09:28 Dose: 30 mg Documented by: Enoxaparin Sodium (Lovenox) 40 mg SC DAILY [facility] Last Admin: 01/24/20 09:31 Dose: 40 mg Documented by: Furosemide (Lasix) 40 mg IV DAILY [facility] Stop: 01/25/20 12:00 Last Admin: 01/24/20 09:30 Dose: 40 mg Documented by: Furosemide (Lasix) 40 mg PO DAILY [facility] Glucagon () 1 mg IM .X1 PRN PRN Reason: Hypoglycemia Sodium Chloride () 250 mls @ 15 mls/hr IV .[id number] PRN PRN Reason: Saline Flush Last Infusion: 01/22/20 11:07 Dose: 0 mls/hr Documented by: Sodium Chloride () 250 mls @ 15 mls/hr IV .[id number] PRN PRN Reason: Additional IVPB Infusion Insulin Glargine (Lantus ([facility])) 20 units SC DAILY [facility] Last Admin: 01/24/20 09:30 Dose: 20 u Documented by: Insulin Human Lispro (Humalog Kwikpen ([facility])) 0 unit SC ACHS [facility]; Protocol Last Admin: 01/25/20 06:38 Dose: 2 u Documented by: Labetalol HCl (Trandate) 10 mg IV Q6H PRN PRN PRN Reason: SBP > 160 Lisinopril (Zestril) 10 mg GT DAILY [facility] Last Admin: 01/24/20 09:29 Dose: 10 mg Documented by: Nystatin (Mycostatin Powder) 1 applic TOPICAL TID [facility]; Protocol Last Admin: 01/25/20 06:37 Dose: 1 applicatio Documented by: Ondansetron HCl (Zofran) 4 mg IV Q8H PRN PRN PRN Reason: NAUSEA/VOMITING Polyethylene Glycol (Miralax) 17 gm GT BID PRN PRN PRN Reason: Constipation Potassium Ch[facility] ([facility]) [facility] Stop: 01/25/20 17:01 Last Admin: 01/25/20 07:50 Dose: 40 meq Documented by: Prednisone () 40 mg PO DAILY@0800 [facility] Last Admin: 01/25/20 07:24 Dose: 40 mg Documented by: Quetiapine Fumarate (Seroquel) 12.5 mg PO QHS [facility] Last Admin: 01/24/20 21:55 Dose: 12.5 mg Documented by: Senna/Docusate Sodium (Senokot-S, Alexus-Colace) 2 tablet GT BID PRN PRN PRN Reason: CONSTIPATION Sodium Chloride () 10 - 40 ml IV UD PRN PRN Reason: SALINE FLUSH Last Admin: 01/23/20 15:55 Dose: 10 ml Documented by: Home Medications: Medications to take at Discharge aspirin 81 mg tablet,delayed release 81 mg PO QDAY 12/31/17 atorvastatin 20 mg tablet 20 mg PO QDAY 12/31/17 metformin 500 mg tablet 1,000 mg PO DAILY tab 11/28/18 Budesonide/Formoterol 160/4.5 [Symbicort 160/4.5 Mcg Inhaler (SP)] 2 puff IN BID 12/26/18 Ipratropium/Albuterol Respimat [Combivent Respimat Inhal [place]] 2 puff IN Q4H PRN PRN 12/26/18 Duloxetine HCl 30 mg PO DAILY 01/15/20 Glimepiride [Amaryl] 8 mg PO DAILY 01/15/20 Lisinopril [Zestril] 20 mg PO DAILY 01/15/20 Furosemide [Lasix] 40 mg PO DAILY tab 01/25/20 Insulin Glargine [Lantus SoloStar Pen] 20 units SUBCUT DAILY pen 01/25/20 Insulin Lispro [Humalog KwikPen] See Protocol SUBCUT ACHS insuln.pen 01/25/20 Potassium Chloride [K-Dur] 40 meq PO BIDCM tab 01/25/20 predniSONE tablet See Taper PO DAILY@0800 tab 01/25/20 Primary Care Physician: Petar Finnegan MD [Primary Care Provider] - Please follow up with your Primary Care Physician in: 1 Week Please Follow Up With: Brannon Sanford DO When: 2 Weeks, 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 Abbie Cardenas MD) Type 2 diabetes mellitus (Chronic) Hyperlipidemia (Chronic) Squamous cell carcinoma in situ (Chronic) Skin lesion of face (Chronic) Hospital Course and Treatment Summary of Care Provided: This patient was seen in conjunction with ANUPAM Espinal . I have independently interviewed and examined the patient and reviewed pertinent historical, laboratory, and other data. Please refer to ANUPAM Espinal note for details of this patient's presentation, findings, and recommendations. I have reviewed ANUPAM Espinal note and concur with documented findings. In brief, Patient is a 74-year-old gentleman admitted with confusion and shortness of breath. Imaging studies demonstrated left multilobar pneumonia. An assessment of severe sepsis and acute hypoxic and hypercapnic respiratory failure made intubated and admitted to the intensive care unit. Patient was successfully weaned off the vent on 01/22/2020 subsequently transferred to PCU Assessment; 1. Acute hypoxic and hypercapnic respiratory failure 2. Severe sepsis 3. Multilobar pneumonia with mozzarella catarrhalis. 4. Left-sided pleural effusion post thoracocentesis 5. COPD with acute exacerbation 6. Diabetes mellitus type 2 7. Chronic hypoxic respiratory failure 8. Dyslipidemia 9. Diarrhea anti-biotic associated diarrhea 10. DVT prophylaxis~ On enoxaparin 11. Physical deconditioning Hospital course: As documented above - Physical Exam Vitals/I&O's: Vital Signs Temp Pulse Resp BP Pulse Ox 97.5 F L 75 18 123/48 H 95 01/25/20 09:01 01/25/20 09:01 01/25/20 09:01 01/25/20 09:01 01/25/20 09:01 Oxygen Flow Rate (L/min) 6 Oxygen Delivery Method [2] Room Air Oxygen Delivery Method [1 ( Mechanical Ventilator Initial Baseline)] Oxygen Delivery Method Nasal Cannula Weight: 96.3 kg Body Mass Index (BMI) 35.9 Intake and Output for Last 24 Hours 01/23/20 01/24/20 01/25/20 23:59 23:59 23:59 Intake Total 360 / 360 800 / 1000 300 / 300 Output Total 200 / 450 250 / 250 Balance 360 / 360 600 / 550 50 / 50 Microbiology Past 72 Hours 01/20/20 Unknown Fluid - Thoracentesis Fluid Gram Stain - Final 01/20/20 Unknown Fluid - Thoracentesis Fluid Body Fluid Culture - Final No growth aerobically. 01/20/20 Unknown Fluid - Thoracentesis Fluid Anaerobic Culture - Preliminary No growth in 48 hours. Laboratory Results 01/24/20 09:37: WBC 13.3 H, RBC 4.71, Hgb 11.9 L, Hct 39.5 L, MCV 83.9, MCH 25.3 L, MCHC 30.1 L, RDW Std Deviation 66.3 H, RDW Coeff of Truman 21.6 H, Plt Count 243, MPV 10.3, Differential Comment 01/24/20 11:02: POC Glucose 200 H 01/24/20 16:29: POC Glucose 195 H 01/24/20 21:52: POC Glucose 239 H 01/25/20 06:04: WBC 15.4 H, RBC 4.95, Hgb 12.1 L, Hct 40.5, MCV 81.8, MCH 24.4 L , MCHC 29.9 L, RDW Std Deviation 64.1 H, RDW Coeff of Truman 21.3 H, Plt Count 252, MPV 10.1, Differential Comment SCANNED 01/25/20 06:04: Sodium 141, Potassium 3.3 L, Chloride 101, Carbon Dioxide 35.0 H , Anion Gap 5, BUN 39 H, Creatinine 1.09, Estim Creat Clear Calc 55.59, Est GFR (MDRD) Af Amer 85, Est GFR (MDRD) Non-Af 70, BUN/Creatinine Ratio 35.8 H, Glucose 139 H, Calcium 8.7 01/25/20 06:37: POC Glucose 150 H Current Medications Acetaminophen (Tylenol Liquid) 650 mg GT Q6H PRN PRN PRN Reason: Pain Score 1-10/Temp > 100.7 F Albuterol Sulfate (Ventolin Aerosols) 2.5 mg INHALATION Q2H PRN PRN PRN Reason: SOB/Wheezing Albuterol/Ipratropium (Duoneb) 3 ml INHALATION Q4HWA.RT [facility] Last Admin: 01/25/20 06:47 Dose: 3 ml Documented by: Calamine/Phenol (Calmoseptine Ointment) 1 applic TOPICAL BID [facility]; Protocol Last Admin: 01/25/20 09:03 Dose: 1 applicatio Documented by: Dextrose (D50w Syringe) 0 gm IV X1 PRN; Protocol PRN Reason: Hypoglycemia Last Admin: 01/21/20 12:07 Dose: 25 gm Documented by: Duloxetine HCl (Cymbalta) 30 mg PO DAILY [facility] Last Admin: 01/25/20 09:06 Dose: 30 mg Documented by: Enoxaparin Sodium (Lovenox) 40 mg SC DAILY [facility] Last Admin: 01/25/20 09:07 Dose: 40 mg Documented by: Furosemide (Lasix) 40 mg IV DAILY [facility] Stop: 01/25/20 12:00 Last Admin: 01/25/20 09:07 Dose: 40 mg Documented by: Furosemide (Lasix) 40 mg PO DAILY [facility] Last Admin: 01/25/20 09:03 Dose: Not Given Documented by: Glucagon () 1 mg IM .X1 PRN PRN Reason: Hypoglycemia Sodium Chloride () 250 mls @ 15 mls/hr IV .[id number] PRN PRN Reason: Saline Flush Last Infusion: 01/22/20 11:07 Dose: 0 mls/hr Documented by: Sodium Chloride () 250 mls @ 15 mls/hr IV .[id number] PRN PRN Reason: Additional IVPB Infusion Insulin Glargine (Lantus ([facility])) 20 units SC DAILY [facility] Last Admin: 01/25/20 09:07 Dose: 20 u Documented by: Insulin Human Lispro (Humalog Kwikpen ([facility])) 0 unit SC ACHS [facility]; Protocol Last Admin: 01/25/20 06:38 Dose: 2 u Documented by: Labetalol HCl (Trandate) 10 mg IV Q6H PRN PRN PRN Reason: SBP > 160 Lisinopril (Zestril) 10 mg GT DAILY [facility] Last Admin: 01/25/20 09:06 Dose: 10 mg Documented by: Nystatin (Mycostatin Powder) 1 applic TOPICAL TID [facility]; Protocol Last Admin: 01/25/20 06:37 Dose: 1 applicatio Documented by: Ondansetron HCl (Zofran) 4 mg IV Q8H PRN PRN PRN Reason: NAUSEA/VOMITING Polyethylene Glycol (Miralax) 17 gm GT BID PRN PRN PRN Reason: Constipation Potassium Chloride (K[facility]Dur) [facility] Stop: 01/25/20 17:01 Last Admin: 01/25/20 07:50 Dose: 40 meq Documented by: Prednisone () 40 mg PO DAILY@0800 [facility] Last Admin: 01/25/20 07:24 Dose: 40 mg Documented by: Quetiapine Fumarate (Seroquel) 12.5 mg PO QHS [facility] Last Admin: 01/24/20 21:55 Dose: 12.5 mg Documented by: Senna/Docusate Sodium (Senokot-S, Alexus-Colace) 2 tablet GT BID PRN PRN PRN Reason: CONSTIPATION Sodium Chloride () 10 - 40 ml IV UD PRN PRN Reason: SALINE FLUSH Last Admin: 01/25/20 09:07 Dose: 10 ml Documented by: Inpatient E&M: [id number] Disch Hosp
--- NOTE | 2020-01-25 08:52 | PCA ---
Notified daughter, Maria Guadalupe Jarquin [phone], of discharge to TCU planned for today. Faxed discharge paperwork to [facility], [id number].
[2020-01-25 09:01] VITALS: BP 123/48; PULSE 75; RESP 18; TEMP 36.4; O2SAT 95
[2020-01-25] MEDS: Menthol/Lanolin/Calamine/Znox 113 GM Tube 1 APPLIC TOPICAL (09:03)
[2020-01-25] MEDS: Lisinopril 10 MG Tablet GT (09:06)
[2020-01-25] MEDS: DULoxetine Hcl 30 MG Capsule PO (09:06)
[2020-01-25] MEDS: Furosemide 40 MG/4 ML Vial IV (09:07)
[2020-01-25] MEDS: 0.9% Saline Lock 10 ML Syringe IV (09:07)
[2020-01-25] MEDS: Enoxaparin 40 MG/0.4 ML Syringe SC (09:07)
[2020-01-25 11:02] VITALS: PULSE 77; RESP 20
--- NOTE | 2020-01-25 11:06 | PCA ---
Called [facility] 01/24 and cancelled follow-up with due to patient going to a SNF, TCU.
[2020-01-25 11:21] LABS: Bedside Glucose 187 mg/dL (70-110)
== END 2020-01-25 11:41 | disposition skilled nursing facility (03) | DRG 870 ==
LOC: ED 22:05 → ICU 23:37 → PCU 01-22 10:24
PROVIDERS: Hospitalist; Internal Medicine Critical Care Medicine; Admitting Provider Hospitalist; Emergency Provider Student in an Organized Health Care Education/Training Program; PCP Family Medicine; Visit Provider Internal Medicine
DX: A41.89 Other specified sepsis (principal); J15.6 Pneumonia due to other Gram-negative bacteria; J96.21 Acute and chronic respiratory failure with hypoxia; J96.22 Acute and chronic respiratory failure with hypercapnia; G93.41 Metabolic encephalopathy; J44.0 Chronic obstructive pulmonary disease with (acute) lower respiratory infection; J44.1 Chronic obstructive pulmonary disease with (acute) exacerbation; J90 Pleural effusion, not elsewhere classified; N17.9 Acute kidney failure, unspecified; R65.20 Severe sepsis without septic shock; T88.4XXA Failed or difficult intubation, initial encounter; E11.65 Type 2 diabetes mellitus with hyperglycemia; I10 Essential (primary) hypertension; E78.5 Hyperlipidemia, unspecified; G47.30 Sleep apnea, unspecified; F32.9 Major depressive disorder, single episode, unspecified; E66.9 Obesity, unspecified; Z68.35 Body mass index [BMI] 35.0-35.9, adult; Z91.19 Patient's noncompliance with other medical treatment and regimen; Z79.51 Long term (current) use of inhaled steroids; Z79.4 Long term (current) use of insulin; Z79.82 Long term (current) use of aspirin; Z79.899 Other long term (current) drug therapy; Z87.891 Personal history of nicotine dependence
CPT/HCPCS: 31720; 32555; 36415; 36600; 71045; 71046; 71260; 80048; 80053; 80202; 81001; 82550; 82803; 82945; 82962; 83036; 83605; 83615; 83735; 83880; 84100; 84156; 84157; 84478; 85025; 85027; 85610; 85730; 87040; 87070; 87075; 87077; 87086; 87205; 87449; 87635; 88108; 88305; 88313; 88341; 88342; 89050; 93005; 94002; 94003; 94640; 94660; 94667; 94668; 97110; 97116; 97162; 97163; 97167; 97530; 97535; 97802; 99251; 99285; J7030; J7040; J7050; Q9967; A4216; C1751; G0463; J1940; J3010; J3490; U0003

== ENCOUNTER 2020-01-25 12:10 | Inpatient (IN) | payer OTHER, MEDICARE, SELFPAY ==
[2020-01-15 10:53] VITALS: BMI 35.9
[2020-01-25 12:37] VITALS: BP 125/65; PULSE 58; RESP 16; TEMP 36.6; O2SAT 92; BMI 33.3
[2020-01-25 13:11] LABS: Bedside Glucose 215 mg/dL (70-110)
--- NOTE | 2020-01-25 15:28 | HP.PCM_ITS ---
Problem List (1) Debility Status: Acute (2) Shortness of breath Status: Acute (3) Acute delirium Status: Acute (4) Acute respiratory failure Status: Acute (5) Moraxella catarrhalis pneumonia Status: Acute (6) Bacteremia Status: Acute (7) Diabetes mellitus Status: Chronic (8) Hypertension Status: Chronic (9) Depression Status: Chronic (10) Edema Status: Chronic (11) Neuropathic pain Status: Chronic (12) COPD (chronic obstructive pulmonary disease) Status: Chronic (13) Hyperlipidemia Status: Chronic (14) Severe sepsis Status: Acute History of Present Illness Date of Admission: 01/25/20 Chief Complaint: Here for rehabilitation, strengthening, prior to discharge home with family. 01/14/20 The patient is a 74 year old Male with below past medical history presented to [facility] Emergency Department with shortness of breath. 01/14/20 EKG sinus tachycardia with fusion complexes, right bundle branch block. 01/14/20 Chest X-ray right basilar, left upper lobe alveolar disease, extensive left pleural fluid. Worsening shortness of breath x 2 weeks, noncompliant with home oxygen. Increasing confusion. 15 Liters oxygen, still hypoxic, BiPAP started. Elevated WBC, Lactic acid 3. Blood cultures, urine cultures sent, Troponin okay, BNP okay. Rocephin, Zithromax given for pneumonia, patient felt better. Continue BiPAP. 01/14/20 Admit to ICU. Vancomycin, Zosyn for pneumonia. Solu-Medrol IV, Aerosols, for COPD Exacerbation. BiPAP for acute respiratory failure. Mucinex for mucous plugging. Urine for legionella, strep sent. 01/15/20 Worsening respiratory distress, patient intubated. 01/15/[address] chest. 01/15/20 CT chest showed small left pleural effusion, dense consolidation left upper, lingular segment of left upper lobe, left lower lobe. 01/16/20 Right IJ triple lumen central line placed. 01/16/20 Urine antigen for legionella, strep NEGATIVE. COVID-19 NEGATIVE. 01/17/20 Unable to wean off oxygen. Lactic acid improved, Blood cultures negative, sputum normal christelle. Urine culture negative. 01/18/20 Continue IV Zosyn, Vancomycin stopped. 01/19/20 Sputum grew Moraxella Catarrhalis, on IV Zosyn. 01/20/20 Chest X-ray showed increasing left pleural-parenchymal changes. 01/20/20 Ultrasound guided thoracentesis removed 1450ML fluid. 01/21/20 Weaned off Ventilator. Patient improving. 01/22/20 Maintaining saturations on oxygen per [place]. Left Moraxella pneumonia, Prevotella melaninogenia bacteremia completed treatment with Vancomycin, Zosyn. Repeat blood cultures to document resolution. IV steroids transitioned to prednisone. Recommend Group Home Facility for PT/OT for debility. 01/24/20 Pulsox stable on 6 Liters oxygen per nasal cannula. 01/25/20 Admit to TCU with debility, here for rehabilitation, strengthening, prior to discharge home with family. Past Medical History Past Medical History (Chronic Problems): Chronic Problems (Last Updated 01/15/20 @ 09:[address] Abbie Cardenas MD) Diabetes mellitus (Chronic) Hypertension (Chronic) Depression (Chronic) Edema (Chronic) Neuropathic pain (Chronic) COPD (chronic obstructive pulmonary disease) (Chronic) Type 2 diabetes mellitus (Chronic) Hyperlipidemia (Chronic) Squamous cell carcinoma in situ (Chronic) Skin lesion of face (Chronic) Medical History: Medical History (Last Updated 01/15/20 @ 09:[address] Abbie Cardenas MD) Squamous cell carcinoma in situ (Chronic) D09.9 History of arthritis Z87.39 Sleep apnea G47.30 diabetes hypercholesterolemia COPD (chronic obstructive pulmonary disease) J44.9 HTN (hypertension) I10 Personal history of colonic polyps (Inactive) Z86.010 Allergies No Known Allergies Allergy (Verified 01/14/20 21:51) Home Medications: Ambulatory Orders Medication Instructions Recorded aspirin 81 mg tablet,delayed 81 mg PO QDAY 12/31/17 release atorvastatin 20 mg tablet 20 mg PO QDAY 12/31/17 metformin 500 mg tablet 1,000 mg PO DAILY tab 11/28/18 Budesonide/Formoterol 160/4.5 2 puff IN BID 12/26/18 [Symbicort 160/4.5 Mcg Inhaler (SP)] Ipratropium/Albuterol Respimat 2 puff IN Q4H PRN PRN 12/26/18 [Combivent Respimat Inhal [place]] Duloxetine HCl 30 mg PO DAILY 01/15/20 Glimepiride [Amaryl] 8 mg PO DAILY 01/15/20 Lisinopril [Zestril] 20 mg PO DAILY 01/15/20 Furosemide [Lasix] 40 mg PO DAILY 01/25/20 Insulin Glargine [Lantus SoloStar 20 units SUBCUT DAILY 01/25/20 Pen] Insulin Lispro [Humalog KwikPen] See Protocol SUBCUT ACHS 01/25/20 insuln.pen Potassium Chloride [K-Dur] 40 meq PO BIDCM 01/25/20 predniSONE tablet See Taper PO DAILY@0800 01/25/20 Surgical History: Surgical History (Last Reviewed 01/15/20 @ 03:[address] Deniz Fajardo MD) H/O colonoscopy Z98.890 2013 H/O esophagogastroduodenoscopy Z98.890 2013 H/O hemorrhoidectomy Z98.890 S/P appendectomy Z90.49 s/p skin lesion removal right ear 12/30 with donor site rue Surgical History: appendectomy, - - Hemorrhoidectomy, Skin lesion. Psychiatric History: Depression Lives: With Family Smoking Status: Former smoker Tobacco Use: Non-smoker Alcohol: None Drugs: None - *Family History Maternal Family History: Family History (Last Reviewed 01/15/20 @ 03:[address] Deniz Fajardo MD) Mother Breast cancer Father Heart disease History Items: No pertinent history Paternal Family History: Family History (Last Reviewed 01/15/20 @ 03:[address] Deniz Fajardo MD) Mother Breast cancer Father Heart disease History Items: No pertinent history Review of Systems Constitutional: Denies: Chills, Fever, Weight Change HEENT: Denies: Head Aches, Sinus Congestion, Sinus Drainage Cardiovascular: Denies: Chest Pain, Palpitations Respiratory: Denies: Cough, Shortness of breath at rest, Sputum production Gastrointestinal: Denies: Abdominal Pain, Nausea, Vomiting Genitourinary: Denies: Dysuria Musculoskeletal: Denies: Joint Pain, Joint Tenderness Skin: Denies: Rash, Wounds Neurological: Denies: Numbness, Tingling, Focal weakness Psychiatric: Denies: Anxiety, Depression, Homicidal Ideations, Suicidal Ideations Hematologic/ Lymphatic: Denies: Easy Bruising, Easy Bleeding VTE Information - Inpt Only VTE Present on Admission: No VTE Mechan Device Prophylaxis: Knee High LEONIDES Hose VTE Pharm Prophylaxis ordered?: Yes Patient Problems: Active and Suspected Problems (Last Updated 01/15/20 @ 09:[address] Abbie Cardenas MD) Debility (Acute) Shortness of breath (Acute) Acute delirium (Acute) Acute respiratory failure (Acute) Moraxella catarrhalis pneumonia (Acute) Bacteremia (Acute) - Physical Exam Vitals/I&O's: Vital Signs Temp Pulse Resp BP Pulse Ox 97.9 F 58 L 16 125/65 H 92 01/25/20 12:37 01/25/20 12:37 01/25/20 12:37 01/25/20 12:37 01/25/20 12:37 Oxygen Flow Rate (L/min) 6 Oxygen Delivery Method Nasal Cannula Weight: 96.162 kg Body Mass Index (BMI) 33.3 General: Alert, Oriented x3, Cooperative HEENT: Atraumatic, PERRLA, EOMI, Normocephalic Neck: Supple, No JVD, Negative Carotid Bruits Lungs: Clear to auscultation, Normal air movement Cardiovascular: Regular rate, No murmurs Abdomen: Bowel Sounds Present, Soft, Non Tender Extremities: No edema, Capillary Refill Less than 3 Seconds Skin: No rashes, No breakdown Musculoskeletal: No Tenderness to Palpation of Joints or Extremities Neurological: Cranial nerves II-XII grossly intact Psych/Mental Status: Normal Affect, Appropriate Laboratory Results 01/25/20 13:03: POC Glucose 215 H Current Medications Aspirin (Ecotrin) 81 mg PO DAILYCM [facility] Atorvastatin Calcium (Lipitor) 20 mg PO QHS [facility] Bisacodyl (Dulcolax) 10 mg RECTAL DAILY PRN PRN Reason: CONSTIPATION Calamine/Phenol (Calmoseptine Ointment) 1 applic TOPICAL TID [facility]; Protocol Duloxetine HCl (Cymbalta) 30 mg PO DAILY [facility] Emollient Ointment (Eucerin Intensive Repair) 1 applic TOPICAL BID@0600,2200 [facility]; Protocol Furosemide (Lasix) 40 mg PO DAILY [facility] Glimepiride (Amaryl) 8 mg PO DAILYCM [facility] Insulin Glargine (Lantus (Bkc)) 20 units SC DAILY [facility] Lisinopril (Zestril) 20 mg PO DAILY [facility] Metformin HCl (Glucophage) 1,000 mg PO DAILYCM [facility] Non-Formulary Medication (Budesonide/Formoterol 160/4.5) 2 puff IN BID [facility] Non-Formulary Medication (Ipratropium/Albuterol Respimat) 2 puff IN Q4H PRN PRN PRN Reason: SOB &/OR WHEEZING Nutritional Formula (Lactose Free) (Glucerna Shake) 120 ml PO TIDCM [facility] Nystatin (Mycostatin Powder) 1 applic TOPICAL TID [facility]; Protocol Potassium Chloride (K-Dur) 40 meq PO BIDCM [facility] Stop: 01/26/20 08:01 Prednisone () 0 mg PO DAILY@0800 [facility]; Taper Stop: 02/07/20 07:59 Sodium Biphosphate/Sodium Phosphate (Fleet Enema) 1 bottle RECTAL DAILY PRN PRN Reason: Constipation Tuberculin PPD (Tubersol, Aplisol, Ppd) 5 tu ID X1 ONE Stop: 01/26/20 10:01 Tuberculin PPD (Tubersol, Aplisol, Ppd) 5 tu ID X1 ONE Stop: 02/02/20 10:01 Assessment/Plan All Active Problems (Last Updated 01/15/20 @ 09:[address] Abbie Cardenas MD) Debility (Acute) Shortness of breath (Acute) Acute delirium (Acute) Acute respiratory failure (Acute) Moraxella catarrhalis pneumonia (Acute) Bacteremia (Acute) Chronic respiratory failure (Acute) Severe sepsis (Acute) 74 year old male with below past medical history significant for oxygen dependent COPD, hospitalized for acute respiratory failure requiring intubation due to Moraxella pneumonia, complicated by Prevotella bacteremia, severe sepsis, admitted to TCU with debility, here for rehabilitation, strengthening, prior to discharge home with family. * Debility - PT/OT. * Pain - Tylenol 1000MG Q6H PRN pain (1-10). * Bowel - Miralax 17GM daily, Senna/colace 1 tablet BID, Dulcolax [place] daily PRN. * Adult immunization - Administer Prevnar 13, Pneumovax 23, Fluzone as appropriate. * DVT prophylaxis - Lovenox 40MG sc daily. * CV prophylaxis - Aspirin 81MG daily. * Hyperlipidemia - Atorvastatin 20MG QHS. * COPD - Symbicort 160/4.5MG (or formulary equivalent) 2 puffs BID, Combivent (or formulary equivalent) 2 puffs Q4H PRN, Prednisone taper. * Depression - Duloxetine 30MG daily, stable chronic fci use, GDR not recommended. * Skin irritation - Eucerin BID, Calmoseptine TID. * Edema - Lasix 40MG daily. * Diabetes Mellitus II - Metformin 1000MG daily, Glimepiride 8MG daily, Lantus 20 units sc daily. * Nutrition - Glucerna 120ML TIDCM. * Hypertension - Lisinopril 20MG daily. * Tinea Corporis - Nystatin powder TID. * Hypokalemia - KCL 40MEQ BID x 2 doses, monitor CMP.
[2020-01-25] MEDS: Glucerna Shake 120 ML LIQUID PO (16:07)
[2020-01-25] MEDS: Senna/Docusate Sodium 1 Tablet PO (17:27)
[2020-01-25 22:06] LABS: Bedside Glucose 223 mg/dL (70-110)
[2020-01-25] MEDS: Atorvastatin Calcium 20 MG Tablet PO (22:20)
[2020-01-25] MEDS: Menthol/Lanolin/Calamine/Znox 113 GM Tube 1 APPLIC TOPICAL (22:20)
[2020-01-25] MEDS: Nystatin Powder 15gm Bottle 1 APPLIC TOPICAL (22:51)
[2020-01-25 23:20] LABS: Bedside Glucose 232 mg/dL (70-110)
[2020-01-26 04:14] VITALS: BP 121/63; PULSE 76; RESP 20; TEMP 36.4; O2SAT 93
[2020-01-26] MEDS: Menthol/Lanolin/Calamine/Znox 113 GM Tube 1 APPLIC TOPICAL ×3 (04:17→20:27)
[2020-01-26] MEDS: Nystatin Powder 15gm Bottle 1 APPLIC TOPICAL ×3 (04:17→20:26)
[2020-01-26] MEDS: Fluticasone/Salmeterol 232-14 Inhaler 1 PUFF IH ×2 (04:18→18:01)
[2020-01-26] MEDS: Polyethylene Glycol 3350 17 GM PACKET PO (04:18)
[2020-01-26] MEDS: Umeclidinium Bromide Inhaler 1 PUFF IH (04:18)
[2020-01-26] MEDS: Senna/Docusate Sodium 1 Tablet PO ×2 (04:21→18:01)
[2020-01-26] MEDS: Furosemide 40 MG Tablet PO (04:21)
[2020-01-26] MEDS: DULoxetine Hcl 30 MG Capsule PO (04:22)
[2020-01-26] MEDS: Lisinopril 20 MG Tablet PO (04:22)
[2020-01-26] MEDS: Enoxaparin 40 MG/0.4 ML Syringe SC (04:22)
[2020-01-26 05:39] LABS: Absolute Lymphocyte Count 4.05 X10^3/uL (0.83-4.51); Absolute Neutrophil Count 9.3 X10^3/uL (2.0-7.7); Basophil# 0.01 X10^3/uL; Basophil% 0.1 % (0-1); Eosinophil# 0.07 X10^3/uL; Eosinophils% 0.5 % (0-5); Hematocrit 41.3 % (40-54); Lymphocyte # 4.05 X10^3/ul (4.0); Lymphocyte % 28.1 % (19-41); Mean Corp Hgb Conc 29.1 g/dL (32-36); Mean Corpuscular Hgb 24.4 pg (27.0-32.0); Mean Corpuscular Volume 84.1 fL (80-94); Mean Platelet Vol. 9.7 fl (6.2-12.0); Monocyte# 0.94 X10^3/uL; Monocyte% 6.5 % (0-10); NRBC Flagged by Analyzer 0 % (0-5); Neutrophil # 9.27 X10^3/uL (2.7-7.7); Neutrophil % 64.3 % (47-70); POSITIVE MORPHOLOGY YES; Platelet Count 253 K/mm3 (150-450); RBC Distribution Width CV 21.3 % (11.6-14.6); RBC Distribution Width SD 64.9 fl (35.1-43.9); Red Blood Count 4.91 M/mm3 (4.6-6.2); White Blood Count 14.4 K/mm3 (4.4-11.0)
[2020-01-26 05:45] LABS: Differential Indicated SCAN CRITERIA MET
[2020-01-26 05:56] LABS: Anion Gap 3 (5-15); BUN 36 mg/dL (7-18); BUN/Creat Ratio 32.1 RATIO (10-20); Calcium,Total 8.4 mg/dL (8.5-10.1); Chloride 101 mmol/L (98-107); Creatinine, Serum 1.12 mg/dL (0.70-1.30); EST Glomerular Filtration Rate 68 mL/min (>60); Est Glom Filt Rate - Afr Amer 82 mL/min (>60); Estimated Creatinine Clearance 52.22 ml/min; Glucose 156 mg/dL (74-106); Potassium 3.6 mmol/L (3.5-5.1); Sodium Level 141 mmol/L (136-145)
[2020-01-26 06:14] LABS: Differential Comment SCANNED; Ovalocyte RARE
[2020-01-26 06:25] LABS: Bedside Glucose 168 mg/dL (70-110)
[2020-01-26] MEDS: Insulin Lispro 100 UNIT/ML INSULN.PEN SC ×3 (08:44→18:01)
[2020-01-26] MEDS: Aspirin E.C. 81 MG Tablet PO (08:45)
[2020-01-26] MEDS: Glimepiride 4 MG Tablet 8 MG PO (08:45)
[2020-01-26] MEDS: metFORMIN HCl 500 MG Tablet 1000 MG PO (08:45)
[2020-01-26] MEDS: predniSONE 20 MG Tablet 10 MG PO (08:45)
[2020-01-26] MEDS: Glucerna Shake 120 ML LIQUID PO ×3 (08:47→17:59)
[2020-01-26 10:50] LABS: Bedside Glucose 174 mg/dL (70-110)
[2020-01-26] MEDS: Tuberculin,Purif.prot.deriv. 50 TU/ML Vial 5 ML ID (11:18)
[2020-01-26 11:20] VITALS: O2SAT 94
--- NOTE | 2020-01-26 12:23 | NURSING ---
Dr Casiano called to update Dr Darden that cancer cells were noted in pleural fluid after thoracentesis. lung primary, nonsmall cell. Dr Darden notified, new order to make appt with [facility]. Called and unable to schedule until final pathology results are back.
--- NOTE | 2020-01-26 13:30 | NURSING ---
[facility] returned call and scheduled appt for 11am tomorrow. spoke with daughter & , they will go with him to appt.
[2020-01-26 14:56] VITALS: BP 99/54; PULSE 56; RESP 25; TEMP 36.4; O2SAT 93
[2020-01-26 16:31] LABS: Bedside Glucose 190 mg/dL (70-110)
[2020-01-26] MEDS: Atorvastatin Calcium 20 MG Tablet PO (20:21)
[2020-01-26 21:15] LABS: Bedside Glucose 199 mg/dL (70-110)
[2020-01-27 03:40] VITALS: BP 142/65; PULSE 74; RESP 18; TEMP 36.7; O2SAT 95
[2020-01-27] MEDS: Fluticasone/Salmeterol 232-14 Inhaler 1 PUFF IH ×2 (05:12→17:36)
[2020-01-27] MEDS: Lisinopril 20 MG Tablet PO (05:13)
[2020-01-27] MEDS: Enoxaparin 40 MG/0.4 ML Syringe SC (05:13)
[2020-01-27] MEDS: Polyethylene Glycol 3350 17 GM PACKET PO (05:13)
[2020-01-27] MEDS: Furosemide 40 MG Tablet PO (05:13)
[2020-01-27] MEDS: Senna/Docusate Sodium 1 Tablet PO ×2 (05:13→17:35)
[2020-01-27] MEDS: DULoxetine Hcl 30 MG Capsule PO (05:14)
[2020-01-27] MEDS: Nystatin Powder 15gm Bottle 1 APPLIC TOPICAL ×3 (05:14→19:54)
[2020-01-27] MEDS: Umeclidinium Bromide Inhaler 1 PUFF IH (05:15)
[2020-01-27] MEDS: Menthol/Lanolin/Calamine/Znox 113 GM Tube 1 APPLIC TOPICAL ×3 (05:15→19:54)
[2020-01-27 06:26] LABS: Bedside Glucose 82 mg/dL (70-110)
[2020-01-27 07:01] VITALS: O2SAT 92
[2020-01-27] MEDS: Aspirin E.C. 81 MG Tablet PO (08:23)
[2020-01-27] MEDS: Glimepiride 4 MG Tablet 8 MG PO (08:23)
[2020-01-27] MEDS: Glucerna Shake 120 ML LIQUID PO ×3 (08:23→17:39)
[2020-01-27] MEDS: metFORMIN HCl 500 MG Tablet 1000 MG PO (08:24)
[2020-01-27] MEDS: predniSONE 20 MG Tablet 10 MG PO (08:24)
--- NOTE | 2020-01-27 12:00 | NURSING ---
pt returned from oncology appt, daughter verified that no new orders or testing until [facility] checks [facility]. Daughter will let us know when pt has another appt or testing
[2020-01-27] MEDS: Insulin Lispro 100 UNIT/ML INSULN.PEN SC ×2 (12:40→17:40)
[2020-01-27 12:45] LABS: Bedside Glucose 189 mg/dL (70-110)
[2020-01-27 13:44] VITALS: BP 123/53; PULSE 85; RESP 20; TEMP 36.4; O2SAT 93
--- NOTE | 2020-01-27 13:58 | PHA.CONS_ITS ---
<Radha Gallegos M - Last Filed: 01/27/20 13:58> Progress Note - Pharmacy Subjective: [] Objective: Allergies No Known Allergies Allergy (Verified 01/27/20 11:07) Current Medications Generic Name Dose Route Start Last Admin Trade Name Freq PRN Reason Stop Dose Admin Albuterol Sulfate 2 puff 01/25/20 19:23 Ventolin Hfa (Sp) INHALATION Q4H PRN PRN SOB/WEEZING Aspirin 81 mg 01/26/20 08:00 01/27/20 08:23 Ecotrin PO 81 mg DAILYCM [facility] Administration Atorvastatin Calcium 20 mg 01/25/20 22:00 01/26/20 20:21 Lipitor PO 20 mg QHS [facility] Administration Bisacodyl 10 mg 01/25/20 13:21 Dulcolax RECTAL DAILY PRN CONSTIPATION Calamine/Phenol 1 applic 01/25/20 22:00 01/27/20 12:41 Calmoseptine Ointment TOPICAL 1 applicatio TID [facility] Administration Protocol Duloxetine HCl 30 mg 01/26/20 06:00 01/27/20 05:14 Cymbalta PO 30 mg DAILY [facility] Administration Emollient Ointment 1 applic 01/25/20 22:00 01/27/20 05:14 Eucerin Intensive Repair TOPICAL 1 applicatio BID@0600,2200 [facility] Administration Protocol Enoxaparin Sodium 40 mg 01/26/20 06:00 01/27/20 05:13 Lovenox SC 40 mg DAILY@0600 [facility] Administration Furosemide 40 mg 01/26/20 06:00 01/27/20 05:13 Lasix PO 40 mg DAILY [facility] Administration Glimepiride 8 mg 01/26/20 08:00 01/27/20 08:23 Amaryl PO 8 mg DAILYCM [facility] Administration Insulin Glargine 15 units 01/28/20 06:00 Lantus (Bkc) SC DAILY [facility] Insulin Human Lispro 0 unit 01/26/20 06:45 01/27/20 12:40 Humalog Kwikpen (Bk) SC 2 units TIDAC [facility] Administration Protocol Lisinopril 20 mg 01/26/20 06:00 01/27/20 05:13 Zestril PO 20 mg DAILY [facility] Administration Metformin HCl 1,000 mg 01/26/20 08:00 01/27/20 08:24 Glucophage PO 1,000 mg DAILYCM [facility] Administration Nutritional Formula (Lactose Free) 120 ml 01/25/20 17:45 01/27/20 12:40 Glucerna Shake PO 120 ml TIDCM [facility] Administration Nystatin 1 applic 01/25/20 22:00 01/27/20 12:40 Mycostatin Powder TOPICAL 1 applicatio TID [facility] Administration Protocol Polyethylene Glycol 17 gm 01/26/20 06:00 01/27/20 05:13 Miralax PO 17 gm DAILY [facility] Administration Prednisone 40 mg 01/26/20 08:00 01/27/20 08:24 PO 02/07/20 07:59 40 mg DAILY@0800 [facility] Administration Taper Fluticasone/Salmeterol 1 puff 01/26/20 06:00 01/27/20 05:12 Fluticasone-Salmeterol 232-14 IH 1 puff Q12 [facility] Administration Senna/Docusate Sodium 1 tablet 01/25/20 18:00 01/27/20 05:13 Senokot-S, Alexus-Colace PO 1 tablet BID [facility] Administration Tuberculin PPD 5 tu 02/02/20 10:00 Tubersol, Aplisol, Ppd ID 02/02/20 10:01 X1 ONE Umeclidinium Shirley 1 puff 01/26/20 06:00 01/27/20 05:15 Incruse Ellipta Inhaler IH 1 puff DAILY [facility] Administration Problem List (Last Reviewed 01/27/20 @ 11:07 by Chastity Moran) Debility (Acute) Shortness of breath (Acute) Acute delirium (Acute) Acute respiratory failure (Acute) Moraxella catarrhalis pneumonia (Acute) Bacteremia (Acute) Diabetes mellitus (Chronic) Hypertension (Chronic) Depression (Chronic) Edema (Chronic) Neuropathic pain (Chronic) Non-small cell cancer of left lung (Acute) Malignant pleural effusion (Acute) Vital Signs Temp Pulse Resp BP Pulse Ox 97.6 F L 85 20 H 123/53 H 93 01/27/20 13:44 01/27/20 13:44 01/27/20 13:44 01/27/20 13:44 01/27/20 13:44 Oxygen Flow Rate (L/min) 6 Oxygen Delivery Method Nasal Cannula Weight: 97.579 kg Body Mass Index (BMI) 33.3 Sodium 141 mmol/L (136-145) 01/26/20 05:20 Potassium 3.6 mmol/L (3.5-5.1) 01/26/20 05:20 Chloride 101 mmol/L (98-107) 01/26/20 05:20 Carbon Dioxide 37.0 mmol/L (21.0-32.0) H 01/26/20 05:20 Anion Gap 3 (5-15) L 01/26/20 05:20 BUN 36 mg/dL (7-18) H 01/26/20 05:20 Creatinine 1.12 mg/dL (0.70-1.30) 01/26/20 05:20 Est GFR (MDRD) Af Amer 82 mL/min (>60) 01/26/20 05:20 Est GFR (MDRD) Non-Af 68 mL/min (>60) 01/26/20 05:20 BUN/Creatinine Ratio 32.1 RATIO (10-20) H 01/26/20 05:20 Glucose 156 mg/dL (74-106) H 01/26/20 05:20 Assessment/Plan: 1. COPD - Fluticasone/Salmeterol 232-14 1 puff inhalation every 12 hours, Albuterol Sulfate 2 puff inhalation as needed for shortness of breath, Prednisone taper through 02/06/2020. Please continue to monitor for signs/symptoms of uncontrolled shortness of breath, oxygen saturation (90%), rate of breathing (14), and oxygen use (01/24/20 using 6 liters of oxygen per nasal cannula), blood sugar d/t hx of DM2. 2. CV/DVT prophylaxis/HTN/Edema - Aspirin 81mg by mouth daily, Lovenox 40mg subcutaneous daily, Lisinopril 20mg by mouth daily, Lasic 40mg by mouth daily. Please continue to monitor for signs/symptoms of cardiovascular distress, DVT, fluid retention, blood pressure (121/63 mmHg 01/26/20), and pulse (76 BPM 01/26/20). 3. Diabetes Mellitus II - Metformin 1,000 mg by mouth daily, Glimepiride 8mg by mouth daily, Lantus 20 units subcutaneous daily, Humalog Kwikpen (insulin Lispro) based on sliding scale insulin High-Med Dosing. Please continue to monitor for signs/symptoms of hyper- or hypo-glycemia and blood sugars (156 mg/dL 01/26/20 at 5:20 AM), renal function. 4. Pain - Tylenol 1gm by mouth every 6 hours as needed for pain (1-10). Please continue to monitor for signs/symptoms of uncontrolled pain. *5. Hyperlipidemia - Atorvastatin 20mg by mouth daily at bedtime. Please consider ordering a new lipid panel, most recent panel on record from 06/21/17, thank you. 6.Hypokalemia - KCl 40 mEq by mouth twice a day for 2 doses. Please continue to monitor CMP and electrolyte levels. (Potassium level 01/26/2020 at 5:20 3.6 mmol/L) Psychotropic Medications: 7. 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 GDR not recommended per admitting history & physical. Please continue to monitor for adequate management of depression. Unnecessary Medications: None Bowel Regimen: Bowel Regimen: Miralax 17gm by mouth daily, Senna/Colace 1 tablet by mouth twice a day, Dulcolax 10mg inserted rectally as needed for constipation. Please continue to monitor for signs and symptoms of diarrhea/constipation. Date of Note:: 01/27/20 - Provider Comments Provider responsibility: Provider responsible to enter orders to implement recommendations <Vincent Darden Chi - Last Filed: 01/27/20 17:29> Progress Note - Pharmacy Subjective: [] Objective: Allergies No Known Allergies Allergy (Verified 01/27/20 11:07) Current Medications Generic Name Dose Route Start Last Admin Trade Name Freq PRN Reason Stop Dose Admin Albuterol Sulfate 2 puff 01/25/20 19:23 Ventolin Hfa (Sp) INHALATION Q4H PRN PRN SOB/WEEZING Aspirin 81 mg 01/26/20 08:00 01/27/20 08:23 Ecotrin PO 81 mg DAILYCM [facility] Administration Atorvastatin Calcium 20 mg 01/25/20 22:00 01/26/20 20:21 Lipitor PO 20 mg QHS [facility] Administration Bisacodyl 10 mg 01/25/20 13:21 Dulcolax RECTAL DAILY PRN CONSTIPATION Calamine/Phenol 1 applic 01/25/20 22:00 01/27/20 12:41 Calmoseptine Ointment TOPICAL 1 applicatio TID [facility] Administration Protocol Duloxetine HCl 30 mg 01/26/20 06:00 01/27/20 05:14 Cymbalta PO 30 mg DAILY [facility] Administration Emollient Ointment 1 applic 01/25/20 22:00 01/27/20 05:14 Eucerin Intensive Repair TOPICAL 1 applicatio BID@0600,2200 [facility] Administration Protocol Enoxaparin Sodium 40 mg 01/26/20 06:00 01/27/20 05:13 Lovenox SC 40 mg DAILY@0600 [facility] Administration Furosemide 40 mg 01/26/20 06:00 01/27/20 05:13 Lasix PO 40 mg DAILY [facility] Administration Glimepiride 8 mg 01/26/20 08:00 01/27/20 08:23 Amaryl PO 8 mg DAILYCM [facility] Administration Insulin Glargine 15 units 01/28/20 06:00 Lantus ([facility]) SC DAILY [facility] Insulin Human Lispro 0 unit 01/26/20 06:45 01/27/20 12:40 Humalog Kwikpen ([facility]) SC 2 units TIDAC [facility] Administration Protocol Lisinopril 20 mg 01/26/20 06:00 01/27/20 05:13 Zestril PO 20 mg DAILY [facility] Administration Metformin HCl 1,000 mg 01/26/20 08:00 01/27/20 08:24 Glucophage PO 1,000 mg DAILYCM [facility] Administration Nutritional Formula (Lactose Free) 120 ml 01/25/20 17:45 01/27/20 12:40 Glucerna Shake PO 120 ml TIDCM [facility] Administration Nystatin 1 applic 01/25/20 22:00 01/27/20 12:40 Mycostatin Powder TOPICAL 1 applicatio TID [facility] Administration Protocol Polyethylene Glycol 17 gm 01/26/20 06:00 01/27/20 05:13 Miralax PO 17 gm DAILY [facility] Administration Prednisone 40 mg 01/26/20 08:00 01/27/20 08:24 PO 02/07/20 07:59 40 mg DAILY@0800 [facility] Administration Taper Fluticasone/Salmeterol 1 puff 01/26/20 06:00 01/27/20 05:12 Fluticasone-Salmeterol 232-14 1 puff Q12 [facility] Administration Senna/Docusate Sodium 1 tablet 01/25/20 18:00 01/27/20 05:13 Senokot-S, Alexus-Colace PO 1 tablet BID [facility] Administration Tuberculin PPD 5 tu 02/02/20 10:00 Tubersol, Aplisol, Ppd ID 02/02/20 10:01 X1 ONE Umeclidinium Shirley 1 puff 01/26/20 06:00 01/27/20 05:15 Incruse Ellipta Inhaler IH 1 puff DAILY [facility] Administration Problem List (Last Reviewed 01/27/20 @ 11:07 by Chastity Moran) Debility (Acute) Shortness of breath (Acute) Acute delirium (Acute) Acute respiratory failure (Acute) Moraxella catarrhalis pneumonia (Acute) Bacteremia (Acute) Diabetes mellitus (Chronic) Hypertension (Chronic) Depression (Chronic) Edema (Chronic) Neuropathic pain (Chronic) Non-small cell cancer of left lung (Acute) Malignant pleural effusion (Acute) Vital Signs Temp Pulse Resp BP Pulse Ox 97.6 F L 85 20 H 123/53 H 93 01/27/20 13:44 01/27/20 13:44 01/27/20 13:44 01/27/20 13:44 01/27/20 13:44 Oxygen Flow Rate (L/min) 6 Oxygen Delivery Method Nasal Cannula Weight: 97.579 kg Body Mass Index (BMI) 33.3 Sodium 141 mmol/L (136-145) 01/26/20 05:20 Potassium 3.6 mmol/L (3.5-5.1) 01/26/20 05:20 Chloride 101 mmol/L (98-107) 01/26/20 05:20 Carbon Dioxide 37.0 mmol/L (21.0-32.0) H 01/26/20 05:20 Anion Gap 3 (5-15) L 01/26/20 05:20 BUN 36 mg/dL (7-18) H 01/26/20 05:20 Creatinine 1.12 mg/dL (0.70-1.30) 01/26/20 05:20 Est GFR (MDRD) Af Amer 82 mL/min (>60) 01/26/20 05:20 Est GFR (MDRD) Non-Af 68 mL/min (>60) 01/26/20 05:20 BUN/Creatinine Ratio 32.1 RATIO (10-20) H 09/14/20 05:20 Glucose 156 mg/dL (74-106) H 01/26/20 05:20 Assessment/Plan: Psychotropic Medications: Unnecessary Medications: Bowel Regimen: - Provider Comments Provider responsibility: Provider responsible to enter orders to implement recommendations Provider Comments to Recommendations by Pharmacy: Agree
--- NOTE | 2020-01-27 16:13 | CASEMGMT ---
Social Work Discussed code status with pt. Pt confirmed full code. MOLST form completed and placed in chart. Pt reported he received lung cancer dx at [facility] this date. Provided emotional support and supportive listening. Pt stated he is doing well with the news, it was not surprising to him since he smoked for many years. Pt stated he does not know what he wants to do treatment at this time. Offered assistance. He does not want to be in TCU for long. Explained care plan meeting is the following day and will discuss therapy progress and DC plans. Will continue to follow. Krystal Reagan, [employer]
[2020-01-27 17:01] LABS: Bedside Glucose 192 mg/dL (70-110)
--- NOTE | 2020-01-27 18:56 | CON.PCM_ITS ---
Problem List (1) Tinea unguium Status: Chronic (2) Shortness of breath Status: Acute (3) Diabetes mellitus Status: Chronic (4) Edema Status: Chronic (5) Neuropathic pain Status: Chronic Reason for Consult Date of Consultation: 01/27/20 Reason for Consultation: painful elongated toenails History of Present Illness: The patient is a 74 year old M who was admitted to TCU for rehabilitation, strengthening, prior to discharge home with family. Patient was admitted from [facility] where he was admitted for SOB and also found to have acute confusion and bacteremia. He was admitted to the ICU for further care. Upon stabilization of medical conditions patient was DC to TCU for continued care and therapy until he is improved for DC home with family. Past Medical History Past Medical History (Chronic Problems): Chronic Problems (Last Reviewed 01/27/20 @ 11:07 by Chastity Moran) Diabetes mellitus (Chronic) Hypertension (Chronic) Depression (Chronic) Edema (Chronic) Neuropathic pain (Chronic) Tinea unguium (Chronic) COPD (chronic obstructive pulmonary disease) (Chronic) Type 2 diabetes mellitus (Chronic) Hyperlipidemia (Chronic) Squamous cell carcinoma in situ (Chronic) Skin lesion of face (Chronic) Medical History: Medical History (Last Reviewed 01/27/20 @ 11:07 by Chastity Moran) Squamous cell carcinoma in situ (Chronic) D09.9 History of arthritis Z87.39 Sleep apnea G47.30 diabetes hypercholesterolemia COPD (chronic obstructive pulmonary disease) J44.9 HTN (hypertension) I10 Personal history of colonic polyps (Inactive) Z86.010 Allergies No Known Allergies Allergy (Verified 01/27/20 11:07) Home Medications: Ambulatory Orders Medication Instructions Recorded aspirin 81 mg tablet,delayed 81 mg PO QDAY 12/31/17 release atorvastatin 20 mg tablet 20 mg PO QDAY 12/31/17 metformin 500 mg tablet 1,000 mg PO DAILY tab 11/28/18 Budesonide/Formoterol 160/4.5 2 puff IN BID 12/26/18 [Symbicort 160/4.5 Mcg Inhaler (SP)] Ipratropium/Albuterol Respimat 2 puff IN Q4H PRN PRN 12/26/18 [Combivent Respimat Inhal [place]] Duloxetine HCl 30 mg PO DAILY 01/15/20 Glimepiride [Amaryl] 8 mg PO DAILY 01/15/20 Lisinopril [Zestril] 20 mg PO DAILY 01/15/20 Furosemide [Lasix] 40 mg PO DAILY 01/25/20 Insulin Glargine [Lantus SoloStar 20 units SUBCUT DAILY 01/25/20 Pen] Insulin Lispro [Humalog KwikPen] See Protocol SUBCUT ACHS 01/25/20 insuln.pen Potassium Chloride [K-Dur] 40 meq PO BIDCM 01/25/20 predniSONE tablet See Taper PO DAILY@0800 01/25/20 Surgical History: Surgical History (Last Reviewed 01/27/20 @ 11:07 by Chastity Moran) H/O colonoscopy Z98.890 2013 H/O esophagogastroduodenoscopy Z98.890 2013 H/O hemorrhoidectomy Z98.890 S/P appendectomy Z90.49 s/p skin lesion removal right ear 12/30 with donor site rue Surgical History: appendectomy, - - Hemorrhoidectomy, Skin lesion. Psychiatric History: Depression Lives: With Family Smoking Status: Former smoker Tobacco Use: Non-smoker Alcohol: None Drugs: None - *Family History Maternal Family History: Family History (Last Reviewed 01/27/20 @ 11:07 by Chastity Moran) Mother Breast cancer Father Heart disease History Items: No pertinent history Paternal Family History: Family History (Last Reviewed 01/27/20 @ 11:07 by Chastity Moran) Mother Breast cancer Father Heart disease History Items: No pertinent history Review of Systems Constitutional: Denies: Chills, Fatigue HEENT: Denies: Head Aches Cardiovascular: Reports: Edema Respiratory: Reports: Shortness of breath upon exertion Gastrointestinal: Denies: Constipation, Diarrhea, Nausea, Vomiting Musculoskeletal: Denies: Foot Pain, Leg Pain Skin: Reports: Dryness, - - elongated, thickend toenails Neurological: Reports: Numbness - buring as well in feet and hands, Tingling Patient Problems: Active and Suspected Problems (Last Reviewed 01/27/20 @ 11:07 by Chastity Moran) Debility (Acute) Shortness of breath (Acute) Acute delirium (Acute) Acute respiratory failure (Acute) Moraxella catarrhalis pneumonia (Acute) Bacteremia (Acute) Non-small cell cancer of left lung (Acute) Malignant pleural effusion (Acute) Subjective: Patient was seen in bedside chair today. He was admitted for sepsis. Patient noted to be on oxygen. Patient reports not having his nails cut since June the clinic at the [facility] got shut down. Patient states that his nails are really long and thick and he needs help trimming them. Patient also relates having neuropaty with numbness and burning and tingling to his feet and hands that he equates to being in the [place] war. Patient wears compression socks to help control the swelling in his feet. Patient denies N/F/V/C/CP/SOB. Patient states he would like to follow up with me in office at [facility] for continued nail care. - Physical Exam Vitals/I&O's: Vital Signs Temp Pulse Resp BP Pulse Ox 97.6 F L 85 20 H 123/53 H 93 01/27/20 13:44 01/27/20 13:44 01/27/20 13:44 01/27/20 13:44 01/27/20 13:44 Oxygen Flow Rate (L/min) 6 Oxygen Delivery Method Nasal Cannula Weight: 97.579 kg Body Mass Index (BMI) 33.3 Intake and Output for Last 24 Hours 01/25/20 01/26/20 01/27/20 23:59 23:59 23:59 Intake Total 0 / 0 600 / 600 480 / 480 Balance 0 / 0 600 / 600 480 / 480 General: Alert, Oriented x3 HEENT: Atraumatic Lungs: Short of Breath Cardiovascular: Regular rate Extremities: Diminished Peripheral Pulses - absent left DP, palpable right DP and bilateral PT pulses, Edema Skin: - - No ulcerations noted. Toenails are elongated, thickening, dystrophic, subungual debris, 1,2,3,4,5 bilateral Musculoskeletal: No Tenderness to Palpation of Joints or Extremities, - - 5/5 muscle strength to all lower extremeity muscle groups Lymphatic: - - edema noted to bilateral lower extremities with patient wearing compression socks Neurological: Neuro grossly intact - some decrease in epicritic sensation noted to feet Psych/Mental Status: Normal Affect, Appropriate Laboratory Results 01/26/20 21:11: POC Glucose 199 H 01/27/20 06:19: POC Glucose 82 01/27/20 12:38: POC Glucose 189 H 01/27/20 16:53: POC Glucose 192 H Current Medications Albuterol Sulfate (Ventolin Hfa (Sp)) 2 puff INHALATION Q4H PRN PRN PRN Reason: SOB/WEEZING [facility] Admin: 01/27/20 08:23 Dose: 81 mg Documented by: Atorvastatin Calcium (Lipitor) 20 mg PO QHS [facility] Last Admin: 01/26/20 20:21 Dose: 20 mg Documented by: Bisacodyl (Dulcolax) 10 mg RECTAL DAILY PRN PRN Reason: CONSTIPATION Calamine/Phenol (Calmoseptine Ointment) 1 applic TOPICAL TID [facility]; Protocol Last Admin: 01/27/20 12:41 Dose: 1 applicatio Documented by: Duloxetine HCl (Cymbalta) 30 mg PO DAILY [facility] Last Admin: 01/27/20 05:14 Dose: 30 mg Documented by: Emollient Ointment (Eucerin Intensive Repair) 1 applic TOPICAL BID@0600,2200 [facility]; Protocol Last Admin: 01/27/20 05:14 Dose: 1 applicatio Documented by: Enoxaparin Sodium (Lovenox) 40 mg SC DAILY@0600 [facility] Last Admin: 01/27/20 05:13 Dose: 40 mg Documented by: Furosemide (Lasix) 40 mg PO DAILY [facility] Last Admin: 01/27/20 05:13 Dose: 40 mg Documented by: Glimepir[facility] (Amaryl) [facility] Last Admin: 01/27/20 08:23 Dose: 8 mg Documented by: Insulin Glargine (Lantus (Bkc)) 15 units SC DAILY [facility] Insulin Human Lispro (Humalog Kwikpen (Bkc)) 0 unit SC TIDAC [facility]; Protocol Last Admin: 01/27/20 17:40 Dose: 2 units Documented by: Lisinopril (Zestril) 20 mg PO DAILY [facility] Last Admin: 01/27/20 05:13 Dose: 20 mg Documented by: Metformin HCl (Glucophage) [facility] Last Admin: 01/27/20 08:24 Dose: 1,000 mg Documented by: Nutritional Formula (Lactose Free) (Glucerna Shake) 120 ml PO TIDCM [facility] Last Admin: 01/27/20 17:39 Dose: 120 ml Documented by: Nystatin (Mycostatin Powder) 1 applic TOPICAL TID [facility]; Protocol Last Admin: 01/27/20 12:40 Dose: 1 applicatio Documented by: Polyethylene Glycol (Miralax) 17 gm PO DAILY [facility] Last Admin: 01/27/20 05:13 Dose: 17 gm Documented by: Prednisone () 40 mg PO DAILY@0800 [facility]; Taper Stop: 02/07/20 07:59 Last Admin: 01/27/20 08:24 Dose: 40 mg Documented by: Fluticasone/Salmeterol (Fluticasone-Salmeterol 232-14) 1 puff IH Q12 [facility] Last Admin: 01/27/20 17:36 Dose: 1 puff Documented by: Senna/Docusate Sodium (Senokot-S, Alexus-Colace) 1 tablet PO BID [facility] Last Admin: 01/27/20 17:35 Dose: 1 tablet Documented by: Tuberculin PPD (Tubersol, Aplisol, Ppd) 5 tu ID X1 ONE Stop: 02/02/20 10:01 Umeclidinium [place] (Incruse Ellipta Inhaler) 1 puff IH DAILY [facility] Last Admin: 01/27/20 05:15 Dose: 1 puff Documented by: Assessment/Plan All Active Problems (Last Reviewed 01/27/20 @ 11:07 by Chastity Moran) Debility (Acute) Shortness of breath (Acute) Acute delirium (Acute) Acute respiratory failure (Acute) Moraxella catarrhalis pneumonia (Acute) Bacteremia (Acute) Non-small cell cancer of left lung (Acute) Malignant pleural effusion (Acute) Chronic respiratory failure (Acute) Severe sepsis (Acute) tinea pedis edema bilateral lower extremities neuropathy feet and hands shortness of breath bacteremia sepsis Patient seen and examined Discussed continiuing his compression socks for edema management toenails: Reviewed condition and treatment options. We will proceed with palliative care, as well as monitoring. Foot care and footgear has been discussed. Debrided/reduced bulk from 1-5 bilateral manually with a nail nipper with turning of the nail nipper to reduce bulk/height of nails. This was done without incident. This was medically necessary due to the finding of neuropathy and needed to be carried out by a medical professional. Patient expressed desire to follow up in office for continued nail care as his previous office at the [facility] was moved. Patient to follow up in 2-3 months for continued care.
[2020-01-27] MEDS: Atorvastatin Calcium 20 MG Tablet PO (19:55)
[2020-01-27 21:40] LABS: Bedside Glucose 214 mg/dL (70-110)
[2020-01-28 01:33] VITALS: BP 147/79; PULSE 70; RESP 18; TEMP 36.8; O2SAT 97
[2020-01-28] MEDS: Polyethylene Glycol 3350 17 GM PACKET PO (05:07)
[2020-01-28] MEDS: Umeclidinium Bromide Inhaler 1 PUFF IH (05:07)
[2020-01-28] MEDS: Furosemide 40 MG Tablet PO (05:08)
[2020-01-28] MEDS: DULoxetine Hcl 30 MG Capsule PO (05:08)
[2020-01-28] MEDS: Senna/Docusate Sodium 1 Tablet PO (05:08)
[2020-01-28] MEDS: Lisinopril 20 MG Tablet PO (05:08)
[2020-01-28] MEDS: Nystatin Powder 15gm Bottle 1 APPLIC TOPICAL ×3 (05:08→20:05)
[2020-01-28] MEDS: Menthol/Lanolin/Calamine/Znox 113 GM Tube 1 APPLIC TOPICAL ×3 (05:09→20:04)
[2020-01-28] MEDS: Fluticasone/Salmeterol 232-14 Inhaler 1 PUFF IH ×2 (05:12→18:06)
[2020-01-28] MEDS: Enoxaparin 40 MG/0.4 ML Syringe SC (05:12)
[2020-01-28 06:35] LABS: Bedside Glucose 93 mg/dL (70-110)
[2020-01-28] MEDS: Glimepiride 4 MG Tablet 8 MG PO (08:37)
[2020-01-28] MEDS: metFORMIN HCl 500 MG Tablet 1000 MG PO (08:37)
[2020-01-28] MEDS: Aspirin E.C. 81 MG Tablet PO (08:37)
[2020-01-28] MEDS: Glucerna Shake 120 ML LIQUID PO (08:37)
[2020-01-28] MEDS: predniSONE 20 MG Tablet 10 MG PO (08:37)
[2020-01-28 10:01] VITALS: O2SAT 91
[2020-01-28 11:16] LABS: Bedside Glucose 215 mg/dL (70-110)
[2020-01-28] MEDS: Insulin Lispro 100 UNIT/ML INSULN.PEN SC ×2 (12:06→18:03)
--- NOTE | 2020-01-28 12:48 | CASEMGMT ---
Social Work IDT met with patient, and daughter via conference call for care plan meeting. Discussed patient's progress in therapy. Pt is [facility] for bed mobility, CGA for transfers, ambulating 60 ft with FWW at CGA, SBA for toilet transfers, [facility] for tasks, UE ADLS is set up, [facility] for LE ADLS. Pt is on a carb controlled diet, receiving Glucerna but weight has increased and pt is agreeable to DC supplement. Pt intake is 75-100%. Pt is out of isolation 02/07. Explained [employer] insurance with [employer] 02/03 and continued stay is not guaranteed. Pt still unsure of route to take with new lung cancer dx. Dtr is assisting. SW offered assistance. [facility] and aides. Pt to notify SW hen ready to DC. Will continue to work ion strengthening. Will continue to follow. Krystal Reagan, WASTEWATER TREATMENT OPERATOR AERONAUTICAL DESIGN ENGINEER
[2020-01-28 13:59] VITALS: BP 127/58; PULSE 78; RESP 18; TEMP 36.5; O2SAT 94
[2020-01-28 18:00] LABS: Bedside Glucose 227 mg/dL (70-110)
[2020-01-28 18:46] LABS: Bedside Glucose 209 mg/dL (70-110)
[2020-01-28] MEDS: Atorvastatin Calcium 20 MG Tablet PO (20:01)
[2020-01-28 21:30] LABS: Bedside Glucose 190 mg/dL (70-110)
[2020-01-29 05:00] VITALS: BP 119/69; PULSE 71; RESP 20; TEMP 36.7; O2SAT 93
[2020-01-29] MEDS: Menthol/Lanolin/Calamine/Znox 113 GM Tube 1 APPLIC TOPICAL ×3 (05:02→21:52)
[2020-01-29] MEDS: Lisinopril 20 MG Tablet PO (05:03)
[2020-01-29] MEDS: Furosemide 40 MG Tablet PO (05:03)
[2020-01-29] MEDS: Enoxaparin 40 MG/0.4 ML Syringe SC (05:03)
[2020-01-29] MEDS: DULoxetine Hcl 30 MG Capsule PO (05:03)
[2020-01-29] MEDS: Umeclidinium Bromide Inhaler 1 PUFF IH (05:05)
[2020-01-29] MEDS: Fluticasone/Salmeterol 232-14 Inhaler 1 PUFF IH ×2 (05:05→17:12)
[2020-01-29] MEDS: Nystatin Powder 15gm Bottle 1 APPLIC TOPICAL ×3 (05:11→21:52)
[2020-01-29 07:16] VITALS: O2SAT 93
[2020-01-29] MEDS: Glucerna Shake 120 ML LIQUID PO ×3 (08:01→17:12)
[2020-01-29] MEDS: predniSONE 20 MG Tablet 10 MG PO (08:04)
[2020-01-29] MEDS: metFORMIN HCl 500 MG Tablet 1000 MG PO (08:04)
[2020-01-29] MEDS: Glimepiride 4 MG Tablet 8 MG PO (08:05)
[2020-01-29] MEDS: Aspirin E.C. 81 MG Tablet PO (08:05)
[2020-01-29 09:51] LABS: Anion Gap 5 (5-15); BUN 27 mg/dL (7-18); BUN/Creat Ratio 25.5 RATIO (10-20); Calcium,Total 8.7 mg/dL (8.5-10.1); Chloride 104 mmol/L (98-107); Creatinine, Serum 1.06 mg/dL (0.70-1.30); EST Glomerular Filtration Rate 73 mL/min (>60); Est Glom Filt Rate - Afr Amer 88 mL/min (>60); Estimated Creatinine Clearance 55.17 ml/min; Glucose 170 mg/dL (74-106); Potassium 4.1 mmol/L (3.5-5.1); Sodium Level 140 mmol/L (136-145)
[2020-01-29 10:45] LABS: Bedside Glucose 68 mg/dL (70-110)
[2020-01-29 11:01] LABS: Bedside Glucose 229 mg/dL (70-110)
[2020-01-29] MEDS: Insulin Lispro 100 UNIT/ML INSULN.PEN SC ×2 (11:35→17:13)
--- NOTE | 2020-01-29 13:39 | MDS.RN ---
Pain interview for MEHREEN 02/01/20 completed.
[2020-01-29 14:13] VITALS: BP 125/54; PULSE 96; RESP 20; TEMP 36.7; O2SAT 94
[2020-01-29 16:35] LABS: Bedside Glucose 345 mg/dL (70-110)
[2020-01-29 21:31] LABS: Bedside Glucose 393 mg/dL (70-110)
[2020-01-29] MEDS: Atorvastatin Calcium 20 MG Tablet PO (21:53)
[2020-01-30 03:39] VITALS: BP 125/47; PULSE 72; RESP 20; TEMP 35.9; O2SAT 93
[2020-01-30] MEDS: Fluticasone/Salmeterol 232-14 Inhaler 1 PUFF IH ×2 (05:51→17:15)
[2020-01-30] MEDS: DULoxetine Hcl 30 MG Capsule PO (05:52)
[2020-01-30] MEDS: Lisinopril 20 MG Tablet PO (05:52)
[2020-01-30] MEDS: Furosemide 40 MG Tablet PO (05:52)
[2020-01-30] MEDS: Umeclidinium Bromide Inhaler 1 PUFF IH (05:52)
[2020-01-30] MEDS: Enoxaparin 40 MG/0.4 ML Syringe SC (05:55)
[2020-01-30] MEDS: Nystatin Powder 15gm Bottle 1 APPLIC TOPICAL ×2 (05:57→17:16)
[2020-01-30] MEDS: Menthol/Lanolin/Calamine/Znox 113 GM Tube 1 APPLIC TOPICAL ×2 (05:58→17:15)
[2020-01-30 06:26] LABS: Bedside Glucose 127 mg/dL (70-110)
[2020-01-30 07:11] VITALS: O2SAT 91
[2020-01-30] MEDS: Glimepiride 4 MG Tablet 8 MG PO (08:21)
[2020-01-30] MEDS: Glucerna Shake 120 ML LIQUID PO ×3 (08:21→17:15)
[2020-01-30] MEDS: Aspirin E.C. 81 MG Tablet PO (08:22)
[2020-01-30] MEDS: predniSONE 20 MG Tablet 10 MG PO (08:22)
[2020-01-30] MEDS: metFORMIN HCl 500 MG Tablet 1000 MG PO (08:22)
[2020-01-30 11:11] LABS: Bedside Glucose 224 mg/dL (70-110)
[2020-01-30] MEDS: Insulin Lispro 100 UNIT/ML INSULN.PEN SC ×2 (11:39→17:16)
--- NOTE | 2020-01-30 13:31 | CASEMGMT ---
Social Work BIMS and PHQ-9 completed for MDS assessment. Krystal Reagan, EXERCISE INSTRUCTOR BUCKRAM SEWER
[2020-01-30 14:37] VITALS: BP 140/61; PULSE 90; RESP 20; TEMP 36.5; O2SAT 91
[2020-01-30 16:56] LABS: Bedside Glucose 320 mg/dL (70-110)
[2020-01-30] MEDS: Atorvastatin Calcium 20 MG Tablet PO (20:15)
[2020-01-30 23:41] LABS: Bedside Glucose 148 mg/dL (70-110)
[2020-01-31 04:33] VITALS: BP 152/77; PULSE 80; RESP 20; TEMP 36.3; O2SAT 92
[2020-01-31] MEDS: Menthol/Lanolin/Calamine/Znox 113 GM Tube 1 APPLIC TOPICAL ×2 (04:37→16:36)
[2020-01-31] MEDS: Nystatin Powder 15gm Bottle 1 APPLIC TOPICAL ×2 (04:38→18:24)
[2020-01-31] MEDS: Fluticasone/Salmeterol 232-14 Inhaler 1 PUFF IH ×2 (04:38→18:24)
[2020-01-31] MEDS: Umeclidinium Bromide Inhaler 1 PUFF IH (04:39)
[2020-01-31] MEDS: Polyethylene Glycol 3350 17 GM PACKET PO (04:41)
[2020-01-31] MEDS: Enoxaparin 40 MG/0.4 ML Syringe SC (04:42)
[2020-01-31] MEDS: DULoxetine Hcl 30 MG Capsule PO (04:42)
[2020-01-31] MEDS: Lisinopril 20 MG Tablet PO (04:42)
[2020-01-31] MEDS: Furosemide 40 MG Tablet PO (04:42)
[2020-01-31] MEDS: Senna/Docusate Sodium 1 Tablet PO (04:42)
[2020-01-31 06:56] VITALS: O2SAT 92
[2020-01-31 07:11] LABS: Bedside Glucose 83 mg/dL (70-110)
[2020-01-31] MEDS: Glimepiride 4 MG Tablet 8 MG PO (08:49)
[2020-01-31] MEDS: metFORMIN HCl 500 MG Tablet 1000 MG PO (08:49)
[2020-01-31] MEDS: Aspirin E.C. 81 MG Tablet PO (08:49)
[2020-01-31] MEDS: Glucerna Shake 120 ML LIQUID PO ×3 (08:49→16:36)
[2020-01-31] MEDS: predniSONE 20 MG Tablet 10 MG PO (08:49)
[2020-01-31 11:21] LABS: Bedside Glucose 225 mg/dL (70-110)
[2020-01-31] MEDS: Insulin Lispro 100 UNIT/ML INSULN.PEN SC ×2 (12:19→18:25)
[2020-01-31 16:38] VITALS: BP 150/72; PULSE 83; RESP 20; TEMP 36.7; O2SAT 95
[2020-01-31 17:55] LABS: Bedside Glucose 375 mg/dL (70-110)
[2020-01-31] MEDS: Atorvastatin Calcium 20 MG Tablet PO (20:11)
[2020-01-31 21:46] LABS: Bedside Glucose 363 mg/dL (70-110)
[2020-02-01 03:50] VITALS: BP 99/62; PULSE 97; RESP 22; TEMP 35.9; O2SAT 92
[2020-02-01] MEDS: Fluticasone/Salmeterol 232-14 Inhaler 1 PUFF IH ×2 (05:36→17:51)
[2020-02-01] MEDS: Senna/Docusate Sodium 1 Tablet PO (05:37)
[2020-02-01] MEDS: Furosemide 40 MG Tablet PO (05:37)
[2020-02-01] MEDS: DULoxetine Hcl 30 MG Capsule PO (05:37)
[2020-02-01] MEDS: Lisinopril 20 MG Tablet PO (05:37)
[2020-02-01] MEDS: Menthol/Lanolin/Calamine/Znox 113 GM Tube 1 APPLIC TOPICAL ×2 (05:37→17:52)
[2020-02-01] MEDS: Enoxaparin 40 MG/0.4 ML Syringe SC (05:37)
[2020-02-01] MEDS: Umeclidinium Bromide Inhaler 1 PUFF IH (05:37)
[2020-02-01] MEDS: Nystatin Powder 15gm Bottle 1 APPLIC TOPICAL ×2 (05:38→17:52)
[2020-02-01 06:45] LABS: Bedside Glucose 100 mg/dL (70-110)
[2020-02-01 07:08] VITALS: O2SAT 96
[2020-02-01] MEDS: Glucerna Shake 120 ML LIQUID PO ×3 (08:47→17:51)
[2020-02-01] MEDS: Aspirin E.C. 81 MG Tablet PO (08:48)
[2020-02-01] MEDS: metFORMIN HCl 500 MG Tablet 1000 MG PO (08:48)
[2020-02-01] MEDS: Glimepiride 4 MG Tablet 8 MG PO (08:48)
[2020-02-01] MEDS: predniSONE 20 MG Tablet 10 MG PO (08:48)
[2020-02-01 11:15] LABS: Bedside Glucose 200 mg/dL (70-110)
[2020-02-01] MEDS: Insulin Lispro 100 UNIT/ML INSULN.PEN SC ×2 (13:08→17:53)
[2020-02-01 16:07] VITALS: BP 134/68; PULSE 91; RESP 18; TEMP 36.9; O2SAT 95
[2020-02-01 16:35] LABS: Bedside Glucose 304 mg/dL (70-110)
[2020-02-01] MEDS: Atorvastatin Calcium 20 MG Tablet PO (19:58)
[2020-02-01 20:08] VITALS: PULSE 73; O2SAT 97
[2020-02-01 21:31] LABS: Bedside Glucose 270 mg/dL (70-110)
[2020-02-02] MEDS: Senna/Docusate Sodium 1 Tablet PO (05:21)
[2020-02-02] MEDS: Furosemide 40 MG Tablet PO (05:21)
[2020-02-02] MEDS: Nystatin Powder 15gm Bottle 1 APPLIC TOPICAL ×2 (05:21→15:16)
[2020-02-02] MEDS: DULoxetine Hcl 30 MG Capsule PO (05:21)
[2020-02-02] MEDS: Enoxaparin 40 MG/0.4 ML Syringe SC (05:21)
[2020-02-02] MEDS: Lisinopril 20 MG Tablet PO (05:21)
[2020-02-02] MEDS: Menthol/Lanolin/Calamine/Znox 113 GM Tube 1 APPLIC TOPICAL ×2 (05:22→15:16)
[2020-02-02] MEDS: Umeclidinium Bromide Inhaler 1 PUFF IH (05:26)
[2020-02-02] MEDS: Fluticasone/Salmeterol 232-14 Inhaler 1 PUFF IH ×2 (05:26→17:48)
[2020-02-02 05:40] LABS: Absolute Lymphocyte Count 5.53 X10^3/uL (0.83-4.51); Absolute Neutrophil Count 10.1 X10^3/uL (2.0-7.7); Basophil# 0.03 X10^3/uL; Basophil% 0.2 % (0-1); Eosinophils% 0.6 % (0-5); Hematocrit 41.1 % (40-54); Hemoglobin 12.4 g/dL (13.0-16.5); Lymphocyte # 5.53 X10^3/ul (4.0); Lymphocyte % 33.5 % (19-41); Mean Corp Hgb Conc 30.2 g/dL (32-36); Mean Corpuscular Hgb 25.3 pg (27.0-32.0); Mean Corpuscular Volume 83.7 fL (80-94); Mean Platelet Vol. 11.7 fl (6.2-12.0); Monocyte# 0.69 X10^3/uL; Monocyte% 4.2 % (0-10); NRBC Flagged by Analyzer 0 % (0-5); Neutrophil # 10.08 X10^3/uL (2.7-7.7); Neutrophil % 61.1 % (47-70); POSITIVE DIFFERENTIAL YES; POSITIVE MORPHOLOGY YES; Platelet Count 247 K/mm3 (150-450); RBC Distribution Width CV 21.1 % (11.6-14.6); Red Blood Count 4.91 M/mm3 (4.6-6.2); White Blood Count 16.5 K/mm3 (4.4-11.0)
[2020-02-02 05:58] LABS: BUN 22 mg/dL (7-18); Creatinine, Serum 0.91 mg/dL (0.70-1.30); EST Glomerular Filtration Rate 87 mL/min (>60); Estimated Creatinine Clearance 64.27 ml/min; Glucose 102 mg/dL (74-106)
[2020-02-02 05:59] LABS: Anion Gap 2 (5-15); BUN/Creat Ratio 24.3 RATIO (10-20); Calcium,Total 9.1 mg/dL (8.5-10.1); Chloride 101 mmol/L (98-107); Est Glom Filt Rate - Afr Amer 105 mL/min (>60); Sodium Level 139 mmol/L (136-145)
[2020-02-02 06:09] LABS: Differential Indicated SCAN CRITERIA MET
[2020-02-02 06:16] LABS: Bedside Glucose 99 mg/dL (70-110)
[2020-02-02 06:35] VITALS: O2SAT 94
[2020-02-02 06:38] VITALS: BP 154/79; PULSE 69; RESP 18; TEMP 36.3; O2SAT 97
[2020-02-02 06:45] LABS: Differential Comment SCANNED; Ovalocyte 1+
[2020-02-02] MEDS: Aspirin E.C. 81 MG Tablet PO (08:38)
[2020-02-02] MEDS: metFORMIN HCl 500 MG Tablet 1000 MG PO (08:38)
[2020-02-02] MEDS: Glimepiride 4 MG Tablet 8 MG PO (08:38)
[2020-02-02] MEDS: predniSONE 20 MG Tablet 10 MG PO (08:38)
[2020-02-02] MEDS: Glucerna Shake 120 ML LIQUID PO (08:40)
[2020-02-02 10:56] LABS: Bedside Glucose 275 mg/dL (70-110)
[2020-02-02] MEDS: Insulin Lispro 100 UNIT/ML INSULN.PEN SC ×2 (11:18→17:47)
[2020-02-02 14:00] VITALS: BP 113/60; PULSE 89; RESP 18; TEMP 36.3; O2SAT 95
[2020-02-02] MEDS: Tuberculin,Purif.prot.deriv. 50 TU/ML Vial 5 ML ID (15:04)
[2020-02-02 17:01] LABS: Bedside Glucose 237 mg/dL (70-110)
[2020-02-02] MEDS: Atorvastatin Calcium 20 MG Tablet PO (21:24)
[2020-02-02 21:35] LABS: Bedside Glucose 304 mg/dL (70-110)
[2020-02-03 05:14] VITALS: BP 140/73; PULSE 82; RESP 20; TEMP 36.4; O2SAT 93
[2020-02-03] MEDS: DULoxetine Hcl 30 MG Capsule PO (05:15)
[2020-02-03] MEDS: Enoxaparin 40 MG/0.4 ML Syringe SC (05:15)
[2020-02-03] MEDS: Lisinopril 20 MG Tablet PO (05:15)
[2020-02-03] MEDS: Furosemide 40 MG Tablet PO (05:15)
[2020-02-03] MEDS: Fluticasone/Salmeterol 232-14 Inhaler 1 PUFF IH ×2 (05:16→17:39)
[2020-02-03] MEDS: Menthol/Lanolin/Calamine/Znox 113 GM Tube 1 APPLIC TOPICAL ×2 (05:16→17:39)
[2020-02-03] MEDS: Umeclidinium Bromide Inhaler 1 PUFF IH (05:16)
[2020-02-03] MEDS: Nystatin Powder 15gm Bottle 1 APPLIC TOPICAL ×2 (05:17→17:40)
[2020-02-03 06:21] LABS: Bedside Glucose 117 mg/dL (70-110)
[2020-02-03 06:28] VITALS: O2SAT 95
[2020-02-03] MEDS: metFORMIN HCl 500 MG Tablet 1000 MG PO (09:23)
[2020-02-03] MEDS: Glimepiride 4 MG Tablet 8 MG PO (09:23)
[2020-02-03] MEDS: Aspirin E.C. 81 MG Tablet PO (09:24)
[2020-02-03] MEDS: predniSONE 20 MG Tablet 10 MG PO (09:24)
[2020-02-03 11:10] LABS: Bedside Glucose 271 mg/dL (70-110)
[2020-02-03] MEDS: Insulin Lispro 100 UNIT/ML INSULN.PEN SC ×2 (11:29→17:38)
--- NOTE | 2020-02-03 14:39 | CASEMGMT ---
Social Work Spoke with pt's daughter to f/u on DC plans. Explained insurance update is 02/03 and continued stay is not guaranteed. Dtr states the [facility] has delivered the hospital bed and shower chair. Contacted Serafin CARD at [facility] to f/u on FWW aides. FWW would not arrive prior to DC. [facility] cannot secure aides in pt's area currently. Updated her with pt level of assistance for her to continue to search for aides. Dtr okay with that since will be home with pt to assist with toileting tasks. Pt needs modA for bathing and TESFAYE Paz Inquired about Palliative Care. Dtr has not discussed with pt. SW to f/u with pt and his wishes. Will continue to follow. Krystal Reagan MSW FUNERAL PLANNER
[2020-02-03 15:14] VITALS: BP 133/69; PULSE 100; RESP 20; TEMP 36.3; O2SAT 90
[2020-02-03 16:46] LABS: Bedside Glucose 257 mg/dL (70-110)
[2020-02-03] MEDS: Atorvastatin Calcium 20 MG Tablet PO (19:36)
[2020-02-03 21:40] LABS: Bedside Glucose 259 mg/dL (70-110)
[2020-02-04 04:55] VITALS: BP 127/71; PULSE 92; RESP 20; TEMP 36.2; O2SAT 92
[2020-02-04] MEDS: Furosemide 40 MG Tablet PO (04:57)
[2020-02-04] MEDS: Lisinopril 20 MG Tablet PO (04:57)
[2020-02-04] MEDS: Enoxaparin 40 MG/0.4 ML Syringe SC (04:57)
[2020-02-04] MEDS: Umeclidinium Bromide Inhaler 1 PUFF IH (04:57)
[2020-02-04] MEDS: DULoxetine Hcl 30 MG Capsule PO (04:57)
[2020-02-04] MEDS: Fluticasone/Salmeterol 232-14 Inhaler 1 PUFF IH ×2 (04:57→17:22)
[2020-02-04] MEDS: Menthol/Lanolin/Calamine/Znox 113 GM Tube 1 APPLIC TOPICAL ×2 (04:57→17:24)
[2020-02-04] MEDS: Nystatin Powder 15gm Bottle 1 APPLIC TOPICAL ×2 (05:02→17:24)
[2020-02-04 06:20] LABS: Bedside Glucose 108 mg/dL (70-110)
[2020-02-04] MEDS: Glimepiride 4 MG Tablet 8 MG PO (08:39)
[2020-02-04] MEDS: Aspirin E.C. 81 MG Tablet PO (08:40)
[2020-02-04] MEDS: predniSONE 20 MG Tablet 10 MG PO (08:40)
[2020-02-04] MEDS: metFORMIN HCl 500 MG Tablet 1000 MG PO (08:40)
[2020-02-04 10:46] LABS: Bedside Glucose 282 mg/dL (70-110)
[2020-02-04] MEDS: Insulin Lispro 100 UNIT/ML INSULN.PEN SC ×2 (12:30→17:21)
--- NOTE | 2020-02-04 13:38 | MDS.RN ---
Information for the mds was obtained from review of the clinical record, interview of resident, staff, and direct observation of resident's care.
[2020-02-04 15:49] VITALS: BP 125/60; PULSE 88; RESP 20; TEMP 36.6; O2SAT 96
[2020-02-04 17:06] LABS: Bedside Glucose 241 mg/dL (70-110)
[2020-02-04] MEDS: Atorvastatin Calcium 20 MG Tablet PO (19:36)
[2020-02-04 21:40] LABS: Bedside Glucose 171 mg/dL (70-110)
[2020-02-05 01:43] VITALS: BP 128/68; PULSE 105; RESP 22; TEMP 36.8; O2SAT 88
[2020-02-05 01:44] VITALS: O2SAT 92
[2020-02-05] MEDS: Albuterol Sulfate 8 gm Inhaler (60 puffs) 2 PUFF INHALATION (03:54)
[2020-02-05] MEDS: Fluticasone/Salmeterol 232-14 Inhaler 1 PUFF IH (04:21)
[2020-02-05] MEDS: Umeclidinium Bromide Inhaler 1 PUFF IH (04:21)
[2020-02-05] MEDS: Furosemide 40 MG Tablet PO (04:23)
[2020-02-05] MEDS: DULoxetine Hcl 30 MG Capsule PO (04:23)
[2020-02-05] MEDS: Enoxaparin 40 MG/0.4 ML Syringe SC (04:23)
[2020-02-05] MEDS: Lisinopril 20 MG Tablet PO (04:23)
[2020-02-05] MEDS: Menthol/Lanolin/Calamine/Znox 113 GM Tube 1 APPLIC TOPICAL (04:26)
[2020-02-05] MEDS: Nystatin Powder 15gm Bottle 1 APPLIC TOPICAL (04:27)
[2020-02-05 05:00] VITALS: BP 113/67; PULSE 160; RESP 30; O2SAT 85
[2020-02-05 05:05] LABS: Bedside Glucose 292 mg/dL (70-110)
--- NOTE | 2020-02-05 05:05 | RAD_ITS ---
STUDY: X-RAY CHEST REASON FOR EXAM: Male, 74 years old. SOB TECHNIQUE: Single AP portable view of the chest. COMPARISON: January 20, 2020 chest x-ray FINDINGS: There is a focal patchy right upper lobe infiltrate. There is opacification of the left lower lobe. The left cardiac border is obscured on this study. Normal mediastinum and arash. Normal visualized pulmonary arteries. There is atherosclerotic tortuosity of the aortic arch and descending thoracic aorta. There are diffuse degenerative changes of the visualized thoracic spine. There is degenerative osteoarthritis of the bilateral shoulders. There is no demonstrated abnormality of the visualized soft tissue structures of the upper abdomen. RAD/Chest 1 View (Portable) IMPRESSION: Dense opacification of the left lower lobe suspicious for consolidation/pneumonia possible accompanying effusion. Right upper lobe opacity suspicious for pneumonia. Electronically Signed: Ruthy Rivera MD at 5:31 EDT Tel , Service support ,
--- NOTE | 2020-02-05 05:14 | NURSING ---
Addendum entered by Tanisha Walter 02/05/20 05:21: 0520- Attempted to call pt's Ayesha with no answer/no voicemail available. Son-in-law Jake then updated on change in status and pt transport to ER. Original Note: 0500- Pt noted to have increased SOB and very shaky/weak when ambulating from restroom to recliner. HR sustained 150s-170s. SaO2 76% on 5L O2 (cannula dislodged slightly from nares). O2 applied correctly and increased to 6L. SaO2 up to 82%. Dr. Darden notified and RT up to evaluate. SaO2 89% on 15L NRB mask and decision made to send pt to emergency room. report called to ER.
--- NOTE | 2020-02-05 20:43 | PCM.DC ---
You will use the following diet at home:: No restrictions, Regular Your food should be the consistency of: Regular Your liquids should be the consistency of: Regular/Thin Discharge Activity: Return to Normal Activity, Use Walker Weight Bearing Status: Weight bearing as tolerated Call your doctor if you observe: Fever of 101 or Higher, Inability to urinate, Inability to have a bowel movement, Shortness of breath, Chest pain, Uncontrolled pain Allergies/Adverse Reactions: Allergies No Known Allergies Allergy (Verified 02/05/20 07:32) Medications to take at Discharge aspirin 81 mg tablet,delayed release 81 mg PO QDAY 12/31/17 atorvastatin 20 mg tablet 20 mg PO QDAY 12/31/17 metformin 500 mg tablet 1,000 mg PO DAILY tab 11/28/18 Budesonide/Formoterol 160/4.5 [Symbicort 160/4.5 Mcg Inhaler (SP)] 2 puff IN BID 12/26/18 Ipratropium/Albuterol Respimat [Combivent Respimat Inhal [place]] 2 puff IN Q4H PRN PRN 12/26/18 Duloxetine HCl 30 mg PO DAILY 01/15/20 Glimepiride [Amaryl] 8 mg PO DAILY 01/15/20 Lisinopril [Zestril] 20 mg PO DAILY 01/15/20 Furosemide [Lasix] 40 mg PO DAILY 01/25/20 Insulin Glargine [Lantus SoloStar Pen] 20 units SUBCUT DAILY 01/25/20 Insulin Lispro [Humalog KwikPen] See Protocol SUBCUT ACHS insuln.pen 01/25/20 Potassium Chloride [K-Dur] 40 meq PO BIDCM 01/25/20 predniSONE tablet See Taper PO DAILY@0800 01/25/20 Primary Care Physician: Petar Finnegan MD [Primary Care Provider] - Please follow up with your Primary Care Physician in: N/A. Test Results: Test results from this visit will be discussed in further detail at your follow-up appointment, if applicable. Please Follow Up With: Petar Finnegan MD When: N/A. Please Follow Up With: Brannon Sanford DO When: N/A. Please Follow Up With: Deniz Jett MD When: N/A. Please Follow Up With: Dr Coppola When: N/A. Proposed Discharge Date: 02/05/20
--- NOTE | 2020-02-05 20:45 | DS.PCM_ITS ---
Discharge Date and Diagnosis Date of Admission: 01/25/20 Date of Discharge: 02/05/20 - Secondary Discharge Diagnosis Chronic Problems: Chronic Problems (Last Reviewed 01/27/20 @ 11:07 by Chastity Moran) Acute delirium (Chronic) Acute respiratory failure (Chronic) Moraxella catarrhalis pneumonia (Chronic) Bacteremia (Chronic) Diabetes mellitus (Chronic) Hypertension (Chronic) Depression (Chronic) Edema (Chronic) Neuropathic pain (Chronic) Tinea unguium (Chronic) COPD (chronic obstructive pulmonary disease) (Chronic) Type 2 diabetes mellitus (Chronic) Hyperlipidemia (Chronic) Squamous cell carcinoma in situ (Chronic) Skin lesion of face (Chronic) Hospital Course and Treatment Operations: None Procedures: None Summary of Care Provided: The patient is a 74 year old Male with below past medical history significant for oxygen dependent COPD, hospitalized for acute respiratory failure requiring intubation due to Moraxella pneumonia, complicated by Prevotella bacteremia, severe sepsis, admitted to TCU with debility, here for rehabilitation, strengthening, prior to discharge home with family. 02/05/20 Resident abruptly tachycardia, hypoxic, weak. Rapid Response Team ivan addison. Discharge to [facility] Emergency Department for evaluation, admission to hospital. - Physical Exam Vitals/I&O's: Vital Signs Temp Pulse Resp BP Pulse Ox 98.2 F 160 H 30 H 113/67 85 02/05/20 01:43 02/05/20 05:00 02/05/20 05:00 02/05/20 05:00 02/05/20 05:00 Oxygen Flow Rate (L/min) 6 Oxygen Delivery Method Nasal Cannula Weight: 97.477 kg Body Mass Index (BMI) 33.3 Intake and Output for Last 24 Hours 02/03/20 02/04/20 02/05/20 23:59 23:59 23:59 Intake Total 600 / 600 1080 / 1080 Balance 600 / 600 1080 / 1080 Laboratory Results 02/04/20 21:33: POC Glucose 171 H 02/05/20 04:59: POC Glucose 292 H Discharge Diet: No Restrictions Discharge Activity: Return to Normal Activity, Use Walker Weight Bearing Status: Weight bearing as tolerated Call your doctor if you observe: Fever of 101 or Higher, Inability to urinate, Inability to have a bowel movement, Shortness of breath, Chest pain, Uncontrolled pain Home Medications: Medications to take at Discharge aspirin 81 mg tablet,delayed release 81 mg PO QDAY 12/31/17 atorvastatin 20 mg tablet 20 mg PO QDAY 12/31/17 metformin 500 mg tablet 1,000 mg PO DAILY tab 11/28/18 Budesonide/Formoterol 160/4.5 [Symbicort 160/4.5 Mcg Inhaler (SP)] 2 puff IN BID 12/26/18 Ipratropium/Albuterol Respimat [Combivent Respimat Inhal [place]] 2 puff IN Q4H PRN PRN 12/26/18 Duloxetine HCl 30 mg PO DAILY 01/15/20 Glimepiride [Amaryl] 8 mg PO DAILY 01/15/20 Lisinopril [Zestril] 20 mg PO DAILY 01/15/20 Furosemide [Lasix] 40 mg PO DAILY 01/25/20 Insulin Glargine [Lantus SoloStar Pen] 20 units SUBCUT DAILY 01/25/20 Insulin Lispro [Humalog KwikPen] See Protocol SUBCUT ACHS insuln.pen 01/25/20 Potassium Chloride [K-Dur] 40 meq PO BIDCM 01/25/20 predniSONE tablet See Taper PO DAILY@0800 01/25/20 Primary Care Physician: Petar Finnegan MD [Primary Care Provider] - Please follow up with your Primary Care Physician in: N/A. Please Follow Up With: Petar Finnegan MD When: N/A. Please Follow Up With: Brannon Sanford DO When: N/A. Please Follow Up With: Deniz Jett MD When: N/A. Please Follow Up With: Dr Coppola When: N/A. Disposition: Acute care Hospital Minutes spent on discharge:: 30 Patient Condition:: Critical Medical Necessity - Tobacco Use Smoking Status: Former smoker Tobacco Use: Non-smoker Meaningful Use Info Meaningful Use Diagnoses (Choose all that apply): None applicable
== END 2020-02-05 06:54 | disposition short-term general hospital (02) | DRG 190 ==
PROVIDERS: Admitting Provider Family Medicine Geriatric Medicine; PCP Family Medicine; Visit Provider Family Medicine Geriatric Medicine
DX: J44.0 Chronic obstructive pulmonary disease with (acute) lower respiratory infection (principal); J15.6 Pneumonia due to other Gram-negative bacteria; J96.10 Chronic respiratory failure, unspecified whether with hypoxia or hypercapnia; Z23 Encounter for immunization; E87.6 Hypokalemia; E11.9 Type 2 diabetes mellitus without complications; F32.9 Major depressive disorder, single episode, unspecified; E78.5 Hyperlipidemia, unspecified; I10 Essential (primary) hypertension; B35.4 Tinea corporis; G47.30 Sleep apnea, unspecified; Z87.891 Personal history of nicotine dependence; B35.1 Tinea unguium; Z99.81 Dependence on supplemental oxygen
CPT/HCPCS: 36415; 71045; 80048; 82962; 85025; 87635; 97110; 97116; 97162; 97166; 97530; 97535; C9803; 90686; U0003

== ENCOUNTER 2020-02-05 05:22 | Inpatient (IN) | payer OTHER, MEDICARE, SELFPAY ==
[2020-01-27 11:10] VITALS: BMI 34.7
[2020-02-05] VITALS (55 sets, daily range): BP systolic 42–156; BP diastolic 20–96; PULSE 70–168; RESP 12–32; TEMP 37.1–39.1; O2SAT 64–98; BMI 22.2; BMI 35.5
--- NOTE | 2020-02-05 | FLU_PTH ---
PATIENT: ALEJANDRO LEONARD LOC: [facility] U#:[id number] AGE/SX: 74/M ROOM: ICU01 RE02/05/[address]: Dr. Petar Guerrero DO : 1945 BED: 1 DIS: 02/05/2020 SPEC #: [id number] RECD: 02/05/20 08:32 STATUS: WILLIAM KYLE #: [id number] KAREN: 02/05/20 00:[address]: Brannon Sanford DEPT: CYTOLOGY RECD BY: Mandy March ENTERED: 02/06/20 07:17 SP TYPE: Fluid OTHR DR: MD Dr. Petar Levy DO Tissues: THORACIC FLUID Procedures: Special Stain Group II Surgery Specimen Level IV Cytospin Fluid HEADER OPERATION: Thoracentesis PRE-OP DIAGNOSIS: Respiratory failure, pneumonia TISSUE SUBMITTED: Thoracentesis fluid for cytology DIAGNOSIS CYTOLOGY Thoracentesis fluid for cytology (cytospin and cell block): Positive for malignant cells consistent with metastatic carcinoma. See comment. AM:william 02/09/20 COMMENT Immunohistochemistry ([id number]) favors the lung primary. Reference is made to the patient's previous cytology ([id number]) in which malignant cells consistent with lung primary were identified. CYTOLOGY STUDY Slides are reviewed. CYTOLOGY GROSS Received is 1000 ml of katerina cloudy fluid labeled with the patient's name and and designated per the requisition as thoracentesis. Submitted for cytology preparation including cell block. / william 02/06/20 TC:0 CPT: 30774, 88891
--- NOTE | 2020-02-05 | IMM_PTH ---
PATIENT: ALEJANDRO LEONARD LOC: ICU U#:[id number] AGE/SX: 74/M ROOM: ICU01 RE02/05/[address]: Dr. Petra Guerrero DO : 1945 BED: 1 DIS: 02/05/2020 SPEC #: [id number] RECD: 02/09/20 10:28 STATUS: WILLIAM REQ #: [id number] KAREN: 02/05/20 00:[address]: Brannon Sanford DEPT: IMMUNOHISTOCHEMISTRY RECD BY: Aleksandra Meyers ENTERED: 02/09/20 10:31 SP TYPE: IMMUNO OTHR DR: MD Dr. Petar Levy DO Tissues: THORACIC FLUID Procedures: NAPSIN A (add) CK7 (add) KI-67 (add) P53 (add) P40 (add) TTF1 (initial) PHYSICIAN & INSTITUTION [place] [address] SPECIMEN INFORMATION: Tissue Source: Thoracentesis fluid Clinical Info: Respiratory failure, pneumonia Specimen Number: [id number] CPT code: 88228, 12322 x5 METHODOLOGY: Deparaffinized sections of prefer/formalin-fixed tissue or PAP/DQ stained slides are incubated with monoclonal/polyclonal antibodies/oligonucleotide probes. Localization is made via biotin free immunoperoxidase method. Appropriate controls are performed and reacted as expected. Results on target cell population are indicated in the following table: RESULTS: ANTIBODY / CLONE RESULT TTF-1 (8G7G3/1) positive Napsin A (Rabbit Polyclonal) positive CK7 (OV-TL12/30) positive P53 (DO-7) positive, 85% Ki-67 (30-9) positive, 80% P40 (BC28) negative These tests were developed and their performance characteristics determined by [facility]. They may not have been cleared or approved by the U.S. Food and Drug Administration. The FDA has determined that such clearance or approval is not necessary. The above immunohistochemical/dualISH markers are ordered and reviewed by the Pathologist. INTERPRETATION: Thoracentesis fluid: Metastatic adenocarcinoma consistent with lung primary. AM:william 02/10/20
--- NOTE | 2020-02-05 05:24 | ED.DCSUM_ITS ---
History of Present Illness Chief Complaint: Shortness of Breath Informant: Patient Narrative: 74-year-old male presents from TCU in respiratory distress. Patient was previously intubated earlier this month and found to have a malignant effusion which was drained. After testing they found him to have Moraxella catarrhalis pneumonia. He eventually was extubated. He was sent to TCU after improving. He had previously been on 6 L of oxygen and they had to turn it up to 15 L. Patient was sent to the ED because he was also tachycardic. - Past Medical History (1) Acute delirium Status: Chronic (2) Acute respiratory failure Status: Chronic (3) Bacteremia Status: Chronic (4) Moraxella catarrhalis pneumonia Status: Chronic (5) Depression Status: Chronic (6) Diabetes mellitus Status: Chronic Past Medical History - Allergies and Home Meds Allergies/Adverse Reactions: Allergies No Known Allergies Allergy (Verified 01/27/20 11:07) Prior records reviewed: Yes Past Medical History: - - Reviewed in problem list Surgical History: appendectomy, - - Hemorrhoidectomy, Skin lesion. 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: Skilled Nursing Smoking Status: Former smoker Alcohol: None - Family History Maternal Family History: Family History (Last Reviewed 01/27/20 @ 11:07 by Chastity Moran) Mother Breast cancer Father Heart disease Family History: Reports: No pertinent history Paternal Family History: Family History (Last Reviewed 01/27/20 @ 11:07 by Chastity Moran) Mother Breast cancer Father Heart disease Family History: Reports: No pertinent history Review of Systems General: Denies: Chills, Fever, Sweats Eyes: Denies: Visual changes - bilaterally, Diplopia ENT: Denies: Rhinorrhea, Sore throat Cardiovascular: Reports: Palpitations, Heart racing. Denies: Chest pain Respiratory: Reports: Dyspnea, Cough Gastrointestinal: Denies: Abdominal pain, Nausea Musculoskeletal: Denies: Back pain, Extremity Pain Skin: Denies: Rash, Abscess Neurological: Denies: Headache, Weakness, Parasthesia Physical Exam Inital Vital Signs reviewed: Yes General: Obese, Acute Distress Head: Normocephalic, Atraumatic Eyes: Perrl, EOMI ENT: Dry mucous membranes Cardiovascular: Tachycardia Respiratory: Diminished, Decreased Air Movement, - - This breath sounds left lower lobe. Abdomen: Soft, Nontender Skin: Diaphoresis, Pallor Neurological: Alert, Confused Diagnostic/Tx/Re-eval - Rhythm Strip Rhythm Strip: Sinus Tach - EKG Initial EKG Interpretation: Sinus Tachycardia, RBBB - Medical Decision Making 74-year-old male presenting from TCU in respiratory distress. He was also tachycardic. Patient was not doing well on BiPAP and therefore decision was made to intubate him. He was intubated with rocuronium and etomidate. 7-1/2 ET tube was placed after second attempt. Placement was confirmed at bedside. Patient's heart rate appeared to be possibly SVT but after giving him adenosine it did not change. After comparing to old EKG it looks similar chest more tachycardic. Patient was then given Cardizem which did slow his heart rate down. Patient is found to have a fever and is given Tylenol. Lab work shows a leukocytosis. Lactic acid is normal. Patient is already been tested for COVID twice and this is been negative. Chest x-ray shows right upper lobe infiltrate and left pleural effusion with likely underlying pneumonia. Patient started on fentanyl drip as well as propofol. 2.5 L of fluid were ordered. Discussed with hospitalist and admitted to the ICU. Impression: 1. Hypoxic respiratory failure 2. Tachycardia 3. Hospital-acquired pneumonia 4. Sepsis 5. Sided pleural effusion ED Disposition - Plan for ED Patient:
--- NOTE | 2020-02-05 05:28 | EKG12_ITS ---
Test Reason : DYSRHYTHMIA Blood Pressure : / mmHG Vent. Rate : 165 BPM Atrial Rate : 165 BPM P-R Int : 000 ms QRS Dur : 114 ms QT Int : 330 ms P-R-T Axes : 000 113 -05 degrees QTc Int : 546 ms Supraventricular tachycardia Right bundle branch block Left posterior fascicular block Bifascicular block Abnormal ECG Confirmed by BOBBY BOTELLO, KESHAWN ([id number]), slot editor CLIF VANCE ([id number]) on 02/12/2020 12:47:45 P M Referred By: ROBERT Confirmed By:QUYEN ROSALES MD
[2020-02-05 05:39] LABS: Absolute Lymphocyte Count 3.43 X10^3/uL (0.83-4.51); Absolute Neutrophil Count 16.1 X10^3/uL (2.0-7.7); Basophil# 0.03 X10^3/uL; Basophil% 0.1 % (0-1); Eosinophil# 0.06 X10^3/uL; Eosinophils% 0.3 % (0-5); Hematocrit 40.6 % (40-54); Hemoglobin 12.5 g/dL (13.0-16.5); Lymphocyte # 3.43 X10^3/ul (4.0); Lymphocyte % 16.9 % (19-41); Mean Corp Hgb Conc 30.8 g/dL (32-36); Mean Corpuscular Hgb 24.8 pg (27.0-32.0); Mean Corpuscular Volume 80.6 fL (80-94); Mean Platelet Vol. 10.9 fl (6.2-12.0); Monocyte# 0.61 X10^3/uL; NRBC Flagged by Analyzer 0 % (0-5); Neutrophil # 16.05 X10^3/uL (2.7-7.7); Neutrophil % 79.4 % (47-70); POSITIVE MORPHOLOGY YES; Platelet Count 192 K/mm3 (150-450); RBC Distribution Width CV 21.1 % (11.6-14.6); RBC Distribution Width SD 61.2 fl (35.1-43.9); Red Blood Count 5.04 M/mm3 (4.6-6.2); White Blood Count 20.3 K/mm3 (4.4-11.0)
[2020-02-05 05:45] LABS: Differential Indicated SCAN CRITERIA MET
[2020-02-05 05:50] LABS: International Normalized Ratio 1.1; Prothrombin Time (Protime)PT. 13.3 SECONDS (11.7-14.9)
[2020-02-05] MEDS: Rocuronium Bromide 50 MG/5 ML Vial 40 MG IV ×2 (05:50→05:56)
[2020-02-05] MEDS: Etomidate 20 MG/10 ML Vial IV ×2 (05:50→05:56)
[2020-02-05 05:51] LABS: Partial Thromboplast Time 26.6 Seconds (24.1-36.2)
[2020-02-05 05:54] LABS: ALB/GLOB Ratio 0.7 RATIO (0.9-2.4); AST(SGOT) 15 U/L (15-37); Alanine Aminotransfer ALT/SGPT 55 U/L (16-61); Albumin, Serum 2.9 g/dL (3.2-5.0); Alkaline Phosphatase 110 U/L (45-117); Anion Gap 8 (5-15); BUN 22 mg/dL (7-18); BUN/Creat Ratio 19.6 RATIO (10-20); Calcium,Total 9.2 mg/dL (8.5-10.1); Chloride 95 mmol/L (98-107); Creatinine, Serum 1.12 mg/dL (0.70-1.30); EST Glomerular Filtration Rate 68 mL/min (>60); Est Glom Filt Rate - Afr Amer 82 mL/min (>60); Estimated Creatinine Clearance 51.15 ml/min; Globulin 3.9 g/dL (2.2-4.2); Glucose 269 mg/dL (74-106); Protein, Total 6.8 g/dL (6.4-8.2); Sodium Level 135 mmol/L (136-145)
--- NOTE | 2020-02-05 06:02 | RAD_ITS ---
STUDY: X-RAY CHEST REASON FOR EXAM: Male, 74 years old. ET AND OG PLACEMENT. IMAGE REVIEWED BY DRS. FISHER AND VIDHI TECHNIQUE: Frontal view COMPARISON: 02/05/2020 FINDINGS: The NG tube is in the stomach. There are bilateral pulmonary infiltrates worse on the LEFT. There is a large LEFT pleural effusion. There is NO pneumothorax. Normal size heart. Normal mediastinum and arash. Normal visualized pulmonary arteries. Normal visualized aortic arch and descending thoracic aorta. Normal visualized thoracic spine. Normal visualized ribs, clavicles, and shoulders. There is no demonstrated abnormality of the visualized soft tissue structures of the upper abdomen. RAD/Chest 1 View (Portable) IMPRESSION: The NG tube is in the stomach. There are bilateral pulmonary infiltrates worse on the LEFT. There is a large LEFT pleural effusion. There is NO pneumothorax. There is no demonstrated pleural abnormality. Normal size heart. Electronically Signed: Reggie Rios MD at 7:45 EDT , Service support ,
[2020-02-05 06:06] LABS: Lactic Acid 1.9 mmol/L (0.4-1.9)
[2020-02-05] MEDS: Adenosine 6 MG/2 ML Syringe 12 MG IV ×2 (06:06→06:12)
[2020-02-05 06:13] LABS: Differential Comment SCANNED; Ovalocyte RARE
[2020-02-05 06:14] LABS: Tear Drop Cell RARE
[2020-02-05] MEDS: Propofol 10MG/Ml 1,000 MG/100 ML Bottle 3.8 MG CONT INF (06:16)
[2020-02-05 06:19] LABS: Mucous, Urine 0 SEEN /hpf (<or=2+); Squamous Epithelial Cells - UA 0 SEEN /hpf (0-5)
[2020-02-05 06:22] LABS: Color, Urine Yellow (Yellow); Glucose, Dipstick 100 mg/dl (Normal); Ketone-Dipstick 15 mg/dl (Negative); Leukocyte Esterase-Dipstick Negative /ul (Negative); Nitrite-Dipstick Negative (Negative); Occult Blood-Urine 50 /ul (Negative); Protein-Dipstick 30 mg/dl (Negative); Specific Gravity, Urine 1.015 (1.002-1.030); Urine Bilirubin Dipstick Negative (Negative); Urine Clarity Clear (Clear); Urine Urobilinogen Normal (Normal)
[2020-02-05] MEDS: dilTIAZem 25 MG/5 ML Vial IV BOLUS (06:28)
[2020-02-05 06:35] LABS: Red Blood Cells-Urine 10-25 SEEN /hpf (0-5); Transitional Epithelial - Ur 0-5 SEEN /hpf (0-5); White Blood Cells 0-5 SEEN /hpf (0-5)
[2020-02-05 06:37] LABS: Bacteria RARE /hpf (None Seen); Hyaline Cast 5-10 SEEN /lpf (0-5)
[2020-02-05 06:38] LABS: Amorphous Sediment 2+
[2020-02-05] MEDS: fentaNYL 100 MCG/2 ML Ampul 150 MCG IV ×2 (07:20→08:50)
[2020-02-05] MEDS: 0.9% Normal Saline 1,000 ML 999 ML IV (07:30)
[2020-02-05] MEDS: Vancomycin IV 1,000 MG/200 ML BAG 200 MG IV (07:35)
--- NOTE | 2020-02-05 07:35 | ED.RN ---
bp dropping. verified accuracy. dr notifed. dr mckeon at bedside. to dc propofol and start fentanyl drip at this time.
--- NOTE | 2020-02-05 07:35 | PCM.CON.CC ---
Reason for Consult Date of Consultation: 02/05/20 Reason for Consultation: Respiratory failure/distributive shock History of Present Illness: The patient is a 74-year-old male, with a history as outlined below, who presented to the emergency department from the TCU on the morning of February 04 with respiratory distress and hypoxemia. The patient was recently admitted to the hospital January 13 with acute on chronic combined respiratory failure and severe sepsis secondary to Moraxella pneumonia. The patient was intubated at that time. During his hospitalization and ultrasound-guided thoracentesis was completed on January 19 to facilitate weaning from invasive mechanical ventilatory support. Pleural fluid studies from that procedure was positive for non-small cell carcinoma. The patient was seen in consultation by Dr. Jett of oncology on January 26, at which time, the patient and his family apparently wanted to discuss options with the [facility] system. The patient does have an approximate [id number] smoking history, having quit completely 15 to 16 years ago. He does have suspected COPD of unknown severity. 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 On presentation to the emergency department, the patient was noted to be afebrile but was tachycardic and tachypneic. He was significantly hypoxemic as well. Laboratory evaluation revealed an elevated white blood cell count to 20,000. Coagulation profile was noted to be within normal limits. Chemistry profile was notable for a sodium of 135, chloride of 95, creatinine of 1.12 and lactate of 1.9. Troponin was negative. BNP was within normal limits. The patient was eventually intubated in the emergency department. I did speak at length with the patient's and daughter following his intubation regarding goals of care, especially in light of his recent cancer diagnosis. They wish to keep the patient full code for now. They reported that they did have intentions to seek out cancer related medical care here at [facility]. The patient received supplemental IV fluids and was placed on antimicrobials. He was then admitted to the medical intensive care unit for further management. Shortly after arriving to the medical intensive care unit, the patient became hemodynamically unstable. Additional fluid resuscitation was undertaken. However, the patient eventually required placement of a central venous catheter and had to be started on vasopressor support. Despite aggressive life-sustaining measures, including multiple vasopressors and stress dose steroids, the patient remained hemodynamically unstable. The patient also became progressively hypoxemic and hypercarbic. Additional interventions were undertaken via the ventilator to attempt to optimize his acid-base status. However, the patient continued to decompensate clinically. Following discussion with the family, ultrasound-guided thoracentesis was performed at the bedside, in hopes of recruiting atelectatic lung and improving VQ matching. Nevertheless, this too, failed to improve the patient significantly from a clinical perspective. Arterial Line Indication: Hemodynamic instability, vasopressor requirement Consent was obtained from: Patient's A time-out was completed verifying correct patient, procedure, site, positioning, and special equipment if applicable. The patient's left wrist was prepped and draped in the sterile fashion. An 18-gauge arrow arterial line was introduced into the radial artery. The catheter was threaded over the guidewire and the needle was removed with the appropriate pulsatile blood return. The catheter was then sutured in place to the skin and a sterile dressing applied. Perfusion to the extremity distal to the point of catheter insertion was checked and found to be adequate. Central Venous Catheter Indication: Hemodynamic instability, vasopressor requirement Consent was obtained from: Patient's A time-out was completed verifying correct patient, procedure, site, positioning, and special equipment if applicable. The patient was placed in a dependent position appropriate for central line placement based on the vein to be cannulated. The patient's right IJ was prepped and draped in a sterile fashion. A triple-lumen catheter was introduced into the right IJ using the Seldinger technique and under ultrasound guidance. The catheter was threaded smoothly over the guidewire and appropriate blood return was obtained. Each lumen of the catheter was evacuated of air and flushed with sterile saline. The catheter was then sutured in place to the skin and a sterile dressing applied. Chest x-ray to confirm appropriate positioning is pending. ULTRASOUND GUIDANCE STATEMENT (Vascular Access): I performed ultrasound image acquisition and interpretation for needle placement during the procedure. The vessel was identified and found to be free of thrombosis by compression technique. A safe point of entry was marked at the skin in an angle for axis was determined. The needle was guided by obtaining free-flowing fluid and by real-time visualization. Bedside Thoracentesis Indication: Respiratory failure, pleural effusion Consent was obtained from: Patient's Ultrasonographic evaluation of the left lower pleural space was carried out. An adequate pocket was identified. The overlying skin was prepped and draped in sterile fashion. Under ultrasound guidance, a 5 [place] Islander thoracentesis needle/catheter system was advanced into the left posterior lower pleural fluid collection. Approximately 1300 mL of straw-colored fluid was drained. The catheter was removed, and a sterile dressing was applied. Past Medical History Past Medical History (Chronic Problems): Chronic Problems (Last Reviewed 01/27/20 @ 11:07 by Chastity Moran) Acute delirium (Chronic) Acute respiratory failure (Chronic) Moraxella catarrhalis pneumonia (Chronic) Bacteremia (Chronic) Diabetes mellitus (Chronic) Hypertension (Chronic) Depression (Chronic) Edema (Chronic) Neuropathic pain (Chronic) Tinea unguium (Chronic) COPD (chronic obstructive pulmonary disease) (Chronic) Type 2 diabetes mellitus (Chronic) Hyperlipidemia (Chronic) Squamous cell carcinoma in situ (Chronic) Skin lesion of face (Chronic) Medical History: Medical History (Last Reviewed 01/27/20 @ 11:07 by Chastity Moran) Squamous cell carcinoma in situ (Chronic) D09.9 History of arthritis Z87.39 Sleep apnea G47.30 diabetes hypercholesterolemia COPD (chronic obstructive pulmonary disease) J44.9 HTN (hypertension) I10 Personal history of colonic polyps (Inactive) Z86.010 Allergies No Known Allergies Allergy (Verified 02/05/20 07:32) Home Medications: Ambulatory Orders Medication Instructions Recorded aspirin 81 mg tablet,delayed 81 mg PO QDAY 12/31/17 release atorvastatin 20 mg tablet 20 mg PO QDAY 12/31/17 metformin 500 mg tablet 1,000 mg PO DAILY tab 11/28/18 Budesonide/Formoterol 160/4.5 2 puff IN BID 12/26/18 [Symbicort 160/4.5 Mcg Inhaler (SP)] Ipratropium/Albuterol Respimat 2 puff IN Q4H PRN PRN 12/26/18 [Combivent Respimat Inhal [place]] Duloxetine HCl 30 mg PO DAILY 01/15/20 Glimepiride [Amaryl] 8 mg PO DAILY 01/15/20 Lisinopril [Zestril] 20 mg PO DAILY 01/15/20 Furosemide [Lasix] 40 mg PO DAILY 01/25/20 Insulin Glargine [Lantus SoloStar 20 units SUBCUT DAILY 01/25/20 Pen] Insulin Lispro [Humalog KwikPen] See Protocol SUBCUT ACHS 01/25/20 insuln.pen Potassium Chloride [K-Dur] 40 meq PO BIDCM 01/25/20 predniSONE tablet See Taper PO DAILY@0800 01/25/20 Surgical History: Surgical History (Last Reviewed 01/27/20 @ 11:07 by Chastity Moran) H/O colonoscopy Z98.890 2013 H/O esophagogastroduodenoscopy Z98.890 2013 H/O hemorrhoidectomy Z98.890 S/P appendectomy Z90.49 s/p skin lesion removal right ear 12/30 with donor site rue Surgical History: appendectomy, - - Hemorrhoidectomy, Skin lesion. Psychiatric History: Depression Lives: Group Home Smoking Status: Former smoker Alcohol: None - *Family History Maternal Family History: Family History (Last Reviewed 01/27/20 @ 11:07 by Chastity Moran) Mother Breast cancer Father Heart disease History Items: No pertinent history Paternal Family History: Family History (Last Reviewed 01/27/20 @ 11:07 by Chastity Moran) Mother Breast cancer Father Heart disease History Items: No pertinent history Review of Systems Unable to obtain accurate/complete ROS d/t: Due to current intubation and mechanical ventilation status. - Physical Exam Vitals/I&O's: Vital Signs Temp Pulse Resp BP Pulse Ox 101.8 F H 125 H 25 H 92/58 L 89 02/05/20 07:06 02/05/20 07:06 02/05/20 07:06 02/05/20 07:06 02/05/20 07:06 Oxygen Flow Rate (L/min) 15 Oxygen Delivery Method Mechanical Ventilator Weight: 137 lb 12.623 oz Body Mass Index (BMI) 22.2 Intake and Output for Last 24 Hours 02/03/20 02/04/20 02/05/20 23:59 23:59 23:59 Intake Total 53.58 / 53.58 Balance 53.58 / 53.58 General: - - Intubated, sedated and mechanically ventilated. Quite ill and toxic in appearance. HEENT: Atraumatic, PERRLA, Normocephalic Oral: No Gingival or Mucosal Lesions/ Ulcerations, - - Endotracheal and OG tubes in place Neck: Supple, No Nodes, Trachea Midline, - - Right IJ central venous catheter in place Lungs: Diminished, - - Mechanical breath sounds. Dullness to percussion of the left lung base. Cardiovascular: Normal S1, Normal S2, Tachycardic Abdomen: Bowel Sounds Present, Soft, Non Tender, Obese Extremities: No clubbing, No cyanosis, Edema Skin: No breakdown Musculoskeletal: No Muscle Wasting Lymphatic: No Cervical, Supraclavicular, or Inguinal Adenopathy Neurological: - - No focal neurological deficits. Currently sedated on the vent. Labs (Last 48 Hours) 02/05/20 02/05/20 02/05/20 05:27 05:27 05:27 WBC 20.3 H RBC 5.04 Hgb 12.5 L Hct 40.6 MCV 80.6 MCH 24.8 L MCHC 30.8 L RDW Std Deviation 61.2 H RDW Coeff of [place] 21.1 H Plt Count 192 MPV 10.9 Immature Gran % (Auto) 0.300 Neut % (Auto) 79.4 H Lymph % (Auto) 16.9 L Robeson % (Auto) 3.0 Eos % (Auto) 0.3 Baso % (Auto) 0.1 Absolute Neuts (auto) 16.1 H Absolute Lymphs (auto) 3.43 Nucleated RBC % 0 Differential Comment SCANNED Tear Drop Cells RARE Ovalocytes RARE PT 13.3 INR 1.1 APTT 26.6 Specimen Type Sample Site pH Bicarbonate Actual Total CO2 Base Excess O2 Saturation O2 % ABG pCO2 ABG pO2 Respiration Rate O2 Delivery Device Vent Mode Tidal Volume Sodium 135 L Potassium 4.0 Chloride 95 L Carbon Dioxide 32.0 Anion Gap 8 BUN 22 H Creatinine 1.12 Estim Creat Clear Calc 51.15 Est GFR (MDRD) Af Amer 82 Est GFR (MDRD) Non-Af 68 BUN/Creatinine Ratio 19.6 Glucose 269 H Lactic Acid Calcium 9.2 Total Bilirubin 0.90 AST 15 ALT 55 Alkaline Phosphatase 110 Lactate Dehydrogenase Troponin I B-Natriuretic Peptide Total Protein 6.8 Albumin 2.9 L Globulin 3.9 Albumin/Globulin Ratio 0.7 L Urine Color Urine Clarity Urine pH Ur Specific [place] Urine Protein Urine Glucose (UA) Urine Ketones Urine Occult Blood Urine Nitrite Urine Bilirubin Urine Urobilinogen Ur Leukocyte Esterase Urine RBC Urine WBC Ur Squamous Epith Cells Ur Transition Epith Cell Amorphous Sediment Urine Bacteria Hyaline Casts Urine Mucus MRSA (PCR) POC Glucose 02/05/20 02/05/20 02/05/20 05:27 05:27 05:27 WBC RBC Hgb Hct MCV MCH MCHC RDW Std Deviation RDW Coeff of [place] Plt Count MPV Immature Gran % (Auto) Neut % (Auto) Lymph % (Auto) Robeson % (Auto) Eos % (Auto) Baso % (Auto) Absolute Neuts (auto) Absolute Lymphs (auto) Nucleated RBC % Differential Comment Tear Drop Cells Ovalocytes PT INR APTT Specimen Type Sample Site pH Bicarbonate Actual Total CO2 Base Excess O2 Saturation O2 % ABG pCO2 ABG pO2 Respiration Rate O2 Delivery Device Vent Mode Tidal Volume Sodium Potassium Chloride Carbon Dioxide Anion Gap BUN Creatinine Estim Creat Clear Calc Est GFR (MDRD) Af Amer Est GFR (MDRD) Non-Af BUN/Creatinine Ratio Glucose Lactic Acid 1.9 Calcium Total Bilirubin AST ALT Alkaline Phosphatase Lactate Dehydrogenase 244 H Troponin I < 0.015 B-Natriuretic Peptide Total Protein 6.8 Albumin Globulin 3.9 Albumin/Globulin Ratio 0.7 L Urine Color Urine Clarity Urine pH Ur Specific [place] Urine Protein Urine Glucose (UA) Urine Ketones Urine Occult Blood Urine Nitrite Urine Bilirubin Urine Urobilinogen Ur Leukocyte Esterase Urine RBC Urine WBC Ur Squamous Epith Cells Ur Transition Epith Cell Amorphous Sediment Urine Bacteria Hyaline Casts Urine Mucus MRSA (PCR) POC Glucose 02/05/20 02/05/20 02/05/20 05:27 06:15 09:25 WBC RBC Hgb Hct MCV MCH MCHC RDW Std Deviation RDW Coeff of [place] Plt Count MPV Immature Gran % (Auto) Neut % (Auto) Lymph % (Auto) Robeson % (Auto) Eos % (Auto) Baso % (Auto) Absolute Neuts (auto) Absolute Lymphs (auto) Nucleated RBC % Differential Comment Tear Drop Cells Ovalocytes PT INR APTT Specimen Type ART Sample Site Art Line pH 7.23 L Bicarbonate Actual 28.1 H Total CO2 30 Base Excess 1 O2 Saturation 76 L O2 % 100 ABG pCO2 66.6 H ABG pO2 49 L Respiration Rate 14.0000 O2 Delivery Device Adult Vent Vent Mode AC Tidal Volume 550 Sodium Potassium Chloride Carbon Dioxide Anion Gap BUN Creatinine Estim Creat Clear Calc Est GFR (MDRD) Af Amer Est GFR (MDRD) Non-Af BUN/Creatinine Ratio Glucose Lactic Acid Calcium Total Bilirubin AST ALT Alkaline Phosphatase Lactate Dehydrogenase Troponin I B-Natriuretic Peptide 21.5 Total Protein Albumin Globulin Albumin/Globulin Ratio Urine Color Yellow Urine Clarity Clear Urine pH 5.0 Ur Specific [place] 1.015 Urine Protein 30 H Urine Glucose (UA) 100 H Urine Ketones 15 H Urine Occult Blood 50 H Urine Nitrite Negative Urine Bilirubin Negative Urine Urobilinogen Normal Ur Leukocyte Esterase Negative Urine RBC 10-25 SEEN Urine WBC 0-5 SEEN Ur Squamous Epith Cells 0 SEEN Ur Transition Epith Cell 0-5 SEEN Amorphous Sediment 2+ Urine Bacteria RARE Hyaline Casts 5-10 SEEN Urine Mucus 0 SEEN MRSA (PCR) POC Glucose 02/05/20 02/05/20 02/05/20 09:26 10:20 11:07 WBC RBC Hgb Hct MCV MCH MCHC RDW Std Deviation RDW Coeff of [place] Plt Count MPV Immature Gran % (Auto) Neut % (Auto) Lymph % (Auto) Robeson % (Auto) Eos % (Auto) Baso % (Auto) Absolute Neuts (auto) Absolute Lymphs (auto) Nucleated RBC % Differential Comment Tear Drop Cells Ovalocytes PT 14.3 INR 1.2 APTT 28.3 Specimen Type ART Sample Site Art Line pH 7.15 L* Bicarbonate Actual 28.3 H Total CO2 31 Base Excess -1 O2 Saturation 52 L O2 % 100 ABG pCO2 81.3 H* ABG pO2 37 L* Respiration Rate 14.0000 O2 Delivery Device Adult Vent Vent Mode AC Tidal Volume 550 Sodium Potassium Chloride Carbon Dioxide Anion Gap BUN Creatinine Estim Creat Clear Calc Est GFR (MDRD) Af Amer Est GFR (MDRD) Non-Af BUN/Creatinine Ratio Glucose Lactic Acid Calcium Total Bilirubin AST ALT Alkaline Phosphatase Lactate Dehydrogenase Troponin I B-Natriuretic Peptide Total Protein Albumin Globulin Albumin/Globulin Ratio Urine Color Urine Clarity Urine pH Ur Specific [place] Urine Protein Urine Glucose (UA) Urine Ketones Urine Occult Blood Urine Nitrite Urine Bilirubin Urine Urobilinogen Ur Leukocyte Esterase Urine RBC Urine WBC Ur Squamous Epith Cells Ur Transition Epith Cell Amorphous Sediment Urine Bacteria Hyaline Casts Urine Mucus MRSA (PCR) Pending POC Glucose 02/05/20 12:24 WBC RBC Hgb Hct MCV MCH MCHC RDW Std Deviation RDW Coeff of [place] Plt Count MPV Immature Gran % (Auto) Neut % (Auto) Lymph % (Auto) Robeson % (Auto) Eos % (Auto) Baso % (Auto) Absolute Neuts (auto) Absolute Lymphs (auto) Nucleated RBC % Differential Comment Tear Drop Cells Ovalocytes PT INR APTT Specimen Type Sample Site pH Bicarbonate Actual Total CO2 Base Excess O2 Saturation O2 % ABG pCO2 ABG pO2 Respiration Rate O2 Delivery Device Vent Mode Tidal Volume Sodium Potassium Chloride Carbon Dioxide Anion Gap BUN Creatinine Estim Creat Clear Calc Est GFR (MDRD) Af Amer Est GFR (MDRD) Non-Af BUN/Creatinine Ratio Glucose Lactic Acid Calcium Total Bilirubin AST ALT Alkaline Phosphatase Lactate Dehydrogenase Troponin I B-Natriuretic Peptide Total Protein Albumin Globulin Albumin/Globulin Ratio Urine Color Urine Clarity Urine pH Ur Specific [place] Urine Protein Urine Glucose (UA) Urine Ketones Urine Occult Blood Urine Nitrite Urine Bilirubin Urine Urobilinogen Ur Leukocyte Esterase Urine RBC Urine WBC Ur Squamous Epith Cells Ur Transition Epith Cell Amorphous Sediment Urine Bacteria Hyaline Casts Urine Mucus MRSA (PCR) POC Glucose 283 H Microbiology 02/05/20 10:25 Sputum, Induced/Lukens Gram Stain - Final Clinical Impression(s) from Imaging Studies Chest X-Ray 02/05/20 06:02 IMPRESSION: The NG tube is in the stomach. There are bilateral pulmonary infiltrates worse on the LEFT. There is a large LEFT pleural effusion. There is NO pneumothorax. There is no demonstrated pleural abnormality. Normal size heart. Electronically Signed: Reggie Rios MD at 7:45 EDT , Service support , Chest X-Ray 02/05/20 10:00 IMPRESSION: The tip of the right central catheter is in the midportion of the superior vena cava. All the support tubes are in good position. Improved aeration of the right upper lobe. Stable consolidation in the left hemithorax with volume loss of the left lung. Endobronchial obstruction should be ruled out. Electronically Signed: Abdullahi Gauthier, at 10:30 EDT , Service support , Current Medications Propofol (Diprivan) 1,000 mg in 100 mls @ 3.75 mls/hr CONT INF .Q12H JUANITO; Protocol Last Titration: 02/05/20 07:02 Dose: 25 mcg/kg/min, 9.4 mls/hr Documented by: Sodium Chloride () 1,000 mls @ 999 mls/hr IV .Q1H1M JUANITO Stop: 02/05/20 09:15 Fentanyl Citrate 1,000 mcg/ (Sodium Chloride) 100 mls @ 2.5 mls/hr CONT INF .Q40H [facility]; Protocol Assessment/Plan RECOMMENDATIONS: 1. Continue broad-spectrum antimicrobials, pending infectious work-up. 2. Additional fluid resuscitation with lactated Ringer's as ordered. 3. Initiate vasopressor support in an attempt to maintain a mean arterial pressure at or above 65 mmHg. 4. Start stress dose steroids. 5. Perform ultrasound-guided thoracentesis to assist with alveolar recruitment. 6. Start scheduled bronchodilator therapy. 7. Start empiric heparin infusion. 8. Plan for goals of care discussion with the patient's and daughter. IMPRESSIONS: 1. Acute on chronic combined respiratory failure The patient presented to the emergency department in respiratory distress with recurrent left-sided pleural effusion, possible consolidation/atelectasis and what appears to be a left lung mass. The patient does likely have a component of COPD of unknown severity. In addition to the aforementioned, PE would also be a consideration for his rather acute decompensation. Nevertheless, the patient is too unstable from a clinical perspective to be sent down for CTA chest. Therefore, he will be started empirically on a heparin drip. The patient will be continued on broad-spectrum antimicrobials over concerns for possible postobstructive pneumonia or infected pleural effusion. Scheduled bronchodilators will be started as well. Ventilator parameters will be augmented in hopes of improving the patient's oxygenation status. 2. Distributive shock The patient decompensated clinically shortly after his arrival to the ICU. There is concern that the patient's clinical state may be the consequence of septic shock or possible massive PE. Based upon the patient's rather acute clinical decompensation following administration of antimicrobials, I strongly suspect that there may be a component of gram-negative septic shock. Limited bedside cardiac ultrasound did not reveal significant pericardial effusion from my view. However, the patient did have a rather large left-sided pleural effusion, for which he underwent ultrasound-guided thoracentesis. This, however, did not improve his hemodynamic status. The patient eventually had to be started on vasopressor support and is currently requiring Levophed, vasopressin and Jaren-Synephrine. He is essentially in refractory shock. Stress dose steroids have already been initiated. The patient has been adequately volume resuscitated. We will continue to provide supportive measures, while pursuing additional goals of care discussion with the patient's family. 3. Encephalopathy Initially felt to be metabolic/hypercarbic in etiology. However, I am now concerned that the patient may have a component of anoxic brain injury as well, given how significantly hypoxemic he has been. All sedating medications have been discontinued at this time. 4. Recently diagnosed non-small cell carcinoma The patient is yet to be started on any form of treatment and appears to have a recurrent effusion, which is likely malignant in nature, based upon the results of his last thoracentesis. We will plan to perform a bedside ultrasound-guided thoracentesis in hopes of improving VQ matching. However, the patient's prognosis is overall quite poor given the problems noted above along with the advanced stage of his lung cancer. 5. Diabetes mellitus/hypertension/obesity/history of squamous cell skin cancer Complicates care, management, recovery and prognosis. Continue to hold all home antihypertensive medications. Goals of care discussion will be undertaken with the patient's family today. UPDATE: I spoke with the patient's and daughter this afternoon at the bedside regarding the patient's clinical state and poor overall prognosis. After being informed of the events of this morning and afternoon, the patient's family has elected to change his CODE STATUS to DNR CCA, without plans for further any escalation in care. TIME: 138 minutes of critical care time, inclusive of procedures, was spent addressing the patient's acute on chronic combined respiratory failure, distributive shock, encephalopathy, recently diagnosed non-small cell carcinoma, review of all data and collaboration with the care team. ([id number], [id number]) Procedures: 94419 Critial Care Addl 30 Min - [id number] x 2 [id number]: [id number] Critical care first hour Multi Select Codes - Hospitalists' Procedures Procedures: 49375 Critial Care Addl 30 Min
--- NOTE | 2020-02-05 07:48 | ED.RN ---
fentanyl drip christoph verified with this nurse and pilar hernandez rn. talked with family. dr shaver at bedside.. quesions answered.
--- NOTE | 2020-02-05 08:13 | ED.RN ---
fentanyl titrated to 50mcg. pt restless
[2020-02-05 08:28] LABS: ALB/GLOB Ratio 0.7 RATIO (0.9-2.4); Globulin 3.9 g/dL (2.2-4.2); LDH 244 U/L (87-241); Protein, Total 6.8 g/dL (6.4-8.2)
--- NOTE | 2020-02-05 08:41 | PCM.HP.STD ---
Problem List (1) Shortness of breath Status: Acute History of Present Illness Date of Admission: 02/05/20 Chief Complaint: Shortness of breath, fever The patient is a 74 year old M who was seen in the emergency room at [facility] after being transferred from the TCU unit where he was undergoing rehab services for recent hospitalization for respiratory failure and new diagnosis of non-small cell lung cancer. 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 When patient was evaluated in the ER, he was very dyspneic and can only speak short sentences, patient was initially on a nonrebreather but he did not improve and BiPAP was applied but was not effective in alleviating the patient's respiratory difficulties and he eventually was intubated. Labs obtained in the emergency room were abnormal for an elevated white blood cell count at 20.3, chemistry was remarkable for an LDH of 244, glucose of 269, and a BUN of 22. Patient's lactic acid was normal, patient's urinalysis showed 10-25 RBCs, 0-5 WBCs, and rare bacteria. Chest x-ray showed bilateral pulmonary infiltrates worse on the left, there is noted to be a large left pleural effusion, right upper lobe opacity suspicious for pneumonia was also noted to be present. EKG showed what appeared to be a tachycardia with a rate of approximately 150, patient was given 2 doses of adenosine by the emergency room physician to see if the rate could be reduced as SVT was a possibility. Administration of the adenosine did not result in a lower heart rate, patient was then given Cardizem IV which slowed his rate down into the 120s. Patient was given IV vancomycin and Zosyn, family members were present and the emergency room physician and pulmonary medicine (who evaluated the patient in the ER) also talked with the patient's family as did I. Patient was admitted to ICU for acute on chronic hypoxic respiratory failure and sepsis secondary to healthcare acquired pneumonia. Pulmonary medicine will participate in his care. Past Medical History Past Medical History (Chronic Problems): Chronic Problems (Last Reviewed 01/27/20 @ 11:07 by Chastity Moran) Acute delirium (Chronic) Acute respiratory failure (Chronic) Moraxella catarrhalis pneumonia (Chronic) Bacteremia (Chronic) Diabetes mellitus (Chronic) Hypertension (Chronic) Depression (Chronic) Edema (Chronic) Neuropathic pain (Chronic) Tinea unguium (Chronic) COPD (chronic obstructive pulmonary disease) (Chronic) Type 2 diabetes mellitus (Chronic) Hyperlipidemia (Chronic) Squamous cell carcinoma in situ (Chronic) Skin lesion of face (Chronic) Medical History: Medical History (Last Reviewed 01/27/20 @ 11:07 by Chastity Moran) Squamous cell carcinoma in situ (Chronic) D09.9 History of arthritis Z87.39 Sleep apnea G47.30 diabetes hypercholesterolemia COPD (chronic obstructive pulmonary disease) J44.9 HTN (hypertension) I10 Personal history of colonic polyps (Inactive) Z86.010 Allergies No Known Allergies Allergy (Verified 02/05/20 07:32) Home Medications: Ambulatory Orders Medication Instructions Recorded aspirin 81 mg tablet,delayed 81 mg PO QDAY 12/31/17 release atorvastatin 20 mg tablet 20 mg PO QDAY 12/31/17 metformin 500 mg tablet 1,000 mg PO DAILY tab 11/28/18 Budesonide/Formoterol 160/4.5 2 puff IN BID 12/26/18 [Symbicort 160/4.5 Mcg Inhaler (SP)] Ipratropium/Albuterol Respimat 2 puff IN Q4H PRN PRN 12/26/18 [Combivent Respimat Inhal [place]] Duloxetine HCl 30 mg PO DAILY 01/15/20 Glimepiride [Amaryl] 8 mg PO DAILY 01/15/20 Lisinopril [Zestril] 20 mg PO DAILY 01/15/20 Furosemide [Lasix] 40 mg PO DAILY 01/25/20 Insulin Glargine [Lantus SoloStar 20 units SUBCUT DAILY 01/25/20 Pen] Insulin Lispro [Humalog KwikPen] See Protocol SUBCUT ACHS 01/25/20 insuln.pen Potassium Chloride [K-Dur] 40 meq PO BIDCM 01/25/20 predniSONE tablet See Taper PO DAILY@0800 01/25/20 Surgical History: Surgical History (Last Reviewed 01/27/20 @ 11:07 by Chastity Moran) H/O colonoscopy Z98.890 2013 H/O esophagogastroduodenoscopy Z98.890 2013 H/O hemorrhoidectomy Z98.890 S/P appendectomy Z90.49 s/p skin lesion removal right ear 12/30 with donor site rue Surgical History: appendectomy, - - Hemorrhoidectomy, Skin lesion. Psychiatric History: Depression Lives: Detention Smoking Status: Former smoker Tobacco Use: Non-smoker Alcohol: None Drugs: None - *Family History Maternal Family History: Family History (Last Reviewed 01/27/20 @ 11:07 by Chastity Moran) Mother Breast cancer Father Heart disease History Items: No pertinent history Paternal Family History: Family History (Last Reviewed 01/27/20 @ 11:07 by Chastity Moran) Mother Breast cancer Father Heart disease History Items: No pertinent history Review of Systems Comment: Review of systems was unobtainable from the patient due to his intubation and sedation, information was obtained from the patient's medical record and conversations with the emergency room physician VTE Information - Inpt Only VTE Present on Admission: No VTE Mechan Device Prophylaxis: None VTE Pharm Prophylaxis ordered?: Yes - Physical Exam Vitals/I&O's: Vital Signs Temp Pulse Resp BP Pulse Ox 101.6 F H 131 H 19 H 80/57 L 90 02/05/20 07:45 02/05/20 07:45 02/05/20 07:45 02/05/20 07:45 02/05/20 07:45 Oxygen Flow Rate (L/min) 15 Oxygen Delivery Method Mechanical Ventilator Weight: 62.5 kg Body Mass Index (BMI) 22.2 Intake and Output for Last 24 Hours 02/03/20 02/04/20 02/05/20 23:59 23:59 23:59 Intake Total 53.58 / 53.58 Balance 53.58 / 53.58 General: - - Patient is sedated and on the ventilator at this time HEENT: Atraumatic, PERRLA, Normocephalic Oral: Moist Mucosa Neck: Supple, No JVD, Trachea Midline, Thyroid Normal Size and Texture Lungs: No rhonchi, No wheeze, No rales, Diminished - Diminished breath sounds are noted over the left lung Cardiovascular: Regular rate, No murmurs, Tachycardic Abdomen: Bowel Sounds Present, Soft, Non Tender, Non-Distended Extremities: No clubbing, No cyanosis, Capillary Refill Less than 3 Seconds, Edema - Mild lower leg edema is noted bilaterally Skin: No rashes, No breakdown Neurological: Cranial nerves II-XII grossly intact, Neuro grossly intact, - - Patient is sedated and on the ventilator Psych/Mental Status: - - he is sedated and on the ventilator Laboratory Results 02/05/20 05:27: WBC 20.3 H, RBC 5.04, Hgb 12.5 L, Hct 40.6, MCV 80.6, MCH 24.8 L, MCHC 30.8 L, RDW Std Deviation 61.2 H, RDW Coeff of [place] 21.1 H, Plt Count 192, MPV 10.9, Immature Gran % (Auto) 0.300, Neut % (Auto) 79.4 H, Lymph % (Auto) 16.9 L, [place] % (Auto) 3.0, Eos % (Auto) 0.3, Baso % (Auto) 0.1, Absolute Neuts (auto) 16.1 H, Absolute Lymphs (auto) 3.43, Nucleated RBC % 0, Differential Comment SCANNED, Tear Drop Cells RARE, Ovalocytes RARE 02/05/20 05:27: PT 13.3, INR 1.1, APTT 26.6 02/05/20 05:27: Sodium 135 L, Potassium 4.0, Chloride 95 L, Carbon Dioxide 32.0, Anion Gap 8, BUN 22 H, Creatinine 1.12, Estim Creat Clear Calc 51.15, Est GFR (MDRD) Af Amer 82, Est GFR (MDRD) Non-Af 68, BUN/Creatinine Ratio 19.6, Glucose 269 H, Calcium 9.2, Total Bilirubin 0.90, AST 15, ALT 55, Alkaline Phosphatase 110, Total Protein 6.8, Albumin 2.9 L, Globulin 3.9, Albumin/Globulin Ratio 0.7 L 02/05/20 05:27: Lactic Acid 1.9 02/05/20 05:27: Lactate Dehydrogenase 244 H, Total Protein 6.8, Globulin 3.9, Albumin/Globulin Ratio 0.7 L 02/05/20 06:15: Urine Color Yellow, Urine Clarity Clear, Urine pH 5.0, Ur Specific [place] 1.015, Urine Protein 30 H, Urine Glucose (UA) 100 H, Urine Ketones 15 H, Urine Occult Blood 50 H, Urine Nitrite Negative, Urine Bilirubin Negative, Urine Urobilinogen Normal, Ur Leukocyte Esterase Negative, Urine RBC 10-25 SEEN, Urine WBC 0-5 SEEN, Ur Squamous Epith Cells 0 SEEN, Ur Transition Epith Cell 0-5 SEEN, Amorphous Sediment 2+, Urine Bacteria RARE, Hyaline Casts 5-10 SEEN, Urine Mucus 0 SEEN Current Medications Albuterol Sulfate (Ventolin Aerosols) 2.5 mg INHALATION Q2H PRN PRN PRN Reason: SHORTNESS OF BREATH Albuterol/Ipratropium (Duoneb) 3 ml INHALATION Q4H.RT [facility] Enoxaparin Sodium (Lovenox) 40 mg SC DAILY [facility] Propofol (Diprivan) 1,000 mg in 100 mls @ 3.75 mls/hr CONT INF .Q12H [facility]; Protocol Last Titration: 02/05/20 07:02 Dose: 25 mcg/kg/min, 9.4 mls/hr Documented by: Sodium Chloride () 1,000 mls @ 999 mls/hr IV .Q1H1M [facility] Stop: 02/05/20 09:15 Last Admin: 02/05/20 07:30 Dose: 999 mls/hr Documented by: Fentanyl Citrate 1,000 mcg/ (Sodium Chloride) 100 mls @ 2.5 mls/hr CONT INF .Q40H [facility]; Protocol Last Admin: 02/05/20 07:35 Dose: 25 mcg/hr, 2.5 mls/hr Documented by: Sodium Chloride () 1,000 mls @ 125 mls/hr IV .Q8H [facility] Piperacillin Sod/Tazobactam (Sod 3.375 gm/ Sodium Chloride) 50 mls @ 12.5 mls/hr IV Q8 [facility] Famotidine 20 mg/ Sodium (Chloride) 10 mls @ 300 mls/hr IV Q12 [facility] Vancomycin IV Pharmacy to Dose (1 ea/ Sodium Chloride) 500 mls @ 250 mls/hr IV X1 PRN; Protocol PRN Reason: Rx to Dose Dexmedetomidine HCl 400 mcg/ (Sodium Chloride) 100 mls @ 7.813 mls/hr CONT INF .[id number] [facility]; Protocol Sodium Chloride () 250 mls @ 15 mls/hr IV .[id number] PRN PRN Reason: Saline Flush Sodium Chloride () 250 mls @ 15 mls/hr IV .[id number] PRN PRN Reason: Additional IVPB Infusion Methylprednisolone (Solu-Medrol) 40 mg IV Q8 [facility] Ondansetron HCl (Zofran) 4 mg IV Q8H PRN PRN PRN Reason: NAUSEA/VOMITING Sodium Chloride () 10 - 40 ml IV UD PRN PRN Reason: SALINE FLUSH Assessment/Plan All Active Problems (Last Reviewed 01/27/20 @ 11:07 by Chastity Moran) Debility (Acute) Shortness of breath (Acute) Non-small cell cancer of left lung (Acute) Malignant pleural effusion (Acute) Chronic respiratory failure (Acute) Severe sepsis (Acute) #1 acute on chronic hypoxic respiratory failure secondary to recurrent left pleural effusion and healthcare acquired pneumonia with sepsis-again patient will be admitted to ICU, pulmonary medicine will see the patient in consultation #2 acute sepsis secondary to probable bilateral healthcare acquired pneumonia-patient was given IV Zosyn and vancomycin in the emergency room, these will be continued #3 healthcare acquired pneumonia-suspect gram-negative bacteria, again patient will be on vancomycin and Zosyn, blood cultures were obtained in the emergency room sputum culture was ordered on the patient by pulmonary medicine #4 large left pleural effusion-malignant in nature-patient will probably need a thoracentesis today, I defer to pulmonary medicine to order this procedure #5 non-small cell lung cancer of the left lung-new diagnosis, patient has not received treatment #6 type 2 diabetes-patient's blood sugars will be monitored, sliding scale insulin will be used to control blood sugar #7 chronic obstructive pulmonary disease-patient is currently on prednisone in the TCU, I will place him on IV Solu-Medrol, this may be discontinued at the discretion of pulmonary medicine #8 essential hypertension #9 sinus tachycardia secondary to acute on chronic respiratory failure with sepsis-heart rate will be monitored #10 generalized debility secondary to multiple medical problems Inpatient E&M: 20624 Init Hosp L3
[2020-02-05] MEDS: Midazolam 2 MG/2 ML Syringe 4 MG IV (09:07)
[2020-02-05 09:10] LABS: BNP,B-Type NATRIURETIC PEPTIDE 21.5 pg/mL (0-100)
[2020-02-05 09:31] LABS: Base Excess 1 mmol/L (-2 to +2); Bicarbonate 28.1 mmol/L (22-26); Blood Gas Specimen Type ART; FI02 100; Mode AC; O2 Delivery Device Adult Vent; PO2 49 mmHG (75-100); SITE Art Line; SO2 76 % (95-99); Total Carbon Dioxide 30 mmol/L; Vt 550; pCO2 66.6 mmHg (35-45); pH 7.23 (7.35-7.45)
[2020-02-05] MEDS: Lactated Ringers 1,000 ML 999 ML IV ×2 (09:37→11:00)
[2020-02-05 09:39] LABS: International Normalized Ratio 1.2; Prothrombin Time (Protime)PT. 14.3 SECONDS (11.7-14.9)
[2020-02-05 09:40] LABS: Partial Thromboplast Time 28.3 Seconds (24.1-36.2)
--- NOTE | 2020-02-05 10:00 | RAD_ITS ---
STUDY: X-RAY CHEST REASON FOR EXAM: Male, 74 years old. LINE PLACEMENT TECHNIQUE: Single AP portable view of the chest. COMPARISON: Comparison is made with prior examination done earlier in the day at 7:12 AM. FINDINGS: An endotracheal tube is in situ. The tip is at 4.4 cm proximal to the racheal. An orogastric tube is seen with the tip in the body the stomach. A right-sided internal jugular venous catheter has been placed. Its tip is in the midportion of the superior vena cava. Since prior study, there is been improved aeration of the right upper lobe infiltration. Mild residual changes persist. Stable consolidation in the left midlung and left lower lobe with left pleural effusion. There is shift of the heart and mediastinal structures with side of the midline suggestive of volume loss. Endotracheal obstruction should be ruled out. RAD/CXR for Line Placement IMPRESSION: The tip of the right central catheter is in the midportion of the superior vena cava. All the support tubes are in good position. Improved aeration of the right upper lobe. Stable consolidation in the left hemithorax with volume loss of the left lung. Endobronchial obstruction should be ruled out. Electronically Signed: Abdullahi Gauthier, at 10:30 EDT , Service support ,
[2020-02-05] MEDS: Ipratropium/Albuterol Sulfate 3 ML AMPUL.NEB INHALATION (10:15)
--- NOTE | 2020-02-05 10:25 | NURSING ---
Significant weight difference noted from weight in ED vs Admission weight. Pharmacy notified d/t multiple drips.
[2020-02-05] MEDS: Heparin Injection (Vial) 5,000 UNIT/ML VIAL 7500 UNIT IV (10:54)
--- NOTE | 2020-02-05 11:15 | CPS ---
Critical value was reported to Dr. Sanford and the rerun failed.
[2020-02-05 11:16] LABS: Base Excess -1 mmol/L (-2 to +2); Bicarbonate 28.3 mmol/L (22-26); Blood Gas Specimen Type ART; FI02 100; Mode AC; O2 Delivery Device Adult Vent; PO2 37 mmHG (75-100); SITE Art Line; SO2 52 % (95-99); Total Carbon Dioxide 31 mmol/L; Vt 550; pCO2 81.3 mmHg (35-45); pH 7.15 (7.35-7.45)
[2020-02-05] MEDS: Famotidine 200 MG/20 ML MDV 20 MG in 0.9% Normal Saline (Pres. free 8 ML 300 MG IV (11:23)
[2020-02-05] MEDS: Hydrocortisone Sod Succinate 100 MG/2 ML Vial 50 MG IV (11:23)
[2020-02-05] MEDS: 0.9% Saline Lock 10 ML Syringe IV ×3 (11:26→15:39)
--- NOTE | 2020-02-05 11:32 | CASEMGMT ---
Patient is from TCU. Patient is not doing well. SW checked in with RN and told her to notify SW if situation worsened and family had to come in. Tori GREGORY MSW
--- NOTE | 2020-02-05 11:47 | NURSING ---
1155 HR 119 R 20 BP 61/40 Abi Sanford and Oh present in pt room. begin thoracentesis 1158 HR 117 RR 22 BP 55/41 Repositioned patient further to RT side 1200 HR 122 RR 22 BP 58/41 1204 Draining katerina fluid 1205 HR 122 RR 22 BP 52/38 1208 HR 116 RR 17 BP 43/33 1209 Thoracentesis complete HR 115, RR 24, BP 46/30
--- NOTE | 2020-02-05 12:13 | RAD_ITS ---
STUDY: X-RAY CHEST REASON FOR EXAM: Male, 74 years old. POST THORACENTESIS TECHNIQUE: Single AP portable view of the chest. COMPARISON: Comparison is made with prior study done earlier today at 9:59 AM. FINDINGS: The endotracheal tube is in situ. The tip is at 5.1 cm proximal to the racheal. An orogastric tube is seen with the tip in the body of the stomach. EKG electrodes are seen. Since prior study, there has been expansion of the left lung. There is a persistent 9.1 cm x 8.1 cm rounded mass in the left midlung. Since prior study, there has been progressive increased right upper lobe infiltration abutting the right minor fissure. Aspiration should be ruled out. There is evidence of hyperinflation and bullous changes at the left lung base. Normal size heart. Normal mediastinum and arash. Normal visualized pulmonary arteries. There is atherosclerotic calcification of the aortic arch with tortuosity. There are diffuse degenerative changes of the visualized thoracic spine. Normal visualized ribs, clavicles, and shoulders. There is no demonstrated abnormality of the visualized soft tissue structures of the upper abdomen. RAD/Chest 1 View (Portable) IMPRESSION: All the support tubes are in good position. Interval reexpansion of the left lung with persistent 9.1 cm x 8.1 cm mass in the left mid lung. Increased consolidation in the right upper lobe adjacent to the right minor fissure. Aspiration should be ruled out. Electronically Signed: Abdullahi Gauthier, at 13:02 EDT , Service support ,
[2020-02-05 12:30] LABS: Bedside Glucose 283 mg/dL (70-110)
[2020-02-05] MEDS: Sodium Bicarbonate 8.4% 50 ML Syringe 100 MEQ IV (12:39)
[2020-02-05] MEDS: Insulin Lispro 100 UNIT/ML INSULN.PEN SC (12:56)
[2020-02-05] MEDS: Phenylephrine 40 mg/250 mL 0.9% NS CONT INF (13:09)
--- NOTE | 2020-02-05 13:36 | PHA.PHARE_ITS ---
Consult Pharmacy has been consulted to manage selected antiobiotic: Vancomycin Type of Consult: New start Suspected Infection: Sepsis, Pneumonia Labs: Sodium 135 mmol/L (136-145) L 02/05/20 05:27 Potassium 4.0 mmol/L (3.5-5.1) 02/05/20 05:27 Chloride 95 mmol/L (98-107) L 02/05/20 05:27 Carbon Dioxide 32.0 mmol/L (21.0-32.0) 02/05/20 05:27 Anion Gap 8 (5-15) 02/05/20 05:27 BUN 22 mg/dL (7-18) H 02/05/20 05:27 Creatinine 1.12 mg/dL (0.70-1.30) 02/05/20 05:27 Est GFR (MDRD) Af Amer 82 mL/min (>60) 02/05/20 05:27 Est GFR (MDRD) Non-Af 68 mL/min (>60) 02/05/20 05:27 BUN/Creatinine Ratio 19.6 RATIO (10-20) 02/05/20 05:27 Glucose 269 mg/dL (74-106) H 02/05/20 05:27 Microbiology: Microbiology 02/05/20 10:25 Sputum, Induced/Lukens Gram Stain - Final Goal Trough: 15-20 mcg/mL Pharmacy Plan for Drug Dosing: NEW START IV VANCOMYCIN Consulting Physician: Dr. Guerrero Indication: Sepsis/ HAP Goal Trough: 15-20 SrCr: 1.12 CrCl: 51 mL/min Comments: Patient initially had 1g dose in ED 02/05/20 @0735. Weight documented in the ED to be 62.5kg at that time. ICU called down to pharmacy to inform that pt's actual weight was 99.8kg. With this in mind, the patients dose of 15 mg/kg based on updated weight would be 1500mg. In leiu of giving a supplemental dose a t this time, will start scheduled dosing about 8 hours from initial dose. Trough prior to 4th total dose per protocol. Vancomcyin Dose: 1000mg IV Q12hr to start 02/05/20 @1500 (~8hrs from ED dose) Pending Level: 02/06/20 @1430 Pharmacy Service will continue to monitor and adjust dosing as required.
[2020-02-05 14:15] LABS: M R Staph aureus DNA By PCR Negative (Negative); Probe Check PASS; Specimen Processing Control PASS
[2020-02-05 14:40] LABS: Cytology, Body Fluid / CSF SEE PATHOLOGY REPORT
--- NOTE | 2020-02-05 14:44 | CHAPLAIN ---
Type of Pastoral Visit _x__ Initial Visit ___ Follow-up Visit ___ On-call Visit ___ General Patient Visit ___ Spiritual Assessment ___ Family Conference ___ Bereavement ___ Rapid Response ___ Code Blue ___ Other (describe below) Pastoral Care Referral From ___ Patient ___ Family _x__ Nurse ___ Physician ___ Flexographic Press Helper ___ Agricultural Equipment Sales Manager ___ Other (describe below) Sacrament/Intervention ___ Active listening ___ Anointing ___ Advent ___ Bereavement ___ Communion ___ Dee Dee exploration ___ ___ Life review _x__ Prayer ___ Reconciliation ___ Sacrament of Sick _x__ Supportive presence ___ Wedding _x__ Other (describe below) Pastoral Comments notified by Charge unit RN during rounds in ICU that this patient was not doing well and near end of life; RN states that family is on their way and should be here any minute; DR is present to meet with family; met family as they arrived; present during review of status by DR; offered support to family; spouse welcomes a prayer at this time; met with other family as they also arrived and provided assistance to accommodate family in room; made other visits in unit and returned to check on family several times during this shift; family is together and appropriately beginning the grief process; gave family lap robe for comfort care
[2020-02-05 15:39] LABS: Body Fluid Mononuclear WBC # 0.581 10^3/uL; Body Fluid Mononuclear WBC % 94.3 %; Body Fluid Polynuclear WBC # 0.035 10^3/uL; Body Fluid Polynuclear WBC % 5.7 %; Body Fluid Total Cells Counted 0.641 10^3/ul; Red Cell Count/Body Fluid 0.004 10^6/ul; White Blood Count/Body Fluid 0.616 10^3/uL
[2020-02-05 15:56] LABS: Auto B Fluid Analyzer BKGD Ct COUNTS W/IN LIMITS (W/IN LIMITS)
[2020-02-05 15:57] LABS: Color/Body Fluid YELLOW; Source- Body Fluid THORACENTESIS
--- NOTE | 2020-02-05 16:26 | CHAPLAIN ---
Type of Pastoral Visit ___ Initial Visit ___ Follow-up Visit ___ On-call Visit ___ General Patient Visit ___ Spiritual Assessment ___ Family Conference _x__ Bereavement ___ Rapid Response ___ Code Blue ___ Other (describe below) Pastoral Care Referral From ___ Patient ___ Family ___ Nurse ___ Physician ___ Manager Surgery ___ Registered Account Administrator ___ Other (describe below) Sacrament/Intervention ___ Active listening ___ Anointing ___ Amish _x__ Bereavement ___ Communion ___ Dee Dee exploration ___ ___ Life review _x__ Prayer ___ Reconciliation ___ Sacrament of Sick _x__ Supportive presence ___ Wedding ___ Other (describe below) Pastoral Comments many family members gathered together; grieving appropriately as has occurred in last few minutes; CUSTOMER DEVELOPMENT MANAGER is making finger prints for family; spouse welcomes a prayer for family; presence given
[2020-02-05 16:38] LABS: Appearance/Body Fluid CLEAR
[2020-02-05 16:54] LABS: Lymphocytes 84 %; Monocytes 7 %; Neutrophil (Segs) 9 %
[2020-02-05 16:56] LABS: Body Fluid QC Type(s) BF3Q
[2020-02-06 13:45] LABS: Pathologist Comment/Body Fluid Reviewed
--- NOTE | 2020-02-07 07:39 | PCM.DEATH ---
Preliminary Cause of Septic shock secondary to healthcare acquired pneumonia Date of Admission: 01/25/20 Date of : 01/26/20 - Principle Diagnosis #1 septic shock secondary to healthcare acquired pneumonia-Enterobacter aerogenes #2 acute combined respiratory failure secondary to septic shock and healthcare acquired pneumonia #3 non-small cell lung cancer #4 Healthcare acquired pneumonia-organism unknown #5 chronic obstructive pulmonary disease #6 type 2 diabetes Hospital Course 74-year-old white male was evaluated in the emergency room at [facility] [place] after being transferred from the TCU unit at [facility] [place] due to respiratory distress, while in the emergency room, patient's respiratory status declined and he had to be intubated, chest x-ray showed a large area in the left lung which appear to be fluid and possible pneumonia, there is also noted to be an infiltrate in the right upper lung also. Patient's white blood cell count was elevated, lactic acid was normal. Discussions were carried out with family members by pulmonary medicine and the emergency room physician, patient was transferred to ICU where his status deteriorated and he had to be placed on pressors. A thoracentesis was performed on the left pleural space, over thousand cc of fluid was removed and afterwards the area showed a large neoplasm in the left lung which was known to be present along with pneumonia. Further discussions were carried out with the patient's family and the patient's family decided to make the patient a DNR CC arrest, despite aggressive care by critical care including pressors and fluid and antibiotics, the patient deteriorated and finally at 3:50 PM on 02/05/2020. Family requested no autopsy, cause of was septic shock secondary to healthcare acquired pneumonia as the patient had been recently discharged from hospitalization. OBSV E&M: [id number] Observ/hosp same date L3
[2020-02-12 15:48] LABS: Glucose, Body Fluid 308 mg/dL (40-70); LDH,Body Fluid 242 Units/l (Not Establ.)
== END 2020-02-05 15:50 | DRG 871 ==
LOC: ED 06:21 → ICU 07:16
PROVIDERS: Internal Medicine Critical Care Medicine; Admitting Provider Internal Medicine; Emergency Provider Student in an Organized Health Care Education/Training Program; PCP Family Medicine; Visit Provider Internal Medicine
DX: A41.50 Gram-negative sepsis, unspecified (principal); R65.21 Severe sepsis with septic shock; J96.00 Acute respiratory failure, unspecified whether with hypoxia or hypercapnia; J96.21 Acute and chronic respiratory failure with hypoxia; J15.6 Pneumonia due to other Gram-negative bacteria; C34.92 Malignant neoplasm of unspecified part of left bronchus or lung; J44.0 Chronic obstructive pulmonary disease with (acute) lower respiratory infection; J91.0 Malignant pleural effusion; Y95 Nosocomial condition; E11.9 Type 2 diabetes mellitus without complications; I10 Essential (primary) hypertension; E78.5 Hyperlipidemia, unspecified; G47.30 Sleep apnea, unspecified; F32.9 Major depressive disorder, single episode, unspecified; E66.9 Obesity, unspecified; Z79.4 Long term (current) use of insulin; Z79.51 Long term (current) use of inhaled steroids; Z79.84 Long term (current) use of oral hypoglycemic drugs; Z79.82 Long term (current) use of aspirin; Z79.899 Other long term (current) drug therapy; Z87.891 Personal history of nicotine dependence
CPT/HCPCS: 31500; 31720; 36600; 51702; 71045; 80053; 81001; 82803; 82945; 82962; 83605; 83615; 83880; 84156; 84157; 84484; 85025; 85610; 85730; 87040; 87070; 87075; 87077; 87086; 87186; 87205; 87641; 88108; 88305; 88313; 88341; 88342; 89050; 93005; 94002; 94640; 97802; 99285; J7030; J7040; J7050; J7120; A4216; C1751; J0153; J3010; J3490